=== PATIENT | male | born 1935 | race Caucasian/White ===

== ENCOUNTER 2016-05-18 09:08 | Emergency (ER) | payer OTHER ==
[2016-05-18 09:12] VITALS: BP 108/62; PULSE 60; O2SAT 98
--- NOTE | 2016-05-18 09:34 | EDPHY ---
H & P Stated Complaint: G tube came out again;needs new one Source: Patient Exam Limitations: No limitations - Personal History Current Tetanus Diphtheria and Acellular Pertussis (TDAP): Yes - Medical/Surgical History Hx Asthma: No Hx Chronic Respiratory Disease: Yes Hx Diabetes: No Hx Cardiac Disease: No Hx Renal Disease: No Hx Cirrhosis: No Hx Alcoholism: Yes Hx HIV/AIDS: No Hx Splenectomy or Spleen Trauma: No Other PMH: CA LARYNX. CHF. HTN. lipids. hyponatremia. PUD/GI bleed - Family History Significant Family History: No pertinent family hx - Social History Smoking Status: Former smoker Alcohol Use: None Drug Use: None Time Seen by Provider: 05/18/16 09:28 HPI/ROS: HPI: 81-year-old gentleman presents to emergency department with chief concern my feeding tube fell out because sick got deflated. He has no fever, no shortness of breath no abdominal pain no nausea, no vomiting, no diarrhea, no other complaints. ROS:10 point review of systems is negative other than as stated in HPI (Codie Phillips) - Social History Additional Social History: Lives alone in [place] (Codie Phillips) - Physical Exam Exam: Vital signs stable, reviewed by me General: Awake, alert, calm, cooperative. No acute distress. Head: Normalocephalic. Atraumatic. EENT: PERRLA. EOMI. No pallor or injection. Anicteric. No nystagmus. Neck: Supple, nontender. No lymphadenopathy. Full range of motion. Respiratory: Breathing unlabored. Breath sounds scattered rhonchi. CV: Chest nontender, atraumatic. Heart rate regular. No murmur. GI: Abdomen soft, nontender, no rebound, no guarding.. Bowel sounds normoactive and positive x 4 quadrants. Right abdominal stoma Neuro: Alert. Oriented x 3. Speech clear. Nonfocal cranial nerves throughout. Sensation intact all extremities. Strength 5+ all extremities. Follows commands. Skin: Skin warm, dry, right abdominal stoma without erythema. No rashes, abrasions, or lacerations. Skin turgor normal. Extremities: Full range of motion in all 4 extremities. Mental status: Interactive, appropriate, well-groomed. (Codie Phillips) Constitutional: Initial Vital Signs Temperature (C) 36.7 C 05/18/16 09:10 Heart Rate 60 05/18/16 09:10 Respiratory Rate 18 05/18/16 09:10 Blood Pressure 108/62 05/18/16 09:10 O2 Sat (%) 98 05/18/16 09:10 O2 Delivery Mode Nasal Cannula O2 (L/minute) 2 Allergies/Adverse Reactions: No Known Allergies Allergy (Verified 05/18/16 09:09) Home Medications: Medication Instructions Recorded Eszopiclone [LUNESTA] 3 mg PO HS PRN 07/03/11 Fenofibrate [Tricor 145 mg (*)] 145 mg PO DAILY 07/03/11 Amlodipine Besylate/Benazepril 1 each PO DAILY 07/26/13 [Amlodipine-Benazepril 10-20 mg] Aspirin [Aspirin 81mg (*)] 81 mg PO DAILY #30 tab 08/02/13 Atenolol [Tenormin 50 mg (*)] 50 mg PO DAILY #30 tab 08/02/13 Pantoprazole Sodium [Protonix 40mg 40 mg PO DAILY #30 tab 08/02/13 (*)] Levothyroxine 02/21/16 Medical Decision Making ED Course/Re-evaluation: 81-year-old gentleman presents to emergency department needing his PEG tube replaced. It came out last night because it was deflated. Abdominal stoma without evidence of infection. It was replaced by my colleague Dr. Osvaldo Sanders without incident. Patient tolerated procedure. Case management has been consulted as this patient presents to emergency department frequently for PEG tube placement. (Codie Phillips) Differential Diagnosis: Peg tube dysfunction, peg tube malalignment (Codie Phillips) Other Provider: I evaluated and participated in the management of the patient. I also evaluated the patient independently. My co-signature indicates that I have reviewed this chart and I agree with the findings and plan of care as documented. My personal H&P findings include: The patient presents to the ED with dysfunction his gastrostomy tube. The patient had failure of the balloon. The patient has a well-established tract. He has no acute complaints. Physical examination demonstrated a soft nontender abdomen. His G-tube was easily replaced. Gastric contents were noted to be in the tube following replacement. It was secured to the abdominal wall via the typical bolster. The patient will be discharged home with customary aftercare instructions and return precautions. (Osvaldo Sanders) Departure - Departure Disposition: Home, Routine, Self-Care Clinical Impression: Encounter for G-tube replacement Condition: Good Instructions: How to Use and Care for Your PEG Tube (ED) Additional Instructions: Plan: Follow up with primary care this week Referrals: Dutch Serrato MD [Primary Care Provider] - As per Instructions
[2016-05-18 10:28] VITALS: RESP 14; TEMP 97.9
== END 2016-05-18 10:27 | disposition home or self-care (01) ==
PROC: 0DH63UZ Insertion of Feeding Device into Stomach, Percutaneous Approach (ICD-10-PCS; principal; 2016-05-18)
DX: Z46.59 Encounter for fitting and adjustment of other gastrointestinal appliance and device (principal); I10 Essential (primary) hypertension; I50.9 Heart failure, unspecified; Z87.891 Personal history of nicotine dependence; Z79.82 Long term (current) use of aspirin

== ENCOUNTER 2016-10-28 15:18 | Inpatient (IN) | payer OTHER ==
[2016-10-28] MEDS ORDERED: NS 1,000 ML IV ONE ×2 (15:42→16:46)
--- NOTE | 2016-10-28 15:45 | EDPHY ---
H & P Time Seen by Provider: 10/28/16 15:22 HPI/ROS: CHIEF COMPLAINT: Weakness. HISTORY OF PRESENT ILLNESS: The patient is an 81-year-old male with history of larynx cancer and HTN, who presents with increased weakness for the past few days, worse today. Unable to walk today. The patient had two episodes of diarrhea this morning. During one episode he lost control of his bowels. He has a feeding tube and states he has been using it accordingly, though he complains that it leaks. According to the patient's friend, the patient drinks a heavy amount of vodka. He had an endoscopy two weeks ago. She is unsure if he has had any alcohol since the endoscopy. The patient's only recent change is drinking a large amount of orange juice and orange soda lately. He wears 2L O2 chronically and states he has a chronic cough. No fever. History is limited because patient is a very poor historian. REVIEW OF SYSTEMS: A comprehensive 10 point review of systems is otherwise negative aside from elements mentioned in the history of present illness. Past Medical/Surgical History: Hypertension, Hyponatremia, Larynx cancer, PUD/GI Bleed Social History: Heavy alcohol use. 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 Smoking Status: Former smoker Physical Exam: General Appearance: Alert, pleasant, sitting up, slightly pale Eyes: Pupils equal and round, no conjunctival injection ENT, Mouth: Oropharynx is dry Neck: Normal inspection Respiratory: Rales at the bases bilaterally Cardiovascular: Regular rate and rhythm Gastrointestinal: Abdomen is soft and non-tender, Feeding tube in place Neurological: A&O, nonfocal exam Skin: Pale appearing Extremities: Nontender, no pedal edema Psychiatric: flat affect Constitutional: Initial Vital Signs Temperature (C) 36.5 C 10/28/16 15:27 Heart Rate 65 10/28/16 15:27 Respiratory Rate 16 10/28/16 15:27 Blood Pressure 55/40 L 10/28/16 15:27 O2 Sat (%) 91 L 10/28/16 15:27 O2 Delivery Mode Nasal Cannula O2 (L/minute) 95 Allergies/Adverse Reactions: No Known Allergies Allergy (Verified 05/18/16 09:09) Home Medications: Medication Instructions Recorded Fenofibrate [Tricor 145 mg (*)] 145 mg PO DAILY 07/03/11 Amlodipine Besylate/Benazepril 1 each PO DAILY 07/26/13 [Amlodipine-Benazepril 10-20 mg] Aspirin [Aspirin 81mg (*)] 81 mg PO DAILY #30 tab 08/02/13 Levothyroxine [Synthroid 50 mcg 50 mcg PO DAILY06 02/21/16 (*)] Atenolol [Tenormin 100 mg (*)] 100 mg PO DAILY 10/28/16 Medical Decision Making - Diagnostics EKG Interpretation: EKG interpreted by me reveals normal sinus rhythm, rate 63, diffuse T-wave changes. Imaging Results: Imaging Impressions Chest X-Ray 10/28/16 15:43 Impression: Patchy bilateral lower lobe infiltrates, potentially representing scarring or atelectasis, less conspicuous when compared to prior study.. Imaging: Discussed imaging studies w/ glass cut off tender Radiologist, I viewed and interpreted images myself ED Course/Re-evaluation: This patient presents with hypotension and generalized weakness. Pressure is 60s /40s. He is 90% on 4L O2, his baseline is 2L. IV normal saline 1 L given. Plan for lab work including CBC, BMP, Troponin, Lipase, and LFTs. Stat EKG reveals no evidence of dysrhythmia or ischemia. He has not recently been ill and I do not suspect sepsis. On exam patient has rales at the bases, chest x- ray ordered. iSTAT shows elevated glucose in the 600s. No prior history of diabetes, the looking back in his prior laboratory tests, his blood sugar has been mildly elevated for quite some time. Insulin 10 units regular IV regular given. Patient has received 500ccs of fluid, his color is improving, and his blood pressure is improving. Patient is tolerating fluids well. 1630: Patient's pressure has improved to 91/56. Lab work consistent with dehydration and hyperglycemia. BGL is 603. No evidence of DKA; bicarb is normal. The hospitalist service was consulted. Patient will be admitted to the hospitalist, Dr. Oswald. 1615: I discussed findings and plan for admission with the patient and his friend. Differential Diagnosis: Differential diagnosis includes though not limited to severe sepsis, pneumonia, GI hemorrhage, DKA. - Data Points Laboratory Results: Laboratory Results 10/28/16 15:56 10/28/16 15:56 07/14/17 07/14/17 07/14/17 15:56 15:56 15:56 WBC 15.17 10^3/uL H 10^3/uL (3.80-9.50) RBC 4.31 10^6/uL L 10^6/uL (4.40-6.38) Hgb 14.1 g/dL g/dL (13.7-17.5) POC Hgb Hct 44.9 % % (40.0-51.0) POC Hct MCV 104.2 fL H fL (81.5-99.8) MCH 32.7 pg pg (27.9-34.1) MCHC 31.4 g/dL L g/dL (32.4-36.7) RDW 12.4 % % (11.5-15.2) Plt Count 437 10^3/uL H 10^3/uL (150-400) MPV 11.9 fL H fL (8.7-11.7) Neut % (Auto) 93.3 % H % (39.3-74.2) Lymph % (Auto) 2.1 % L % (15.0-45.0) [place] % (Auto) 3.6 % L % (4.5-13.0) Eos % (Auto) 0.0 % L % (0.6-7.6) Baso % (Auto) 0.2 % L % (0.3-1.7) Nucleat RBC Rel Count 0.0 % % (0.0-0.2) Absolute Neuts (auto) 14.15 10^3/uL H 10^3/uL (1.70-6.50) Absolute Lymphs (auto) 0.32 10^3/uL L 10^3/uL (1.00-3.00) Absolute Monos (auto) 0.55 10^3/uL 10^3/uL (0.30-0.80) Absolute Eos (auto) 0.00 10^3/uL L 10^3/uL (0.03-0.40) Absolute Basos (auto) 0.03 10^3/uL 10^3/uL (0.02-0.10) Absolute Nucleated RBC 0.00 10^3/uL 10^3/uL (0-0.01) Immature Gran % 0.8 % % (0.0-1.1) Immature Gran # 0.12 10^3/uL H 10^3/uL (0.00-0.10) POC Sodium Sodium 157 mEq/L H mEq/L (134-144) POC Potassium Potassium 4.2 mEq/L mEq/L (3.5-5.2) POC Chloride Chloride 111 mEq/L H mEq/L (97-110) Carbon Dioxide 29 mEq/l mEq/l (22-31) Anion Gap 17 mEq/L H mEq/L (8-16) POC BUN BUN 83 mg/dL H mg/dL (7-23) Creatinine 1.7 mg/dL H mg/dL (0.7-1.3) POC Creatinine Estimated GFR 39 Glucose 650 mg/dL H* mg/dL (70-100) POC Glucose Hemoglobin A1c Estim Average Glucose Calcium 9.4 mg/dL mg/dL (8.5-10.4) Phosphorus 5.3 mg/dL H mg/dL (2.5-4.5) Magnesium 3.4 mg/dL H mg/dL (1.6-2.3) Total Bilirubin 0.6 mg/dL mg/dL (0.1-1.4) Conjugated Bilirubin 0.5 mg/dL mg/dL (0.0-0.5) Unconjugated Bilirubin 0.1 mg/dL mg/dL (0.0-1.1) AST 28 IU/L IU/L (17-59) ALT 25 IU/L IU/L (21-72) Alkaline Phosphatase 67 IU/L IU/L (38-126) Troponin I 0.043 ng/mL H ng/mL (0-0.034) Total Protein 6.1 g/dL L g/dL (6.3-8.2) Albumin 3.4 g/dL L g/dL (3.5-5.0) Lipase 16.0 IU/L L IU/L (23-300) Beta-Hydroxybutyrate 0.31 mmol/L H mmol/L (0.02-0.27) 10/28/16 10/28/16 15:50 15:50 WBC RBC Hgb POC Hgb 15.3 gm/dL gm/dL (13.7-17.5) Hct POC Hct 45 % % (40-51) MCV MCH MCHC RDW Plt Count MPV Neut % (Auto) Lymph % (Auto) [place] % (Auto) Eos % (Auto) Baso % (Auto) Nucleat RBC Rel Count Absolute Neuts (auto) Absolute Lymphs (auto) Absolute Monos (auto) Absolute Eos (auto) Absolute Basos (auto) Absolute Nucleated RBC Immature Gran % Immature Gran # POC Sodium 155 mEq/L H mEq/L (134-144) Sodium POC Potassium 4.1 mEq/L mEq/L (3.3-5.0) Potassium POC Chloride 110 mEq/L mEq/L (97-110) Chloride Carbon Dioxide Anion Gap POC BUN 72 mg/dL H mg/dL (7-23) BUN Creatinine POC Creatinine 1.8 mg/dL H mg/dL (0.7-1.3) Estimated GFR Glucose POC Glucose 603 mg/dL H* mg/dL (70-100) Hemoglobin A1c 8.1 % H D % (4.0-6.0) Estim Average Glucose 186 mg/dL H mg/dL (68-126) Calcium Phosphorus Magnesium Total Bilirubin Conjugated Bilirubin Unconjugated Bilirubin AST ALT Alkaline Phosphatase Troponin I Total Protein Albumin Lipase Beta-Hydroxybutyrate Medications Given: Discontinued Medications Sodium Chloride (Ns) 1,000 mls @ 0 mls/hr IV ONCE ONE; Wide Open PRN Reason: Protocol Stop: 10/28/16 15:43 Last Admin: 10/28/16 16:13 Dose: 1,000 mls Sodium Chloride (Ns) 1,000 mls @ 0 mls/hr IV ONCE ONE; Wide Open PRN Reason: Protocol Stop: 10/28/16 16:47 Last Admin: 10/28/16 17:10 Dose: 1,000 mls Insulin Human Regular (Humulin R) 10 unit IVP EDNOW ONE Stop: 10/28/16 16:59 Last Admin: 10/28/16 17:09 Dose: 10 unit Point of Care Test Results: 10/28/16 15:50 POC Sodium 155 H POC Potassium 4.1 POC Chloride 110 POC BUN 72 H POC Creatinine 1.8 H POC Glucose 603 H* Departure - Departure Disposition: [facility] Acute Clinical Impression: Hyperglycemia, Dehydration Condition: Fair Report Scribed for: Naomi Cagle Report Scribed by: America Aguero Date of Report: 10/28/16 Time of Report: 15:38 Physician Review and Approval Statement: 10/28/16 15:38 Portions of this note were transcribed by a medical claims assistant. I personally performed the history, physical exam, and medical decision-making; and confirmed the accuracy of the information in the transcribed note.
--- NOTE | 2016-10-28 15:55 | CPEKG ---
Heart Rate: 63 RR Interval: 952 P-R Interval: 184 QRSD Interval: 80 QT Interval: 444 QTC Interval: 455 P [place] Cbc Base: 10 QRS [place] Cbc Base: -14 T Wave [place] Cbc Base: -49 EKG Severity - ABNORMAL ECG - EKG Impression: SINUS RHYTHM EKG Impression: NONSPECIFIC T ABNORMALITIES, DIFFUSE LEADS Electronically Signed By: Rohit Fairchild 28-Oct-2016 21:04:36
[2016-10-28 16:11] LABS: % IMMATURE GRANULYOCYTES 0.8 % (0.0-1.1); ABSOLUTE IMMATURE GRANULOCYTES 0.12 10^3/uL (0.00-0.10); ADD DIFF? NO; ADD MORPH? NO; ADD SCAN? NO; ATYPICAL LYMPHOCYTE FLAG 0 (0-99); FRAGMENT RBC FLAG 0 (0-99); HEMATOCRIT 44.9 % (40.0-51.0); HEMOGLOBIN 14.1 g/dL (13.7-17.5); LEFT SHIFT FLG 0 (0-99); LIPEMIA HEMOLYSIS FLAG 80 (0-99); MEAN CELL HEMOGLOBIN 32.7 pg (27.9-34.1); MEAN CELL HEMOGLOBIN CONCENTR. 31.4 g/dL (32.4-36.7); MEAN CELL VOLUME 104.2 fL (81.5-99.8); MEAN PLATELET VOLUME 11.9 fL (8.7-11.7); PLATELET CLUMPS FLAG 0 (0-99); PLATELET COUNT 437 10^3/uL (150-400); RED BLOOD CELL COUNT 4.31 10^6/uL (4.40-6.38); RED CELL DISTRIBUTION WIDTH 12.4 % (11.5-15.2)
[2016-10-28 16:24] LABS: ALANINE AMINOTRANSFERASE 25 IU/L (21-72); ALBUMIN 3.4 g/dL (3.5-5.0); ALKALINE PHOSPHATASE 67 IU/L (38-126); ANION GAP 17 mEq/L (8-16); ASPARTATE AMINOTRANSFERASE 28 IU/L (17-59); BILIRUBIN,TOTAL 0.6 mg/dL (0.1-1.4); BILIRUBIN-CONJUGATED 0.5 mg/dL (0.0-0.5); BILIRUBIN-UNCONJUGATED 0.1 mg/dL (0.0-1.1); CALCIUM 9.4 mg/dL (8.5-10.4); CARBON DIOXIDE 29 mEq/l (22-31); CHLORIDE 111 mEq/L (97-110); CREATININE 1.7 mg/dL (0.7-1.3); GLOMERULAR FILTRATION RATE 39; POTASSIUM 4.2 mEq/L (3.5-5.2); SODIUM 157 mEq/L (134-144); TOTAL PROTEIN 6.1 g/dL (6.3-8.2)
[2016-10-28 16:39] LABS: TROPONIN I 0.043 ng/mL (0-0.034)
[2016-10-28 16:58] LABS: GLUCOSE 650 mg/dL (70-100)
[2016-10-28] MEDS ORDERED: INSULIN REGULAR HUMAN 100 UNIT/ML IVP ONE (16:58)
[2016-10-28 17:03] LABS: HEMOGLOBIN A1C 8.1 % (4.0-6.0)
[2016-10-28 17:15] LABS: MAGNESIUM 3.4 mg/dL (1.6-2.3)
[2016-10-28 17:48] LABS: B-HYDROXYBUTYRATE 0.31 mmol/L (0.02-0.27)
[2016-10-28] MEDS ORDERED: ONDANSETRON 4 MG/2 ML VIAL IVP PRN (20:54)
[2016-10-28] MEDS ORDERED: ONDANSETRON DISINTEGRATING 4 MG TAB PO PRN (20:54)
[2016-10-28] MEDS ORDERED: ACETAMINOPHEN 325 MG TAB PO PRN (20:54)
[2016-10-28] MEDS ORDERED: D50W 25 GM/50 ML SYR IVP PRN (20:57)
[2016-10-28] MEDS ORDERED: INSULIN GLARGINE 100 UNITS/ML SYRINGE SC SCH (21:00)
--- NOTE | 2016-10-28 21:25 | GHP ---
[f rep st] HISTORY AND PHYSICAL DATE OF ADMISSION: 10/28/2016 CHIEF COMPLAINT: Shortness of breath, weakness. HISTORY OF PRESENT ILLNESS: This is an 81-year-old male with a history of laryngeal cancer, who castro s have a chronic PEG tube placed. He presents with overall weakness but also says that his oxygen s aturation was low at home. He usually uses 2 L of oxygen. He does not admit to any polyuria or amarilis ydipsia. He is drinking a lot of orange juice and orange soda over the last few weeks. No fevers o r chills. No previous history of diabetes. No abdominal pain. No cough. REVIEW OF SYSTEMS: A 10-point review of systems was obtained, and other than stated above, is negat brigida. PAST MEDICAL HISTORY: 1. Laryngeal cancer status post radiation. 2. Hypertension. 3. History of peptic ulcer disease and GI bleed. 4. Hypothyroidism. 5. COPD. 6. History of alcohol abuse. 7. History of chronic hyponatremia. SOCIAL HISTORY: Lives alone. Quit tobacco. vodka. FAMILY HISTORY: Reviewed and noncontributory. PHYSICAL EXAMINATION: VITAL SIGNS: Afebrile, blood pressure is 121/70, heart rate 87, oxygen satur ation is 92% on 4 L. GENERAL: The patient is well developed, in no apparent distress. HEENT: Non icteric sclerae. Extraocular movements intact. Dry mucous membranes. NECK: Supple. No thyromega ly. LUNGS: Good effort. Clear to auscultation but decreased breath sounds. No wheezes. CARDIOVA SCULAR: Regular rate and rhythm. No murmurs, gallops. ABDOMEN: Positive bowel sounds. Soft, non tender, nondistended. G-tube is in place. EXTREMITIES: No clubbing, cyanosis, or edema. SKIN: W ithout rash, dry, intact. NEUROLOGIC: Alert and oriented x3. Moving all 4 extremities equally. P SYCH: Normal mood and affect. LABORATORY AND X-RAY DATA: White blood cell count elevated at 15, hemoglobin 14, platelets 437. So dium is 157, BUN 83, creatinine 1.7, glucose was 650. Hemoglobin A1c is 8. Troponin slightly eleva ezra 0.043. EKG personally reviewed and interpreted shows normal sinus rhythm with no ischemic de la rosa es. Chest x-ray personally viewed and interpreted shows some patchy bilateral infiltrates that were actually there in 2014, which could represent scarring. ASSESSMENT: This is an 81-year-old male presenting with hyperglycemia, dehydration, hypernatremia. PLAN: 1. Hyperosmolar hyperglycemia. The patient's blood sugar is coming down well with some insulin. H emoglobin A1c is not that high at 8. It could be he could of had some hyperglycemia/prediabetes or diabetes but it really got exacerbated over the last few weeks when he has been drinking a lot of or rema soda a lot of orange juice. Tonight, I am going to give him a dose of Lantus. Could be discha rged perhaps on oral medications though. 2. Acute renal failure. This is due to dehydration. Will continue IV fluids. 3. Hypernatremia. I suspect that he might not be drinking enough free water, overall, or not flush ing his PEG tube enough in combination with alcohol abuse. We would want to decrease this slowly. I am going to start a little bit of half-normal saline overnight and see what his sodium does with t hat. He may need D5W eventually to bring his sodium down. We could also add free water to his PEG tube as boluses. We will see what his sodium is tomorrow. 4. History of laryngeal cancer with feeding tube. Apparently, this needs to be changed at some poi nt. 5. Hypertension. Will continue his medications. 6. Shortness of breath. This could be due to his dehydration. His chest x-ray is not showing any new pneumonia; however, his white blood cell count is elevated. Will give fluids and see how he fee ls and see if we can get his oxygen requirement down. I am going to hold off on any antibiotics. 7. Admission. Patient will be admitted full admission status. Case discussed with ER physician. Old records reviewed and summarized in the HPI. /[id number]/MODL
[2016-10-28] MEDS: 1/2 NS 1,000 ML IV SCH ×2 (23:06→23:09)
[2016-10-29] MEDS ORDERED: ZOLPIDEM TARTRATE 5 MG TAB PO PRN (00:08)
[2016-10-29 01:55] LABS: COLOR YELLOW; LEUKOCYTE ESTERASE,URINE NEGATIVE (NEGATIVE); NITRITE,URINE NEGATIVE (NEGATIVE)
[2016-10-29 01:58] LABS: BACTERIA TRACE /hpf (NONE SEEN); MUCUS TRACE /lpf (NONE-1+)
[2016-10-29 05:19] LABS: % IMMATURE GRANULYOCYTES 0.7 % (0.0-1.1); ADD DIFF? NO; ADD MORPH? NO; ADD SCAN? NO; ATYPICAL LYMPHOCYTE FLAG 0 (0-99); FRAGMENT RBC FLAG 0 (0-99); HEMATOCRIT 42.6 % (40.0-51.0); HEMOGLOBIN 13.4 g/dL (13.7-17.5); LEFT SHIFT FLG 30 (0-99); LIPEMIA HEMOLYSIS FLAG 80 (0-99); MEAN CELL HEMOGLOBIN 33.3 pg (27.9-34.1); MEAN CELL HEMOGLOBIN CONCENTR. 31.5 g/dL (32.4-36.7); MEAN PLATELET VOLUME 11.4 fL (8.7-11.7); PLATELET CLUMPS FLAG 0 (0-99); PLATELET COUNT 326 10^3/uL (150-400); RED BLOOD CELL COUNT 4.02 10^6/uL (4.40-6.38); RED CELL DISTRIBUTION WIDTH 12.4 % (11.5-15.2)
[2016-10-29 05:40] LABS: TROPONIN I 0.053 ng/mL (0-0.034)
[2016-10-29] MEDS ORDERED: LEVOTHYROXINE 50 MCG TAB PO SCH (06:00)
[2016-10-29] MEDS ORDERED: FENOFIBRATE 145 MG TAB PO SCH (09:00)
[2016-10-29] MEDS ORDERED: AMLODIPINE BESYLATE 5/BENAZEPRIL 10MG 1 EACH CAP PO SCH (09:00)
[2016-10-29] MEDS ORDERED: ATENOLOL 100 MG TAB PO SCH (09:00)
[2016-10-29] MEDS ORDERED: ASPIRIN 81 MG CHEWABLE TAB PO SCH (09:00)
[2016-10-29] MEDS: ENOXAPARIN 30 MG/0.3 ML SYR SC SCH (09:38)
[2016-10-29] MEDS: INSULIN LISPRO 100 UNIT/ML SC SCH ×3 (09:50→18:53)
[2016-10-29] MEDS: 1/2 NS 1,000 ML IV SCH (10:20)
[2016-10-29 12:09] LABS: ANION GAP 8 mEq/L (8-16); CALCIUM 8.5 mg/dL (8.5-10.4); CARBON DIOXIDE 29 mEq/l (22-31); CHLORIDE 121 mEq/L (97-110); GLOMERULAR FILTRATION RATE > 60; GLUCOSE 145 mg/dL (70-100); POTASSIUM 3.2 mEq/L (3.5-5.2); SODIUM 158 mEq/L (134-144)
[2016-10-29] MEDS ORDERED: guaiFENesin 200 MG/10 ML UDL PO PRN (12:33)
--- NOTE | 2016-10-29 12:42 | HOSPPROG ---
Hospitalist Progress Note Assessment/Plan: # severe hypernatremia - correcting nicely on 2NS - continue for now - will need to evaluate his free H2O flushed via PEG, would like to correct hyperNa with IVF currently (do not start flushes) - goal Na for tomorrow am = 152 # PEG tube malfunction - will d/w GI; sees Dr Urena; likely needs to be replaced # hyperglycemia - likely d/t diet with some underlying DM - much better; hold glargine, follow with SSI # hx laryngeal cancer # JUAN RAMON, pre-renal - much improved with IVF # hypoK - replete with IVF # leukocytosis - no clear infection, follow # hypotension - hold amlodipine, benazepril, atenolol # bradycardia - hold atenolol # weakness d/t combination of the above - PT # elevated trop - T-wave abnormalities on ECG; doubt ACS, suspect demand - recheck another trop; consider stress, inpatient vs outpt # dvt ppx - lovenox Subjective: still weak; says his PEG has been falling out Objective: Vital Signs Temp Pulse Resp BP Pulse Ox 36.7 C 50 L 21 H 100/57 L 92 10/29/16 11:50 10/29/16 11:50 10/29/16 11:50 10/29/16 11:50 10/29/16 11:50 Laboratory Results 10/29/16 04:46 10/29/16 11:43 10/28/16 10/29/16 10/30/16 05:59 05:59 05:59 Intake Total 3000 Output Total 1 Balance 3000 -1 chart reviewed; ECG personally reviewed; CXR personally reviewed - Physical Exam Constitutional: chronically ill appearing Cardiovascular: regular rate and rhythym, no murmur, rub, or gallop Respiratory: no respiratory distress, no rales or rhonchi, clear to auscultation Gastrointestinal: normoactive bowel sounds, soft, non-tender abdomen, other (PEG ; ventral hernia, easily reduced) ICD10 Worksheet Patient Problems: Problems Problem Status Onset Vomiting Acute Feeding tube dysfunction Acute Hyperglycemia Acute Dehydration Acute
[2016-10-29] MEDS ORDERED: D5W 1/2 NS W/ 20 KCl/L 1,000 ML IV SCH (12:45)
[2016-10-29] MEDS ORDERED: ONDANSETRON DISINTEGRATING 4 MG TAB TUBE PRN (12:48)
[2016-10-29] MEDS ORDERED: ACETAMINOPHEN 325 MG TAB TUBE PRN (12:48)
--- NOTE | 2016-10-29 15:19 | SOAPPROG ---
SOAP Progress Note Assessment/Plan: Assessment: Plan: 10/29/16 15:15 GI note Feeding tube is easily pulled out according to patient. PEG Replacement: Old Peg tube pulled easily. Appears to have defective balloon which does not inflate completely. 24 Fr Bard replacement placed easily in tract. 10cc of saline used to inflate the balloon. PEG appears to be in good position. Bumper pulled to 3mm. Meds: None EBL: None Recommend PEG study before using tube. Discussed with hospitalist. Objective: Vital Signs Temp Pulse Resp BP Pulse Ox 36.7 C 50 L 21 H 100/57 L 92 10/29/16 11:50 10/29/16 11:50 10/29/16 11:50 10/29/16 11:50 10/29/16 11:50 Laboratory Results 10/29/16 04:46 10/29/16 11:43 10/28/16 10/29/16 10/30/16 05:59 05:59 05:59 Intake Total 3000 Output Total 1 Balance 3000 -1 ICD10 Worksheet Patient Problems: Problems Problem Status Onset Dehydration Acute Hyperglycemia Acute Feeding tube dysfunction Acute Vomiting Acute
[2016-10-29] MEDS: guaiFENesin 200 MG/10 ML UDL TUBE PRN (18:21)
[2016-10-29 19:17] LABS: ANION GAP 11 mEq/L (8-16); CALCIUM 8.7 mg/dL (8.5-10.4); CARBON DIOXIDE 26 mEq/l (22-31); CHLORIDE 120 mEq/L (97-110); GLOMERULAR FILTRATION RATE > 60; GLUCOSE 112 mg/dL (70-100); POTASSIUM 3.4 mEq/L (3.5-5.2); SODIUM 157 mEq/L (134-144)
[2016-10-29] MEDS: ZOLPIDEM TARTRATE 5 MG TAB TUBE PRN (22:43)
[2016-10-30 00:16] LABS: ANION GAP 10 mEq/L (8-16); CALCIUM 8.1 mg/dL (8.5-10.4); CARBON DIOXIDE 25 mEq/l (22-31); CHLORIDE 121 mEq/L (97-110); GLOMERULAR FILTRATION RATE > 60; GLUCOSE 227 mg/dL (70-100); POTASSIUM 3.7 mEq/L (3.5-5.2); SODIUM 156 mEq/L (134-144)
[2016-10-30] MEDS ORDERED: IOPAMIDOL (ISOVUE 370) 100 ML BTL IV ONE (03:56)
[2016-10-30 04:53] LABS: % IMMATURE GRANULYOCYTES 0.4 % (0.0-1.1); ABSOLUTE IMMATURE GRANULOCYTES 0.07 10^3/uL (0.00-0.10); ADD DIFF? NO; ADD MORPH? NO; ADD SCAN? NO; ATYPICAL LYMPHOCYTE FLAG 0 (0-99); FRAGMENT RBC FLAG 0 (0-99); HEMATOCRIT 44.4 % (40.0-51.0); HEMOGLOBIN 13.9 g/dL (13.7-17.5); LEFT SHIFT FLG 30 (0-99); LIPEMIA HEMOLYSIS FLAG 80 (0-99); MEAN CELL HEMOGLOBIN 33.2 pg (27.9-34.1); MEAN CELL HEMOGLOBIN CONCENTR. 31.3 g/dL (32.4-36.7); MEAN PLATELET VOLUME 11.2 fL (8.7-11.7); PLATELET CLUMPS FLAG 0 (0-99); PLATELET COUNT 285 10^3/uL (150-400); RED BLOOD CELL COUNT 4.19 10^6/uL (4.40-6.38); RED CELL DISTRIBUTION WIDTH 12.4 % (11.5-15.2)
[2016-10-30 05:07] LABS: ANION GAP 9 mEq/L (8-16); CALCIUM 8.4 mg/dL (8.5-10.4); CARBON DIOXIDE 27 mEq/l (22-31); CHLORIDE 118 mEq/L (97-110); GLOMERULAR FILTRATION RATE > 60; GLUCOSE 284 mg/dL (70-100); POTASSIUM 3.9 mEq/L (3.5-5.2); SODIUM 154 mEq/L (134-144)
[2016-10-30 05:17] LABS: TROPONIN I 0.033 ng/mL (0-0.034)
[2016-10-30] MEDS: guaiFENesin 200 MG/10 ML UDL TUBE PRN (05:42)
[2016-10-30] MEDS: LEVOTHYROXINE 50 MCG TAB TUBE SCH (05:42)
[2016-10-30] MEDS ORDERED: ALBUTEROL 60 PUFFS/8 GM MDI IH PRN (08:51)
[2016-10-30] MEDS ORDERED: ALBUTEROL 200 PUFFS/18 GM MDI IH PRN (08:53)
[2016-10-30] MEDS: ASPIRIN 81 MG CHEWABLE TAB TUBE SCH (08:57)
[2016-10-30] MEDS: FENOFIBRATE 145 MG TAB TUBE SCH (08:57)
[2016-10-30] MEDS: ENOXAPARIN 30 MG/0.3 ML SYR SC SCH (08:57)
--- NOTE | 2016-10-30 08:57 | HOSPPROG ---
Hospitalist Progress Note Assessment/Plan: # severe hypernatremia - continues to correct well - cont D5 1/2NS today - if Na better tomorrow, dc IVF and increase free H20 flushes with TFs # acute on chronic hypoxic resp failure - no PE; has atelectasis - start nebs, IS, acapella, mobilize - uses some O2 at home # PEG tube malfunction s/p replacement by Dr Amador # hyperglycemia - likely d/t diet with some underlying DM - much better - start glargine 5 + SSI (unlikely he will need insulin at home) # hx laryngeal cancer # JUAN RAMON, pre-renal - much improved with IVF # hypoK - replete with IVF # leukocytosis - no clear infection, follow # hypotension - hold amlodipine, benazepril, atenolol # bradycardia - hold atenolol # weakness d/t combination of the above - PT # elevated trop - T-wave abnormalities on ECG; doubt ACS, suspect demand - recheck another trop; consider stress, inpatient vs outpt # dvt ppx - lovenox # FCFT - discussed with patient Subjective: very hypoxic overnight, improved today; does not feel dyspneic Objective: Vital Signs Temp Pulse Resp BP Pulse Ox 36.5 C 62 24 H 133/78 H 93 10/30/16 07:16 10/30/16 07:16 10/30/16 07:16 10/30/16 07:16 10/30/16 07:16 Laboratory Results 10/30/16 04:42 10/30/16 04:42 10/29/16 10/30/16 10/31/16 05:59 05:59 05:59 Intake Total 3000 1170 Output Total 301 Balance 3000 869 CTA personally reviewed discussed with Dr Henderson - Physical Exam Constitutional: chronically ill appearing, No uncomfortable Cardiovascular: regular rate and rhythym, no murmur, rub, or gallop, systolic murmur Respiratory: no respiratory distress, no rales or rhonchi, clear to auscultation Gastrointestinal: normoactive bowel sounds, soft, non-tender abdomen, no palpable masses, other (PEG) ICD10 Worksheet Patient Problems: Problems Problem Status Onset Vomiting Acute Feeding tube dysfunction Acute Hyperglycemia Acute Dehydration Acute
[2016-10-30] MEDS: guaiFENesin 200 MG/10 ML UDL TUBE SCH ×4 (08:58→22:17)
[2016-10-30] MEDS ORDERED: IPRATROPIUM/ALBUTEROL 3 ML DEYVIAL ONE (09:21)
[2016-10-30] MEDS: IPRATROPIUM/ALBUTEROL 3 ML DEYVIAL IH SCH ×2 (09:28→16:55)
[2016-10-30] MEDS: INSULIN GLARGINE 100 UNITS/ML SYRINGE SC SCH (10:14)
[2016-10-30] MEDS: INSULIN LISPRO 100 UNIT/ML SC SCH ×3 (10:14→18:07)
[2016-10-30 12:51] LABS: ANION GAP 12 mEq/L (8-16); CALCIUM 8.5 mg/dL (8.5-10.4); CARBON DIOXIDE 26 mEq/l (22-31); CHLORIDE 116 mEq/L (97-110); CREATININE 0.9 mg/dL (0.7-1.3); GLOMERULAR FILTRATION RATE > 60; GLUCOSE 394 mg/dL (70-100); POTASSIUM 3.7 mEq/L (3.5-5.2); SODIUM 154 mEq/L (134-144)
[2016-10-30] MEDS ORDERED: POTASSIUM Cl (KCl) 20 MEQ in 1/2 NS 1,000 ML IV SCH (14:00)
[2016-10-30] MEDS ORDERED: D5W 1/4 NS W/ 20 KCl/L 1,000 ML IV SCH (17:30)
[2016-10-30 18:43] LABS: ANION GAP 10 mEq/L (8-16); CALCIUM 8.7 mg/dL (8.5-10.4); CARBON DIOXIDE 26 mEq/l (22-31); CHLORIDE 121 mEq/L (97-110); CREATININE 0.9 mg/dL (0.7-1.3); GLOMERULAR FILTRATION RATE > 60; GLUCOSE 135 mg/dL (70-100); POTASSIUM 3.8 mEq/L (3.5-5.2); SODIUM 157 mEq/L (134-144)
[2016-10-30] MEDS: POTASSIUM Cl (KCl) 20 MEQ, SODIUM CL 14.6% 38.5 MEQ in WATER FOR INJECTION,STERILE 1,00... IV SCH (20:08)
[2016-10-30] MEDS: ZOLPIDEM TARTRATE 5 MG TAB TUBE PRN (22:17)
[2016-10-31] MEDS: IPRATROPIUM/ALBUTEROL 3 ML DEYVIAL IH SCH ×5 (00:16→23:06)
[2016-10-31 00:34] LABS: ANION GAP 7 mEq/L (8-16); CALCIUM 8.4 mg/dL (8.5-10.4); CARBON DIOXIDE 25 mEq/l (22-31); CHLORIDE 120 mEq/L (97-110); CREATININE 0.9 mg/dL (0.7-1.3); GLOMERULAR FILTRATION RATE > 60; GLUCOSE 286 mg/dL (70-100); POTASSIUM 4.5 mEq/L (3.5-5.2); SODIUM 152 mEq/L (134-144)
[2016-10-31] MEDS: guaiFENesin 200 MG/10 ML UDL TUBE SCH ×6 (03:28→20:54)
[2016-10-31 05:06] LABS: % IMMATURE GRANULYOCYTES 0.9 % (0.0-1.1); ABSOLUTE IMMATURE GRANULOCYTES 0.17 10^3/uL (0.00-0.10); ADD DIFF? NO; ADD MORPH? NO; ADD SCAN? NO; ATYPICAL LYMPHOCYTE FLAG 0 (0-99); FRAGMENT RBC FLAG 0 (0-99); HEMATOCRIT 40.2 % (40.0-51.0); HEMOGLOBIN 12.6 g/dL (13.7-17.5); LEFT SHIFT FLG 30 (0-99); LIPEMIA HEMOLYSIS FLAG 80 (0-99); MEAN CELL HEMOGLOBIN CONCENTR. 31.3 g/dL (32.4-36.7); MEAN CELL VOLUME 105.2 fL (81.5-99.8); MEAN PLATELET VOLUME 11.8 fL (8.7-11.7); PLATELET CLUMPS FLAG 10 (0-99); PLATELET COUNT 224 10^3/uL (150-400); RED BLOOD CELL COUNT 3.82 10^6/uL (4.40-6.38); RED CELL DISTRIBUTION WIDTH 12.5 % (11.5-15.2)
[2016-10-31 05:21] LABS: ANION GAP 6 mEq/L (8-16); CALCIUM 8.2 mg/dL (8.5-10.4); CARBON DIOXIDE 26 mEq/l (22-31); CHLORIDE 117 mEq/L (97-110); CREATININE 0.9 mg/dL (0.7-1.3); GLOMERULAR FILTRATION RATE > 60; GLUCOSE 436 mg/dL (70-100); SODIUM 149 mEq/L (134-144)
[2016-10-31] MEDS: POTASSIUM Cl (KCl) 20 MEQ, SODIUM CL 14.6% 38.5 MEQ in WATER FOR INJECTION,STERILE 1,00... IV SCH (06:28)
[2016-10-31] MEDS: LEVOTHYROXINE 50 MCG TAB TUBE SCH (06:28)
[2016-10-31] MEDS: INSULIN GLARGINE 100 UNITS/ML SYRINGE SC SCH (08:47)
[2016-10-31] MEDS: ENOXAPARIN 40 MG/0.4 ML SYR SC SCH (08:47)
[2016-10-31] MEDS: ASPIRIN 81 MG CHEWABLE TAB TUBE SCH (08:47)
[2016-10-31] MEDS: FENOFIBRATE 145 MG TAB TUBE SCH (08:47)
[2016-10-31] MEDS: INSULIN LISPRO 100 UNIT/ML SC SCH ×3 (08:47→17:30)
--- NOTE | 2016-10-31 09:53 | HOSPPROG ---
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 He presented with overall weakness. His oxygen levels were low at home. He usually uses 2 L of oxygen. Today is my 1st encounter with the patient. Chart reviewed. # severe hypernatremia - continues to correct well -dc iv fluids -increase H20 flushes from 30 ml to 100 ml q6 hours -could increase H20 flushes upto 150 ml tomorrow/ will monitor his Na levels # acute on chronic hypoxic resp failure - no PE; has atelectasis - start nebs, IS, acapella, mobilize - uses some O2 at home - On 10 L -concern he aspirated -was eating frozen ice juice cubes at home/ mouth was dry -states he would cough up much of it after -evaluated his chest xray today, which looks worse, has more consolidation at the right base # Concern for aspiration pneumonia -had been eating at home/ freq coughing -wbc trending up and he continues to need high flow O2 -will start iv abx, and follow (check procalcitonin, and blood cx) # PEG tube malfunction s/p replacement by Dr Amador # elevated trop/suspect demand ischemia resolved has T w ave abnormalities heart looks enlarged on chest xray will get an echo to further evaluation when better, may need a stress test # Diabetes with a A1c of 8 (new diagnosis) -Lantus (increase dose today) and sliding scale -glucoses high # hx laryngeal cancer # JUAN RAMON, pre-renal - much improved with IVF # hypoK - resolved -will follow # hypotension -resolved will hold atenolol, resume lisinopril # bradycardia - hold atenolol # weakness d/t combination of the above - PT # dvt ppx - Lovenox # FCFT - discussed with patient by previous provider Subjective: Shelton said he is feeling fine x for coughing up significant amount of sputum. Objective: Vital Signs Temp Pulse Resp BP Pulse Ox 37.1 C 89 21 H 134/80 H 92 10/31/16 07:32 10/31/16 07:32 10/31/16 07:32 10/31/16 07:32 10/31/16 07:32 Laboratory Results 10/31/16 04:51 10/31/16 04:51 10/30/16 10/31/16 11/01/16 05:59 05:59 05:59 Intake Total 1170 1810 Output Total 301 975 875 Balance 869 835 -875 - Physical Exam Constitutional: chronically ill appearing, unkempt, other (thin) Eyes: PERRL Ears, Nose, Mouth, Throat: poor dentition Cardiovascular: regular rate and rhythym Respiratory: no respiratory distress, reduced air movement (bibasilar) Gastrointestinal: normoactive bowel sounds Skin: warm Musculoskeletal: generalized weakness Neurologic: AAOx3 Psychiatric: interacting appropriately, not anxious ICD10 Worksheet Patient Problems: Problems Problem Status Onset Dehydration Acute Hyperglycemia Acute Feeding tube dysfunction Acute Vomiting Acute
[2016-10-31] MEDS: ERTAPENEM 1 GM in NS 100 ML IV SCH (11:29)
[2016-10-31] MEDS ORDERED: INSULIN GLARGINE 100 UNITS/ML SYRINGE SC ONE (12:15)
--- NOTE | 2016-10-31 12:46 | ECHO ---
[id number] + + [address] : : [place] [address] : : [phone] + + Adult Echocardiographic Report + -----+ :Name: CHERISE GALLARDO MStudy Date: 10/31/2016 11:47 AM : : Hospital Admission Number: [id number] Location : 358: :: 1935 Gender: Male Height: 68 in : :Age: 81 yrs Race: WH Weight: 157 lb : :Reason For Study: Eval LV Fx : : BSA: 1.8 meters2 : :History: Increased 02 Needs, Tachycardia : + -----+ MMode/2D Measurements \T\ Calculations IVSd: 0.92 cm LVIDd: 3.9 cm FS: 39.9 % Ao root diam: 3.3 cm LVPWd: 0.93 cm LVIDs: 2.4 cm EDV(Teich): 67.2 ml ACS: 1.8 cm ESV(Teich): 19.3 ml EF(Teich): 71.2 % Normal Measurement Values: + + :LVIDd (3.5-5.7cm) IVSd (0.6-1.1cm) LVPWd (0.6-1.1cm) Aortic Root (2.0-3.7cm)Left Atrium (1.5-4.0cm): :LV Vol(d) (76-115ml) LV Vol(s) (29-48ml) Ejec Fraction (50-65%)PV Enoc (0.6- 1.2m/s) TV Enoc (0.4-1.0m/s) : :MV E Enoc (0.8-1.0m/s)MV A Enoc (0.3-1.0m/s)LVOT Enoc (0.7-1.2m/s) Asc Ao Enoc ( 0.9-1.8m/s) : + + Doppler Measurements \T\ Calculations MV E max enoc: Ao V2 max: LV V1 max: PA V2 max: 60.2 cm/sec 188.7 cm/sec 128.3 cm/sec 139.8 cm/sec MV A max enoc: Ao max PG: LV V1 max PG: PA max P.2 cm/sec 14.2 mmHg 6.6 mmHg 7.8 mmHg MV E/A: 0.60 TR max enoc: 278.3 cm/sec TR max P.0 mmHg RAP systole: 5.0 mmHg RVSP(TR): 36.0 mmHg Left Ventricle The left ventricle is normal in size. There is normal left ventricular wall thickness. The left ventricular ejection fraction is normal. There is Doppler evidence for diastolic dysfunction. Ejection Fraction = 72%. The left ventricular wall motion is normal. Right Ventricle The right ventricle is normal in size and function. Atria The left atrial size is normal. Right atrial size is normal. Mitral Valve The mitral valve is normal in structure and function. There is no evidence of mitral valve prolapse. There is no mitral valve stenosis. There is no mitral regurgitation noted. Tricuspid Valve There is trace tricuspid regurgitation. Right ventricular systolic pressure is normal. Aortic Valve The aortic valve is normal in structure and function. There is no aortic stenosis. There is no aortic insufficiency. Pulmonic Valve The pulmonic valve is normal in structure and function. There is no pulmonic valvular regurgitation. Great Vessels The aortic root is normal size. Pericardium/Pleural There is no pericardial effusion. There is a fat pad seen. Conclusion A complete two-dimensional transthoracic echocardiogram was performed (2D, M-mode, Doppler and color flow Doppler). The rhythm is sinus tachycardia. The left ventricular ejection fraction is normal. There is Doppler evidence for diastolic dysfunction. Ejection Fraction > 70%. The LV appears small and hypercontractile. The left ventricular wall motion is normal. The right ventricle is normal in size and function. The left atrial size is normal. Valvular appearance is grosly normal. There is trace tricuspid regurgitation. Right ventricular systolic pressure is normal. The aortic valve is normal in structure and function. There is no pericardial effusion. There is a fat pad seen. Subcostal views are unavailble due to colostomy dressing. RVSP most likely underestimated due to minimal tricuspid regurgitation. Final Reading Physician: Trinity Kapadia signed on 10/31/2016 12:45 PM Ordering Physician: Kaycee Gipson Performed By: Yonny Ying, [facility]
[2016-10-31 14:18] LABS: GLUCOSE 391 mg/dL (70-100)
[2016-10-31] MEDS ORDERED: NS 250 ML IV ONE (16:00)
[2016-10-31 18:16] LABS: ANION GAP 9 mEq/L (8-16); CALCIUM 8.5 mg/dL (8.5-10.4); CARBON DIOXIDE 24 mEq/l (22-31); CHLORIDE 117 mEq/L (97-110); CREATININE 0.8 mg/dL (0.7-1.3); GLOMERULAR FILTRATION RATE > 60; GLUCOSE 330 mg/dL (70-100); POTASSIUM 3.9 mEq/L (3.5-5.2); SODIUM 150 mEq/L (134-144)
[2016-10-31] MEDS: ZOLPIDEM TARTRATE 5 MG TAB TUBE PRN (20:54)
[2016-11-01] MEDS: guaiFENesin 200 MG/10 ML UDL TUBE SCH ×6 (02:11→21:28)
[2016-11-01] MEDS: LEVOTHYROXINE 50 MCG TAB TUBE SCH (05:16)
[2016-11-01 05:18] LABS: % IMMATURE GRANULYOCYTES 1.2 % (0.0-1.1); ADD DIFF? NO; ADD MORPH? NO; ADD SCAN? NO; ATYPICAL LYMPHOCYTE FLAG 0 (0-99); FRAGMENT RBC FLAG 0 (0-99); HEMATOCRIT 38.3 % (40.0-51.0); LEFT SHIFT FLG 70 (0-99); LIPEMIA HEMOLYSIS FLAG 80 (0-99); MEAN CELL HEMOGLOBIN 32.6 pg (27.9-34.1); MEAN CELL HEMOGLOBIN CONCENTR. 31.3 g/dL (32.4-36.7); MEAN CELL VOLUME 104.1 fL (81.5-99.8); MEAN PLATELET VOLUME 11.6 fL (8.7-11.7); PLATELET CLUMPS FLAG 10 (0-99); PLATELET COUNT 212 10^3/uL (150-400); RED BLOOD CELL COUNT 3.68 10^6/uL (4.40-6.38); RED CELL DISTRIBUTION WIDTH 12.5 % (11.5-15.2)
[2016-11-01 05:31] LABS: ALANINE AMINOTRANSFERASE 30 IU/L (21-72); ALBUMIN 2.5 g/dL (3.5-5.0); ALKALINE PHOSPHATASE 56 IU/L (38-126); ANION GAP 7 mEq/L (8-16); ASPARTATE AMINOTRANSFERASE 26 IU/L (17-59); BILIRUBIN,TOTAL 0.5 mg/dL (0.1-1.4); CALCIUM 8.4 mg/dL (8.5-10.4); CARBON DIOXIDE 27 mEq/l (22-31); CHLORIDE 114 mEq/L (97-110); CREATININE 0.8 mg/dL (0.7-1.3); GLOMERULAR FILTRATION RATE > 60; GLUCOSE 383 mg/dL (70-100); POTASSIUM 4.1 mEq/L (3.5-5.2); SODIUM 148 mEq/L (134-144); TOTAL PROTEIN 4.9 g/dL (6.3-8.2)
[2016-11-01] MEDS: IPRATROPIUM/ALBUTEROL 3 ML DEYVIAL IH SCH ×4 (05:35→21:59)
[2016-11-01] MEDS: ASPIRIN 81 MG CHEWABLE TAB TUBE SCH (08:31)
[2016-11-01] MEDS: ENOXAPARIN 40 MG/0.4 ML SYR SC SCH (08:31)
[2016-11-01] MEDS: ERTAPENEM 1 GM in NS 100 ML IV SCH (08:31)
[2016-11-01] MEDS: FENOFIBRATE 145 MG TAB TUBE SCH (08:31)
[2016-11-01] MEDS: INSULIN LISPRO 100 UNIT/ML SC SCH ×3 (08:32→18:07)
[2016-11-01] MEDS ORDERED: INSULIN GLARGINE 100 UNITS/ML SYRINGE SC SCH (09:00)
[2016-11-01] MEDS ORDERED: NS 1,000 ML IV ONE (12:36)
--- NOTE | 2016-11-01 12:40 | HOSPPROG ---
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 He presented with overall weakness. His oxygen levels were low at home. He usually uses 2 L of oxygen. Today 11/01 is my 1st encounter with the patient. Chart reviewed. # severe hypernatremia (persistent) ?DI vs persistent hypovolemia in the setting of npo status and inadequate ivf replacement -bolus 1L NS in the setting of hypotension -increase H20 flushes from 30 ml to 100 ml q6 hours -continue to monitor NA+ daily -send urine and serum osm to eval for DI #persistent hyperglycemia (?stress hypergly in the setting of underlying DM vs less like Hereditary Hemochromatosis) -increase lantus to 15units daily -ivf -send ferritin/transferrin levels, repeat lfts # acute on chronic hypoxic resp failure - no PE; has atelectasis - cont nebs, IS, acapella, mobilize - uses some O2 at home - On 10 L -concern he aspirated -was eating frozen ice juice cubes at home/ mouth was dry -states he would cough up much of it after -evaluated his chest xray today, which looks worse, has more consolidation at the right base # Concern for aspiration pneumonia -had been eating at home/ freq coughing -wbc trending up and he continues to need high flow O2 -cont erta for now # PEG tube malfunction s/p replacement by Dr Amador # elevated trop/suspect demand ischemia resolved has T w ave abnormalities heart looks enlarged on chest xray will get an echo to further evaluation when better, may need a stress test # Diabetes with a A1c of 8 (new diagnosis) -see above # hx laryngeal cancer # JUAN RAMON, pre-renal - much improved with IVF # hypoK - resolved -will follow # hypotension (ivf) -hold atenolol, resume lisinopril # bradycardia - hold atenolol # weakness d/t combination of the above - PT # dvt ppx - Lovenox # FCFT -pt is high risk Subjective: feels thirsty. no chest pain. no cough. no fevers or chills Objective: Vital Signs Temp Pulse Resp BP Pulse Ox 36.8 C 85 24 H 64/40 L 94 11/01/16 11:20 11/01/16 11:42 11/01/16 11:42 11/01/16 11:20 11/01/16 11:42 Laboratory Results 11/01/16 05:02 11/01/16 05:02 10/31/16 11/01/16 11/02/16 05:59 05:59 05:59 Intake Total 1810 883 Output Total 97 2500 Balance 835 -3830 - Physical Exam Constitutional: no apparent distress, appears nourished, not in pain Ears, Nose, Mouth, Throat: moist mucous membranes, hearing normal, ears appear normal, no oral mucosal ulcers Cardiovascular: regular rate and rhythym, no murmur, rub, or gallop, No JVD, No edema Respiratory: no respiratory distress, no rales or rhonchi, clear to auscultation , reduced air movement (bilat bases) Gastrointestinal: normoactive bowel sounds, soft, non-tender abdomen, no palpable masses, No guarding, No rebound Neurologic: AAOx3, CN II-XII Intact, No facial droop ICD10 Worksheet Patient Problems: Problems Problem Status Onset Vomiting Acute Feeding tube dysfunction Acute Hyperglycemia Acute Dehydration Acute
[2016-11-01] MEDS: POTASSIUM Cl (KCl) 20 MEQ, SODIUM CL 14.6% 38.5 MEQ in WATER FOR INJECTION,STERILE 1,00... IV SCH (13:32)
[2016-11-01] MEDS: ZOLPIDEM TARTRATE 5 MG TAB TUBE PRN (22:36)
[2016-11-01 23:04] LABS: GLUCOSE 284 mg/dL (70-100)
[2016-11-02] MEDS: guaiFENesin 200 MG/10 ML UDL TUBE SCH ×6 (01:43→22:50)
[2016-11-02 02:30] LABS: % IMMATURE GRANULYOCYTES 0.9 % (0.0-1.1); ABSOLUTE IMMATURE GRANULOCYTES 0.12 10^3/uL (0.00-0.10); ADD DIFF? NO; ADD MORPH? NO; ADD SCAN? NO; ATYPICAL LYMPHOCYTE FLAG 0 (0-99); FRAGMENT RBC FLAG 0 (0-99); HEMATOCRIT 36.6 % (40.0-51.0); HEMOGLOBIN 11.5 g/dL (13.7-17.5); LEFT SHIFT FLG 10 (0-99); LIPEMIA HEMOLYSIS FLAG 80 (0-99); MEAN CELL HEMOGLOBIN 32.9 pg (27.9-34.1); MEAN CELL HEMOGLOBIN CONCENTR. 31.4 g/dL (32.4-36.7); MEAN CELL VOLUME 104.6 fL (81.5-99.8); MEAN PLATELET VOLUME 12.3 fL (8.7-11.7); PLATELET CLUMPS FLAG 10 (0-99); PLATELET COUNT 234 10^3/uL (150-400); RED CELL DISTRIBUTION WIDTH 12.6 % (11.5-15.2)
[2016-11-02 02:34] LABS: ALANINE AMINOTRANSFERASE 34 IU/L (21-72); ALBUMIN 2.8 g/dL (3.5-5.0); ALKALINE PHOSPHATASE 61 IU/L (38-126); ANION GAP 7 mEq/L (8-16); ASPARTATE AMINOTRANSFERASE 38 IU/L (17-59); BILIRUBIN,TOTAL 0.7 mg/dL (0.1-1.4); CALCIUM 8.5 mg/dL (8.5-10.4); CARBON DIOXIDE 28 mEq/l (22-31); CHLORIDE 112 mEq/L (97-110); CREATININE 0.8 mg/dL (0.7-1.3); GLOMERULAR FILTRATION RATE > 60; GLUCOSE 299 mg/dL (70-100); SODIUM 147 mEq/L (134-144); TOTAL PROTEIN 5.4 g/dL (6.3-8.2)
[2016-11-02] MEDS: LEVOTHYROXINE 50 MCG TAB TUBE SCH (05:58)
[2016-11-02] MEDS: IPRATROPIUM/ALBUTEROL 3 ML DEYVIAL IH SCH ×4 (06:25→21:43)
[2016-11-02] MEDS: POTASSIUM Cl (KCl) 20 MEQ, SODIUM CL 14.6% 38.5 MEQ in WATER FOR INJECTION,STERILE 1,00... IV SCH (09:29)
[2016-11-02] MEDS: INSULIN LISPRO 100 UNIT/ML SC SCH ×3 (09:30→17:34)
[2016-11-02] MEDS: ENOXAPARIN 40 MG/0.4 ML SYR SC SCH (09:30)
[2016-11-02] MEDS: INSULIN GLARGINE 100 UNITS/ML SYRINGE SC SCH (09:30)
[2016-11-02] MEDS: FENOFIBRATE 145 MG TAB TUBE SCH (09:37)
[2016-11-02] MEDS: ASPIRIN 81 MG CHEWABLE TAB TUBE SCH (09:37)
[2016-11-02] MEDS: ERTAPENEM 1 GM in NS 100 ML IV SCH (09:50)
--- NOTE | 2016-11-02 11:31 | HOSPPROG ---
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 He presented with overall weakness. His oxygen levels were low at home. He usually uses 2 L of oxygen. Today 11/02 is my 1st encounter with the patient. Chart reviewed. hypernatremia: inadequate free h20 not DI as not polyuric give 2 L 1/2NS trending to normal persistent hyperglycemia likely new DM -increase lantus to 15units daily -ivf -send ferritin/transferrin levels, repeat lfts acute on chronic hypoxic resp failure - no PE; has atelectasis - cont nebs, IS, acapella, mobilize cxr w atelectasis (interp by me) wean 02 as tolerated Concern for aspiration pneumonia -had been eating at home/ freq coughing -wbc trending up and he continues to need high flow O2 -cont erta for now 5 days therapy PEG tube malfunction s/p replacement by Dr Amador elevated trop/suspect demand ischemia dc telemetry Diabetes with a A1c of 8 (new diagnosis) -see above hx laryngeal cancer JUAN RAMON, pre-renal - much improved with IVF hypoK - resolved -will follow hypotension (ivf) -hold atenolol, resume lisinopril check AM cortisol # bradycardia - hold atenolol # weakness d/t combination of the above - PT # dvt ppx - Lovenox # FCFT -pt is high risk Subjective: tele: no events (interp by me). case d/w LUTHER Gipson Objective: Vital Signs Temp Pulse Resp BP Pulse Ox 36.8 C 92 24 H 111/71 91 L 11/02/16 09:20 11/02/16 10:13 11/02/16 10:13 11/02/16 09:20 11/02/16 10:13 Microbiology 11/02/16 04:35 - Final Sputum, Expectorated Laboratory Results 11/02/16 02:15 11/02/16 02:15 11/01/16 11/02/16 11/03/16 05:59 05:59 05:59 Intake Total 883 1787 Output Total 2500 1900 Balance -1617 -113 - Physical Exam Constitutional: no apparent distress, appears nourished Eyes: PERRL, anicteric sclera, No icteric sclera Ears, Nose, Mouth, Throat: hearing normal, No moist mucous membranes Cardiovascular: regular rate and rhythym, no murmur, rub, or gallop Respiratory: other (rhonchi b/l. good air movement. no wheeze) Gastrointestinal: normoactive bowel sounds, soft, non-tender abdomen, other ( PEG site c/d/i), No distension Genitourinary: no bladder fullness, jimenez in urethra, other (light pink urine) Skin: warm, normal color Musculoskeletal: full muscle strength, no muscle tenderness Neurologic: AAOx3 ICD10 Worksheet Patient Problems: Problems Problem Status Onset Dehydration Acute Hyperglycemia Acute Feeding tube dysfunction Acute Vomiting Acute
[2016-11-02] MEDS: 1/2 NS 1,000 ML IV SCH ×2 (12:28→17:39)
[2016-11-02] MEDS: ZOLPIDEM TARTRATE 5 MG TAB TUBE PRN (22:50)
[2016-11-03] MEDS: guaiFENesin 200 MG/10 ML UDL TUBE SCH ×6 (02:42→22:40)
[2016-11-03 05:24] LABS: % IMMATURE GRANULYOCYTES 2.4 % (0.0-1.1); ABSOLUTE IMMATURE GRANULOCYTES 0.23 10^3/uL (0.00-0.10); ADD DIFF? NO; ADD MORPH? NO; ADD SCAN? NO; ATYPICAL LYMPHOCYTE FLAG 10 (0-99); FRAGMENT RBC FLAG 0 (0-99); HEMATOCRIT 31.7 % (40.0-51.0); HEMOGLOBIN 10.1 g/dL (13.7-17.5); LEFT SHIFT FLG 30 (0-99); LIPEMIA HEMOLYSIS FLAG 80 (0-99); MEAN CELL HEMOGLOBIN 32.7 pg (27.9-34.1); MEAN CELL HEMOGLOBIN CONCENTR. 31.9 g/dL (32.4-36.7); MEAN CELL VOLUME 102.6 fL (81.5-99.8); MEAN PLATELET VOLUME 11.6 fL (8.7-11.7); PLATELET CLUMPS FLAG 0 (0-99); PLATELET COUNT 211 10^3/uL (150-400); RED BLOOD CELL COUNT 3.09 10^6/uL (4.40-6.38); RED CELL DISTRIBUTION WIDTH 12.4 % (11.5-15.2)
[2016-11-03] MEDS: LEVOTHYROXINE 50 MCG TAB TUBE SCH (05:52)
[2016-11-03] MEDS: IPRATROPIUM/ALBUTEROL 3 ML DEYVIAL IH SCH ×4 (06:15→22:13)
[2016-11-03] MEDS: INSULIN LISPRO 100 UNIT/ML SC SCH ×3 (09:04→17:40)
[2016-11-03] MEDS: INSULIN GLARGINE 100 UNITS/ML SYRINGE SC SCH (09:04)
[2016-11-03] MEDS: ERTAPENEM 1 GM in NS 100 ML IV SCH (09:07)
[2016-11-03] MEDS: ENOXAPARIN 40 MG/0.4 ML SYR SC SCH (09:11)
[2016-11-03] MEDS: FENOFIBRATE 145 MG TAB TUBE SCH (10:07)
[2016-11-03] MEDS: ASPIRIN 81 MG CHEWABLE TAB TUBE SCH (10:07)
--- NOTE | 2016-11-03 12:51 | HOSPPROG ---
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 He presented with overall weakness. His oxygen levels were low at home. He usually uses 2 L of oxygen. hypernatremia: inadequate free h20 not DI as not polyuric give 2 L 1/2NS trending to normal repeat AM 11/04 persistent hyperglycemia likely new DM -increase lantus to 18units daily -ivf acute on chronic hypoxic resp failure - no PE; has atelectasis now w increased 02 requirements repeat cxr pending had neg CT PE 10/30 may need repeat if still w persistent 02 Concern for aspiration pneumonia -had been eating at home/ freq coughing -wbc trending up and he continues to need high flow O2 -cont erta for now 7 days therapy PEG tube malfunction s/p replacement by Dr Amador elevated trop/suspect demand ischemia dc telemetry Diabetes with a A1c of 8 (new diagnosis) -see above hx laryngeal cancer JUAN RAMON, pre-renal - much improved with IVF hypoK - resolved -will follow hypotension (ivf) -hold atenolol, resume lisinopril check AM cortisol echo normal # bradycardia - hold atenolol # weakness d/t combination of the above - PT # dvt ppx - Lovenox # FCFT -pt is high risk Subjective: increased 02 needs. appears to be having hemoptysis. cxr ordered, pending Objective: Vital Signs Temp Pulse Resp BP Pulse Ox 36.9 C 93 16 101/62 96 11/03/16 12:00 11/03/16 12:00 11/03/16 12:00 11/03/16 12:00 11/03/16 12:00 Microbiology 11/02/16 04:35 - Final Sputum, Expectorated Laboratory Results 11/03/16 05:10 11/02/16 02:15 11/02/16 11/03/16 11/04/16 05:59 05:59 05:59 Intake Total 1787 5147 365 Output Total 1900 1974 Balance -113 3172 365 - Physical Exam Constitutional: no apparent distress, unkempt Eyes: PERRL, anicteric sclera Ears, Nose, Mouth, Throat: moist mucous membranes, hearing normal Cardiovascular: regular rate and rhythym, no murmur, rub, or gallop Respiratory: rhonchi (good air movement. no wheeze. rhoncorous), other Gastrointestinal: normoactive bowel sounds, No guarding, No rebound Genitourinary: no bladder fullness, jimenez in urethra, other (hematuria) Skin: warm, normal color Musculoskeletal: full muscle strength, no muscle tenderness Neurologic: AAOx3 ICD10 Worksheet Patient Problems: Problems Problem Status Onset Dehydration Acute Hyperglycemia Acute Feeding tube dysfunction Acute Vomiting Acute
[2016-11-03] MEDS ORDERED: IOPAMIDOL (ISOVUE-300) 100 ML BTL ONE (13:46)
[2016-11-03 14:02] LABS: BASE EXCESS 2.9 mEq/L (-2.5-2.5); BICARBONATE 26 mEq/L (22-26); MEASURED OXYGEN SATURATION 93 % (92-95); PCO2 36 mmHg (34-38); PO2 58 mmHg (65-75); TCO2 28 mEq/L (23-27)
[2016-11-03] MEDS: ZOLPIDEM TARTRATE 5 MG TAB TUBE PRN (22:40)
[2016-11-04] MEDS: guaiFENesin 200 MG/10 ML UDL TUBE SCH ×6 (02:31→22:22)
[2016-11-04 04:55] LABS: % IMMATURE GRANULYOCYTES 2.4 % (0.0-1.1); ABSOLUTE IMMATURE GRANULOCYTES 0.23 10^3/uL (0.00-0.10); ADD DIFF? NO; ADD MORPH? NO; ADD SCAN? NO; ATYPICAL LYMPHOCYTE FLAG 10 (0-99); FRAGMENT RBC FLAG 0 (0-99); HEMATOCRIT 32.9 % (40.0-51.0); HEMOGLOBIN 10.4 g/dL (13.7-17.5); LEFT SHIFT FLG 20 (0-99); LIPEMIA HEMOLYSIS FLAG 80 (0-99); MEAN CELL HEMOGLOBIN 32.4 pg (27.9-34.1); MEAN CELL HEMOGLOBIN CONCENTR. 31.6 g/dL (32.4-36.7); MEAN CELL VOLUME 102.5 fL (81.5-99.8); MEAN PLATELET VOLUME 11.2 fL (8.7-11.7); PLATELET CLUMPS FLAG 0 (0-99); PLATELET COUNT 258 10^3/uL (150-400); RED BLOOD CELL COUNT 3.21 10^6/uL (4.40-6.38); RED CELL DISTRIBUTION WIDTH 12.6 % (11.5-15.2)
[2016-11-04 05:10] LABS: ANION GAP 8 mEq/L (8-16); CALCIUM 8.5 mg/dL (8.5-10.4); CARBON DIOXIDE 26 mEq/l (22-31); CHLORIDE 107 mEq/L (97-110); CREATININE 0.7 mg/dL (0.7-1.3); GLOMERULAR FILTRATION RATE > 60; GLUCOSE 126 mg/dL (70-100); POTASSIUM 4.7 mEq/L (3.5-5.2); SODIUM 141 mEq/L (134-144)
[2016-11-04] MEDS: LEVOTHYROXINE 50 MCG TAB TUBE SCH (05:59)
[2016-11-04] MEDS: IPRATROPIUM/ALBUTEROL 3 ML DEYVIAL IH SCH ×3 (06:23→17:58)
--- NOTE | 2016-11-04 09:52 | HOSPPROG ---
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 He presented with overall weakness. His oxygen levels were low at home. He usually uses 2 L of oxygen. hypernatremia: inadequate free h20 not DI as not polyuric improved persistent hyperglycemia likely new DM -increase lantus to 18units daily -ivf acute on chronic hypoxic resp failure - ABG demonstrates hypoxemia w normal CO2 cxr probably doesnt show enough airspace disease to account for degree of hypoxia given hemoptysis, repeat CT PE Concern for aspiration pneumonia -had been eating at home/ freq coughing -wbc trending up and he continues to need high flow O2 -cont erta for now 7 days therapy jimenez: remove today PEG tube malfunction s/p replacement by Dr Amador elevated trop/suspect demand ischemia dc telemetry Diabetes with a A1c of 8 (new diagnosis) -see above hx laryngeal cancer JUAN RAMON, pre-renal - much improved with IVF hypoK - resolved -will follow hypotension (ivf) -hold atenolol, resume lisinopril check AM cortisol echo normal # bradycardia - hold atenolol # weakness d/t combination of the above - PT # dvt ppx - Lovenox # FCFT -pt is high risk Subjective: case d/w dr jaeger. still w persistent hypoxemia. ct of neck w likely radiation effect Objective: Vital Signs Temp Pulse Resp BP Pulse Ox 36.8 C 94 18 96/58 L 90 L 11/04/16 08:00 11/04/16 08:00 11/04/16 08:00 11/04/16 08:00 11/04/16 08:00 Microbiology 11/02/16 04:35 - Final Sputum, Expectorated Laboratory Results 11/04/16 04:46 11/04/16 04:46 11/03/16 11/04/16 11/05/16 05:59 05:59 05:59 Intake Total 5146 1948 Output Total 1974 2049 Balance 3172 -101 - Physical Exam Constitutional: no apparent distress, appears nourished, not in pain, unkempt Eyes: PERRL, anicteric sclera Ears, Nose, Mouth, Throat: hearing normal, No moist mucous membranes Cardiovascular: regular rate and rhythym, no murmur, rub, or gallop Respiratory: other (some rhonchi and crackles at bases but otherwise ) Gastrointestinal: normoactive bowel sounds, soft, non-tender abdomen, other ( PEG c/d/i) Genitourinary: no bladder fullness, No jimenez in urethra Skin: warm, normal color Musculoskeletal: full muscle strength, no muscle tenderness Neurologic: AAOx3 ICD10 Worksheet Patient Problems: Problems Problem Status Onset Dehydration Acute Hyperglycemia Acute Feeding tube dysfunction Acute Vomiting Acute
[2016-11-04] MEDS: INSULIN LISPRO 100 UNIT/ML SC SCH ×3 (10:03→18:08)
[2016-11-04] MEDS: ERTAPENEM 1 GM in NS 100 ML IV SCH (10:03)
[2016-11-04] MEDS: FENOFIBRATE 145 MG TAB TUBE SCH (10:04)
[2016-11-04] MEDS: INSULIN GLARGINE 100 UNITS/ML SYRINGE SC SCH (10:04)
[2016-11-04] MEDS: ASPIRIN 81 MG CHEWABLE TAB TUBE SCH (10:04)
[2016-11-04] MEDS: ENOXAPARIN 40 MG/0.4 ML SYR SC SCH (10:04)
[2016-11-04] MEDS ORDERED: IOPAMIDOL (ISOVUE 370) 100 ML BTL IV ONE ×2 (11:30→15:34)
--- NOTE | 2016-11-04 17:56 | GCON ---
[f rep st] CONSULTATION DATE OF CONSULTATION: 11/04/2016 REFERRING PHYSICIAN: Jez Ring MD PULMONARY/CRITICAL CARE CONSULTATION REASON FOR REFERRAL: Evaluation and management of hypoxemia. HISTORY: The patient is an 81-year-old male with a history of laryngeal cancer who has a chronic PE G tube placed. He does usually take some oral liquids at home. He was admitted a week ago because he found that his oxygen saturations were low, and he was feeling a bit weak. He is usually on oxygen at 2 L/minute at home. He does not have any fevers or chills at the time of admission. Upon presenta tion he was found to be hyperglycemic with a glucose of 650, and he was hypernatremic with a sodium of 157. His oxygen saturations were 92% on 4 L at the time of admission. He did not have any fevers or chills at the time of admission. The hyperglycemia and hypernatremia have been addressed. There w as a concern for aspiration pneumonia at the time of admission as he had increasing oxygen needs and a white blood count that was climbing. He was started on meropenem. Despite this, as well as incent brigida spirometry, the patient has had increased oxygen needs ranging from 10-15 L/minute over the last 2 days. He has a cough that brings up some thick sputum. He states that he chronically has some cou gh, particularly after eating. He is not very clear as to whether the cough seems to be getting wors e or better. He denies any dyspnea currently. PAST MEDICAL HISTORY: 1. Laryngeal cancer status post radiation. 2. Hypertension. 3. History of peptic ulcer disease with GI bleed. 4. Hypothyroidism. 5. COPD. 6. History of alcohol abuse. MEDICATIONS: At the time of admission include: 1. Fenofibrate. 2. Amlodipine/benazepril. 3. Aspirin. 4. Synthroid. 5. Tenormin. ALLERGIES: None. SOCIAL HISTORY: The patient lives alone. He is a former smoker. FAMILY HISTORY: Noncontributory. REVIEW OF SYSTEMS: A 10-point review of systems adds nothing to the history of present illness. PHYSICAL EXAMINATION: GENERAL: The patient is awake, alert, and in no acute distress. He has fairly frequent coughing with some thick sputum. VITAL SIGNS: His blood pressure is 106/59, his heart rate is 92. He is afebrile. Oxygen saturations are 97% on 2 L. HEENT: Normocephalic and atraumatic. No i cterus. NECK: No JVD. Trachea is midline. CHEST: There are a few rales in the bases. CARDIAC: Regula r rate and rhythm without murmur. ABDOMEN: Soft, nontender. Bowel sounds are present. PEG tube is in place. EXTREMITIES: No clubbing, cyanosis, or edema. NEURO: The patient is awake and alert. He has no gross sensory or motor deficits. LABORATORY: Sodium is 141, down from 157 on admission. Blood glucose has been between 120 and 220 o elva the last 24 hours. White blood count is 9.3, down from a max of 19.7 on October 31. A hemoglobin is 10.4 with an MCV of 102.5. An arterial blood gas yesterday showed a pH of 7.47 with a pO2 of 58, a CO2 of 36 and a bicarbonate of 28 on [address] scan of the chest done today demonstrate s increased bilateral posterior basilar consolidation/atelectasis with well opacified blood vessels going through the areas of infiltrate. There are some small areas of mucus plugging in the areas of consolidation. These were increased compared to a CT scan done on October 30. I do not see any pulmonar y emboli. Images reviewed. Video swallow done on November 03 demonstrates aspiration of thin liquid. No other consistencies were ev aluated. ASSESSMENT: Hypoxemia. This is likely due to the basilar infiltrates/mucus plugging with shunting r esulting in hypoxemia that will be fairly refractory to supplemental oxygen. This is likely due to " blossoming" of aspiration which was ongoing at the time of admission. He also could be having diffic ulty handling oral secretions and clearing them well. He has been on ertapenem which likely would neil ppress any ongoing infectious contribution of an aspiration pneumonia. Worsening mucus plugging sugg ests he is having some difficulty with mucus clearance. RECOMMENDATIONS: Agree with n.p.o. status and continuing ertapenem for approximately a 10-day cours e. Continue albuterol and guaifenesin. I will add N acetyl cystine nebs as well as EzPAP to try to h elp improve atelectasis and mucus plugging. I will hold off on steroids, which could help if there i s an active ongoing component of bronchial inflammation, but that could be reconsidered if the patie nt does not improve. /[id number]/MODL
[2016-11-04] MEDS: ACETYLCYSTEINE 10% 30 ML VIAL IH SCH (17:58)
[2016-11-04] MEDS: ZOLPIDEM TARTRATE 5 MG TAB TUBE PRN (22:23)
[2016-11-05] MEDS: ACETYLCYSTEINE 10% 30 ML VIAL IH SCH ×4 (00:43→18:06)
[2016-11-05] MEDS: IPRATROPIUM/ALBUTEROL 3 ML DEYVIAL IH SCH ×4 (00:43→18:06)
[2016-11-05] MEDS: guaiFENesin 200 MG/10 ML UDL TUBE SCH ×6 (03:10→21:10)
[2016-11-05 04:49] LABS: % IMMATURE GRANULYOCYTES 2.8 % (0.0-1.1); ADD DIFF? NO; ADD MORPH? NO; ADD SCAN? NO; ATYPICAL LYMPHOCYTE FLAG 0 (0-99); FRAGMENT RBC FLAG 0 (0-99); HEMATOCRIT 35.4 % (40.0-51.0); HEMOGLOBIN 11.5 g/dL (13.7-17.5); LEFT SHIFT FLG 20 (0-99); LIPEMIA HEMOLYSIS FLAG 80 (0-99); MEAN CELL HEMOGLOBIN CONCENTR. 32.5 g/dL (32.4-36.7); MEAN CELL VOLUME 101.7 fL (81.5-99.8); MEAN PLATELET VOLUME 11.3 fL (8.7-11.7); PLATELET CLUMPS FLAG 0 (0-99); PLATELET COUNT 306 10^3/uL (150-400); RED BLOOD CELL COUNT 3.48 10^6/uL (4.40-6.38); RED CELL DISTRIBUTION WIDTH 12.7 % (11.5-15.2)
[2016-11-05] MEDS: LEVOTHYROXINE 50 MCG TAB TUBE SCH (05:02)
[2016-11-05] MEDS: ASPIRIN 81 MG CHEWABLE TAB TUBE SCH (09:05)
[2016-11-05] MEDS: INSULIN LISPRO 100 UNIT/ML SC SCH ×3 (09:06→18:26)
[2016-11-05] MEDS: ERTAPENEM 1 GM in NS 100 ML IV SCH (09:06)
[2016-11-05] MEDS: FENOFIBRATE 145 MG TAB TUBE SCH (09:06)
[2016-11-05] MEDS: INSULIN GLARGINE 100 UNITS/ML SYRINGE SC SCH (09:06)
[2016-11-05] MEDS: ENOXAPARIN 40 MG/0.4 ML SYR SC SCH (09:06)
--- NOTE | 2016-11-05 10:47 | HOSPPROG ---
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 He presented with overall weakness. His oxygen levels were low at home. He usually uses 2 L of oxygen. hypernatremia: inadequate free h20 not DI as not polyuric improved persistent hyperglycemia likely new DM -increase lantus to 18units daily -ivf acute on chronic hypoxic resp failure - ABG demonstrates hypoxemia w normal CO2 chest CT showing large vessels in consolidated lungs c/w shunt this can cause an 02 requirement that doesnt correct w supplemental 02 continue course of ertapenem, IS and pickle Concern for aspiration pneumonia -had been eating at home/ freq coughing -wbc trending up and he continues to need high flow O2 -cont erta for now 7 days therapy jimenez: remove today start flomax PEG tube malfunction s/p replacement by Dr Amador elevated trop/suspect demand ischemia dc telemetry Diabetes with a A1c of 8 (new diagnosis) -see above hx laryngeal cancer JUAN RAMON, pre-renal - much improved with IVF hypoK - resolved -will follow hypotension (ivf) -hold atenolol, resume lisinopril check AM cortisol echo normal # bradycardia - hold atenolol # weakness d/t combination of the above - PT # dvt ppx - Lovenox # FCFT -pt is high risk Subjective: case discussed at length w dr malin. chest CT w no PE, atelecatsis vs infiltrate at bases (interp by me) Objective: Vital Signs Temp Pulse Resp BP Pulse Ox 36.4 C 96 32 H 153/88 H 91 L 11/05/16 08:00 11/05/16 08:00 11/05/16 08:00 11/05/16 08:00 11/05/16 08:00 Microbiology 11/02/16 04:35 - Final Sputum, Expectorated Sputum Culture - Final Rita Albicans Laboratory Results 11/05/16 03:31 11/04/16 04:46 11/04/16 11/05/16 11/06/16 05:59 05:59 05:59 Intake Total 1948 2151 Output Total 2049 975 200 Balance -101 1177 -200 - Physical Exam Constitutional: no apparent distress, appears nourished Eyes: PERRL, anicteric sclera Ears, Nose, Mouth, Throat: moist mucous membranes, hearing normal Cardiovascular: regular rate and rhythym, no murmur, rub, or gallop, systolic murmur Respiratory: no respiratory distress, other (good air movement. basilar rhonchi) , No no rales or rhonchi, No clear to auscultation Gastrointestinal: normoactive bowel sounds, soft, non-tender abdomen Genitourinary: no bladder fullness, No jimenez in urethra Skin: warm, normal color Musculoskeletal: full muscle strength, no muscle tenderness Neurologic: AAOx3, sensation intact bilaterally Psychiatric: interacting appropriately ICD10 Worksheet Patient Problems: Problems Problem Status Onset Dehydration Acute Hyperglycemia Acute Feeding tube dysfunction Acute Vomiting Acute
[2016-11-05] MEDS ORDERED: TAMSULOSIN HCL 0.4 MG CAP PO SCH (11:00)
--- NOTE | 2016-11-05 13:52 | PDINTPN ---
[employer] Progress Note Assessment/Plan: Assessment: Hypoxemia: Due to basilar consolidation/atelectasis. ? due to aspiration. Unchanged from yesterday. Now NPO and on ertapenem. Likely will be slow to improve, and will do best if he does IS and flutter valve, which he has not been using consistently. Doubt bronch will help significantly, as he has mostly small, distal mucous plugs on CT. Plan: Continue IS, flutter valve, ertapenem, guaifenesin, Mucomyst, EZPAP 11/05/16 13:49 Subjective: Feels about the same. Continues to expectorate some thick sputum, unclear if it' s from his mouth/nose or his lungs. Objective: Vital Signs Temp Pulse Resp BP Pulse Ox 36.9 C 106 H 40 H 120/73 89 L 11/05/16 12:00 11/05/16 12:00 11/05/16 12:00 11/05/16 12:00 11/05/16 12:00 Microbiology 11/02/16 04:35 - Final Sputum, Expectorated Sputum Culture - Final Rita [facility] Laboratory Results 11/05/16 03:31 11/04/16 04:46 11/04/16 11/05/16 11/06/16 05:59 05:59 05:59 Intake Total 19482 Output Total 2049 975 200 Balance -101 1177 -200 Physical Exam - Physical Exam General Appearance: alert, no apparent distress EENT: normal ENT inspection Neck: normal inspection Respiratory: lungs clear, normal breath sounds Cardiac/Chest: regular rate, rhythm, No edema Abdomen: normal bowel sounds, non-tender, soft, other (PEG) Skin: normal color, warm/dry Extremities: normal inspection Neuro/Psych: alert, normal mood/affect, oriented x 3 ICD10 Worksheet Patient Problems: Problems Problem Status Onset Dehydration Acute Hyperglycemia Acute Feeding tube dysfunction Acute Vomiting Acute
[2016-11-05] MEDS: ZOLPIDEM TARTRATE 5 MG TAB TUBE PRN (21:11)
[2016-11-06] MEDS: ACETYLCYSTEINE 10% 30 ML VIAL IH SCH ×5 (00:32→21:01)
[2016-11-06] MEDS: IPRATROPIUM/ALBUTEROL 3 ML DEYVIAL IH SCH ×5 (00:32→21:02)
[2016-11-06] MEDS: guaiFENesin 200 MG/10 ML UDL TUBE SCH ×6 (01:59→21:23)
[2016-11-06 05:01] LABS: % IMMATURE GRANULYOCYTES 1.2 % (0.0-1.1); ABSOLUTE IMMATURE GRANULOCYTES 0.13 10^3/uL (0.00-0.10); ADD DIFF? NO; ADD MORPH? NO; ADD SCAN? NO; ATYPICAL LYMPHOCYTE FLAG 0 (0-99); FRAGMENT RBC FLAG 0 (0-99); HEMATOCRIT 34.2 % (40.0-51.0); HEMOGLOBIN 11.1 g/dL (13.7-17.5); LEFT SHIFT FLG 20 (0-99); LIPEMIA HEMOLYSIS FLAG 80 (0-99); MEAN CELL HEMOGLOBIN 32.6 pg (27.9-34.1); MEAN CELL HEMOGLOBIN CONCENTR. 32.5 g/dL (32.4-36.7); MEAN CELL VOLUME 100.6 fL (81.5-99.8); MEAN PLATELET VOLUME 11.6 fL (8.7-11.7); PLATELET CLUMPS FLAG 0 (0-99); PLATELET COUNT 265 10^3/uL (150-400); RED CELL DISTRIBUTION WIDTH 12.6 % (11.5-15.2)
[2016-11-06] MEDS: LEVOTHYROXINE 50 MCG TAB TUBE SCH (05:03)
[2016-11-06] MEDS: INSULIN LISPRO 100 UNIT/ML SC SCH ×3 (09:13→18:30)
[2016-11-06] MEDS: ERTAPENEM 1 GM in NS 100 ML IV SCH (09:13)
[2016-11-06] MEDS: FENOFIBRATE 145 MG TAB TUBE SCH (09:13)
[2016-11-06] MEDS: ENOXAPARIN 40 MG/0.4 ML SYR SC SCH (09:13)
[2016-11-06] MEDS: ASPIRIN 81 MG CHEWABLE TAB TUBE SCH (09:13)
[2016-11-06] MEDS: INSULIN GLARGINE 100 UNITS/ML SYRINGE SC SCH (10:46)
--- NOTE | 2016-11-06 10:53 | HOSPPROG ---
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 He presented with overall weakness. His oxygen levels were low at home. He usually uses 2 L of oxygen. hypernatremia: inadequate free h20 not DI as not polyuric resolved repeat 11/07 vomiting tube feeds: check upper gi today tube feeds on hold abd exam benign persistent hyperglycemia likely new DM -increase lantus to 18units daily acute on chronic hypoxic resp failure - ABG demonstrates hypoxemia w normal CO2 chest CT showing large vessels in consolidated lungs c/w shunt this can cause an 02 requirement that doesnt correct w supplemental 02 continue course of ertapenem, IS and pickle 11/06: after aggressive pulm toilet w nurse, I turned 02 down to 4L and he is maintaining sats 88% or greater on going pulm toilet will be important to correct bibasilar airspace disease Concern for aspiration pneumonia -had been eating at home/ freq coughing -wbc trending up and he continues to need high flow O2 -cont erta for now 7 days therapy erta to stop after 11/07 dose jimenez: removed cannot crush flomax so not getting he is urinating OK PEG tube malfunction s/p replacement by Dr Amador upper GI today, 11/06 elevated trop/suspect demand ischemia dc telemetry Diabetes with a A1c of 8 (new diagnosis) -see above hx laryngeal cancer JUAN RAMON, pre-renal - much improved with IVF hypoK - resolved -will follow hypotension (ivf) -hold atenolol, resume lisinopril check AM cortisol echo normal # bradycardia - hold atenolol # weakness d/t combination of the above - PT # dvt ppx - Lovenox # FCFT -pt is high risk Subjective: vomited tube feeds overnight. case d/w dr malin Objective: Vital Signs Temp Pulse Resp BP Pulse Ox 36.9 C 98 16 100/56 L 93 11/06/16 07:50 11/06/16 10:18 11/06/16 10:18 11/06/16 07:50 11/06/16 10:18 Microbiology 10/31/16 12:55 Blood Culture - Final Blood 10/31/16 13:15 Blood Culture - Final Blood Laboratory Results 11/06/16 04:28 11/04/16 04:46 11/05/16 11/06/16 11/07/16 05:59 05:59 05:59 Intake Total 2152 Output Total 975 200 Balance 1177 -200 - Physical Exam Constitutional: no apparent distress, appears nourished Eyes: PERRL, anicteric sclera Ears, Nose, Mouth, Throat: moist mucous membranes, hearing normal Cardiovascular: regular rate and rhythym, no murmur, rub, or gallop, No tachycardia Respiratory: no respiratory distress, other (bibasilar crackles, good air movement, no wheeze) Gastrointestinal: normoactive bowel sounds, soft, non-tender abdomen Genitourinary: No jimenez in urethra Skin: warm, normal color Musculoskeletal: full muscle strength, no muscle tenderness Neurologic: AAOx3, sensation intact bilaterally ICD10 Worksheet Patient Problems: Problems Problem Status Onset Dehydration Acute Hyperglycemia Acute Feeding tube dysfunction Acute Vomiting Acute
[2016-11-06] MEDS: ZOLPIDEM TARTRATE 5 MG TAB TUBE PRN (21:30)
[2016-11-07] MEDS: guaiFENesin 200 MG/10 ML UDL TUBE SCH ×6 (03:07→22:13)
[2016-11-07 05:03] LABS: % IMMATURE GRANULYOCYTES 1.5 % (0.0-1.1); ABSOLUTE IMMATURE GRANULOCYTES 0.11 10^3/uL (0.00-0.10); ADD DIFF? NO; ADD MORPH? NO; ADD SCAN? NO; ATYPICAL LYMPHOCYTE FLAG 10 (0-99); FRAGMENT RBC FLAG 0 (0-99); HEMATOCRIT 33.3 % (40.0-51.0); HEMOGLOBIN 10.9 g/dL (13.7-17.5); LEFT SHIFT FLG 10 (0-99); LIPEMIA HEMOLYSIS FLAG 80 (0-99); MEAN CELL HEMOGLOBIN 33.4 pg (27.9-34.1); MEAN CELL HEMOGLOBIN CONCENTR. 32.7 g/dL (32.4-36.7); MEAN CELL VOLUME 102.1 fL (81.5-99.8); MEAN PLATELET VOLUME 11.1 fL (8.7-11.7); PLATELET CLUMPS FLAG 20 (0-99); PLATELET COUNT 312 10^3/uL (150-400); RED BLOOD CELL COUNT 3.26 10^6/uL (4.40-6.38); RED CELL DISTRIBUTION WIDTH 12.5 % (11.5-15.2)
[2016-11-07 05:13] LABS: ANION GAP 8 mEq/L (8-16); CALCIUM 8.3 mg/dL (8.5-10.4); CARBON DIOXIDE 29 mEq/l (22-31); CHLORIDE 104 mEq/L (97-110); CREATININE 0.9 mg/dL (0.7-1.3); GLOMERULAR FILTRATION RATE > 60; GLUCOSE 117 mg/dL (70-100); POTASSIUM 4.2 mEq/L (3.5-5.2); SODIUM 141 mEq/L (134-144)
[2016-11-07] MEDS: LEVOTHYROXINE 50 MCG TAB TUBE SCH (05:22)
[2016-11-07] MEDS: IPRATROPIUM/ALBUTEROL 3 ML DEYVIAL IH SCH ×4 (06:19→21:31)
[2016-11-07] MEDS: ACETYLCYSTEINE 10% 30 ML VIAL IH SCH ×4 (06:19→21:32)
[2016-11-07] MEDS: FENOFIBRATE 145 MG TAB TUBE SCH (09:41)
[2016-11-07] MEDS: ENOXAPARIN 40 MG/0.4 ML SYR SC SCH (09:41)
[2016-11-07] MEDS: ASPIRIN 81 MG CHEWABLE TAB TUBE SCH (09:41)
[2016-11-07] MEDS: ERTAPENEM 1 GM in NS 100 ML IV SCH (09:41)
[2016-11-07] MEDS: INSULIN GLARGINE 100 UNITS/ML SYRINGE SC SCH (09:42)
[2016-11-07] MEDS: INSULIN LISPRO 100 UNIT/ML SC SCH ×3 (09:42→18:29)
--- NOTE | 2016-11-07 16:57 | HOSPPROG ---
Hospitalist Progress Note Assessment/Plan: DIAGNOSES AND PLANS: # acute on chronic hypoxic resp failure - -Concern for aspiration pneumonia -continue current pulm care, abx, IS, flutter valve, mobilize as able # hypernatremia resolved; not DI as not polyuric -follow, no current tx needed now # vomiting tube feeds -tube feeds resumed today and tolerating well w/o residual -PEG tube malfunction s/p replacement by Dr Amador -upper GI 11/06 showed no sign of obstruction, some reflex present # Diabetes with a A1c of 8 (new diagnosis) -sugars in appropriate range on current tx, not on any steroid -will need extensive education and outpatient follow up # Acute Urine Retention -jimenez has been removed and he is urinating OK -cannot crush flomax so not getting # elevated trop/suspect demand ischemia; no current sign of cardiac instability # JUAN RAMON, pre-renal -resolved and stable with IVF and off lisinopril -hypoK - resolved # bradycardia and hypotension -BPs remain in low to normal range off his atenolol and lisinopril # hx laryngeal cancer # weakness and decondtitioning d/t combination of the above; not ambulatory - PT # dvt ppx - Lovenox # FCFT -pt is high risk SUBJECTIVE: he is very disappointed in slow recovery very weak not sob no pain OBJECTIVE: vitals: stable O2 down to 4 L exam: alert oriented extremely weak resps not labored lungs with good air movement, still few basilar rales heart reg abd normal, tube looks ok limbs warm good cap refill labs reviewed I reviewed the images from yesterday's UGI xray series: no obstruction, ulcer, mass; feeding tube in good position Objective: Vital Signs Temp Pulse Resp BP Pulse Ox 36.1 C 99 20 96/64 L 90 L 11/07/16 11:38 11/07/16 16:00 11/07/16 16:00 11/07/16 16:00 11/07/16 16:00 Laboratory Results 11/07/16 04:40 11/07/16 04:40 11/06/16 11/07/16 11/08/16 06:59 06:59 06:59 Intake Total 100 Output Total 200 Balance -200 100 ICD10 Worksheet Patient Problems: Problems Problem Status Onset Dehydration Acute Hyperglycemia Acute Feeding tube dysfunction Acute Vomiting Acute
[2016-11-07] MEDS: ZOLPIDEM TARTRATE 5 MG TAB TUBE PRN (22:14)
[2016-11-08] MEDS: guaiFENesin 200 MG/10 ML UDL TUBE SCH ×6 (02:12→22:29)
[2016-11-08] MEDS: LEVOTHYROXINE 50 MCG TAB TUBE SCH (05:29)
[2016-11-08 06:10] LABS: ADD DIFF? NO; ADD MORPH? NO; ADD SCAN? NO; ATYPICAL LYMPHOCYTE FLAG 10 (0-99); FRAGMENT RBC FLAG 0 (0-99); HEMATOCRIT 34.8 % (40.0-51.0); LEFT SHIFT FLG 0 (0-99); LIPEMIA HEMOLYSIS FLAG 80 (0-99); MEAN CELL HEMOGLOBIN 32.3 pg (27.9-34.1); MEAN CELL HEMOGLOBIN CONCENTR. 31.6 g/dL (32.4-36.7); MEAN CELL VOLUME 102.1 fL (81.5-99.8); MEAN PLATELET VOLUME 10.9 fL (8.7-11.7); PLATELET CLUMPS FLAG 0 (0-99); PLATELET COUNT 305 10^3/uL (150-400); RED BLOOD CELL COUNT 3.41 10^6/uL (4.40-6.38); RED CELL DISTRIBUTION WIDTH 12.5 % (11.5-15.2)
[2016-11-08] MEDS: ACETYLCYSTEINE 10% 30 ML VIAL IH SCH ×4 (06:23→21:59)
[2016-11-08] MEDS: IPRATROPIUM/ALBUTEROL 3 ML DEYVIAL IH SCH ×4 (06:24→21:59)
[2016-11-08] MEDS: ASPIRIN 81 MG CHEWABLE TAB TUBE SCH (08:30)
[2016-11-08] MEDS: ENOXAPARIN 40 MG/0.4 ML SYR SC SCH (08:30)
[2016-11-08] MEDS: INSULIN GLARGINE 100 UNITS/ML SYRINGE SC SCH (08:30)
[2016-11-08] MEDS: FENOFIBRATE 145 MG TAB TUBE SCH (08:30)
[2016-11-08] MEDS: INSULIN LISPRO 100 UNIT/ML SC SCH ×3 (08:45→18:23)
--- NOTE | 2016-11-08 11:59 | HOSPPROG ---
Hospitalist Progress Note Assessment/Plan: DIAGNOSES AND PLANS: # acute on chronic hypoxic resp failure - -Concern for aspiration pneumonia -continue current pulm care, abx, IS, flutter valve, mobilize as able -unclear why his white blood cell count is higher today, will recheck that tomorrow and will recheck a chest x-ray today # hypernatremia resolved; not DI as not polyuric -follow, no current tx needed now # vomiting tube feeds -tube feeds resumed 11/07 and tolerating well w/o residual -PEG tube malfunction s/p replacement by Dr Amador -upper GI 11/06 showed no sign of obstruction, some reflex present # Diabetes with a A1c of 8 (new diagnosis) -sugars remain in appropriate range on current tx, not on any steroid -will need extensive education and outpatient follow up # Acute Urine Retention -jimenez has been removed and he is urinating OK -cannot crush flomax so not getting # elevated trop/suspect demand ischemia; no current sign of cardiac instability # JUAN RAMON, pre-renal -resolved and stable with IVF and off lisinopril -hypoK - resolved # bradycardia and hypotension -BPs remain in low to normal range off his atenolol and lisinopril # hx laryngeal cancer # weakness and decondtitioning d/t combination of the above; not ambulatory - PT # dvt ppx - Lovenox # FCFT -pt is high risk SUBJECTIVE: he remain very disappointed in slow recovery very weak He is doing some walking, he is not really using his incentive spirometer or flutter valve very much at all and is not spending any time up in a chair to speak of OBJECTIVE: vitals: stable O2 down to 4 L exam: alert oriented extremely weak resps not labored lungs with good air movement, still few basilar rales and some diminished breath sounds at both bases but no egophony heart reg abd normal, tube looks ok limbs warm good cap refill Lab data: White blood cell count is up today from 7000 to 14703 Hemoglobin stable Objective: Vital Signs Temp Pulse Resp BP Pulse Ox 37 C 93 16 122/67 H 93 11/08/16 11:19 11/08/16 11:45 11/08/16 11:45 11/08/16 11:19 11/08/16 11:45 Laboratory Results 11/08/16 05:53 11/07/16 04:40 11/07/16 11/08/16 11/09/16 06:59 06:59 06:59 Intake Total 100 1501 Balance 100 1501 ICD10 Worksheet Patient Problems: Problems Problem Status Onset Dehydration Acute Hyperglycemia Acute Feeding tube dysfunction Acute Vomiting Acute
[2016-11-08] MEDS: ZOLPIDEM TARTRATE 5 MG TAB TUBE PRN (22:29)
[2016-11-09] MEDS: guaiFENesin 200 MG/10 ML UDL TUBE SCH ×6 (02:08→22:26)
[2016-11-09] MEDS: IPRATROPIUM/ALBUTEROL 3 ML DEYVIAL IH SCH ×4 (05:58→22:44)
[2016-11-09] MEDS: ACETYLCYSTEINE 10% 30 ML VIAL IH SCH ×5 (05:58→23:36)
[2016-11-09] MEDS: LEVOTHYROXINE 50 MCG TAB TUBE SCH (06:26)
[2016-11-09] MEDS: FENOFIBRATE 145 MG TAB TUBE SCH (08:26)
[2016-11-09] MEDS: INSULIN GLARGINE 100 UNITS/ML SYRINGE SC SCH (08:27)
[2016-11-09] MEDS: ASPIRIN 81 MG CHEWABLE TAB TUBE SCH (08:27)
[2016-11-09] MEDS: INSULIN LISPRO 100 UNIT/ML SC SCH ×3 (08:28→18:38)
[2016-11-09] MEDS: ENOXAPARIN 40 MG/0.4 ML SYR SC SCH (08:31)
[2016-11-09] MEDS ORDERED: IOPAMIDOL (ISOVUE-300) 100 ML BTL ONE (11:42)
--- NOTE | 2016-11-09 15:55 | HOSPPROG ---
Hospitalist Progress Note Assessment/Plan: DIAGNOSES AND PLANS: # acute on chronic hypoxic resp failure - - likely due to aspiration pneumonia -continue current pulm care, abx, IS, flutter valve, mobilize as able - overall continues to improve with decreasing oxygen need # hypernatremia -resolved; not DI as not polyuric -follow, no current tx needed now # dysphagia from his previous malignancy, on tube feeds -His tube will need to be replaced today -tube feeds resumed 11/07 and had been tolerating well w/o residual -PEG tube malfunction s/p replacement by Dr Amador -upper GI 11/06 showed no sign of obstruction, some reflex present # Diabetes with a A1c of 8 (new diagnosis) -sugars remain in appropriate range on current tx, not on any steroid -will need extensive education and outpatient follow up # Acute Urine Retention -jimenez has been removed and he is urinating OK -cannot crush flomax so not getting # elevated trop/suspect demand ischemia; no current sign of cardiac instability # JUAN RAMON, pre-renal -resolved and stable with IVF and off lisinopril -hypoK - resolved # bradycardia and hypotension -BPs remain in low to normal range off his atenolol and lisinopril # hx laryngeal cancer # severe weakness and decondtitioning d/t combination of the above; not ambulatory - PT # dvt ppx - Lovenox # FCFT -pt is high risk SUBJECTIVE: States he feels the same today Denies shortness of breath at rest Little pain His percutaneous feeding tube fell out today. It sounds like developed abruptly without being anchored talk. I did look at the tube in the balloon has burst on the tip. OBJECTIVE: vitals: stable O2 down to 3L exam: alert oriented Remains quite weak resps not labored lungs with good air movement, with better breath sounds at the bases today heart reg abd normal bowel sounds, nontender nondistended, the ostomy from his percutaneous feeding tube site looks good limbs warm good cap refill Lab data: sugars in good range Objective: Vital Signs Temp Pulse Resp BP Pulse Ox 36.9 C 100 18 125/75 H 88 L 11/09/16 07:44 11/09/16 15:11 11/09/16 15:11 11/09/16 15:11 11/09/16 15:11 Laboratory Results 11/08/16 05:53 11/07/16 04:40 11/08/16 11/09/16 11/10/16 06:59 06:59 06:59 Intake Total 1501 1910 Balance 1501 1910 ICD10 Worksheet Patient Problems: Problems Problem Status Onset Dehydration Acute Hyperglycemia Acute Feeding tube dysfunction Acute Vomiting Acute
[2016-11-09] MEDS: ZOLPIDEM TARTRATE 5 MG TAB TUBE PRN (22:25)
[2016-11-10] MEDS: guaiFENesin 200 MG/10 ML UDL TUBE SCH ×6 (01:46→20:18)
[2016-11-10] MEDS: IPRATROPIUM/ALBUTEROL 3 ML DEYVIAL IH SCH ×3 (05:26→18:15)
[2016-11-10] MEDS: ACETYLCYSTEINE 10% 30 ML VIAL IH SCH ×3 (05:26→18:15)
[2016-11-10] MEDS: LEVOTHYROXINE 50 MCG TAB TUBE SCH (05:39)
[2016-11-10 05:46] LABS: % IMMATURE GRANULYOCYTES 0.7 % (0.0-1.1); ABSOLUTE IMMATURE GRANULOCYTES 0.11 10^3/uL (0.00-0.10); ADD DIFF? NO; ADD MORPH? NO; ADD SCAN? NO; ATYPICAL LYMPHOCYTE FLAG 10 (0-99); FRAGMENT RBC FLAG 0 (0-99); HEMATOCRIT 35.7 % (40.0-51.0); HEMOGLOBIN 11.4 g/dL (13.7-17.5); LEFT SHIFT FLG 10 (0-99); LIPEMIA HEMOLYSIS FLAG 80 (0-99); MEAN CELL HEMOGLOBIN 32.2 pg (27.9-34.1); MEAN CELL HEMOGLOBIN CONCENTR. 31.9 g/dL (32.4-36.7); MEAN CELL VOLUME 100.8 fL (81.5-99.8); MEAN PLATELET VOLUME 10.6 fL (8.7-11.7); PLATELET CLUMPS FLAG 0 (0-99); PLATELET COUNT 325 10^3/uL (150-400); RED BLOOD CELL COUNT 3.54 10^6/uL (4.40-6.38); RED CELL DISTRIBUTION WIDTH 12.3 % (11.5-15.2)
[2016-11-10 05:59] LABS: ANION GAP 7 mEq/L (8-16); CALCIUM 8.8 mg/dL (8.5-10.4); CARBON DIOXIDE 31 mEq/l (22-31); CHLORIDE 99 mEq/L (97-110); CREATININE 0.8 mg/dL (0.7-1.3); GLOMERULAR FILTRATION RATE > 60; GLUCOSE 96 mg/dL (70-100); POTASSIUM 4.4 mEq/L (3.5-5.2); SODIUM 137 mEq/L (134-144)
[2016-11-10] MEDS: INSULIN LISPRO 100 UNIT/ML SC SCH ×3 (07:51→18:41)
[2016-11-10] MEDS: FENOFIBRATE 145 MG TAB TUBE SCH (08:31)
[2016-11-10] MEDS: ENOXAPARIN 40 MG/0.4 ML SYR SC SCH (08:31)
[2016-11-10] MEDS: ASPIRIN 81 MG CHEWABLE TAB TUBE SCH (08:32)
[2016-11-10] MEDS: INSULIN GLARGINE 100 UNITS/ML SYRINGE SC SCH (08:32)
[2016-11-10] MEDS ORDERED: MIDAZOLAM 2 MG/2 ML VIAL ONE (16:22)
[2016-11-10] MEDS ORDERED: LIDOCAINE 2% JELLY 5 ML TUBE ONE (16:22)
[2016-11-10] MEDS ORDERED: fentaNYL 100 MCG/2 ML INJ ONE (16:24)
[2016-11-10] MEDS ORDERED: LIDOCAINE 1% 300 MG/30 ML SDV ONE (16:25)
[2016-11-10] MEDS ORDERED: ALBUTEROL 3 ML DEYVIAL ONE (16:26)
--- NOTE | 2016-11-10 16:50 | HOSPPROG ---
Hospitalist Progress Note Assessment/Plan: DIAGNOSES AND PLANS: # acute on chronic hypoxic resp failure - today he has dramatically increased oxygen needs along with increased secretions ; I suspect he may have some mucus plugging - I have asked Dr. Lupillo Farias to see the patient to consider whether bronchoscopy may be helpful or necessary - suspected aspiration episodes, along with chronic lung disease # hypernatremia -resolved; not DI as not polyuric -follow, no current tx needed now # dysphagia from his previous malignancy, on tube feeds -His tube will need to be replaced today -tube feeds resumed 11/07 and had been tolerating well w/o residual -PEG tube malfunction s/p replacement by Dr Amador -upper GI 11/06 showed no sign of obstruction, some reflex present # Diabetes with a A1c of 8 (new diagnosis) -sugars remain in appropriate range on current tx, not on any steroid -will need extensive education and outpatient follow up # Acute Urine Retention -jimenez has been removed and he is urinating OK -cannot crush flomax so not getting # elevated trop/suspect demand ischemia; no current sign of cardiac instability # JUAN RAMON, pre-renal -resolved and stable with IVF and off lisinopril -hypoK - resolved # bradycardia and hypotension -BPs remain in low to normal range off his atenolol and lisinopril # hx laryngeal cancer # severe weakness and decondtitioning d/t combination of the above; not ambulatory - PT # dvt ppx - Lovenox # FCFT -pt is high risk SUBJECTIVE: today he still having a lot of cough and a lot more phlegm production today, no chest pain or worsening shortness of breath He is however on more oxygen OBJECTIVE: vitals: stable O2 up to 15 L while sitting in a chair today exam: alert oriented Remains quite weak resps not labored in fact do not really look much different than yesterday lungs with good air movement, but coarse upper breath sounds today heart reg abd normal bowel sounds, nontender nondistended, the ostomy from his percutaneous feeding tube site looks good limbs warm good cap refill Lab data: sugars in good range chest x-ray done today, my personal review of Images: There are no significant infiltrates, his inspiratory volumes are less than on the previous chest x-ray, mild atelectasis; I reviewed this x-ray with Dr. Lupillo Farias Objective: Vital Signs Temp Pulse Resp BP Pulse Ox 37.1 C 108 H 20 104/63 87 L 11/10/16 15:44 11/10/16 15:44 11/10/16 15:44 11/10/16 15:44 11/10/16 15:44 Laboratory Results 11/10/16 05:11 11/10/16 05:11 11/09/16 11/10/16 11/11/16 06:59 06:59 06:59 Intake Total 1909 1000 Balance 191 1000 ICD10 Worksheet Patient Problems: Problems Problem Status Onset Dehydration Acute Hyperglycemia Acute Feeding tube dysfunction Acute Vomiting Acute
--- NOTE | 2016-11-10 19:07 | GCON ---
[f rep st] CONSULTATION PULMONARY CONSULTATION DATE OF CONSULTATION: 11/10/2016 REASON FOR CONSULTATION: Increased hypoxemia and mucus/pulmonary congestion, which he cannot clear. HISTORY: The patient is an 81-year-old gentleman who was seen by our service previously when he was in the intensive care unit. He has laryngeal cancer and is status post radiation. He has an unsaf e swallow and has a PEG tube. He was treated for aspiration pneumonia with ertapenem. He has been in the hospital since 10/28. He was doing better on discharge from the intensive care unit, but ove r the last 24 hours, has had increased oxygen requirements to 10-15 L. He is weak, has difficulty c learing secretions. Bronchoscopy and deep cultures are requested. PAST MEDICAL HISTORY: Laryngeal cancer, radiation, systemic hypertension, peptic ulcer disease, chr onic obstructive pulmonary disease and emphysema, previous history of alcohol abuse, hypothyroidism, on replacement. CURRENT MEDICATIONS: Include DuoNeb, Mucomyst, amlodipine, aspirin, enoxaparin, guaifenesin, insuli n, levothyroxine, Flomax, and Ambien at h.s. SOCIAL HISTORY: The patient lives alone. He smoked cigarettes in the past, is no longer smoking. Previously had a history of alcohol abuse, none recently. PHYSICAL EXAMINATION: GENERAL: Reveals an elderly gentleman, who has audible rhonchi. He is in no distress. VITAL SIGNS: Respiratory rate is 20. He is afebrile. Blood pressure is approximately 90/60, heart rate 110 and regular. On a 14 L OxyMask, saturations are approximately 90%. HEENT: R emarkable for the OxyMask to be in place. Mucous membranes are moist. NECK: There is no jugular v enous distention. CHEST: Reveals bilateral rhonchi with decreased breath sounds bilaterally and a prolonged expiratory phase. There are no expiratory wheezes. HEART: Regular. Heart tones are dis tant. There is a systolic murmur. ABDOMEN: Has a PEG tube in place. He is getting tube feedings. The abdomen is soft, nontender, bowel sounds are present. Please note that the patient's PEG tube was recently replaced as it had fallen out. EXTREMITIES: Remarkable for trace plus edema. NEUROL OGIC: Nonfocal. He answers simple questions appropriately, but slowly. Mental status appears to b e intact. DATABASE: Chest x-ray today shows some patchy infiltrate/atelectasis at the bases. No lobar consol idation is present. LABORATORY DATA: White blood cell count is 14,700, increased over the last 5 days. Chemistries are within normal limits with the exception of a mildly elevated BUN at 25. Glucoses have been in the 85-165 range. Previous serology for Legionella pneumonia and Strep pneumoniae was negative. ASSESSMENT: Increased secretions in a patient who is at high risk for aspiration. Even though, he has a PEG tube in place, aspiration of oral secretions remain an issue. He now has increasing rhonc hi associated with increased oxygen requirements and some patchy infiltrates versus atelectasis at t he bases, possibly consistent with aspiration pneumonia. Bronchoscopy and deep cultures are request ed. He is afebrile; however, his white cell count is again increasing. A clinical pneumonia is cer tainly possible. PLAN AND RECOMMENDATIONS: Bronchoscopy for removal of mucous and mucous plugging when the obtaining of deep cultures will be performed. Cultures will be sent. Antibiotics will be restarted pending the culture results. /[id number]/MODL
--- NOTE | 2016-11-10 19:12 | GPN ---
[f rep st] PROCEDURE NOTE NAME OF PROCEDURE: Therapeutic bronchoscopy. INDICATION: Aspiration pneumonia/aspiration risk with increasing secretions and rhonchi which he ca nnot clear, associated with increasing oxygen requirements. DESCRIPTION OF PROCEDURE: The procedure was done in the endoscopy unit. A negative pressure room w as used. N95 masks were worn. Appropriate time-out was performed. Informed consent was obtained f rom the patient. Topical anesthesia including 5 cc of 4% lidocaine to the oropharynx and approximat malcolm 15 cc of 1% lidocaine to the vocal cords and the lower tracheobronchial tree. Conscious sedatio n included 2 mg of Versed and 50 mcg fentanyl. Fiberoptic bronchoscope was passed via a bite block orally into the larynx. Laryngeal structures we re observed. There were retained secretions in the hypopharynx. The bronchoscope was advanced thro ugh the cords and into the lower tracheobronchial tree bilaterally. There were secretions seen in t he lower trachea extending into the lower tracheobronchial tree bilaterally. These were purulent wi th areas of both thick and thin secretions. Secretions were removed with suction and lavage. Secre tions were present bilaterally, about the same in amounts. They were more copious in the lower lobe s. Few secretions were present in the right upper lobe or left upper lobe. After removal of centra l secretions, more distal secretions were then removed with lavage and washings. At the end of the procedure, there were no further secretions. Aerobic cultures only were sent. The patient tolerated the procedure well. Vital signs and oxygen saturations on supplemental oxygen remained normal throughout the procedure. IMPRESSION: Large amounts of secretions, somewhat purulent with both thick and thin consistencies f ound. All secretions were removed. Cultures were sent. /[id number]/MODL
[2016-11-11] MEDS: ACETYLCYSTEINE 10% 30 ML VIAL IH SCH ×5 (01:23→22:08)
[2016-11-11] MEDS: IPRATROPIUM/ALBUTEROL 3 ML DEYVIAL IH SCH ×5 (01:23→22:08)
[2016-11-11] MEDS: guaiFENesin 200 MG/10 ML UDL TUBE SCH ×6 (02:50→21:44)
[2016-11-11] MEDS: LEVOTHYROXINE 50 MCG TAB TUBE SCH (05:45)
[2016-11-11] MEDS: INSULIN LISPRO 100 UNIT/ML SC SCH ×3 (09:00→18:05)
[2016-11-11] MEDS: ENOXAPARIN 40 MG/0.4 ML SYR SC SCH (09:42)
[2016-11-11] MEDS: ASPIRIN 81 MG CHEWABLE TAB TUBE SCH (09:42)
[2016-11-11] MEDS: FENOFIBRATE 145 MG TAB TUBE SCH (09:42)
[2016-11-11] MEDS: INSULIN GLARGINE 100 UNITS/ML SYRINGE SC SCH (09:43)
--- NOTE | 2016-11-11 12:35 | HOSPPROG ---
Hospitalist Progress Note Assessment/Plan: DIAGNOSES AND PLANS: # acute on chronic hypoxic resp failure primarily due to likely aspiration with chronic lung disease at baseline; bronchoscopy with large volume secretion removal November 10 -again encouraged use of flutter valve device -follow respiratory cultures closely # hypernatremia -resolved; not DI as not polyuric -follow, no current tx needed now # dysphagia from his previous malignancy, on tube feeds -His tube will need to be replaced today -tube feeds resumed 11/07 and had been tolerating well w/o residual -PEG tube malfunction s/p replacement by Dr Amador -upper GI 11/06 showed no sign of obstruction, some reflex present # Diabetes with a A1c of 8 (new diagnosis) -sugars remain in appropriate range on current tx, not on any steroid -will need extensive education and outpatient follow up # Acute Urine Retention -jimenez has been removed and he is urinating OK -cannot crush flomax so not getting # elevated trop/suspect demand ischemia; no current sign of cardiac instability # JUAN RAMON, pre-renal -resolved and stable with IVF and off lisinopril -hypoK - resolved # bradycardia and hypotension -BPs remain in low to normal range off his atenolol and lisinopril # hx laryngeal cancer # severe weakness and decondtitioning d/t combination of the above; not ambulatory - PT # dvt ppx - Lovenox # FCFT -pt is high risk SUBJECTIVE: Less cough than yesterday but still coughing and with some phlegm production Does not notice a difference in dyspnea or weakness at this time OBJECTIVE: vitals: stable O2 10 L while sitting in a chair today exam: alert oriented Remains quite weak resps not labored at rest on high-flow oxygen lungs clear than yesterday, still slightly coarse heart reg abd normal bowel sounds, nontender nondistended, percutaneous feeding tube site looks good limbs warm good cap refill Lab data: sugars in good range Objective: Vital Signs Temp Pulse Resp BP Pulse Ox 37.0 C 102 H 17 120/64 91 L 11/11/16 11:08 11/11/16 11:30 11/11/16 11:30 11/11/16 11:08 11/11/16 11:30 Microbiology 11/10/16 16:55 Gram Stain - Final Lung Bilateral - Bronchial Washings Laboratory Results 11/10/16 05:11 11/10/16 05:11 11/10/16 11/11/16 11/12/16 06:59 06:59 06:59 Intake Total 1000 1908 Balance 1000 1908 ICD10 Worksheet Patient Problems: Problems Problem Status Onset Dehydration Acute Hyperglycemia Acute Feeding tube dysfunction Acute Vomiting Acute
--- NOTE | 2016-11-11 18:01 | SOAPPROG ---
SOAP Progress Note Assessment/Plan: Assessment: Bronchopneumonia. Aspiration initially. Associated with significant secretions yesterday. Doing better post bronchoscopy, with much less congestion today, but still some. Cultures now growing a gram-negative janice. Will start Levaquin, continue bronchopulmonary therapies and await final ID and sensitivities. Aspiration risk. Status post PEG placement. History had neck cancer Plan: Start Levaquin, 750 mg per day per PEG tube. Await ID and sensitivity of gram-negative janice and adjust antibiotics as needed. Repeat chest x-ray tomorrow. Continue to follow pulmonary status and oxygen needs closely. Continue bronchopulmonary therapies and mucolytics. Subjective: coughing up some purulent mucus today. For overall less congestion. However, oxygen requirements remain relatively high at times. Objective: Vital Signs Temp Pulse Resp BP Pulse Ox 37.1 C 100 24 H 103/61 93 11/11/16 16:00 11/11/16 16:00 11/11/16 16:00 11/11/16 16:00 11/11/16 16:00 Microbiology 11/10/16 16:55 Gram Stain - Final Lung Bilateral - Bronchial Washings Laboratory Results 11/10/16 05:11 11/10/16 05:11 11/10/16 11/11/16 11/12/16 05:59 05:59 05:59 Intake Total 1000 1908 Balance 1000 1908 Bronch wash growing a gram-negative janice: Lactose steam table attendant. Id and sensitivity pending. Physical Exam - Physical Exam General Appearance: alert, no apparent distress EENT: other ( On OxyMask between 8 and 15 L) Neck: normal inspection Respiratory: lungs clear ( anteriorly), decreased breath sounds ( bilaterally), rales ( few), other ( some yellowish sputum coughed up into wash cloth), No rhonchi ( rhonchi minimal, essentially resolved today. No significant central congestion) Cardiac/Chest: tachycardia ( low 100s) Abdomen: normal bowel sounds, non-tender, soft, other ( peg tube in place) Skin: warm/dry Extremities: pedal edema ( trace +) Neuro/Psych: no motor/sensory deficits ( moves all extremities equally, slowly) , No cognition abnormalities ( seems intact. Responses are slow, his baseline I believe.) ICD10 Worksheet Patient Problems: Problems Problem Status Onset Vomiting Acute Feeding tube dysfunction Acute Hyperglycemia Acute Dehydration Acute
[2016-11-11] MEDS: levOFLOXACIN ORAL 25 MG/ML 100 ML BOTTLE TUBE SCH (18:28)
[2016-11-11] MEDS: ZOLPIDEM TARTRATE 5 MG TAB TUBE PRN (22:46)
[2016-11-12] MEDS: guaiFENesin 200 MG/10 ML UDL TUBE SCH ×6 (00:50→22:26)
[2016-11-12] MEDS: LEVOTHYROXINE 50 MCG TAB TUBE SCH (05:37)
[2016-11-12] MEDS: ACETYLCYSTEINE 10% 30 ML VIAL IH SCH ×4 (05:56→22:13)
[2016-11-12] MEDS: IPRATROPIUM/ALBUTEROL 3 ML DEYVIAL IH SCH ×4 (05:56→22:13)
[2016-11-12] MEDS: INSULIN LISPRO 100 UNIT/ML SC SCH ×3 (09:31→17:34)
[2016-11-12] MEDS: FENOFIBRATE 145 MG TAB TUBE SCH (09:31)
[2016-11-12] MEDS: ASPIRIN 81 MG CHEWABLE TAB TUBE SCH (09:31)
[2016-11-12] MEDS: INSULIN GLARGINE 100 UNITS/ML SYRINGE SC SCH (09:31)
[2016-11-12] MEDS: ENOXAPARIN 40 MG/0.4 ML SYR SC SCH (09:31)
[2016-11-12] MEDS ORDERED: CEFEPIME HCL 2 GM in D5W 100 ML IV ONE (10:53)
[2016-11-12] MEDS: levOFLOXACIN ORAL 25 MG/ML 100 ML BOTTLE TUBE SCH (11:09)
[2016-11-12] MEDS: CEFEPIME HCL 2 GM in D5W 100 ML IV SCH ×2 (11:45→19:46)
[2016-11-12] MEDS ORDERED: CEFEPIME HCL 2 GM in D5W 100 ML IV SCH (14:00)
--- NOTE | 2016-11-12 17:16 | SOAPPROG ---
SOAP Progress Note Assessment/Plan: Assessment: Bronchopneumonia. Aspiration initially. Associated with significant secretions , removed by bronchoscopy 11/10. Now growing Pseudomonas. Will DC Levaquin, start cefepime. Continue bronchopulmonary therapies. Hypoxemia:oxygen requirements are significantly improved. Aspiration risk. Status post PEG placement. History had neck cancer Plan: Antibiotics will be changed to cefepime: 2 g Q 8. Continue to follow pulmonary status and oxygen needs closely. Continue bronchopulmonary therapies and mucolytics, follow x-ray intermittently. Subjective: Feels somewhat better today. Breathing is better. Less cough and mucus. Objective: Vital Signs Temp Pulse Resp BP Pulse Ox 37.1 C 103 H 18 109/67 93 11/12/16 15:02 11/12/16 16:54 11/12/16 16:54 11/12/16 15:02 11/12/16 16:54 Microbiology 11/10/16 16:55 Gram Stain - Final Lung Bilateral - Bronchial Washings Bronchial Washings Culture - Final Pseudomonas Aeruginosa Laboratory Results 11/10/16 05:11 11/10/16 05:11 11/11/16 11/12/16 11/13/16 05:59 05:59 05:59 Intake Total 1908 2814 Balance 1908 2814 bronch culture growing Pseudomonas. Sensitive to several antibiotics including cefepime. Intermediate to Levaquin. Chest x-ray: By basilar infiltrate/atelectasis, left greater than right are present. Physical Exam - Physical Exam General Appearance: alert, no apparent distress EENT: other ( On OxyMask now at 3 L) Neck: normal inspection ( no JVD) Respiratory: lungs clear ( anteriorly), decreased breath sounds ( at bases), rales ( few), rhonchi ( present at bases), No wheezing Cardiac/Chest: tachycardia ( regular, 100) Abdomen: normal bowel sounds, non-tender, soft Skin: warm/dry, pallor Extremities: pedal edema Neuro/Psych: no motor/sensory deficits, No cognition abnormalities ICD10 Worksheet Patient Problems: Problems Problem Status Onset Vomiting Acute Feeding tube dysfunction Acute Hyperglycemia Acute Dehydration Acute
--- NOTE | 2016-11-12 20:08 | HOSPPROG ---
Hospitalist Progress Note Assessment/Plan: The patient is a male with PMH dysphagia, chronic respiratory failure on home oxygen, history laryngeal cancer, debility who was admitted for acute on chronic respiratory failure. ASSESSMENT/PLAN: Acute on chronic respiratory failure, oxygen-dependent Pseudomonas pneumonia Dysphagia, status post PEG tube replacement New onset diabetes History of laryngeal cancer Debility -patient is followed by pulmonology-change IV antibiotic today to cover for Pseudomonas that is resistant to Levaquin. Status post bronchoscopy. -on increased oxygen requirement, goal to get him back to his baseline oxygen demand -P.T./OT as tolerated. -encouraged patient to use his flutter valve and incentive spirometer. -continue tube feeds, NPO for aspiration risk. VTE prophylaxis: Lovenox Code Status: Full Status: Inpatient for greater than 2 midnight stay. Disposition: [facility] ____ SUBJECTIVE: Today patient feels tired. He complains of cough that is productive of clear sputum. OBJECTIVE: Physical Exam: General: The patient is a thin, elderly male who is alert and in no acute distress. HEENT: normocephalic, extraocular movements intact, conjunctivae clear. Mucous membranes moist. Neck: trachea midline, no visible masses. CV: +S1/S2, RRR, no MRG. Resp: unlabored, CTAB no RRW. Abd: soft and nondistended. Bowel sounds present. PEG in place. Musculoskeletal: Reduced muscle tone/bulk. Neuro: cranial nerves II XII grossly intact. Intact gross motor and sensory function. Psych: Appropriate mood and appropriate affect. Skin: + pallor. No petechiae. Heme/lymph: No peripheral edema at bilateral lower extremites. Labs/Imaging/Other Tests: Personally reviewed/interpreted. This patient is new to me. Reviewed patient's chart/records for this visit. Objective: Vital Signs Temp Pulse Resp BP Pulse Ox 37.2 C 105 H 16 119/67 91 L 11/12/16 19:40 11/12/16 19:40 11/12/16 19:40 11/12/16 19:40 11/12/16 19:40 Microbiology 11/10/16 16:55 Gram Stain - Final Lung Bilateral - Bronchial Washings Bronchial Washings Culture - Final Pseudomonas Aeruginosa Laboratory Results 11/10/16 05:11 11/10/16 05:11 11/11/16 11/12/16 11/13/16 05:59 05:59 05:59 Intake Total 2686 2812 Balance 1908 2817 ICD10 Worksheet Patient Problems: Problems Problem Status Onset Dehydration Acute Hyperglycemia Acute Feeding tube dysfunction Acute Vomiting Acute
[2016-11-12] MEDS: ZOLPIDEM TARTRATE 5 MG TAB TUBE PRN (22:26)
[2016-11-13] MEDS: guaiFENesin 200 MG/10 ML UDL TUBE SCH ×4 (02:31→15:50)
[2016-11-13] MEDS: CEFEPIME HCL 2 GM in D5W 100 ML IV SCH ×3 (03:33→20:56)
[2016-11-13] MEDS: LEVOTHYROXINE 50 MCG TAB TUBE SCH (04:55)
[2016-11-13 05:13] LABS: HEMATOCRIT 31.1 % (40.0-51.0); HEMOGLOBIN 9.9 g/dL (13.7-17.5); MEAN CELL HEMOGLOBIN 31.6 pg (27.9-34.1); MEAN CELL HEMOGLOBIN CONCENTR. 31.8 g/dL (32.4-36.7); MEAN CELL VOLUME 99.4 fL (81.5-99.8); RED BLOOD CELL COUNT 3.13 10^6/uL (4.40-6.38); RED CELL DISTRIBUTION WIDTH 12.1 % (11.5-15.2)
[2016-11-13 05:31] LABS: ANION GAP 8 mEq/L (8-16); CALCIUM 8.5 mg/dL (8.5-10.4); CARBON DIOXIDE 30 mEq/l (22-31); CHLORIDE 97 mEq/L (97-110); CREATININE 0.9 mg/dL (0.7-1.3); GLOMERULAR FILTRATION RATE > 60; GLUCOSE 120 mg/dL (70-100); POTASSIUM 4.1 mEq/L (3.5-5.2); SODIUM 135 mEq/L (134-144)
[2016-11-13] MEDS: ACETYLCYSTEINE 10% 30 ML VIAL IH SCH ×4 (06:16→22:39)
[2016-11-13] MEDS: IPRATROPIUM/ALBUTEROL 3 ML DEYVIAL IH SCH ×4 (06:16→22:39)
[2016-11-13] MEDS: ENOXAPARIN 40 MG/0.4 ML SYR SC SCH (09:31)
[2016-11-13] MEDS: ASPIRIN 81 MG CHEWABLE TAB TUBE SCH (09:32)
[2016-11-13] MEDS: FENOFIBRATE 145 MG TAB TUBE SCH (09:32)
[2016-11-13] MEDS: INSULIN GLARGINE 100 UNITS/ML SYRINGE SC SCH (09:32)
[2016-11-13] MEDS: INSULIN LISPRO 100 UNIT/ML SC SCH ×3 (09:45→18:24)
--- NOTE | 2016-11-13 15:30 | SOAPPROG ---
SOAP Progress Note Assessment/Plan: Assessment: Bronchopneumonia. Aspiration initially. Associated with significant secretions , removed by bronchoscopy 11/10. Now growing Pseudomonas. On cefepime and bronchopulmonary therapies. Hypoxemia:oxygen requirements are significantly improved. Off mask, on Oxymizer Aspiration risk. Status post PEG placement. History head neck cancer Plan: Cont cefepime: 2 g Q 8. Continue to follow pulmonary status and oxygen needs. Continue bronchopulmonary therapies, follow x-ray intermittently. Subjective: Feels better. Breathing better, not short of breath. Much less coughing congestion. No sputum today. Objective: Vital Signs Temp Pulse Resp BP Pulse Ox 36.8 C 99 18 124/73 H 90 L 11/13/16 14:42 11/13/16 14:42 11/13/16 14:42 11/13/16 14:42 11/13/16 14:42 Microbiology 11/10/16 16:55 Gram Stain - Final Lung Bilateral - Bronchial Washings Bronchial Washings Culture - Final Pseudomonas Aeruginosa Laboratory Results 11/13/16 04:54 11/13/16 04:54 11/12/16 11/13/16 11/14/16 05:59 05:59 05:59 Intake Total 2814 1722 Balance 2814 1722 Laboratory Tests 11/13/16 04:54 Calcium 8.5 Magnesium 2.0 Physical Exam - Physical Exam General Appearance: alert, no apparent distress EENT: other (On Oxymizer at 4 L) Neck: normal inspection Respiratory: lungs clear (Anteriorly), decreased breath sounds (At bases), rales (Minimal at bases), No rhonchi (Today at the time of my exam), No wheezing Cardiac/Chest: tachycardia (Regular), systolic murmur Abdomen: normal bowel sounds, non-tender, soft Skin: warm/dry, pallor Extremities: pedal edema Neuro/Psych: no motor/sensory deficits, No cognition abnormalities ICD10 Worksheet Patient Problems: Problems Problem Status Onset Vomiting Acute Feeding tube dysfunction Acute Hyperglycemia Acute Dehydration Acute
[2016-11-13] MEDS ORDERED: ALTEPLASE 2 MG VIAL IVP PRN (16:36)
[2016-11-13] MEDS ORDERED: guaiFENesin 200 MG/10 ML UDL TUBE PRN (16:38)
--- NOTE | 2016-11-13 19:45 | HOSPPROG ---
Hospitalist Progress Note Assessment/Plan: The patient is a male with PMH dysphagia, chronic respiratory failure on home oxygen, history laryngeal cancer, debility who was admitted for acute on chronic respiratory failure. ASSESSMENT/PLAN: Acute on chronic respiratory failure, oxygen-dependent Pseudomonas pneumonia, s/p bronchoscopy Atelectasis Dysphagia, status post PEG tube replacement New onset diabetes History of laryngeal cancer Debility Anemia -patient is followed by Pulmonology- Cefepime started 11/12/16 will need 10 days total. Resistant to po Abx. Consulting ID to follow pt upon discharge. -Ordering PICC line. -O2 requirement improving. -P.T./OT as tolerated. -encouraged patient to use his flutter valve and incentive spirometer. -continue tube feeds, NPO for aspiration risk. VTE prophylaxis: Lovenox Code Status: Full Status: Inpatient for greater than 2 midnight stay. Disposition: Med surge - Anticipate DC to SNF Rehab for continued IV Abx. ____ SUBJECTIVE: Today patient feels much better after 1 day of new Abx. On 3L O2 via [place]. OBJECTIVE: Physical Exam: General: The patient is a thin, elderly male who is alert and in no acute distress. HEENT: normocephalic, extraocular movements intact, conjunctivae clear. Mucous membranes moist. Neck: trachea midline, no visible masses. CV: +S1/S2, RRR, no MRG. Resp: unlabored, CTAB, +bibasilar exp wheeze. Abd: soft and nondistended. Bowel sounds present. PEG in place. Musculoskeletal: Reduced muscle tone/bulk. Neuro: cranial nerves II XII grossly intact. Intact gross motor and sensory function. Psych: Appropriate mood and appropriate affect. Skin: + pallor. No petechiae. Heme/lymph: +1 peripheral edema at bilateral lower ankles. Labs/Imaging/Other Tests: Personally reviewed/interpreted. Objective: Vital Signs Temp Pulse Resp BP Pulse Ox 36.8 C 99 18 124/73 H 90 L 11/13/16 14:42 11/13/16 14:42 11/13/16 14:42 11/13/16 14:42 11/13/16 14:42 Microbiology 11/10/16 16:55 Gram Stain - Final Lung Bilateral - Bronchial Washings Bronchial Washings Culture - Final Pseudomonas Aeruginosa Laboratory Results 11/13/16 04:54 11/13/16 04:54 11/12/16 11/13/16 11/14/16 05:59 05:59 05:59 Intake Total 2814 1722 Balance 2814 1722 ICD10 Worksheet Patient Problems: Problems Problem Status Onset Dehydration Acute Hyperglycemia Acute Feeding tube dysfunction Acute Vomiting Acute
[2016-11-13] MEDS: ZOLPIDEM TARTRATE 5 MG TAB TUBE PRN (22:53)
[2016-11-14] MEDS: CEFEPIME HCL 2 GM in D5W 100 ML IV SCH ×3 (04:51→20:46)
[2016-11-14] MEDS: LEVOTHYROXINE 50 MCG TAB TUBE SCH (04:51)
[2016-11-14] MEDS: ACETYLCYSTEINE 10% 30 ML VIAL IH SCH ×4 (05:11→22:19)
[2016-11-14] MEDS: IPRATROPIUM/ALBUTEROL 3 ML DEYVIAL IH SCH ×4 (05:11→22:19)
[2016-11-14] MEDS ORDERED: ATENOLOL 50 MG TAB TUBE SCH (09:00)
[2016-11-14] MEDS: INSULIN LISPRO 100 UNIT/ML SC SCH ×3 (09:27→18:21)
[2016-11-14] MEDS: FENOFIBRATE 145 MG TAB TUBE SCH (09:43)
[2016-11-14] MEDS: INSULIN GLARGINE 100 UNITS/ML SYRINGE SC SCH (09:44)
--- NOTE | 2016-11-14 10:59 | SOAPPROG ---
SOAP Progress Note Assessment/Plan: Assessment: Bronchopneumonia. Aspiration initially. Associated with significant secretions , removed by bronchoscopy 11/10. Now growing Pseudomonas. On cefepime and bronchopulmonary therapies. Doing well, significantly improved. For a PICC line today. [facility] will [facility] to a [facility] facility to complete at least a 10 day course of IV antibiotics. Hypoxemia:oxygen requirements are significantly improved. Off mask, on Oxymizer Aspiration risk. Status post PEG placement. History head neck cancer Plan: For discharge possibly tomorrow. For PICC line today to continue antibiotics to complete a full course. He will go to a prison facility on discharge. If pulmonary follow-up is needed I would be happy to see him back at some point. Will get a final x-ray tomorrow as a discharge baseline. Subjective: A little more congestion today compared with yesterday, bringing up a small amount of yellow sputum, occasionally with some blood. Able to cough this up without problems. Not significantly short of breath. O2 requirements remain low. Overall, feels much better compared to mid week. Objective: Vital Signs Temp Pulse Resp BP Pulse Ox 36.8 C 90 18 122/86 H 94 11/14/16 06:56 11/14/16 06:56 11/14/16 06:56 11/14/16 06:56 11/14/16 06:56 Microbiology 11/10/16 16:55 Gram Stain - Final Lung Bilateral - Bronchial Washings Bronchial Washings Culture - Final Pseudomonas Aeruginosa Laboratory Results 11/13/16 04:54 11/13/16 04:54 11/13/16 11/14/16 11/15/16 05:59 05:59 05:59 Intake Total 1722 50 Output Total 300 Balance 1722 -250 Physical Exam - Physical Exam General Appearance: alert, no apparent distress EENT: other (Oxymizer in place at 4 L) Neck: normal inspection (No JVD) Respiratory: lungs clear (Anteriorly), decreased breath sounds (Decreased breath sounds at bases with a few nonspecific rales. No consolidation), rhonchi (Some rhonchi present only with cough. Able to clear mucus easily) Cardiac/Chest: regular rate, rhythm, systolic murmur Abdomen: normal bowel sounds, non-tender, soft, other (Peg tube in place) Skin: warm/dry, pallor Extremities: No pedal edema Neuro/Psych: no motor/sensory deficits, No cognition abnormalities ICD10 Worksheet Patient Problems: Problems Problem Status Onset Vomiting Acute Feeding tube dysfunction Acute Hyperglycemia Acute Dehydration Acute
--- NOTE | 2016-11-14 16:27 | HOSPPROG ---
Hospitalist Progress Note Assessment/Plan: 81 yo male with h/o laryngeal cancer and PEG tube admitted with hypernatremia, hyperglycemia, and acute kidney injury, now with presumed aspiration pneumonia. 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 O2 requirement 10 LPM --> 2 LPM. Laryngeal cancer s/p PEG - PEG malfunctioned, replaced by GI. Hypotension - improved, holding anti-hypertensives Bradycardia - holding Atenolol DM - a1c 8, cont glargine, SSI. Urinary retention - Flomax held as unable to crush per tube. Will ask pharmacy if a crushable alpha tanner alternative is available. FEN - tube feeds Full code Dispo - cont inpt. Planning for SNF for ongoing IV atbx in 1-2 days Subjective: Pt doing well. Ambulating vigorously in halls. Still with mild cough. No SOB after walking in halls. No fevers. Overall feels better. Objective: Vital Signs Temp Pulse Resp BP Pulse Ox 36.6 C 64 16 102/62 92 11/14/16 14:54 11/14/16 14:54 11/14/16 14:54 11/14/16 14:54 11/14/16 14:54 Microbiology 11/10/16 16:55 Gram Stain - Final Lung Bilateral - Bronchial Washings Bronchial Washings Culture - Final Pseudomonas Aeruginosa Laboratory Results 11/13/16 04:54 11/13/16 04:54 11/13/16 11/14/16 11/15/16 05:59 05:59 05:59 Intake Total 1722 50 Output Total 300 Balance 1722 -250 - Physical Exam Constitutional: no apparent distress Eyes: PERRL Ears, Nose, Mouth, Throat: moist mucous membranes Cardiovascular: regular rate and rhythym Respiratory: no respiratory distress, inspiratory crackles Gastrointestinal: normoactive bowel sounds, soft, non-tender abdomen Skin: warm Musculoskeletal: full muscle strength Neurologic: AAOx3 Psychiatric: interacting appropriately ICD10 Worksheet Patient Problems: Problems Problem Status Onset Dehydration Acute Hyperglycemia Acute Feeding tube dysfunction Acute Vomiting Acute
[2016-11-14] MEDS: ENOXAPARIN 40 MG/0.4 ML SYR SC SCH (16:50)
[2016-11-14] MEDS: ASPIRIN 81 MG CHEWABLE TAB TUBE SCH (16:50)
[2016-11-14] MEDS: DOXAZOSIN MESYLATE 1 MG TAB PO SCH (20:46)
[2016-11-15] MEDS: ZOLPIDEM TARTRATE 5 MG TAB TUBE PRN (01:12)
[2016-11-15] MEDS: CEFEPIME HCL 2 GM in D5W 100 ML IV SCH ×3 (03:54→20:01)
[2016-11-15] MEDS: IPRATROPIUM/ALBUTEROL 3 ML DEYVIAL IH SCH ×3 (05:43→16:45)
[2016-11-15] MEDS: ACETYLCYSTEINE 10% 30 ML VIAL IH SCH ×3 (05:43→16:45)
[2016-11-15] MEDS: ENOXAPARIN 40 MG/0.4 ML SYR SC SCH (08:55)
[2016-11-15] MEDS: FENOFIBRATE 145 MG TAB TUBE SCH (08:55)
[2016-11-15] MEDS: LEVOTHYROXINE 50 MCG TAB TUBE SCH (08:55)
[2016-11-15] MEDS: ASPIRIN 81 MG CHEWABLE TAB TUBE SCH (08:55)
[2016-11-15] MEDS: INSULIN GLARGINE 100 UNITS/ML SYRINGE SC SCH (08:55)
[2016-11-15] MEDS: INSULIN LISPRO 100 UNIT/ML SC SCH ×3 (08:56→18:40)
[2016-11-15] MEDS ORDERED: NS 500 ML IV ONE (11:05)
--- NOTE | 2016-11-15 20:16 | HOSPPROG ---
Hospitalist Progress Note Assessment/Plan: 81 yo male with h/o laryngeal cancer and PEG tube admitted with hypernatremia, hyperglycemia, and acute kidney injury, now with presumed aspiration pneumonia. 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 O2 requirement 10 LPM --> 2 LPM --> 4 LPM. CXR today personally reviewed and interpreted showed collapsed right lung. -CT chest with extensive mucus plugging. Discussed with pulm, hold tube feeds in am for poss bronch -cont mucomyst nebs, pulm toilet, O2 Laryngeal cancer s/p PEG - PEG malfunctioned, replaced by GI. Hypotension - 80's/40's this am, ?related to worsening pulmonary status vs new alpha tanner started last night vs volume depletion. -BP normalized to >100 systolic with 500 cc NS bolus -cont to hold anti-hypertensives Bradycardia - holding Atenolol DM - a1c 8, cont glargine, SSI. Urinary retention - Flomax held as unable to crush per tube. Doxazosin added last night though pt hypotensive this am, holding. FEN - tube feeds, hold in am for possible bronch Full code Dispo - cont inpt. Subjective: Pt feels ok. Denies CP or SOB. Still coughing a bit. No fevers. Objective: Vital Signs Temp Pulse Resp BP Pulse Ox 36.8 C 75 12 95/58 L 94 11/15/16 15:23 11/15/16 16:46 11/15/16 16:46 11/15/16 15:23 11/15/16 16:46 Laboratory Results 11/13/16 04:54 11/13/16 04:54 11/14/16 11/15/16 11/16/16 05:59 05:59 05:59 Intake Total 990 Output Total 300 Balance 690 - Physical Exam Constitutional: no apparent distress Eyes: PERRL Ears, Nose, Mouth, Throat: moist mucous membranes Cardiovascular: regular rate and rhythym Respiratory: no respiratory distress, reduced air movement, inspiratory crackles Gastrointestinal: normoactive bowel sounds, soft, non-tender abdomen Skin: warm Neurologic: AAOx3 Psychiatric: interacting appropriately ICD10 Worksheet Patient Problems: Problems Problem Status 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
[2016-11-16] MEDS: ACETYLCYSTEINE 10% 30 ML VIAL IH SCH ×5 (00:31→16:57)
[2016-11-16] MEDS: IPRATROPIUM/ALBUTEROL 3 ML DEYVIAL IH SCH ×6 (00:31→22:58)
[2016-11-16] MEDS: ZOLPIDEM TARTRATE 5 MG TAB TUBE PRN (01:35)
[2016-11-16] MEDS: CEFEPIME HCL 2 GM in D5W 100 ML IV SCH ×3 (05:23→21:41)
[2016-11-16] MEDS: LEVOTHYROXINE 50 MCG TAB TUBE SCH (05:23)
[2016-11-16 05:33] LABS: ADD DIFF? YES; ADD MORPH? NO; ADD SCAN? NO; ATYPICAL LYMPHOCYTE FLAG 0 (0-99); FRAGMENT RBC FLAG 0 (0-99); HEMATOCRIT 32.5 % (40.0-51.0); HEMOGLOBIN 10.2 g/dL (13.7-17.5); LEFT SHIFT FLG 20 (0-99); LIPEMIA HEMOLYSIS FLAG 80 (0-99); MEAN CELL HEMOGLOBIN CONCENTR. 31.4 g/dL (32.4-36.7); MEAN CELL VOLUME 98.8 fL (81.5-99.8); MEAN PLATELET VOLUME 9.8 fL (8.7-11.7); PLATELET CLUMPS FLAG 0 (0-99); PLATELET COUNT 340 10^3/uL (150-400); RED BLOOD CELL COUNT 3.29 10^6/uL (4.40-6.38); RED CELL DISTRIBUTION WIDTH 12.3 % (11.5-15.2)
[2016-11-16 06:22] LABS: PLATELET ESTIMATE ADEQUATE (ADEQ)
[2016-11-16 06:23] LABS: POLYCHROMASIA 1+
[2016-11-16 06:24] LABS: TOXIC GRANULATION PRESENT
[2016-11-16] MEDS: INSULIN LISPRO 100 UNIT/ML SC SCH ×3 (07:35→18:32)
[2016-11-16] MEDS: FENOFIBRATE 145 MG TAB TUBE SCH (10:52)
[2016-11-16] MEDS: ENOXAPARIN 40 MG/0.4 ML SYR SC SCH (10:52)
[2016-11-16] MEDS: ASPIRIN 81 MG CHEWABLE TAB TUBE SCH (10:52)
--- NOTE | 2016-11-16 11:04 | SOAPPROG ---
SOAP Progress Note Assessment/Plan: Assessment/ Plan: * Bronchopneumonia. Aspiration initially. Associated with significant secretions, removed by bronchoscopy 11/10. Now growing Pseudomonas. On cefepime and bronchopulmonary therapies. Doing well, significantly improved. For a PICC line today. He will go to a shelter facility to complete at least a 10 day course of IV antibiotics. * Hypoxemia:oxygen requirements are significantly improved. Off mask, on Oxymizer * Aspiration risk. Status post PEG placement. * History head neck cancer * Mucous plugging- no improvement with aggressive pulmonary toilet - will perform fiberoptic bronchoscopy today Subjective: comfortable. Denies any chest pain. Minimal cough. Objective: Vital Signs Temp Pulse Resp BP Pulse Ox 36.7 C 81 20 109/66 91 L 11/16/16 08:00 11/16/16 08:00 11/16/16 08:00 11/16/16 08:00 11/16/16 08:00 Laboratory Results 11/16/16 05:00 11/13/16 04:54 11/15/16 11/16/16 11/17/16 05:59 05:59 05:59 Intake Total 990 Output Total 300 Balance 690 Physical Exam - Physical Exam General Appearance: WD/WN, alert, no apparent distress EENT: PERRL/EOMI, normal ENT inspection, pharynx normal, TMs normal Neck: non-tender, full range of motion, supple, normal inspection Respiratory: lungs clear, rhonchi (few) Cardiac/Chest: normal peripheral pulses, regular rate, rhythm Peripheral Pulses: 2+: carotid (R), carotid (L), femoral (R), femoral (L), dorsalis-pedis (R), dorsalis-pedis (L) Abdomen: normal bowel sounds, non-tender, soft Male Genitalia: deferred Rectal: deferred ICD10 Worksheet Patient Problems: Problems Problem Status 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
[2016-11-16] MEDS: INSULIN GLARGINE 100 UNITS/ML SYRINGE SC SCH (11:43)
[2016-11-16] MEDS ORDERED: LIDOCAINE 2% JELLY 5 ML TUBE ONE (13:09)
[2016-11-16] MEDS ORDERED: LIDOCAINE 1% 300 MG/30 ML SDV ONE (13:09)
[2016-11-16] MEDS ORDERED: ALBUTEROL 3 ML DEYVIAL ONE (13:09)
[2016-11-16] MEDS ORDERED: MIDAZOLAM 2 MG/2 ML VIAL ONE (13:47)
[2016-11-16] MEDS ORDERED: fentaNYL 100 MCG/2 ML INJ ONE (13:47)
[2016-11-16] MEDS ORDERED: NS 500 ML IV SCH (14:00)
--- NOTE | 2016-11-16 17:47 | HOSPPROG ---
Hospitalist Progress Note Assessment/Plan: 81 yo male with h/o laryngeal cancer and PEG tube admitted with hypernatremia, hyperglycemia, and acute kidney injury, now with presumed aspiration pneumonia. 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 O2 requirement 10 LPM --> 2 LPM --> 4 LPM. CXR yesterday showed collapsed right lung. CT with extensive mucus plugging. Bronch today with copious secretions. -cont nebs, pulm toilet, O2 Laryngeal cancer s/p PEG - PEG malfunctioned, replaced by GI. Dysphagia with ongoing aspiration risk - continuous tube feeds. Concern for recurrent aspiration with bolus feeds. Hypotension - Improved today. -cont to hold anti-hypertensives Bradycardia - holding Atenolol DM - a1c 8, cont glargine, SSI. Urinary retention - Flomax held as unable to crush per tube. Doxazosin added but since held due to hypotension. FEN - tube feeds Full code Dispo - cont inpt. Subjective: Pt for bronch today. 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
[2016-11-17] MEDS: ZOLPIDEM TARTRATE 5 MG TAB TUBE PRN
[2016-11-17] MEDS: INSULIN LISPRO 100 UNIT/ML SC SCH ×4 (01:02→18:42)
[2016-11-17] MEDS: CEFEPIME HCL 2 GM in D5W 100 ML IV SCH ×3 (04:26→20:21)
[2016-11-17] MEDS: LEVOTHYROXINE 50 MCG TAB TUBE SCH (04:30)
[2016-11-17] MEDS: IPRATROPIUM/ALBUTEROL 3 ML DEYVIAL IH SCH ×2 (05:27→11:32)
--- NOTE | 2016-11-17 08:59 | GPN ---
[f rep st] PROCEDURE NOTE PROCEDURE: Fiberoptic bronchoscopy. INDICATION: Mucus plugging. ANESTHESIA: He received Versed 3 mg, fentanyl 50 mcg. The procedure was performed in the endoscopy suite with continuous pulse ox, EKG and blood pressure monitoring. Please note, N95 masks were used by all participants throughout the procedure. DESCRIPTION OF PROCEDURE: The bronchoscope was entered orally. Vocal cords were visualized and opp osed easily. Trachea and eligio were visualized and showed no endobronchial lesions and normal-appe aring mucosa. Bronchoscope was entered in the left lung. Left upper lobe, lingula, left lower lobe including subsegments were subsequently visualized and showed no endobronchial lesions and normal-a ppearing mucosa. Bronchoscope was entered in the right lung. Right upper lobe including subsegment s was visualized. It showed no endobronchial lesions and normal-appearing mucosa. Bronchoscope was then entered into the bronchus intermedius. There were copious amounts of thick tenacious secretio ns that were therapeutically aspirated. The right middle lobe was then visualized and again showed copious amounts of thick tenacious secretions that were therapeutically aspirated. Bronchoscope was entered in the lower lobes. Lower lobe basilar segments including the superior segments were visua lized and again showed copious amounts of thick tenacious secretions that were therapeutically aspir ated. Bronchoscope was then removed. Patient tolerated the procedure well. There were no apparent complications. Portable chest x-ray has been called for. /[id number]/MODL
[2016-11-17] MEDS: ASPIRIN 81 MG CHEWABLE TAB TUBE SCH (09:28)
[2016-11-17] MEDS: FENOFIBRATE 145 MG TAB TUBE SCH (09:28)
[2016-11-17] MEDS: ENOXAPARIN 40 MG/0.4 ML SYR SC SCH (09:28)
--- NOTE | 2016-11-17 16:49 | HOSPPROG ---
Hospitalist Progress Note Assessment/Plan: * Aspiration PNA -severe dysphagia - strict NPO -IV cefepime for pseudomonas -ID consult - anticipate discharge on IV abx * Mucus plug with lung collapse - s/p bronch * Laryngeal cancer s/p PEG -continue tube feeds * Acute respiratory failure * PEG tube malfunction - replaced by GI * Hypotension -holding usual BP meds * DM II -lantus * Urinary retention -doxazosin as BP tolerates * Hypernatremia/ARF - due to dehydration -resolved Subjective: NO complaints, very anxious for discharge Objective: Vital Signs Temp Pulse Resp BP Pulse Ox 36.8 C 96 24 H 106/60 95 11/17/16 15:51 11/17/16 15:51 11/17/16 15:51 11/17/16 15:51 11/17/16 15:51 Laboratory Results 11/16/16 05:00 11/13/16 04:54 11/16/16 11/17/16 11/18/16 05:59 05:59 05:59 Intake Total [address] chest - extensive mucus plug with lung collapse CXR viewed, my personal interpretation is - some atelectasis but looks pretty well expanded - Physical Exam Constitutional: no apparent distress, appears nourished, not in pain Cardiovascular: regular rate and rhythym, no murmur, rub, or gallop Respiratory: no respiratory distress, no rales or rhonchi, clear to auscultation Skin: no rashes or abrasions, no fluctuance, no induration Neurologic: AAOx3, sensation intact bilaterally Psychiatric: interacting appropriately, not anxious, not encephalopathic, thought process linear ICD10 Worksheet Patient Problems: Problems Problem Status 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
[2016-11-17] MEDS: DOXAZOSIN MESYLATE 1 MG TAB PO SCH (20:39)
[2016-11-18] MEDS: ZOLPIDEM TARTRATE 5 MG TAB TUBE PRN ×2 (00:17→23:24)
[2016-11-18] MEDS: INSULIN LISPRO 100 UNIT/ML SC SCH ×4 (00:46→18:25)
[2016-11-18] MEDS: CEFEPIME HCL 2 GM in D5W 100 ML IV SCH ×3 (04:17→21:06)
[2016-11-18] MEDS: LEVOTHYROXINE 50 MCG TAB TUBE SCH (04:20)
[2016-11-18] MEDS: ASPIRIN 81 MG CHEWABLE TAB TUBE SCH (08:28)
[2016-11-18] MEDS: FENOFIBRATE 145 MG TAB TUBE SCH (08:28)
[2016-11-18] MEDS: ENOXAPARIN 40 MG/0.4 ML SYR SC SCH (08:29)
[2016-11-18] MEDS: INSULIN GLARGINE 100 UNITS/ML SYRINGE SC SCH (08:32)
--- NOTE | 2016-11-18 14:29 | GCON ---
[f rep st] CONSULTATION INFECTIOUS DISEASE CONSULTATION DATE OF CONSULTATION: 11/18/2016 REASON FOR CONSULTATION: Pseudomonas resistant to carbapenems, pneumonia due to Pseudomonas resista nt to carbapenems. HPI: An 81-year-old male, who has a longstanding history of laryngeal cancer, who presented to the hospital on 10/28/2016 with worsening hypoxia, shortness of breath and weakness. He was found to [place] hyperosmolar hyperglycemia, and a creatinine of 1.7, and a sodium 157. The patient was admitted to the hospital and electrolytes were adjusted, and the patient was started on empiric ertapenem for treatment of aspiration pneumonia. The patient had persistent hypoxia, and Pulmonary was sub sequently consulted on 11/10, and the patient underwent a bronchoscopy where large amounts of purule nt secretions were noted. Cultures from this bronchoscopy showed Pseudomonas resistant to carbapene ms, intermediate to Levaquin. Susceptible to cefepime, ceftazidime, gentamicin, Zosyn and tobramyci n. Subsequently, the patient also had an additional bronchoscopy to clear mucus plugs on 11/17/2016 , and there was still a significant amount of secretions at that time. Since initial bronchoscopy, at which time the patient had O2 requirements as high as 10 L, the patient is now on 4-5 L nasal can nula. The patient previously was on a baseline of 2 L. Today, the patient has no complaints, and d enies any side effects to his antibiotics. His cefepime was started on 11/12 2 g IV q.8, based on c ulture results. PAST MEDICAL HISTORY: Laryngeal cancer treated with radiation, hypertension, peptic ulcer disease, chronic obstructive COPD and emphysema, prior history of alcohol abuse, hypothyroidism. ALLERGIES: NKDA. MEDICATIONS: Cefepime 2 g IV q.8, aspirin 81 mg daily, atenolol 50 mg daily, albuterol, Cardura 1 m g q.h.s., Lovenox 40 mg subcu daily, Tricor 145 mg daily, Robitussin as needed, insulin. Zofran and Ambien p.r.n. at bedtime. SOCIAL HISTORY: The patient previously lived alone. Remote history of tobacco and alcohol, none re cently. FAMILY HISTORY: Reviewed and noncontributory. REVIEW OF SYSTEMS: A complete 10-point review of systems was performed, and is negative except as m entioned in the HPI. PHYSICAL EXAMINATION: VITAL SIGNS: Blood pressure 96/92, heart rate is 94, respiratory rate 18-20, saturation 94% on 4 L, temperature 36.6. He has been afebrile throughout his hospital course. GEN ERAL: This is a thin male sitting up in bed, in no acute distress. HEENT: Slightly dry mucous mem branes, edentulous. NECK: Supple. No lymphadenopathy. CARDIOVASCULAR: Regular rate and rhythm. No murmurs. CHEST: The patient had poor air movement throughout and occasional scattered crackles . No wheezes. ABDOMEN: Soft, nontender. PEG tube site was in place C/D/I. EXTREMITIES: No club grey, cyanosis, or edema. NEUROLOGIC: He was hard of hearing. Moving all 4 extremities equally. LABORATORY: White count 6.8, hematocrit 32, platelets of 348, 67% neutrophils, 7% bands. Prior whi te count was high as 19,000. Blood cultures from 10/31 are negative. Current creatinine is 0.9. B AL from 11/10/2016: Pseudomonas aeruginosa with susceptibilities as per HPI. IMAGING: Chest x-ray was personally reviewed by me from today, shows normal cardiomediastinal silho uette. Some evidence of bilateral atelectasis, right greater than left. Central line in place on t he right. ASSESSMENT AND PLAN: This is an 81-year-old male with laryngeal cancer, and likely chronic aspirati on, who intake is primarily through the PEG tube, who had increasing hypoxia with infiltrates and cu ltures positive for Pseudomonas aeruginosa resistant to carbapenems. The patient clinically improve d after initiation of high-dose cefepime. I would recommend a total of 7 days of cefepime to comple te the course of antibiotics, which will be a stop date of 11/19/2016. The patient would discontinue PICC line when the patient was transferred to [facility] facility . No ID followup needed. Please contact the ID if patient needs to be seen again as an inpatient. Thank you for this consultation. /[phone]/[email or web address]
--- NOTE | 2016-11-18 17:49 | HOSPPROG ---
Hospitalist Progress Note Assessment/Plan: * Aspiration/Pseudomonas PNA -severe dysphagia - strict NPO -IV cefepime - tomorrow is day # 7 -d/w Dr. Adkins - stop antibiotics tomorrow * Mucus plug with lung collapse - s/p bronch * Laryngeal cancer s/p PEG -continue tube feeds * Acute respiratory failure - improved * PEG tube malfunction - replaced by GI * Hypotension -holding usual BP meds * DM II -lantus * Urinary retention -doxazosin as BP tolerates * Hypernatremia/ARF - due to dehydration -resolved Subjective: No new complaints. Objective: Vital Signs Temp Pulse Resp BP Pulse Ox 37.1 C 101 H 24 H 109/71 92 11/18/16 15:46 11/18/16 15:46 11/18/16 15:46 11/18/16 15:46 11/18/16 15:46 Laboratory Results 11/16/16 05:00 11/13/16 04:54 11/17/16 11/18/16 11/19/16 05:59 05:59 05:59 Intake Total 1773 1718 Balance 1773 1718 CXR: some persistent infiltrate but per radiology c/w atelectasis - Physical Exam Constitutional: no apparent distress, appears nourished, not in pain Cardiovascular: regular rate and rhythym, no murmur, rub, or gallop Respiratory: no respiratory distress, no rales or rhonchi, clear to auscultation Gastrointestinal: normoactive bowel sounds, soft, non-tender abdomen, no palpable masses Skin: no rashes or abrasions, no fluctuance, no induration Neurologic: AAOx3, sensation intact bilaterally Psychiatric: interacting appropriately, not anxious, not encephalopathic, thought process linear ICD10 Worksheet Patient Problems: Problems Problem Status 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
[2016-11-18] MEDS: DOXAZOSIN MESYLATE 1 MG TAB PO SCH (21:06)
[2016-11-19] MEDS: INSULIN LISPRO 100 UNIT/ML SC SCH ×3 (00:08→11:39)
[2016-11-19] MEDS: CEFEPIME HCL 2 GM in D5W 100 ML IV SCH ×2 (03:54→12:27)
[2016-11-19 06:01] LABS: % IMMATURE GRANULYOCYTES 2.1 % (0.0-1.1); ABSOLUTE IMMATURE GRANULOCYTES 0.16 10^3/uL (0.00-0.10); ADD DIFF? NO; ADD MORPH? NO; ADD SCAN? NO; ATYPICAL LYMPHOCYTE FLAG 10 (0-99); FRAGMENT RBC FLAG 0 (0-99); HEMATOCRIT 31.8 % (40.0-51.0); HEMOGLOBIN 10.1 g/dL (13.7-17.5); LEFT SHIFT FLG 10 (0-99); LIPEMIA HEMOLYSIS FLAG 80 (0-99); MEAN CELL HEMOGLOBIN 31.4 pg (27.9-34.1); MEAN CELL HEMOGLOBIN CONCENTR. 31.8 g/dL (32.4-36.7); MEAN CELL VOLUME 98.8 fL (81.5-99.8); MEAN PLATELET VOLUME 9.7 fL (8.7-11.7); PLATELET CLUMPS FLAG 0 (0-99); PLATELET COUNT 264 10^3/uL (150-400); RED BLOOD CELL COUNT 3.22 10^6/uL (4.40-6.38); RED CELL DISTRIBUTION WIDTH 12.6 % (11.5-15.2)
[2016-11-19] MEDS: LEVOTHYROXINE 50 MCG TAB TUBE SCH (06:10)
[2016-11-19 06:27] LABS: ANION GAP 6 mEq/L (8-16); CALCIUM 8.1 mg/dL (8.5-10.4); CARBON DIOXIDE 33 mEq/l (22-31); CHLORIDE 95 mEq/L (97-110); CREATININE 0.7 mg/dL (0.7-1.3); GLOMERULAR FILTRATION RATE > 60; GLUCOSE 149 mg/dL (70-100); POTASSIUM 4.1 mEq/L (3.5-5.2); SODIUM 134 mEq/L (134-144)
[2016-11-19] MEDS: INSULIN GLARGINE 100 UNITS/ML SYRINGE SC SCH (09:25)
[2016-11-19] MEDS: ENOXAPARIN 40 MG/0.4 ML SYR SC SCH (09:25)
[2016-11-19] MEDS: FENOFIBRATE 145 MG TAB TUBE SCH (09:26)
[2016-11-19] MEDS: ASPIRIN 81 MG CHEWABLE TAB TUBE SCH (09:26)
[2016-11-19 15:20] VITALS: BP 122/64; PULSE 99; RESP 28; TEMP 98.2; O2SAT 92
--- NOTE | 2016-11-19 15:35 | PDIAF ---
- Diagnosis Diagnosis: aspiration pneumonia, debility, severe copd on O2, atelectasis Code Status: Full Code - Medication Management Discharge Medications: Medications to Continue on Transfer Fenofibrate [Tricor 145 mg (*)] 145 mg PO DAILY 07/03/11 [Last Taken 10/28/16] Aspirin [Aspirin 81mg (*)] 81 mg PO DAILY #30 tab 08/02/13 [Last Taken 10/28/16] Levothyroxine [Synthroid 50 mcg (*)] 50 mcg PO DAILY06 02/21/16 [Last Taken ] Enoxaparin [Lovenox 40 MG (*)] 40 mg SC DAILY #0 syr 11/19/16 [Last Taken Unknown] Insulin Glargine [Lantus 100 UNITS/ML (*)] 18 units SC DAILY #0 ml 11/19/16 [ Last Taken Unknown] Insulin Lispro [humALOG LISPRO 100 units/ml (*)] 0 unit SC Q6H #0 unit 11/19/16 [Last Taken Unknown] Discharge Medications: Refer to the Discharge Home Medication list for PRN reason. PICC Care - Routine: N/A - Orders Services needed: Registered Nurse, Certified Bottom Buffer, Master Mine Exploration Engineer , Physical Therapy, Occupational Therapy, Speech Language Pathologist Oxygen: 2-5L via NC Diet Recommendation: other (NPO) Diet Texture: No Oral Liquids, Non Oral Meds Tube feeding: Glucerna 65cc/hr continuous feeds. May switch to bolus feeds. Weigh Patient: weekly Myers: Not applicable Activity/Weight Bearing Restrictions: up with assistance only Additional: flutter valve, incentive spirometer - Follow Up Care Current Providers and Referrals: Dutch Serrato MD [Primary Care Provider] - 3 days of d/c SNF/Rehab
--- NOTE | 2016-11-19 16:53 | PDDCSUM ---
Discharge Summary Discharge Summary: Date of Admission: October 28, 2016 Date of Discharge: November 19, 2016 Discharge Diagnoses: Aspiration pneumonia with Pseudomonas, treated Acute on chronic hypoxemic respiratory failure, on oxygen Atelectasis, bilateral lungs Recurrent mucous plugging Acute debility Severe COPD, on home oxygen New onset diabetes mellitus type 2, on insulin History of laryngeal cancer, status post PEG tube History of hypertension Admission Diagnoses: Hyperosmolar hyperglycemia Acute renal failure Hypernatremia History of laryngeal cancer with feeding tube Hypertension Shortness of Breath Consultants: Critical Care/pulmonology-Dr. Farias Infectious Disease-Dr. Adkins [facility] Course: The patient is an 81-year-old male who was admitted to hospital with generalized weakness and acute on chronic respiratory failure. Patient normally uses 2 L of oxygen at baseline. He was initially hyperglycemic with blood sugar at 650, hypernatremic, and dehydrated. He improved with fluids and insulin. Patient's PEG tube was replaced without complication. Patient developed an increased oxygen demand of 10-15 L and was upgraded to the intensive care unit. He was believed to have aspiration pneumonia. He was treated with IV antibiotics. Patient received respiratory therapy with flutter valve, incentive spirometer, EzPAP, Mucomyst. He underwent a couple bronchoscopies which removed mucus plugs causing atelectasis. Bronchial washings grew multi-drug resistant Pseudomonas which was susceptible to cephalosporins but resistant to carbapenems and fluoroquinolones. Infectious Disease was consulted for the potential of being on IV antibiotics at the SNF. However, patient was able to complete his IV cefepime x1 week at the hospital. Patient was kept strictly NPO and fed via PEG tube. He was feeling much better and was transferred to a SNF rehab, [facility] on November 19, 2016. Physical Exam: General: The patient is an elderly male who is alert and in no acute distress. HEENT: normocephalic, extraocular movements intact, conjunctivae clear, on 3 L oxygen with nasal cannula. Nares and oral mucosa pink and moist. Neck: trachea midline, no visible masses, no external lesions. CV: +S1/S2, RRR, no MRG. Resp: unlabored, CTAB no RRW. Abd: soft and nondistended. Musculoskeletal: Reduced muscle tone and bulk Neuro: cranial nerves II XII grossly intact. Intact gross motor and sensory function. Psych: appropriate mood/affect. Skin: Mild pallor. Condition: Fair Discharged to: SNF rehab Pertinent tests/labs/imaging: Echocardiogram, transthoracic: Diastolic dysfunction. Ejection fraction greater than 70%. Right ventricular systolic pressure normal. Chest x-ray November 18: Continued improvement in aeration of right lung with persistent bibasilar atelectasis. Medications: Please see medication reconciliation form. Patient completed his IV antibiotics in the hospital. Special instructions: Continue respiratory therapy at SNF. Patient will need to continue physical therapy and occupational therapy for enhanced mobility. Follow up: Follow up with primary care physician within 1 week of being discharged from SNF. Follow-up with research spec in 2-4 weeks after being discharged from SNF. Greater than 30 minutes of total time was spent on counseling and coordination of care for this patient's discharge.
== END 2016-11-19 17:36 | DRG 981 ==
LOC: F3N 21:14 → F3E 11-02 08:01
PROVIDERS: ADMIT Internal Medicine; ATTEND Internal Medicine
DX: E11.65 Type 2 diabetes mellitus with hyperglycemia (principal); J96.21 Acute and chronic respiratory failure with hypoxia; J15.1 Pneumonia due to Pseudomonas; N17.9 Acute kidney failure, unspecified; J98.11 Atelectasis; E87.0 Hyperosmolality and hypernatremia; J44.9 Chronic obstructive pulmonary disease, unspecified; E86.0 Dehydration; F10.10 Alcohol abuse, uncomplicated; I10 Essential (primary) hypertension; Z85.21 Personal history of malignant neoplasm of larynx; Z87.891 Personal history of nicotine dependence; Z93.1 Gastrostomy status
CPT/HCPCS: 82947-QW; 84466-90; 87449-90; 92611-GN; 96374; 97110-GO; 97110-GP; 97116-GP; 97161-GP; 97166-GO; 97530-GO; 97530-GP; 97535-GO; C1751; G8978-GP-CI; G8978-GP-CJ; G8979-GP-CH; G8979-GP-CI; G8987-GO-CJ; G8988-GO-CI; G8996-GN-CM; G8997-GN-CM; G8998-GN-CM; J0171; J0692; J1335; J1650; J1815; J2250; J3010; Q9967

== ENCOUNTER 2018-01-25 07:33 | Inpatient (IN) | payer OTHER ==
[2018-01-25] MEDS ORDERED: IPRATROPIUM/ALBUTEROL 3 ML DEYVIAL IH ONE (07:38)
--- NOTE | 2018-01-25 07:44 | EDPHY ---
H & P Time Seen by Provider: 01/25/18 07:37 HPI/ROS: CHIEF COMPLAINT: Difficulty breathing HISTORY OF PRESENT ILLNESS: The patient presents the ED with increasing difficulty breathing over the past several days. The patient saw his primary care provider last week and was started on prednisone. The patient took this medication as prescribed. Patient has been having increasing back spasms and was also started on Flexeril earlier this week. The patient is brought into the emergency department by one of his tenants with increased work of breathing today. The patient reports a slightly productive cough. He does report moderate to severe dyspnea. The patient typically wears 2 L of nasal cannula oxygen at night. The patient does have a history of atrial fibrillation. REVIEW OF SYSTEMS: A comprehensive 10 point review of systems is otherwise negative aside from elements mentioned in the history of present illness. Source: Patient Exam Limitations: No limitations - Medical/Surgical History Hx Asthma: No Hx Chronic Respiratory Disease: Yes Hx Diabetes: No Hx Cardiac Disease: No Hx Renal Disease: No Hx Cirrhosis: No Hx Alcoholism: Yes Hx HIV/AIDS: No Hx Splenectomy or Spleen Trauma: No Other PMH: CA LARYNX. CHF. HTN. lipids. hyponatremia. PUD/GI bleed - Social History Smoking Status: Former smoker - Physical Exam Exam: General Appearance: Elderly male, kyphotic, mildly tachypneic Eyes: Pupils equal and round no pallor or injection ENT, Mouth: Mucous membranes moist Respiratory: Rhonchorous breath sounds all lung vides Cardiovascular: Regular rate and rhythm Gastrointestinal: Abdomen is soft and nontender, no masses, bowel sounds normal , abdominal G-tube noted Neurological: 5/5 strength all 4 extremities Skin: Warm and dry, no rashes Musculoskeletal: Neck is supple nontender Extremities: symmetrical, full range of motion Constitutional: Initial Vital Signs Temperature (C) 36.4 C 01/25/18 07:42 Heart Rate 80 01/25/18 07:42 Respiratory Rate 22 H 01/25/18 07:42 Blood Pressure 91/67 L 01/25/18 07:42 O2 Sat (%) 86 L 01/25/18 07:42 O2 Delivery Mode Bi-Pap O2 (L/minute) 11 Allergies/Adverse Reactions: No Known Allergies Allergy (Verified 05/18/16 09:09) Home Medications: Medication Instructions Recorded Aspirin [Aspirin 81mg (*)] 81 mg PO DAILY #30 tab 08/02/13 Atenolol [Tenormin 100 mg (*)] 100 mg PO DAILY 01/25/18 Cyclobenzaprine [Flexeril 10 MG 10 mg PO BID PRN 01/25/18 (*)] Medical Decision Making - Diagnostics EKG Interpretation: EKG: Complete interpretation has been separately recorded in the [facility] archive. Summary impression: Sinus rhythm, rate 75, no ischemic changes noted Imaging Results: Imaging Impressions Chest X-Ray 01/25/18 07:38 Impression: Right lower lung zone consolidation consistent with pneumonia. ED Course/Re-evaluation: The patient presents to the ED with increasing dyspnea. Patient does have a history of COPD and is oxygen dependent. The patient is G-tube dependent. Chest x-ray does demonstrate a consolidation at the right lung base. Blood cultures x2 have been obtained. The patient will be started on Unasyn for possible aspiration. Consultation was made with the hospitalist service. The patient will be admitted by Dr. Fam to the step-down unit in the setting of his hypoxemia and BiPAP use. Patient is currently in a sinus rhythm. Patient has no evidence of septic physiology. Differential Diagnosis: Differential diagnosis considered includes asthma, bronchitis, pneumonia Critical Care Time: Critical care time exclusive of procedures and exclusive of the PA's time was 35 minutes, performed by myself, Osvaldo Sanders MD. The patient presents to the ED with acute hypoxemic respiratory failure secondary to aspiration pneumonia and underlying COPD. The patient was placed on BiPAP in the emergency department. The patient will be admitted to the intensive care unit under the care of the hospitalist. - Data Points Laboratory Results: Laboratory Results 01/25/18 08:00 01/25/18 08:00 01/25/18 01/25/18 01/25/18 08:06 08:00 08:00 WBC 7.88 10^3/uL 10^3/uL (3.80-9.50) RBC 4.39 10^6/uL L 10^6/uL (4.40-6.38) Hgb 15.0 g/dL g/dL (13.7-17.5) Hct 43.2 % % (40.0-51.0) MCV 98.4 fL fL (81.5-99.8) MCH 34.2 pg H pg (27.9-34.1) MCHC 34.7 g/dL g/dL (32.4-36.7) RDW 14.0 % % (11.5-15.2) Plt Count 61 10^3/uL L 10^3/uL (150-400) MPV 11.6 fL fL (8.7-11.7) Neut % (Auto) Not Reported Lymph % (Auto) Not Reported Becker % (Auto) Not Reported Eos % (Auto) Not Reported Baso % (Auto) Not Reported Nucleat RBC Rel Count Not Reported Absolute Neuts (auto) Not Reported Absolute Lymphs (auto) Not Reported Absolute Monos (auto) Not Reported Absolute Eos (auto) Not Reported Absolute Basos (auto) Not Reported Absolute Nucleated RBC Not Reported Immature Gran % Not Reported Seg Neutrophils % 79.4 % % Band Neutrophils % 11.8 % % Lymphocytes % 2.0 % % Monocytes % 3.9 % % Eosinophils % 0.0 % % Basophils % 0.0 % % Metamyelocytes % 2.9 % % Myelocytes % 0.0 % % Promyelocytes % 0.0 % % Blast Cells % 0.0 % % Immature Gran # Not Reported Absolute Seg Neuts 6.26 10^/uL 10^/uL (1.70-6.50) Absolute Band Neuts 0.93 10^3/uL H 10^3/uL (0.00-0.70) Absolute Lymphocytes 0.16 10^3/uL L 10^3/uL (1.00-3.00) Absolute Monocytes 0.31 10^3/uL 10^3/uL (0.30-0.80) Absolute Eosinophils 0.00 10^3/uL L 10^3/uL (0.03-0.40) Absolute Basophils 0.00 10^3/uL L 10^3/uL (0.02-0.10) Absolute Metamyelocyte 0.23 10^3/mL H 10^3/mL (0.00-0.00) Absolute Myelocytes 0.00 10^3/mL 10^3/mL (0.00-0.00) Absolute Promyelocytes 0.00 10^3/uL 10^3/uL (0.00-0.00) Absolute Plasma Cells 0.00 10^3/uL 10^3/uL (0.00-0.00) Nucleated RBCs 2.0 /100 WBC H /100 WBC (0-0) Absolute Blast Cells 0.00 10^3/uL 10^3/uL (0.00-0.00) Plasma Cells % 0.0 % % Platelet Estimate DECREASED L (ADEQ) Polychromasia 1+ H Sodium 132 mEq/L L mEq/L (135-145) Potassium 4.6 mEq/L mEq/L (3.3-5.0) Chloride 91 mEq/L L mEq/L (97-110) Carbon Dioxide 32 mEq/l H mEq/l (22-31) Anion Gap 9 mEq/L mEq/L (6-14) BUN 51 mg/dL H mg/dL (7-23) Creatinine 0.8 mg/dL mg/dL (0.7-1.3) Estimated GFR > 60 Glucose 146 mg/dL H mg/dL (70-100) Calcium 9.4 mg/dL mg/dL (8.5-10.4) POC Troponin I 0.03 ng/mL ng/mL (0.00-0.08) NT-Pro-B Natriuret Pep 2710 pg/mL H pg/mL (0-450) Medications Given: Discontinued Medications Albuterol/Ipratropium (Duoneb) 3 ml IH EDNOW ONE Stop: 01/25/18 07:39 Last Admin: 01/25/18 08:03 Dose: 3 ml Point of Care Test Results: Chemistry 01/25/18 08:06 POC Troponin I 0.03 ng/mL ng/mL (0.00-0.08) Departure - Departure Disposition: [facility] Inpatient Acute Clinical Impression: Chronic obstructive pulmonary disease with acute exacerbation Pneumonia Qualifiers: Pneumonia type: aspiration pneumonia Aspiration pneumonia type: unspecified Laterality: right Lung location: lower lobe of lung Qualified Code(s): J69.0 - Pneumonitis due to inhalation of food and vomit Condition: Fair
[2018-01-25] MEDS ORDERED: AMPICILLIN/SULBACTAM 3 GM in NS 100 ML IV ONE (09:00)
[2018-01-25] MEDS ORDERED: ACETAMINOPHEN 325 MG TAB PO PRN (09:10)
[2018-01-25] MEDS ORDERED: ONDANSETRON 4 MG/2 ML VIAL IVP PRN (09:10)
[2018-01-25] MEDS ORDERED: ALBUTEROL 3 ML DEYVIAL IH PRN (09:10)
[2018-01-25] MEDS ORDERED: ONDANSETRON DISINTEGRATING 4 MG TAB PO PRN (09:10)
[2018-01-25] MEDS ORDERED: D50W 25 GM/50 ML SYR IVP PRN (09:12)
--- NOTE | 2018-01-25 09:14 | CPEKG ---
Test Reason : OPEN Blood Pressure : / mmHG Vent. Rate : 075 BPM Atrial Rate : 075 BPM P-R Int : 184 ms QRS Dur : 086 ms QT Int : 370 ms P-R-T Axes : 048 017 039 degrees QTc Int : 414 ms Sinus rhythm Confirmed by Osvaldo Sanders [id number]) on 01/25/2018 9:13:40 AM Referred By: Confirmed By:Osvaldo Sanders
[2018-01-25 09:26] LABS: PLATELET COUNT 61 10^3/uL (150-400)
[2018-01-25] MEDS ORDERED: PIPERACILLIN/TAZO 4.5 GM/DEX 100 ML IV SCH (09:30)
--- NOTE | 2018-01-25 09:51 | PDGENHP ---
History and Physical - Chief Complaint sob - History of Present Illness 82 yo male with h/o COPD and aspiration pneumonia who has gastrostomy tube and is NPO, tube feed dependent, presents to ED with shortness of breath. He reports increasing dyspnea over past several days with increase sputum production. He uses 2 LPM O2 at baseline. His O2 tubing is tinted dark yellow. He has been caring for his G tube site himself and it's noted there is quite a bit of drainage from the G tube which is foul smelling. He denies abdominal pain, fevers or chills. His tenant grew more concerned about his condition and he was brought to the ED. His sats were in the low 80's. He was started on bipap. CXR was concerning for RLL infiltrate. He did not meet sepsis criteria, though blood cultures were drawn and he was started on antibiotics. He is admitted to the step down unit on bipap for further management. History Information - Allergies/Home Medication List Allergies/Adverse Reactions: No Known Allergies Allergy (Verified 05/18/16 09:09) Home Medications: Atenolol [Tenormin 100 mg (*)] 100 mg PO DAILY 01/25/18 [Last Taken 01/24/18] Cyclobenzaprine [Flexeril 10 MG (*)] 10 mg PO BID PRN 01/25/18 [Last Taken 01/24 09:30] I have personally reviewed and updated: family history, medical history, social history, surgical history - Past Medical History Additional medical history: Chronic hypoxemic respiratory failure. Aspiration, NPO, G tube, on tube feeds. COPD. A fib. Chronic diastolic heart failure, EF 70% 10/2016. Hypertension. Hyperlipidemia. PUD, h/o GIB. DM. H/O laryngeal cancer - Surgical History Additional surgical history: Gastrostomy tube placement 2017. Bronchoscopy 2017 with copious secretions - Family History Positive for: non-pertinent - Social History Smoking Status: Former smoker Alcohol Use: None Drug Use: None Additional social history: Lives independently, not caring for himself Review of Systems Review of Systems: ROS: 10pt was reviewed & negative except for what was stated in HPI & below Physical Exam Physical Exam: Temp Pulse Resp BP Pulse Ox 37 C 78 12 105/66 90 L 01/25/18 09:20 01/25/18 09:32 01/25/18 09:39 01/25/18 09:32 01/25/18 09:39 O2 (L/minute) 2 Constitutional: chronically ill appearing Eyes: PERRL Ears, Nose, Mouth, Throat: moist mucous membranes Cardiovascular: regular rate and rhythym Respiratory: no respiratory distress, inspiratory crackles Gastrointestinal: other (soft, nd, +soft, reducable anterior abdominal wall hernia, G tube site is leaking, foul smelling) Skin: warm Musculoskeletal: generalized weakness Psychiatric: poor insight Lab Data & Imaging Review 01/25/18 08:00 01/25/18 08:00 WBC 7.88 10^3/uL (3.80-9.50) 01/25/18 08:00 RBC 4.39 10^6/uL (4.40-6.38) L 01/25/18 08:00 Hgb 15.0 g/dL (13.7-17.5) 01/25/18 08:00 Hct 43.2 % (40.0-51.0) 01/25/18 08:00 MCV 98.4 fL (81.5-99.8) 01/25/18 08:00 MCH 34.2 pg (27.9-34.1) H 01/25/18 08:00 MCHC 34.7 g/dL (32.4-36.7) 01/25/18 08:00 RDW 14.0 % (11.5-15.2) 01/25/18 08:00 Plt Count 61 10^3/uL (150-400) L 01/25/18 08:00 MPV 11.6 fL (8.7-11.7) 01/25/18 08:00 Neut % (Auto) Not Reported 01/25/18 08:00 Lymph % (Auto) Not Reported 01/25/18 08:00 [place] % (Auto) Not Reported 01/25/18 08:00 Eos % (Auto) Not Reported 01/25/18 08:00 Baso % (Auto) Not Reported 01/25/18 08:00 Nucleat RBC Rel Count Not Reported 01/25/18 08:00 Absolute Neuts (auto) Not Reported 01/25/18 08:00 Absolute Lymphs (auto) Not Reported 01/25/18 08:00 Absolute Monos (auto) Not Reported 01/25/18 08:00 Absolute Eos (auto) Not Reported 01/25/18 08:00 Absolute Basos (auto) Not Reported 01/25/18 08:00 Absolute Nucleated RBC Not Reported 01/25/18 08:00 Immature Gran % Not Reported 01/25/18 08:00 Seg Neutrophils % 79.4 % 01/25/18 08:00 Band Neutrophils % 11.8 % 01/25/18 08:00 Lymphocytes % 2.0 % 01/25/18 08:00 Monocytes % 3.9 % 01/25/18 08:00 Eosinophils % 0.0 % 01/25/18 08:00 Basophils % 0.0 % 01/25/18 08:00 Metamyelocytes % 2.9 % 01/25/18 08:00 Myelocytes % 0.0 % 01/25/18 08:00 Promyelocytes % 0.0 % 01/25/18 08:00 Blast Cells % 0.0 % 01/25/18 08:00 Immature Gran # Not Reported 01/25/18 08:00 Absolute Seg Neuts 6.26 10^/uL (1.70-6.50) 01/25/18 08:00 Absolute Band Neuts 0.93 10^3/uL (0.00-0.70) H 01/25/18 08:00 Absolute Lymphocytes 0.16 10^3/uL (1.00-3.00) L 01/25/18 08:00 Absolute Monocytes 0.31 10^3/uL (0.30-0.80) 01/25/18 08:00 Absolute Eosinophils 0.00 10^3/uL (0.03-0.40) L 01/25/18 08:00 Absolute Basophils 0.00 10^3/uL (0.02-0.10) L 01/25/18 08:00 Absolute Metamyelocyte 0.23 10^3/mL (0.00-0.00) H 01/25/18 08:00 Absolute Myelocytes 0.00 10^3/mL (0.00-0.00) 01/25/18 08:00 Absolute Promyelocytes 0.00 10^3/uL (0.00-0.00) 01/25/18 08:00 Absolute Plasma Cells 0.00 10^3/uL (0.00-0.00) 01/25/18 08:00 Nucleated RBCs 2.0 /100 WBC (0-0) H 01/25/18 08:00 Absolute Blast Cells 0.00 10^3/uL (0.00-0.00) 01/25/18 08:00 Plasma Cells % 0.0 % 01/25/18 08:00 Platelet Estimate DECREASED (ADEQ) L 01/25/18 08:00 Polychromasia 1+ H 01/25/18 08:00 Sodium 132 mEq/L (135-145) L 01/25/18 08:00 Potassium 4.6 mEq/L (3.3-5.0) 01/25/18 08:00 Chloride 91 mEq/L (97-110) L 01/25/18 08:00 Carbon Dioxide 32 mEq/l (22-31) H 01/25/18 08:00 Anion Gap 9 mEq/L (6-14) 01/25/18 08:00 BUN 51 mg/dL (7-23) H 01/25/18 08:00 Creatinine 0.8 mg/dL (0.7-1.3) 01/25/18 08:00 Estimated GFR > 60 01/25/18 08:00 Glucose 146 mg/dL (70-100) H 01/25/18 08:00 Calcium 9.4 mg/dL (8.5-10.4) 01/25/18 08:00 POC Troponin I 0.03 ng/mL (0.00-0.08) 01/25/18 08:06 NT-Pro-B Natriuret Pep 2710 pg/mL (0-450) H 01/25/18 08:00 Assessment & Plan Assessment: Acute on chronic hypoxemic respiratory failure - Suspect recurrent aspiration PNA. He is NPO, tube feed dependent, on 2 LPM O2 at home, 11 LPM in ED. +h/o COPD and aspiration on VFSS in 10/2016, at which time he was treated for aspiration PNA, Cx grew carbapenem resistant pseudomonas. He does not meet sepsis criteria on arrival. -ABG now (already on bipap in ED) -QID duonebs plus prn Alb nebs -IV solumedrol -Zosyn for pseudomonal coverage, presumed aspiration PNA -IR consulted to change gastrostomy tube to GJ tube given suspected ongoing aspiration despite NPO status - holding TF until this is done -Pulm consulted for possible bronch given h/o recurrent mucus plugging -trial mucomyst Chronic aspiration with gastrostomy tube - this is leaking with foul odor -check LFT's and abdomen plain film -IR to consult for probable transition to GJ tube as above COPD - management as above A fib - NSR here, rate controlled -resume BB when it's clear BP is stable -defer AC given low plts and not currently in a fib Chronic diastolic HF - he is euvolemic to dry on arrival, echo 10/2016 reviewed: EF 70%, +diastolic dysfunction DM - SSI Hypertension - had some hypotension, improved now -cont ivf's -resume atenolol as indicated Hyperlipidemia Azotemia - suspect prerenal as he appears dry on arrival -IVF's, follow H/O PUD with previous GIB Dispo - inpt, stepdown Code status - discussed, pt wishes to be full code. He has little insight into his condition and prognosis.
[2018-01-25] MEDS: NS 1,000 ML IV SCH (11:09)
[2018-01-25] MEDS: methylPREDNISolone SOD SUCC 125 MG/2 ML VIAL IVP SCH ×2 (11:11→22:21)
[2018-01-25] MEDS: INSULIN LISPRO 100 UNIT/ML SC SCH ×3 (11:37→22:21)
--- NOTE | 2018-01-25 13:12 | PDMN ---
Medical Necessity Medical necessity: MCG: [id number] PNA due to aspiration 3 days: acute on chronic hypoxemic resp. failure suspect recurrent aspiration pna. pt is NPO, tube feed dependent, 2L O2 at home, 11 L in ED. Pulm. consult pending, IR consult pend., PMHx afib, chronic diastolic HF, DM, HTN, Hyperlipidemia, Azotemia, . PUD with previous GIB., anticipate > 2 MN ongoing med nec care, further eval and tx.
[2018-01-25] MEDS: ACETYLCYSTEINE 10% IH/PO 4 ML VIAL IH SCH ×3 (14:07→21:05)
[2018-01-25] MEDS: IPRATROPIUM/ALBUTEROL 3 ML DEYVIAL IH SCH ×3 (14:07→21:06)
[2018-01-25] MEDS ORDERED: METHOCARBAMOL 500 MG in NS 50 ML IV SCH (14:36)
[2018-01-25] MEDS: PIPERACILLIN/TAZO 4.5 GM/DEX 100 ML IV SCH ×2 (17:05→23:50)
[2018-01-26] MEDS: ACETYLCYSTEINE 10% IH/PO 4 ML VIAL IH SCH (05:16)
[2018-01-26] MEDS: IPRATROPIUM/ALBUTEROL 3 ML DEYVIAL IH SCH ×4 (05:16→20:25)
[2018-01-26 05:54] LABS: PLATELET COUNT 58 10^3/uL (150-400)
[2018-01-26] MEDS: PIPERACILLIN/TAZO 4.5 GM/DEX 100 ML IV SCH ×4 (05:56→21:49)
--- NOTE | 2018-01-26 08:27 | HOSPPROG ---
Hospitalist Progress Note Assessment/Plan: Acute on chronic hypoxemic respiratory failure - 2/2 recurrent aspiration PNA. He is NPO, tube feed dependent, on 2 LPM O2 at home, required 30 LPM vapotherm overnight, but now on 5 LPM by NC. +h/o COPD and aspiration on VFSS in 10/2016, at which time he was treated for aspiration PNA, Cx grew carbapenem resistant pseudomonas. He did not meet sepsis criteria on arrival. -cont QID duonebs plus prn Alb nebs -cont IV solumedrol -cont Zosyn for pseudomonal coverage, presumed aspiration PNA -IR consulted to change gastrostomy tube to GJ tube given suspected ongoing aspiration despite NPO status - holding TF until this is done -dc mucomust Chronic aspiration with gastrostomy tube - this is leaking with foul odor -IR to transition to GJ tube as above -speech/swallow eval COPD - management as above, wean O2 as able A fib - NSR here, rate controlled -resume BB when it's clear BP is stable -defer AC given low plts and not currently in a fib Chronic diastolic HF - he was euvolemic to dry on arrival, echo 10/2016 reviewed : EF 70%, +diastolic dysfunction DM - bg's 100's -cont SSI Hypertension - had some hypotension, improved now -cont ivf's -holding atenolol Hyperlipidemia Azotemia - suspect prerenal as he appears dry on arrival -IVF's, follow H/O PUD with previous GIB Dispo - inpt, transfer to med/surg Code status - discussed, pt wishes to be full code. He has little insight into his condition and prognosis. PT/OT evals, may warrant snf. Subjective: Pt feels better this am, back pain and breathing improved. No vomiting. No CP or SOB. No fevers. Objective: Vital Signs Temp Pulse Resp BP Pulse Ox 36.5 C 78 18 121/68 H 98 01/26/18 07:38 01/26/18 07:38 01/26/18 07:38 01/26/18 07:38 01/26/18 07:38 Microbiology 01/25/18 12:00 - Final Sputum, Expectorated Sputum Culture - Final 01/25/18 13:10 Respiratory Panel (PCR) - Final Nasal, Sinus - Aspirate No Organism Detected Laboratory Results 01/26/18 03:45 01/26/18 05:00 01/25/18 01/26/18 01/27/18 05:59 05:59 05:59 Intake Total 210 Output Total 300 Balance -90 - Physical Exam Constitutional: chronically ill appearing Eyes: PERRL Ears, Nose, Mouth, Throat: moist mucous membranes Cardiovascular: regular rate and rhythym Respiratory: no respiratory distress, other (RLL crackles, o/w ctab without wheezing) Gastrointestinal: other (soft, nd, +anterior abdominal wall hernia, which is soft, non-tender and reducable, g tube with foul smelling drainage) Skin: warm Musculoskeletal: generalized weakness Neurologic: AAOx3 Psychiatric: interacting appropriately ICD10 Worksheet Patient Problems: Problems Problem Status Onset Chronic obstructive pulmonary disease with acute exacerbation Acute Pneumonia Acute 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
[2018-01-26] MEDS: INSULIN LISPRO 100 UNIT/ML SC SCH ×4 (08:39→21:43)
[2018-01-26] MEDS: PANTOPRAZOLE SODIUM 40 MG VIAL IVP SCH (08:40)
--- NOTE | 2018-01-26 08:57 | WOCRNPDOC ---
WOCRN Advanced Assessment Note - Skin Integrity Problem, Advanced Assess Right Upper Abdomen Dressing Type: Band Aid, Dressing Sponge Dressing Description: Saturated Exudate Amount: Moderate Exudate Color: Green Integumentary Issue Intervention: Dressing Changed Natasha Wound Tissue: Raw, Denuded Natasha Wound Swelling: Mild Wound Bed Color: Red Wound Bed Constitution: Red/[place] - Non Granular Tissue Site Measurement - Head-to-Toe Length X Width X Depth (cm): 4x5x0.1 Skin Integrity Problem Comment: Saturated dressings removed from around PEG tube and skin cleansed with NS and gauze. Patient states he has had his PEG tube for 9 years and has had issues with leakage and skin breakdown the entire time. Patient says he uses a bandaid to protect the skin underneath and then a drain sponge which he changes as needed. Stated the tube has been increased in size previously, but unable to remember when. Discussed with Elías RHODES using stoma powder and a hydrocolloid to help protect the skin. Patient may be going for tube replacement. If the tube is replaced and there continues to be leakage around it, it may be necessary to try a pouching system to help heal the skin underneath, however, if the leakage continues, there may always be a risk of skin breakdown. Wound care will round again next week.
[2018-01-26] MEDS ORDERED: ENOXAPARIN 40 MG/0.4 ML SYR SC SCH (09:00)
[2018-01-26] MEDS: methylPREDNISolone SOD SUCC 125 MG/2 ML VIAL IVP SCH (09:38)
[2018-01-26] MEDS ORDERED: IOPAMIDOL (ISOVUE-300) 100 ML BTL ONE (11:03)
[2018-01-26] MEDS: NS 1,000 ML IV SCH (12:08)
[2018-01-26] MEDS ORDERED: HYDROmorphONE/DILAUDID 1 MG/ML INJ IVP PRN (13:10)
[2018-01-26] MEDS ORDERED: PNEUMOC 13-VAL CONJ-DIP CRM/PF 0.5 ML SYR IM ONE (14:44)
--- NOTE | 2018-01-26 14:59 | ASMTCMCOM ---
CM Note CM Note Notes: Spoke with PT who states patient is opposed to SNF placement but may consider Home health care. He has a neighbor who lives in his basement and sometimes helps him with tasks as patient told physical therapist. Patient's birthday is today. He is being tranferred to rm [id number], so I was unable to talk directly to him. CM to follow up when patient gets to 3E. CM will follow. Date Signed: 01/26/2018 02:58 PM Electronically Signed By:Leonor Chatterjee LCSW
[2018-01-27] MEDS: HYDROmorphONE/DILAUDID 2 MG/ML INJ IVP PRN (00:04)
[2018-01-27] MEDS: PIPERACILLIN/TAZO 4.5 GM/DEX 100 ML IV SCH ×4 (04:25→21:49)
[2018-01-27] MEDS: IPRATROPIUM/ALBUTEROL 3 ML DEYVIAL IH SCH ×4 (06:04→21:33)
[2018-01-27] MEDS: INSULIN LISPRO 100 UNIT/ML SC SCH ×4 (08:17→20:34)
[2018-01-27] MEDS: methylPREDNISolone SOD SUCC 125 MG/2 ML VIAL IVP SCH (08:57)
[2018-01-27] MEDS: PANTOPRAZOLE SODIUM 40 MG VIAL IVP SCH (08:57)
[2018-01-27 09:28] LABS: PLATELET COUNT 64 10^3/uL (150-400)
[2018-01-27] MEDS ORDERED: FUROSEMIDE 20 MG/2 ML VIAL IVP ONE (12:48)
--- NOTE | 2018-01-27 12:56 | HOSPPROG ---
Hospitalist Progress Note Assessment/Plan: Acute on chronic hypoxemic respiratory failure - 2/2 recurrent aspiration PNA. He is NPO, tube feed dependent, on 2 LPM O2 at home/ +h/o COPD and aspiration on VFSS in 10/2016, at which time he was treated for aspiration PNA, Cx grew carbapenem resistant pseudomonas. He did not meet sepsis criteria on arrival. -cont QID duonebs plus prn Alb nebs -cont IV solumedrol. Will give additional dose today -cont Zosyn for pseudomonal coverage, presumed aspiration PNA -CXR ordered and personally reviewed, c/w pneumonia -has been getting lots of fluids, will get one time dose of Lasix Dysphagia with Chronic aspiration with gastrostomy tube - this is leaking with foul odor -IR has transitioned to GJ tube -will restart tube feeds -speech/swallow eval Feeding Tube malfunction wound -He had a skin irritation around feeding tube due to output. This has been chronic. Wound care is following and they are considering placing a bag around it to contain the output COPD - management as above, wean O2 as able A fib - NSR here, rate controlled -restart BB Chronic diastolic HF - he was euvolemic to dry on arrival, echo 10/2016 reviewed : EF 70%, +diastolic dysfunction -will receive Lasix x 1 DM - bg's 100's -cont SSI Hypertension - no further hypotension -restart atenolol Hyperlipidemia Azotemia - suspect prerenal as he appears dry on arrival -IVF's, follow H/O PUD with previous GIB Dispo - inpt, transfer to med/surg Code status - discussed, pt wishes to be full code. He has little insight into his condition and prognosis. PT/OT evals, may warrant snf. Plan: -Lasix x 1 -additional dose of Solumedrol -cont Zosyn -Stop IVF -Restart tube feeds -elevate HOB to 30 degrees -restart BB Patient new to my care. reviewed records. Medically complex patient. D/W nurse. Subjective: O2 needs have gone up. no cp or sob. afebrile Objective: Vital Signs Temp Pulse Resp BP Pulse Ox 36.4 C 75 16 132/71 H 95 01/27/18 11:16 01/27/18 11:16 01/27/18 11:16 01/27/18 11:16 01/27/18 11:16 Microbiology 01/26/18 06:00 - Final Sputum, Expectorated Laboratory Results 01/27/18 09:18 01/27/18 09:18 01/26/18 01/27/18 01/28/18 05:59 05:59 05:59 Intake Total 210 Output Total 300 1600 Balance -90 -1600 - Physical Exam Constitutional: chronically ill appearing Eyes: PERRL Ears, Nose, Mouth, Throat: moist mucous membranes, hearing normal Cardiovascular: regular rate and rhythym, No edema Respiratory: no respiratory distress, reduced air movement, rhonchi Gastrointestinal: normoactive bowel sounds, soft, non-tender abdomen Skin: warm Neurologic: AAOx3 Psychiatric: interacting appropriately, not anxious, not encephalopathic Lymph, Heme, Immunologic: No petechiae ICD10 Worksheet Patient Problems: Problems Problem Status Onset Chronic obstructive pulmonary disease with acute exacerbation Acute Pneumonia Acute 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
[2018-01-27] MEDS: ATENOLOL 100 MG TAB PO SCH (14:49)
[2018-01-27] MEDS ORDERED: methylPREDNISolone SOD SUCC 125 MG/2 ML VIAL IVP ONE (16:00)
[2018-01-27] MEDS: METHOCARBAMOL 500 MG in NS 50 ML IV PRN (23:14)
[2018-01-28] MEDS: HYDROmorphONE/DILAUDID 2 MG/ML INJ IVP PRN (00:59)
[2018-01-28] MEDS: PIPERACILLIN/TAZO 4.5 GM/DEX 100 ML IV SCH ×4 (03:56→22:31)
[2018-01-28 05:42] LABS: PLATELET COUNT 65 10^3/uL (150-400)
[2018-01-28] MEDS: IPRATROPIUM/ALBUTEROL 3 ML DEYVIAL IH SCH ×4 (06:09→19:51)
[2018-01-28] MEDS ORDERED: POTASSIUM CL 20 MEQ TAB PO ONE (07:03)
[2018-01-28] MEDS: POTASSIUM Cl (KCl) 100 ML IV SCH ×4 (08:03→13:57)
[2018-01-28] MEDS: PANTOPRAZOLE SODIUM 40 MG VIAL IVP SCH (08:26)
[2018-01-28] MEDS: methylPREDNISolone SOD SUCC 125 MG/2 ML VIAL IVP SCH (08:26)
[2018-01-28] MEDS: ATENOLOL 100 MG TAB PO SCH ×3 (08:32→10:53)
[2018-01-28] MEDS: INSULIN LISPRO 100 UNIT/ML SC SCH ×4 (09:31→22:30)
[2018-01-28] MEDS ORDERED: PROTOCOL MAGNESIUM 1 DOSE IV PRN (10:12)
[2018-01-28] MEDS ORDERED: methylPREDNISolone SOD SUCC 125 MG/2 ML VIAL IVP SCH (10:14)
--- NOTE | 2018-01-28 12:57 | HOSPPROG ---
Hospitalist Progress Note Assessment/Plan: Acute on chronic hypoxemic respiratory failure - 2/2 recurrent aspiration PNA. He is NPO, tube feed dependent, on 2 LPM O2 at home/ +h/o COPD and aspiration on VFSS in 10/2016, at which time he was treated for aspiration PNA, Cx grew carbapenem resistant pseudomonas. He did not meet sepsis criteria on admission -Much improved, now on 3L O2 -cont QID duonebs plus prn Alb nebs -cont IV solumedrol. Decrease dose -cont Zosyn for pseudomonal coverage, presumed aspiration PNA -CXR ordered and personally reviewed, c/w pneumonia Dysphagia with Chronic aspiration with gastrostomy tube - this is leaking with foul odor -IR has transitioned to GJ tube as the pt has had reported aspiration with G tube -tube feeds per below -He did not tolerate TF's yesterday but they will be started at a low continuos regimen today to avoid Diarrhea. Can increase rate slowly if tolerates. He is really hoping for a Bolus strategy of feeding. But this will likely not be an option as the feeding will be via the J tube. Feeding Tube malfunction wound -He had a skin irritation around feeding tube due to output. This has been chronic. Wound care is following and they are considering placing a bag around it to contain the output COPD - management as above, wean O2 as able A fib - NSR here, rate controlled -restart BB Chronic diastolic HF - he was euvolemic to dry on arrival, echo 10/2016 reviewed : EF 70%, +diastolic dysfunction -Lasix PRN. none scheduled DM - bg's 100's -cont SSI Hypertension - no further hypotension -restart atenolol Hyperlipidemia Azotemia - suspect prerenal as he appears dry on arrival -IVF's, follow Hematuria: possible from [place] trauma. Persists. Start Tamsulosin. [place] is draining well. If persists, may need Urological consult as of Monday. H/O PUD with previous GIB Dispo - inpt, transfer to med/surg Code status - discussed, pt wishes to be full code. He has little insight into his condition and prognosis. PT/OT evals, may warrant snf. Subjective: did not tolerate TF's yesterday. Resp freeman he is much better, down to 3 L O2 Objective: Vital Signs Temp Pulse Resp BP Pulse Ox 36.4 C 77 12 157/81 H 90 L 01/28/18 11:26 01/28/18 11:26 01/28/18 11:26 01/28/18 11:26 01/28/18 11:26 Microbiology 01/26/18 06:00 - Final Sputum, Expectorated Laboratory Results 01/28/18 05:02 01/28/18 05:02 01/27/18 01/28/18 01/29/18 05:59 05:59 05:59 Output Total 1600 3100 450 Balance -1600 -3100 -450 - Physical Exam Constitutional: chronically ill appearing Eyes: PERRL Ears, Nose, Mouth, Throat: moist mucous membranes, hearing normal Cardiovascular: regular rate and rhythym Respiratory: no respiratory distress, reduced air movement, expiratory wheeze Gastrointestinal: normoactive bowel sounds, soft, non-tender abdomen Skin: warm Neurologic: AAOx3 Psychiatric: interacting appropriately, not anxious, not encephalopathic Lymph, Heme, Immunologic: No petechiae ICD10 Worksheet Patient Problems: Problems Problem Status Onset Chronic obstructive pulmonary disease with acute exacerbation Acute Pneumonia Acute 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
[2018-01-28] MEDS: TAMSULOSIN HCL 0.4 MG CAP PO SCH (15:37)
[2018-01-28] MEDS ORDERED: POTASSIUM CL 20 MEQ/15 ML UDCUP TUBE ONE (22:00)
[2018-01-29] MEDS: METHOCARBAMOL 500 MG in NS 50 ML IV PRN (00:25)
[2018-01-29] MEDS: PIPERACILLIN/TAZO 4.5 GM/DEX 100 ML IV SCH ×2 (03:52→09:58)
[2018-01-29] MEDS: IPRATROPIUM/ALBUTEROL 3 ML DEYVIAL IH SCH ×4 (06:07→21:20)
[2018-01-29 06:29] LABS: INR 3.82 (0.83-1.16); PROTIME(PATIENT) 37.3 SEC (12.0-15.0)
[2018-01-29] MEDS ORDERED: POTASSIUM CL 10 MEQ TAB PO ONE (08:49)
[2018-01-29] MEDS: INSULIN LISPRO 100 UNIT/ML SC SCH ×4 (09:56→21:38)
[2018-01-29] MEDS: TAMSULOSIN HCL 0.4 MG CAP PO SCH ×2 (09:57→10:17)
[2018-01-29] MEDS: ATENOLOL 100 MG TAB PO SCH (09:58)
[2018-01-29] MEDS: PANTOPRAZOLE SODIUM 40 MG VIAL IVP SCH (09:58)
[2018-01-29] MEDS: methylPREDNISolone SOD SUCC 40 MG/ML VIAL IVP SCH (09:58)
--- NOTE | 2018-01-29 11:41 | ASMTCMCOM ---
CM Note CM Note Notes: CM met w/ pt for dispo planning. PT/OT are recommending SNF. Pt refused SNF. Pt is agreeable to having HC through [facility]. [facility] is able to accept. CM to follow. Plan: [facility]; PT, OT, RN Date Signed: 01/29/2018 11:40 AM Electronically Signed By:BRANDON Zarate
--- NOTE | 2018-01-29 12:35 | HOSPPROG ---
Hospitalist Progress Note Assessment/Plan: Acute on chronic hypoxemic respiratory failure - 2/2 recurrent aspiration PNA. He is NPO, tube feed dependent, on 2 LPM O2 at home/ +h/o COPD and aspiration on VFSS in 10/2016, at which time he was treated for aspiration PNA, Cx grew carbapenem resistant pseudomonas. He did not meet sepsis criteria on admission -Much improved, now on 3L O2 -cont QID duonebs plus prn Alb nebs -cont IV solumedrol. Decrease dose -will switch from Zosyn to Cefepime based on sensitivities today -CXR c/w pneumonia Dysphagia with Chronic aspiration with gastrostomy tube - this is leaking with foul odor -IR has transitioned to GJ tube as the pt has had reported aspiration with G tube -tube feeds per below -He did not tolerate TF's but they were started at a low continuos regimen yesterday to avoid Diarrhea. Can increase rate slowly if tolerates. He is really hoping for a Bolus strategy of feeding. But this will likely not be an option as the feeding will be via the J tube. Feeding Tube malfunction wound -He had a skin irritation around feeding tube due to output. This has been chronic. Wound care is following and they are considering placing a bag around it to contain the output COPD - management as above, wean O2 as able A fib - NSR here, rate controlled -restart BB Chronic diastolic HF - he was euvolemic to dry on arrival, echo 10/2016 reviewed : EF 70%, +diastolic dysfunction -Lasix PRN. none scheduled DM - bg's 100's -cont SSI Hypertension - no further hypotension -restart atenolol Hyperlipidemia Azotemia - suspect prerenal as he appears dry on arrival -IVF's, follow Hematuria: possible from [place] trauma. Persists. Start Tamsulosin. [place] is draining well. If persists, may need Urological consult tomorrow. H/O PUD with previous GIB Dispo - inpt, transfer to med/surg Code status - discussed, pt wishes to be full code. He has little insight into his condition and prognosis. PT/OT evals, may warrant snf. Subjective: Patient reports LBP this morning Objective: Vital Signs Temp Pulse Resp BP Pulse Ox 36.5 C 74 18 102/50 L 88 L 01/29/18 08:11 01/29/18 08:11 01/29/18 06:10 01/29/18 08:11 01/29/18 08:11 Microbiology 01/26/18 06:00 - Final Sputum, Expectorated Sputum Culture - Final Ps. Aeruginosa Carbapenem "R" Corynebacterium Striatum 01/28/18 13:55 Gastrointestinal Tract Panel (PCR) - Final Stool E.coli Shiga-Like Toxin Pos Laboratory Results 01/29/18 05:01 01/29/18 05:01 01/28/18 01/29/18 01/30/18 05:59 05:59 05:59 Intake Total 149 Output Total 3100 475 Balance -3100 -326 PT 37.3 SEC (12.0-15.0) H 01/29/18 05:01 INR 3.82 (0.83-1.16) H 01/29/18 05:01 - Physical Exam Constitutional: chronically ill appearing Eyes: PERRL Ears, Nose, Mouth, Throat: moist mucous membranes Cardiovascular: regular rate and rhythym Respiratory: reduced air movement Gastrointestinal: soft, non-tender abdomen, other (-j tube in place) Genitourinary: jim[place] in urethra Skin: warm Musculoskeletal: no joint effusions Neurologic: AAOx3 Psychiatric: interacting appropriately ICD10 Worksheet Patient Problems: Problems Problem Status Onset Chronic obstructive pulmonary disease with acute exacerbation Acute Pneumonia Acute 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
[2018-01-29] MEDS: CEFEPIME HCL 2 GM in NS 100 ML IV SCH ×2 (14:59→21:25)
--- NOTE | 2018-01-29 15:34 | WOCRNPDOC ---
WOCRN Advanced Assessment Note - Skin Integrity Problem, Advanced Assess Right Abdomen PEG tube site Dressing Type: Gauze, Other Other Dressing Type: drain sponge Dressing Description: Intact, Shadowed Exudate Amount: Moderate Exudate Color: Yellow, Brown Exudate Characteristic(s): Liquid, Thick Integumentary Issue Intervention: Dressing Applied, Dressing Removed Natasha Wound Tissue: Erythema, Macerated, Swollen Natasha Wound Swelling: Mild Wound Bed Color: [place], Red Skin Integrity Problem Comment: Patient has PEG tube, patient states he has had PEG tube for 9 years and has been managing drainage with drain sponges for all that time. Patient insists that skin is fine with current interventions, and is not willing to try an ostomy system at this time to try to contain the secretions. Replicare hydrocolloid dressing removed. Skin cleaned with normal saline and gauze and allowed to air dry. Stoma powder applied. New 4x4 replicare hydrocolloid dressing placed, with slit cut to center of dressing to accomodate tube. Drain sponge placed over replicare and under bumper of PEG tube. Education provided to MEAGAN Cyr about frequency of checking PEG site and changing dressings. Education provided to patient regarding need to keep skin breakdown to a minimum, and possible need to change to ostomy appliance if skin condition worsens. Patient stated his agreement. Wound care will round again this week.
[2018-01-29] MEDS ORDERED: POTASSIUM CL 20 MEQ/15 ML UDCUP PO ONE (20:30)
[2018-01-29] MEDS: HYDROmorphONE/DILAUDID 2 MG/ML INJ IVP PRN (23:35)
[2018-01-30] MEDS: CEFEPIME HCL 2 GM in NS 100 ML IV SCH (05:20)
[2018-01-30] MEDS: IPRATROPIUM/ALBUTEROL 3 ML DEYVIAL IH SCH ×4 (06:23→20:39)
[2018-01-30] MEDS: INSULIN LISPRO 100 UNIT/ML SC SCH ×4 (09:05→22:06)
[2018-01-30] MEDS: ATENOLOL 100 MG TAB PO SCH (09:05)
[2018-01-30] MEDS: PANTOPRAZOLE SODIUM 40 MG VIAL IVP SCH (09:06)
[2018-01-30] MEDS: methylPREDNISolone SOD SUCC 40 MG/ML VIAL IVP SCH (09:06)
[2018-01-30] MEDS ORDERED: VANCOMYCIN 1.25 GM in NS 250 ML IV ONE (10:00)
[2018-01-30] MEDS: TAMSULOSIN HCL 0.4 MG CAP PO SCH (10:39)
--- NOTE | 2018-01-30 11:02 | HOSPPROG ---
Hospitalist Progress Note Assessment/Plan: Acute on chronic hypoxemic respiratory failure - 2/2 recurrent aspiration PNA. He is NPO, tube feed dependent, on 2 LPM O2 at home/ +h/o COPD and aspiration on VFSS in 10/2016, at which time he was treated for aspiration PNA, Cx grew carbapenem resistant pseudomonas. He did not meet sepsis criteria on admission -Now on 3L O2, CXR c/w pneumonia -cont QID duonebs plus prn Alb nebs -Receiving 40 mg IV solumedrol qd. Total 5 day course, will d/c today -Sputum cx grew Pseudomonas- Carbopenum resistant -Switched from Zosyn to Cefepime yesterday given sensitivities, consulting ID today for further evaluation and management Cornebacterium Striatum Bacteremia - Blood cultures positive on 01/25 - Source PNA - ID consult as above, started Vancomycin today - Repeat blood cultures today, f/u results Gross Hematuria - Ongoing since jimenez insertion, possible trauma, however it has persisted - Dark red blood in jimenez bag overnight - H/H remains stable at 9.1 this AM - INR 3.9, Platelets 60 likely contributing, holding all AC - Will consult Urology this morning for further evaluation and management Diarrhea - Started since admission per patient with continuous tube feeds - GI PCR shows E Coli Shiga Like Toxin + - ID consulted as above Dysphagia with Chronic aspiration with gastrostomy tube - this is leaking with foul odor -IR has transitioned to GJ tube as the pt has had reported aspiration with G tube -tube feeds per below -He did not tolerate TF's but they were started at a low continuos regimen yesterday to avoid Diarrhea. Can increase rate slowly if tolerates. -He is really hoping for a Bolus strategy of feeding. But this will likely not be an option as the feeding will be via the J tube. Feeding Tube malfunction wound -He had a skin irritation around feeding tube due to output. This has been chronic. Wound care is following COPD - management as above, wean O2 as able A fib - NSR here, rate controlled -restart BB Chronic diastolic HF - he was euvolemic to dry on arrival, echo 10/2016 reviewed : EF 70%, +diastolic dysfunction -Lasix PRN. none scheduled DM - bg's 100's -cont SSI Hypertension - no further hypotension -Continue atenolol Hyperlipidemia Azotemia - suspect prerenal as he appears dry on arrival -IVF's, follow H/O PUD with previous GIB Dispo - inpt, pending clinical course Code status - discussed, pt wishes to be full code. He has little insight into his condition and prognosis. PT/OT evals, may warrant snf. Subjective: Patient reports tight back muscles this morning Objective: Vital Signs Temp Pulse Resp BP Pulse Ox 35.9 C L 81 18 117/72 90 L 01/30/18 07:49 01/30/18 07:49 01/30/18 07:49 01/30/18 07:49 01/30/18 07:49 Microbiology 01/26/18 06:00 - Final Sputum, Expectorated Sputum Culture - Final Ps. Aeruginosa Carbapenem "R" Corynebacterium Striatum Laboratory Results 01/30/18 10:28 01/29/18 01/30/18 01/31/18 05:59 05:59 05:59 Intake Total 149 1003 750 Output Total 475 2300 Balance -326 -1297 750 PT 37.3 SEC (12.0-15.0) H 01/29/18 05:01 INR 3.82 (0.83-1.16) H 01/29/18 05:01 - Physical Exam Constitutional: chronically ill appearing Eyes: PERRL Ears, Nose, Mouth, Throat: dry mucous membranes Cardiovascular: regular rate and rhythym Respiratory: reduced air movement Gastrointestinal: soft, non-tender abdomen, other (J tube in place) Genitourinary: jimenez in urethra (Dark red blood in jimenez bag) Skin: warm Musculoskeletal: no muscle tenderness Neurologic: AAOx3 Psychiatric: interacting appropriately ICD10 Worksheet Patient Problems: Problems Problem Status Onset Chronic obstructive pulmonary disease with acute exacerbation Acute Pneumonia Acute 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
--- NOTE | 2018-01-30 11:30 | GCON ---
INFECTIOUS DISEASE CONSULTATION. DATE OF CONSULTATION: 01/30/2018 REFERRING PHYSICIAN: William Perez DO REASON FOR CONSULT: To assist in management of this 83-year-old male with aspiration pneumonia and Shiga toxin E coli in the stool. HISTORY OF PRESENT ILLNESS: Mr. Box is an 83-year-old male whose previous medical history is notable for the followin. Chronic hypoxemic respiratory failure with underlying COPD. 2. History of aspiration pneumonia in the past. 3. Chronic diastolic heart failure. 4. Hypertension. 5. Hyperlipidemia. 6. Peptic ulcer disease with history of GI bleed. 7. History of atrial fibrillation. 8. History of laryngeal cancer, status post XRT with resultant dysphonia and an inability to take p.o.'s. The patient was previously using a PEG tube to feed himself and is n.p.o. Regarding his present issues, Mr. Box apparently, prior to admission, was developing worsening shortness of breath with an increase in sputum production. The patient uses apparently 2 L of oxygen at baseline [id number]. He tells me that he has been feeding himself through his PEG tube prior to admission, giving himself at least 2000 calories daily through a syringe. One of his neighbors became concerned about him (the patient lives by himself in [place]) and, therefore, he was taken to the emergency room for further evaluation and treatment on 01/25/2018 given concern for pneumonia. The patient 's oxygen saturations were in the low 80s. He was started on BiPAP. A chest x- ray showed a right lower lobe pneumonia. The patient was admitted to [facility] for further evaluation and treatment and started on piperacillin/tazobactam and antipseudomonal doses of 4.6 g IV q.6 hours. The patient's notable labs on admission included a white blood cell count of 9.8, which has since risen to 12.7. Serum creatinine was normal at 0.8. Liver function tests were abnormal with an AST of 255, ALT normal at 32, total bilirubin 1.5 on admission. Alkaline phosphatase 162, which has since normalized. The patient had 2 sets of blood cultures sent on admission, 1 out of 4 bottles is positive for eligio bacterium stratum. The patient had a respiratory panel PCR that was negative. A sputum culture Gram stain showed 4+ PMN's, 2+ epithelial cells, 4+ gram-positive rods, and 1+ gram-positive cocci. The culture grew 1+ Pseudomonas aeruginosa, carbapenem resistant, with a FLORIDALMA to meropenem of 8 as well as 4+ corynebacterium stratum. During this hospitalization, the patient underwent PEG tube removal and placement of a gastrojejunostomy tube. He was started on tube feeds, which he has never used before. Consequently, the patient developed diarrhea and because of the diarrhea, a stool pathogen PCR was sent, which revealed evidence of shiga toxin E coli. He was placed on isolation precautions. Because of his pneumonia, positive blood cultures, and STEC in the stool, I am now asked to assist in his management. Speaking with the patient today, he is very frustrated by the tube feeds and tells me "I refuse to go home on these." He adamantly denies any diarrhea prior to admission, and is now having several stools a day that are nonbloody, which he feels are absolutely related to the tube feeds. He is coughing, and complaining of pain in his upper and lower back as well as his legs that he says has been going on for the past 3 weeks. He is frustrated by that. REVIEW OF SYSTEMS: Is notable for a cough, back pain throughout his T and LS spine, leg pain, diarrhea without abdominal pain. Also of note, the patient now has gross hematuria that is new since hospital admission. He does have a Myers catheter in place. Of note, the patient's INR is 3.8, checked yesterday for unclear reasons. His platelet count is also on the low side in the 60s. PREVIOUS MEDICAL HISTORY: As outlined above. MEDICATIONS: The patient received 4 days of Zosyn 4.5 g IV q.6 hours and was switched to cefepime 2 g IV q.8 hours yesterday. He is also on Flomax, Protonix , Zofran, methocarbamol, Solu-Medrol 40 mg daily, Humalog, Dilaudid, atenolol 100 mg p.o. daily, and Tylenol. ALLERGIES: No known drug allergies. SOCIAL HISTORY: The patient is a . Previously worked at [employer] in [employer]. He has been retired for over 30 years. He does not smoke presently or drink alcohol. No recent travel within or outside the [place]. No pets. He has no children. He is not exposed to small children. FAMILY HISTORY: Noncontributory. REVIEW OF SYSTEMS: As outlined above. Otherwise, 10 systems reviewed and are negative. PHYSICAL EXAM: VITAL SIGNS: T-current 35.9, T-max 36.6, heart rate 81, blood pressure 117/72, 90% on 4 L. GENERAL: Elderly male, lying in bed, with chronic dysphonia. Nontoxic. HEENT: Atraumatic, normocephalic. He is cachectic with temporal wasting. Pupils equal , round, reactive to light. Extraocular movements are intact. No conjunctival injection, icterus or petechiae. There is no discharge from the nares or sinus process tenderness. Mucous membranes are moist. No evidence of thrush or oral lesions. Dentition in poor repair with multiple missing teeth and remaining teeth appear carious with evidence of gingivitis. NECK: No cervical or supraclavicular adenopathy. CARDIOVASCULAR: S1, S2. No rubs, gallops, or murmurs. LUNGS: No increased respiratory effort. Poor inspiratory effort with crackles heard at bilateral lung bases, right greater than left. Clear upper lung vides. No end-expiratory wheeze. ABDOMEN: There is a feeding tube in place with a clean base. There is a small, easily reducible hernia inferior to the PEJ tube. His abdomen is slightly distended but quite soft. : The patient has a Myers catheter in place and the bag is notable for gross hematuria. EXTREMITIES: No clubbing, cyanosis, or edema. 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 BACK: There is no step-offs or point tenderness of his C-spine, T-spine, or LS-spine and no other abnormality noted. SKIN: Warm and dry. The patient has multiple ecchymoses on his arms. NEUROLOGIC: He is alert and oriented x3. No obvious focal deficits noted. LABORATORY DATA: Microbiologic data as outlined above. White blood cell count of 11.4, hematocrit 27, down from 43 on admission. Platelet count of 62, which was 61 on admission, 96% neutrophils. No evidence on smear of schistocytes. BUN is 47, creatinine of 0.8. Liver function test yesterday showed a total bilirubin of 0.9, AST 113, ALT of 32, alkaline phosphatase of 78. RADIOGRAPHIC DATA: Chest x-ray with a right lower lobe pneumonia. IMPRESSION: 83-year-old male with multiple medical problems, admitted with an aspiration pneumonia. Sputum Gram stain is notable for a predominance of gram-positive rods, and the culture is growing 4+ Corynebacterium striatum. Blood cultures are also positive for this organism, consistent with a bacteremic pneumonia. Corynebacterium striatum is a more sinister corynebacterium that can cause infections such as this in the elderly and immunocompromised, particularly pneumonias and other infections (bony infections, cellulitis) The patient has rare Pseudomonas aeruginosa in his sputum; suspect this is a colonizer and not the main armor reconnaissance vehicle driver of his pneumonia. Regarding the shiga toxin E coli in his stool , the patient had no antecedent diarrhea prior to admission; his diarrhea began with the initiation of tube feeds. He is likely colonized with this organism. Please see below regarding plan. PLAN: 1. Discontinue Cefepime. As per the above, I do not feel the Pseudomonas in his sputum is driving his clinical presentation; suspect this is a colonizer. 2. Start Vancomycin intravenously for bacteremic pneumonia secondary to Corynebacterium striatum. Have ordered susceptibilities on this organism, but vancomycin is the treatment of choice up front. 3. Repeat blood cultures to document clearance. 4. For the shiga toxin E coli in his stool, the patient is on contact isolation already (for the resistant pseudomona). Antibiotics can upregulate toxin production, which is another reason to avoid unnecessary antibiotics. His serum creatinine is stable, but he does have thrombocytopenia and an elevated INR. Would repeat CBC to look for evidence of schistocytes suggestive of microangiopathic hemolytic anemia. Check DIC panel, LDH, and a Choco test as well. 5. Regarding his gross hematuria, I agree with Urology consultation. The patient's INR is elevated, and he has a quantitative thrombocytopenia as well as likely qualitative platelet dysfunction from recent Zosyn use. 6. For his back pain, consider MRI's moving forward, especially if he does not clear his blood cultures. An osteomyelitis secondary to corynebacterium is possible, but seems less likely to me at this point in time. Thank you very much for consulting Infectious Diseases. We will continue to follow this patient with you. /[id number]/MODL MTDD
[2018-01-30 12:18] LABS: INR 2.39 (0.83-1.16); PROTIME(PATIENT) 26.1 SEC (12.0-15.0)
[2018-01-30 12:23] LABS: PLATELET COUNT 60 10^3/uL (150-400)
--- NOTE | 2018-01-30 15:17 | PDCONSULT ---
Maintenance Repairman Note: Hematology/oncology consultation Reason for consultation: Thrombocytopenia and coagulopathy Requesting provider: William Perez History of present illness: This is a very pleasant 83-year-old male with multiple medical issues including history of laryngeal cancer status post radiation with chronic aspiration and PEG tube placement who was admitted for symptoms of respiratory failure. He was initially diagnosed and treated in 2006 for a T4 a N1 laryngeal cancer. He was treated with concurrent chemotherapy and radiation with Dr. Adan and was last seen in clinic back in 2006. He uses baseline oxygen at home at 2 L and was having worsening shortness of breath. He was hypoxic down to the 80s. He presented to the [facility] for further evaluation and a chest x -ray demonstrated a right lower lobe pneumonia and was initially treated with Zosyn. Interestingly, he had stool studies that were obtained that demonstrated should go toxin producing E coli. He has no symptoms of diarrhea. He have a Myers catheter placed with significant ongoing hematuria. We have been consulted for evaluation for thrombocytopenia. His last his last normal CBC was back in 2016 when his platelet count was in the 200-400 range. On presentation his platelet count was in the 60s and has been stable. Interestingly his INR is also elevated up to 3.8 with a normal fibrinogen. Aside from the hematuria, he does not have any active ongoing bleeding. Past medical history/surgical hx: History of T4aN1 laryngeal cancer status post concurrent chemo radiation 2006 COPD Aspiration pneumonia Hypertension Hyperlipidemia Atrial fibrillation Congestive heart failure Allergies: No known drug allergies Review of systems: 12 point review of systems was obtained and was otherwise negative unless stated in HPI Social history: He has no alcohol or tobacco intake. Family history: Unremarkable. Generic Name Dose Route Start Last Admin Trade Name Freq PRN Reason Stop Dose Admin Albuterol/Ipratropium 3 ml 01/25/18 12:00 01/30/18 10:46 Duoneb IH 07/24/18 11:59 3 ml QID DANDRE Administration Atenolol 100 mg 01/27/18 13:00 01/30/18 09:05 Tenormin PO 07/26/18 12:59 100 mg DAILY DANDRE Administration Hydromorphone HCl 0.2 - 0.4 mg 01/26/18 23:59 01/29/18 23:35 Dilaudid IVP 02/05/18 13:09 0.4 mg Q4HRS PRN Administration Pain, Severe Unable to Take PO Protocol Methocarbamol 500 mg/ Sodium 55 mls @ 200 mls/hr 01/25/18 17:00 01/29/18 00: 25 Chloride IV 07/24/18 14:35 55 mls Q8HRS PRN Administration SPASMS Insulin Human Lispro 0 unit 01/25/18 11:30 01/30/18 13:39 Humalog Lispro SC 07/24/18 11:29 1 units ACHS DANDRE Administration Protocol Methylprednisolone Sodium Succinate 40 mg 01/29/18 09:00 01/30/18 09:06 Solu-Medrol IVP 07/28/18 08:59 40 mg DAILY DANDRE Administration Pantoprazole Sodium 40 mg 01/26/18 09:00 01/30/18 09:06 Protonix IVP 07/25/18 08:59 40 mg DAILY DANDRE Administration Tamsulosin HCl 0.4 mg 01/28/18 13:00 01/30/18 10:39 Flomax PO 07/27/18 12:59 Not Given DAILY DANDRE Discontinued Medications Generic Name Dose Route Start Last Admin Trade Name Freq PRN Reason Stop Dose Admin Acetylcysteine 2 ml 01/25/18 12:00 01/26/18 05:16 Acetylcysteine 10% Ih/Po IH 07/24/18 11:59 2 ml Q6HRS DANDRE Administration Albuterol/Ipratropium 3 ml 01/25/18 07:38 01/25/18 08:03 Duoneb IH 01/25/18 07:39 3 ml EDNOW ONE Administration Furosemide 20 mg 01/27/18 12:48 01/27/18 14:42 Lasix Injection IVP 01/27/18 12:49 20 mg ONCE ONE Administration Hydromorphone HCl 0.2 - 0.4 mg 01/26/18 13:10 01/26/18 13:33 Dilaudid IVP 02/05/18 13:09 0.2 mg Q4HRS PRN Administration Pain, Severe Unable to Take PO Protocol Ampicillin Sodium/Sulbactam 100 mls @ 200 mls/hr 01/25/18 09:00 01/25/18 14: 51 Sodium 3 gm/ Sodium Chloride IV 01/25/18 09:29 Not Given EDNOW ONE Protocol Piperacillin/Tazobactam/Dextrose 100 mls @ 200 mls/hr 01/25/18 09:30 10:10 Zosyn (Premix) IV 02/24/18 09:29 100 mls Q6HRS DANDRE Administration Protocol Sodium Chloride 1,000 mls @ 100 mls/hr 01/25/18 09:45 01/26/18 12:08 Ns IV 07/24/18 09:44 1,000 mls CONT DANDRE Administration Piperacillin/Tazobactam/Dextrose 100 mls @ 200 mls/hr 01/25/18 16:00 09:58 Zosyn (Premix) IV 02/24/18 15:59 100 mls Q6H DANDRE Administration Protocol Methocarbamol 500 mg/ Sodium 55 mls @ 200 mls/hr 01/25/18 14:36 01/25/18 16: 02 Chloride IV 07/24/18 14:35 55 mls Q8HRS DANDRE Administration Potassium Chloride 100 mls @ 100 mls/hr 01/28/18 07:30 01/28/18 13:57 Potassium Cl 10 Meq (Premix) IV 01/28/18 11:29 100 mls Q1H DANDRE Administration Cefepime HCl 2 gm/ Sodium 100 mls @ 200 mls/hr 01/29/18 14:00 01/30/18 05:20 Chloride IV 02/28/18 13:59 100 mls Q8HRS DANDRE Administration Protocol Vancomycin HCl 1.25 gm/ Sodium 250 mls @ 166.667 mls/hr 01/30/18 10:00 10:29 Chloride IV 01/30/18 11:29 250 mls ONCE ONE Administration Methylprednisolone Sodium Succinate 60 mg 01/25/18 09:45 01/25/18 22:21 Solu-Medrol IVP 07/24/18 09:44 60 mg Q12H DANDRE Administration Methylprednisolone Sodium Succinate 60 mg 01/26/18 09:00 01/28/18 08:26 Solu-Medrol IVP 07/25/18 08:59 60 mg DAILY DANDRE Administration Methylprednisolone Sodium Succinate 60 mg 01/27/18 16:00 01/27/18 16:01 Solu-Medrol IVP 01/27/18 16:01 60 mg ONCE ONE Administration Pneumococcal 13-Valent Conj Vacc 0.5 ml 01/26/18 14:44 01/26/18 14:51 Prevnar 13 Syringe IM 01/26/18 14:45 0.5 ml .ONCE ONE Administration Potassium Chloride 40 meq 01/28/18 07:03 01/28/18 07:42 Klor-Con PO 01/28/18 07:04 Not Given ONCE ONE Potassium Chloride 10 meq 01/28/18 22:00 01/28/18 22:30 Potassium Chloride Oral Liquid TUBE 01/28/18 22:01 10 meq ONCE ONE Administration Protocol Potassium Chloride 10 - 40 meq 01/29/18 08:49 01/29/18 09:57 Klor-Con PO 01/29/18 08:50 30 meq ONCE ONE Administration Protocol Potassium Chloride 10 meq 01/29/18 20:30 01/29/18 21:23 Potassium Chloride Oral Liquid PO 01/29/18 20:31 10 meq ONCE ONE Administration Protocol Physical examination: Temp Pulse Resp BP Pulse Ox 36.6 C 72 16 117/57 L 88 L 01/30/18 13:23 01/30/18 13:23 01/30/18 13:23 01/30/18 13:23 01/30/18 13:23 O2 (L/minute) 4 FIO2 (%) 50 General: Conversant, appears in no acute distress, appears comfortable sitting in chair at bedside. HEENT: oropharynx is clear extraocular movements are intact pupils equal round reactive to light Cardiovascular: Regular rate and rhythm no murmurs gallops rubs Abdomen: Peg tube is in place no bleeding. Extremities: Ecchymosis noted in the bilateral upper extremities no cyanosis clubbing or edema Skin: Ecchymoses as per above Neuro: Moving all extremities Lymph: No lymphadenopathy WBC 11.33 10^3/uL (3.80-9.50) H 01/30/18 10:28 RBC 2.75 10^6/uL (4.40-6.38) L 01/30/18 10:28 Hgb 9.1 g/dL (13.7-17.5) L 01/30/18 10:28 Hct 28.0 % (40.0-51.0) L 01/30/18 10:28 MCV 101.8 fL (81.5-99.8) H 01/30/18 10:28 MCH 33.1 pg (27.9-34.1) 01/30/18 10:28 MCHC 32.5 g/dL (32.4-36.7) 01/30/18 10:28 RDW 14.0 % (11.5-15.2) 01/30/18 10:28 Plt Count 60 10^3/uL (150-400) L 01/30/18 11:45 MPV 11.5 fL (8.7-11.7) 01/28/18 05:02 Neut % (Auto) Not Reported 01/28/18 05:02 Lymph % (Auto) Not Reported 01/28/18 05:02 [place] % (Auto) Not Reported 01/28/18 05:02 Eos % (Auto) Not Reported 01/28/18 05:02 Baso % (Auto) Not Reported 01/28/18 05:02 Nucleat RBC Rel Count Not Reported 01/28/18 05:02 Absolute Neuts (auto) Not Reported 01/28/18 05:02 Absolute Lymphs (auto) Not Reported 01/28/18 05:02 Absolute Monos (auto) Not Reported 01/28/18 05:02 Absolute Eos (auto) Not Reported 01/28/18 05:02 Absolute Basos (auto) Not Reported 01/28/18 05:02 Absolute Nucleated RBC Not Reported 01/28/18 05:02 Immature Gran % Not Reported 01/28/18 05:02 Seg Neutrophils % 96.9 % 01/28/18 05:02 Band Neutrophils % 1.0 % 01/28/18 05:02 Lymphocytes % 2.1 % 01/28/18 05:02 Monocytes % 0.0 % 01/28/18 05:02 Eosinophils % 0.0 % 01/28/18 05:02 Basophils % 0.0 % 01/28/18 05:02 Metamyelocytes % 0.0 % 01/28/18 05:02 Myelocytes % 0.0 % 01/28/18 05:02 Promyelocytes % 0.0 % 01/28/18 05:02 Blast Cells % 0.0 % 01/28/18 05:02 Immature Gran # Not Reported 01/28/18 05:02 Absolute Seg Neuts 12.39 10^/uL (1.70-6.50) H 01/28/18 05:02 Absolute Band Neuts 0.13 10^3/uL (0.00-0.70) 01/28/18 05:02 Absolute Lymphocytes 0.27 10^3/uL (1.00-3.00) L 01/28/18 05:02 Absolute Monocytes 0.00 10^3/uL (0.30-0.80) L 01/28/18 05:02 Absolute Eosinophils 0.00 10^3/uL (0.03-0.40) L 01/28/18 05:02 Absolute Basophils 0.00 10^3/uL (0.02-0.10) L 01/28/18 05:02 Absolute Metamyelocyte 0.00 10^3/mL (0.00-0.00) 01/28/18 05:02 Absolute Myelocytes 0.00 10^3/mL (0.00-0.00) 01/28/18 05:02 Absolute Promyelocytes 0.00 10^3/uL (0.00-0.00) 01/28/18 05:02 Absolute Plasma Cells 0.00 10^3/uL (0.00-0.00) 01/28/18 05:02 Nucleated RBCs 0 /100 WBC (0-0) 01/28/18 05:02 Absolute Blast Cells 0.00 10^3/uL (0.00-0.00) 01/28/18 05:02 Plasma Cells % 0.0 % 01/28/18 05:02 Toxic Granulation PRESENT H 01/28/18 05:02 Platelet Estimate DECREASED (ADEQ) L 01/28/18 05:02 Normal RBC Morphology SEE COMMENT (NORMAL) 01/30/18 11:45 Polychromasia 1+ H 01/28/18 05:02 Oval Macrocytes 1+ H 01/27/18 09:18 PT 26.1 SEC (12.0-15.0) H 01/30/18 11:45 INR 2.39 (0.83-1.16) H 01/30/18 11:45 APTT 36.2 SEC (23.0-38.0) 01/30/18 11:45 Fibrinogen 406 mg/dL (214-456) 01/30/18 11:45 D-Dimer 2.69 ug/mLFEU (0.00-0.50) H 01/30/18 11:45 Puncture Site LEFT RADIAL 01/25/18 09:34 Patient Temperature 36.7 DEGREES 01/25/18 09:34 pCO2 35 mmHg (34-38) 01/25/18 09:34 pO2 53 mmHg (65-75) L 01/25/18 09:34 Total CO2 27 mEq/L (23-27) 01/25/18 09:34 ABG pH 7.49 (7.35-7.45) H 01/25/18 09:34 ABG HCO3 26 mEq/L (22-26) 01/25/18 09:34 ABG O2 Saturation 87 % (92-95) L 01/25/18 09:34 ABG Base Excess 3.0 mEq/L (-2.5-2.5) H 01/25/18 09:34 Total O2 Concentration 2.0 LITERS 01/25/18 09:34 Sodium 142 mEq/L (135-145) 01/30/18 10:28 Potassium 3.8 mEq/L (3.3-5.0) 01/30/18 10:28 Chloride 110 mEq/L (97-110) 01/30/18 10:28 Carbon Dioxide 26 mEq/l (22-31) 01/30/18 10:28 Anion Gap 6 mEq/L (6-14) 01/30/18 10:28 BUN 47 mg/dL (7-23) H 01/30/18 10:28 Creatinine 0.7 mg/dL (0.7-1.3) 01/30/18 10:28 Estimated GFR > 60 01/30/18 10:28 Glucose 183 mg/dL (70-100) H 01/30/18 10:28 POC Glucose 169 mg/dL (70-100) H 01/30/18 13:22 Calcium 9.2 mg/dL (8.5-10.4) 01/30/18 10:28 Magnesium 2.1 mg/dL (1.6-2.3) 01/30/18 10:28 Total Bilirubin 0.9 mg/dL (0.1-1.4) 01/29/18 05:01 Conjugated Bilirubin 0.5 mg/dL (0.0-0.5) 01/26/18 05:00 Unconjugated Bilirubin 0.5 mg/dL (0.0-1.1) 01/26/18 05:00 AST 113 IU/L (17-59) H 01/29/18 05:01 ALT 32 IU/L (21-72) 01/29/18 05:01 Alkaline Phosphatase 78 IU/L (38-126) 01/29/18 05:01 Lactate Dehydrogenase 1225 IU/L (313-618) H 01/30/18 10:28 POC Troponin I 0.03 ng/mL (0.00-0.08) 01/25/18 08:06 Troponin I 0.031 ng/mL (0.000-0.034) 01/25/18 08:00 NT-Pro-B Natriuret Pep 2850 pg/mL (0-450) H 01/28/18 05:02 Total Protein 4.3 g/dL (6.3-8.2) L 01/29/18 05:01 Albumin 2.3 g/dL (3.5-5.0) L 01/29/18 05:01 Procalcitonin 0.19 ng/mL (0.02-0.10) H 01/28/18 05:02 JESSIE, Polyspecific NEGATIVE (NEGATIVE) 01/30/18 11:35 Assessment and plan: This is a 83-year-old male with history of laryngeal cancer and multiple medical comorbidities who we are seeing in consultation for thrombocytopenia and coagulopathy. 1. Thrombocytopenia: He has no evidence of microangiopathic hemolytic anemia on peripheral smear. He has no acute renal failure or ongoing fevers or confusion. He does have active bleeding from his hematuria. He also has she ago toxin producing E coli there is isolated from his stool. I do not think that he has active hemolytic uremic syndrome that would explain his thrombocytopenia given absence of schistocytes and renal failure. I suspect that his thrombocytopenia is related to his ongoing hematuria which could be consumptive. 2. Coagulopathy: He denies being on any anticoagulation as an outpatient. His INR is slowly improving. His fibrinogen is normal. I do not think he has active DIC. I have requested a mixing study for further evaluation of his elevated INR. This could be secondary to vitamin K deficiency versus a underlying factor deficiency with associated inhibitor. A mixing study with further delineate these 2. All questions were answered. He voiced understanding the plan. Will continue follow his case.
[2018-01-30] MEDS ORDERED: NS 1,000 ML IV SCH (17:30)
[2018-01-30] MEDS: HYDROmorphONE/DILAUDID 2 MG/ML INJ IVP PRN (23:49)
[2018-01-31] MEDS: IPRATROPIUM/ALBUTEROL 3 ML DEYVIAL IH SCH ×4 (06:06→21:38)
[2018-01-31] MEDS: ATENOLOL 100 MG TAB PO SCH (08:42)
[2018-01-31] MEDS: TAMSULOSIN HCL 0.4 MG CAP PO SCH (08:43)
[2018-01-31] MEDS: methylPREDNISolone SOD SUCC 40 MG/ML VIAL IVP SCH (08:44)
[2018-01-31] MEDS: PANTOPRAZOLE SODIUM 40 MG VIAL IVP SCH (08:44)
[2018-01-31] MEDS: HYDROmorphONE/DILAUDID 2 MG/ML INJ IVP PRN ×2 (09:12→18:04)
[2018-01-31] MEDS: INSULIN LISPRO 100 UNIT/ML SC SCH ×4 (09:48→21:03)
[2018-01-31] MEDS: VANCOMYCIN 1.25 GM in NS 250 ML IV SCH (09:48)
--- NOTE | 2018-01-31 10:25 | HOSPPROG ---
Hospitalist Progress Note Assessment/Plan: Acute on chronic hypoxemic respiratory failure - 2/2 recurrent aspiration PNA. He is NPO, tube feed dependent, on 2 LPM O2 at home/ +h/o COPD and aspiration on VFSS in 10/2016, at which time he was treated for aspiration PNA, Cx grew carbapenem resistant pseudomonas. He did not meet sepsis criteria on admission -Now on 3L O2, CXR c/w pneumonia -cont QID duonebs plus prn Alb nebs -Receiving 40 mg IV solumedrol qd. Total 5 day course, will d/c today -Sputum cx grew Pseudomonas- Carbopenum resistant -Switched from Zosyn to Cefepime on 01/30 given sensitivities, Id recommended switching to Vancomycin, will continue - Patient reports hemoptysis for the past week, observed a quarter cup of david blood this morning, will consult Pulmonology for further evaluation, need for bronchoscopy Cornekatiecterium Striatum Bacteremia - Blood cultures positive on 01/25 - Source likely PNA - ID consult as above, continue Vancomycin - Repeat blood cultures on 01/30, f/u results Gross Hematuria - Ongoing since jimenez insertion, possible trauma, however it has persisted - Dark red blood in jimenez bag overnight - H/H remains stable at 9.1 - Coagulopathy, INR 3.9, Platelets 60 contributing, holding all AC - Consulted Urology on 01/30, have not seen patient, will call this AM for patient to be seen today Thrombocytopenia - Platelets have been 60's since admission, appears count was normal previously - Hematology consulted on 01/30, they believe that thrombocytopenia is related to his ongoing hematuria which could be consumptive - Will continue to monitor platelet count, transfuse <50,000 with ongoing bleeding - There is concern for HUS given Shiga like toxin on GI PCR, however given absence of schistocytes and renal failure this is unlikely at this point Coagulopathy - Elevated INR with no hx of AC - INR improved from 3.9 to 2.3 - Fibrinogen is normal - Hematology consulted who does not believe there is active DIC, they have requested a mixing study for further evaluation of his elevated INR, they also believe this could be secondary to vitamin K deficiency versus a underlying factor deficiency with associated inhibitor which a mixing study with further delineate between Diarrhea - Started since admission per patient with continuous tube feeds - GI PCR shows E Coli Shiga Like Toxin + - ID consulted as above Dysphagia with Chronic aspiration with gastrostomy tube - this is leaking with foul odor -IR has transitioned to GJ tube as the pt has had reported aspiration with G tube -tube feeds per below -He did not tolerate TF's but they were started at a low continuos regimen yesterday to avoid Diarrhea. Can increase rate slowly if tolerates. -Patient is adamant about bolus strategy of feeding. But this will likely not be an option as the feeding will be via the J tube Feeding Tube malfunction wound -He had a skin irritation around feeding tube due to output. This has been chronic. Wound care is following COPD - management as above, wean O2 as able A fib - NSR here, rate controlled -Continue Atenolol Chronic diastolic HF - he was euvolemic to dry on arrival, echo 10/2016 reviewed : EF 70%, +diastolic dysfunction -Lasix PRN. none scheduled DM - bg's 100's -cont SSI Hypertension - no further hypotension -Continue atenolol Hyperlipidemia H/O PUD with previous GIB Dispo - inpt, pending clinical course, PT/OT evals, may warrant SNF Code status -Full code Subjective: Patient reports hemoptysis this morning, which has been ongoing for 1 week Objective: Vital Signs Temp Pulse Resp BP Pulse Ox 36.4 C 71 19 119/58 L 88 L 01/31/18 08:00 01/31/18 08:00 01/31/18 08:00 01/31/18 08:00 01/31/18 08:00 Microbiology 01/25/18 09:15 Blood Culture - Final Blood Laboratory Results 01/31/18 10:03 01/30/18 01/31/18 02/01/18 05:59 05:59 05:59 Intake Total 1003 1780 Output Total 2300 1440 Balance -1297 340 PT 26.1 SEC (12.0-15.0) H 01/30/18 11:45 INR 2.39 (0.83-1.16) H 01/30/18 11:45 - Physical Exam Constitutional: chronically ill appearing, cachectic Eyes: PERRL Ears, Nose, Mouth, Throat: moist mucous membranes Cardiovascular: regular rate and rhythym Respiratory: no respiratory distress, reduced air movement Gastrointestinal: soft, non-tender abdomen Genitourinary: jimenez in urethra (Dark red urine in jimenez bag) Skin: warm Musculoskeletal: pain with ROM Neurologic: AAOx3 Psychiatric: anxious ICD10 Worksheet Patient Problems: Problems Problem Status Onset Chronic obstructive pulmonary disease with acute exacerbation Acute Pneumonia Acute 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
[2018-01-31] MEDS ORDERED: ACETAMINOPHEN 650 MG/20.3 ML UDCUP TUBE PRN ×2 (11:00)
[2018-01-31 12:52] LABS: PLATELET COUNT 49 10^3/uL (150-400)
[2018-01-31] MEDS ORDERED: IOPAMIDOL (ISOVUE-300) 150 ML BTL ONE (14:10)
--- NOTE | 2018-01-31 14:27 | PCMIDPN ---
Assessment/Plan: #Corynebacterium striatum bacteremia secondary to pneumonia --continue vancomycin until sensi available --okay to place PICC due to lack of access. Hopefully Blood cx this AM will be negative --sensi ordered and pending --check Vanco T monday #Pseudomonas aeruginosa, carbapenem resistant c/w colonization resp tract: Contact precautions #E coli, shiga producing on GI pathogen panel: Strange results as patient does not take in any thing other than tube feeds. Currently not treated. Abdomen soft #Thrombocytopenia: Not HUS. Due to normal renal function # Radicular Lumbar pain worse x 2 weeks: likely needs MRI in light of bacteremia , but will continue to monitor symptoms meds Vancomycin 1.25gm IV daily, # 2 Microbiology 01/31/18 blood cx (2) pending 01/28/18 13:55 Stool : E.coli Shiga-Like Toxin Pos 01/26/18 06:00 Sputum, Expectorated Sputum Culture - Final Ps. Aeruginosa Carbapenem "R" Corynebacterium Striatum 01/25/18 08:50 Blood Cx (1/2) Corynebacterium Striatum Subjective: endorses loose stools but feels like it has to do with feeding tube adjustment still with back pain radiating to legs x 2 weeks Objective: Vital Signs Temp Pulse Resp BP Pulse Ox 36.5 C 61 20 116/63 90 L 01/31/18 12:00 01/31/18 12:00 01/31/18 12:00 01/31/18 12:00 01/31/18 12:00 Microbiology 01/25/18 09:15 Blood Culture - Final Blood Laboratory Results 01/31/18 12:00 01/31/18 10:03 01/30/18 01/31/18 02/01/18 05:59 05:59 05:59 Intake Total 1003 1780 Output Total 2300 1440 Balance -1297 340 - Physical Exam General Appearance: alert, cachetic, non-toxic EENT: pale conjunctiva, other (Edentulous), No thrush Respiratory: other (Decreased breath sounds throughout) Cardiac/Chest: regular rate, rhythm, systolic murmur Extremities: No pedal edema Abdomen: non-tender, soft, other (Feeding tube right mid quadrant C/D/I) Male Genitalia: jimenez, No scrotal edema Skin: pallor, No diaphoresis, No rash Neuro/Psych: no motor/sensory deficits, alert, normal mood/affect - Time Spent With Patient Time Spent with Patient: greater than 35 minutes (care coordinated w hospitalist and nursing) Time Spent with Patient: Greater than 35 minutes spent on this patients care, greater than 50% of time spent counseling, educating, and coordinating care regarding the above mentioned plan. 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
[2018-01-31] MEDS ORDERED: PHYTONADIONE 2.5 MG/2.5 ML ORAL UDL TUBE ONE (15:34)
--- NOTE | 2018-01-31 15:59 | SOAPPROG ---
SOAP Progress Note Assessment/Plan: Assessment: This is an 83-year-old male with history of laryngeal cancer and multiple medical comorbidities who are seeing for evaluation for thrombocytopenia and coagulopathy. 1. Thrombocytopenia: His platelets were 60 on admission. His last CBC that I see was back in March of 2017 the had normal platelet count at that time. His hemoglobin was stable on admission. His white count is also stable. He is not on any heparin products. He also is receiving steroids for COPD and that has not improved his platelets which makes ITP less likely. He does have ongoing bruising and hematuria. He has no evidence of DIC as his fibrinogen is normal. He does have E coli with shiga producing toxin in his urine but he has a normal create and no evidence of microangiopathic hemolytic anemia. His platelet count is trending downward. I have recommended transfusing platelets today given his ongoing bleeding and reassess response. Certainly antibiotics in proton pump inhibitors could cause thrombocytopenia, but again this was present on admission. 2. Coagulopathy: He has elevated INR but normal fibrinogen and PTT. I requested a mixing study yesterday and this is currently pending. He is not on any warfarin as an outpatient per his report. I have recommended giving vitamin K 5 mg p.o. Once today if he has underlying vitamin K deficiency. The other considerations would be a factor inhibitor which could cause an elevated PT. A lupus anticoagulant is unlikely given that he is bleeding and not clotting. 01/31/18 15:59 Subjective: He continues to have ongoing hematuria. He has no pain. He has no other bleeding. He states that all he wants is the pain med that he does not care about any other medical interventions that are occurring. Objective: Vital Signs Temp Pulse Resp BP Pulse Ox 36.5 C 61 20 116/63 90 L 01/31/18 12:00 01/31/18 12:00 01/31/18 12:00 01/31/18 12:00 01/31/18 12:00 Microbiology 01/25/18 09:15 Blood Culture - Final Blood Laboratory Results 01/31/18 12:00 01/31/18 10:03 01/30/18 01/31/18 02/01/18 05:59 05:59 05:59 Intake Total 1003 1780 Output Total 2300 1440 Balance -1297 340 PT 26.1 SEC (12.0-15.0) H 01/30/18 11:45 INR 2.39 (0.83-1.16) H 01/30/18 11:45 General: Ill-appearing male in no acute distress HEENT: Oropharynx is clear extraocular movements are intact Cardiovascular: Regular rate and rhythm Pulmonary: Coarse breath sounds on anterior auscultation Abdomen: Soft nontender nondistended bowel sounds are present Extremities: No cyanosis clubbing or edema Skin: Multiple ecchymosis noted on the bilateral upper extremities : Myers with bloody urine. 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
[2018-01-31] MEDS ORDERED: LIDOCAINE 2% JELLY 20 ML (UROJECT) UR ONE (18:00)
--- NOTE | 2018-01-31 18:37 | GCON ---
HISTORY OF PRESENT ILLNESS: This patient is an -xoor-cow male who was admitted on 01/25/18 , with complaints of increasing shortness of breath and oxygen desaturation, as well as increased spu becky production. Today, he said that about 6 weeks ago he had a minor fall with an abrasion on his ba ck that has caused ongoing issues of back pain. He was treated with a variety of medications at home including prednisone without much benefit, followed by a muscle relaxer. The muscle relaxer seemed to help him quite a bit, but he apparently was somewhat somnolent during that time. Some of this his tory was obtained from his neighbor who was at the bedside today. In any case, he developed those ot her pulmonary symptoms and came to the emergency room with a low oxygen saturation. A chest x-ray re vealed a right lower lobe infiltrate, and he was treated with IV steroids as well as Zosyn and nebuli zers. Complicating his situation has been a history of remote laryngeal cancer treated with radiatio n therapy and difficulties with aspiration, and subsequently requiring a percutaneous feeding tube. He had difficulty with that on admission as well, and that was manipulated a couple of days in, conve rted to a G-J tube though he did develop diarrhea with that. His oxygen requirements, however, seeme d to get better, but because of abdominal complaints and ongoing thrombocytopenia (which was also not ed on admission) an INR was checked on 01/29; that was 3.8 for uncertain reasons. His stool cultures , however, did grow by E coli, and blood cultures grew a eligio bacterium. The same eligio bacterium was grown from his lungs as well. In addition, a Myers catheter was placed, and 2 days after that w as placed he developed substantial hematuria. He has been seen by a variety of consultations includi Hem/Onc, as well as Infectious Disease and Urology, and is planning for continuous bladder irrigat ion, vitamin K, and platelet transfusion because of ongoing bleeding. His fibrinogen was normal, tho ugh the D-dimer was positive, and so there is not a clear source for DIC. The etiology of his thromb ocytopenia and coagulopathy is uncertain at this time. It may be that there was some consumption wit h ongoing bladder bleeding related to his underlying platelet issue. In any case, he developed a min or hemoptysis and apparently more significant hemoptysis earlier today, and I was called to find out about whether or not a bronchoscopy would be indicated at this time. The patient, however, states that his breathing feels fine, it is back to baseline. He did acknowled ge the hemoptysis but thought it was quite minor, and denied any chest pain or shortness of breath, a nd his oxygen requirement is back to its baseline. REVIEW OF SYSTEMS: Otherwise negative. PAST MEDICAL HISTORY: Includes: 1. COPD. 2. Chronic hypoxemia. 3. Pneumonia in 2017. 4. Chronic aspiration. 5. Laryngeal cancer. 6. Atrial fibrillation. 7. Diastolic dysfunction. 8. Hypertension. 9. Hyperlipidemia. 10. Remote GI bleeding. 11. Diabetes. PAST SURGICAL HISTORY: Includes the feeding tube as described above. CURRENT MEDICATIONS: Include vancomycin as well as p.r.n. albuterol, scheduled DuoNeb, atenolol, Dil audid, insulin, Robaxin, Solu-Medrol 40 mg daily, Zofran, Protonix, and Flomax. PHYSICAL EXAM: VITAL SIGNS: He has been afebrile. Blood pressure 116/63, heart rate 61, respiratio ns 20, oxygen saturation of 90% on 5 L nasal cannula. GENERAL: Awake and alert, but not quite able to speak in full sentences, with a very soft and hoarse voice. He was upset about his current situat ion and lack of progress. In any case, he was not using any accessory muscles for breathing. HEENT: Pupils were equally round and reactive to light, nonicteric and noninjected. Mucous membranes were moist without erythema or exudate. Breath sounds were clear to auscultation bilaterally without whe kathy or rales. HEART: Regular rate and rhythm. ABDOMEN: Soft, nontender, and nondistended without hepatosplenomegaly. There was a reducible midline hernia. His feeding tube looked to be clean and d ry without evidence of infection. EXTREMITIES: No clubbing, cyanosis, or edema. NEUROLOGIC: Nonfo emily. OBJECTIVE DATA: Includes white count 10.3, hematocrit 25, platelets of 49 and falling. Sodium is 14 2, potassium 5.0, chloride 113, bicarb 24, BUN 46, creatinine 0.7, glucose 170. ASSESSMENT AND PLAN: 1. Hemoptysis. It is not surprising in the setting of pneumonia and a coagulopathy. I am not sure the [address] scan is pending at this time. His chest x-rays have been suboptimal exams t hroughout, so certainly a CT scan would be quite useful at this time. I think that treating him with ongoing steroids and nebulizers is quite reasonable. The vancomycin of course under the direction o f Infectious Disease makes sense given the blood culture as well as sputum culture. His oxygen requi rement is not exactly down to baseline, but he seems to be quite comfortable at this time. I do not feel a bronchoscopy would be useful. 2. Coagulopathy. The etiology here is not certain. He is getting vitamin K right now. The thrombo cytopenia was present on admission, so it does not seem to be related to underlying medications that we have given him. He may be consuming blood that results in the increase in the INR. In any case, he is being managed by Hematology. His liver appears to be fine at this time, and further measures a re pending. /[id number]/MODL
--- NOTE | 2018-01-31 18:43 | WOCRNPDOC ---
WOCRN Advanced Assessment Note - Skin Integrity Problem, Advanced Assess Thoracic Spine Pressure Injury Dressing Type: Allevyn Life Exudate Amount: None Integumentary Issue Intervention: Visualized Under Dressing Natasha Wound Tissue: Blanching, Erythema Site Measurement - Head-to-Toe Length X Width X Depth (cm): 6x2.5x0 Pressure Injury Stage: Stage 1 Pressure Injury Present on Admit: No Skin Integrity Problem Comment: Small areas of non blanching within a 6 cm area of blanching erythema. May be an evolving DTI or a resolving stage 1. Wound care will round again tomorrow to recheck area. Bibi RHODES in room for care.
--- NOTE | 2018-01-31 19:08 | GCON ---
DATE OF CONSULTATION: 01/31/2018 REASON FOR CONSULT: Gross hematuria. HISTORY OF PRESENT ILLNESS: This is an 83-year-old man with a history of COPD and aspiration pneumon ia, who presented to the emergency room with shortness of breath. He has a gastrostomy tube and note s that he cares for it himself and says there has been more drainage out of the tube. He is denying abdominal pain, fever or chills. Upon his workup on admission here a Myers catheter was placed. Afte r Myers catheter placement is when patient began to have gross hematuria without large clots. He den ies a history of gross hematuria nor needing catheters, mild LUTS for his age, including nocturia x1, a significant smoking history for about 50 years, but no history of kidney stones. No prostate canc er or surgeries in his record. ALLERGIES: No known drug allergies. MEDICATIONS: Atenolol, flexeril. PAST MEDICAL HISTORY: Chronic hypoxic respiratory failure, aspiration, G-tube, COPD, atrial fibrilla tion, chronic diastolic heart failure, hypertension, hyperlipidemia, PUD, DM, laryngeal cancer. PAST SURGICAL HISTORY: Gastrostomy tube placement 2017, bronchoscopy 2017. FAMILY HISTORY: Not pertinent. SOCIAL HISTORY: Former smoker. No drugs. No alcohol. Lives independently. REVIEW OF SYSTEMS: A 10-point review of systems negative except as mentioned in the HPI. PHYSICAL EXAMINATION: VITAL SIGNS: Blood pressure 116/63, heart rate 61, O2 saturation 90% on 5 lit ers, temperature 36.5. LABORATORY DATA: White blood cell count 10.3, hemoglobin 8.5, hematocrit 25.8, platelets 49. Chemis try: Sodium 142, potassium 5, chloride 113, carbon dioxide 24, anion gap 5, BUN 46, creatinine 0.7, g lucose 170, calcium 7.3. ASSESSMENT: Gross hematuria. Dr. Gray and I reviewed this case and discussed the possible reasons for gross hematuria with the patient including BPH given that hematuria started after catheter placem ent versus bladder or kidney cancer versus stone versus other. Recommend Myers be left in place for now as it is draining, although bloody. A CT urogram is ordered to better assess cause for hematuria. May consider CBI, although we suspect that unless platelets are addressed, hematuria may persist. /[id number]/MODL
[2018-02-01] MEDS: HYDROmorphONE/DILAUDID 2 MG/ML INJ IVP PRN ×3 (02:40→20:54)
[2018-02-01] MEDS: IPRATROPIUM/ALBUTEROL 3 ML DEYVIAL IH SCH ×4 (06:01→21:43)
[2018-02-01 06:45] LABS: PLATELET COUNT 82 10^3/uL (150-400)
[2018-02-01 06:46] LABS: PLATELET COUNT 85 10^3/uL (150-400)
[2018-02-01 06:57] LABS: INR 1.43 (0.83-1.16); PROTIME(PATIENT) 17.6 SEC (12.0-15.0)
--- NOTE | 2018-02-01 08:31 | PCMIDPN ---
Assessment/Plan: 1. Bacteremic pneumonia secondary to Corynebacterium striatum : Blood cultures cleared quickly. Continue vancomycin as is, to complete 10-14 days of therapy. Vancomycin trough today. 2. Shiga toxin E coli in stool: Continue contact isolation. Diarrhea likely secondary to tube feeds, however. No diarrhea prior to admission. 3. Coagulopathy/thrombocytopenia: Etiology still a conundrum. Having CT scans of the chest abdomen and pelvis today to rule out underlying malignancy. 4. Back pain: If this is feasible, needs MRIs at some point during this hospitalization to rule out osteomyelitis or abscess. Subjective: Events of past 48 hr noted. Patient began having hemoptysis. Given platelets last night; platelet count stable this morning. Coagulopathy is improving. Now on continuous bladder irrigation as well. Patient tells me that he is very frustrated with his PEJ tube, and wants it reversed. Breathing feels better. Having CT scans of the chest, abdomen, and pelvis today. PICC line also placed yesterday. Objective: Vancomycin 1.25 g IV daily day 3 No fevers Vital Signs Temp Pulse Resp BP Pulse Ox 36.4 C 65 18 133/68 H 93 02/01/18 03:56 02/01/18 06:02 02/01/18 06:02 02/01/18 03:56 02/01/18 06:02 Laboratory Results 02/01/18 06:22 02/01/18 06:22 01/31/18 02/01/18 02/02/18 05:59 05:59 05:59 Intake Total 1780 787 Output Total 1440 850 Balance 340 -63 Repeat blood cultures from January 30 no growth - Physical Exam General Appearance: alert, no apparent distress EENT: pharynx normal, No thrush Respiratory: other (Lungs are fairly clear anterolaterally. No wheeze or rhonchi.) Cardiac/Chest: regular rate, rhythm Extremities: other (PICC line right upper extremity looks fine) Abdomen: non-tender, soft, other (PEJ tube in place. 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
[2018-02-01] MEDS: ATENOLOL 100 MG TAB TUBE SCH (09:02)
[2018-02-01] MEDS: TAMSULOSIN HCL 0.4 MG CAP PO SCH (09:04)
[2018-02-01] MEDS: PANTOPRAZOLE SODIUM 40 MG VIAL IVP SCH (09:06)
[2018-02-01] MEDS: INSULIN LISPRO 100 UNIT/ML SC SCH ×4 (09:18→21:00)
[2018-02-01] MEDS: VANCOMYCIN 1.25 GM in NS 250 ML IV SCH (09:58)
--- NOTE | 2018-02-01 12:12 | HOSPPROG ---
Hospitalist Progress Note Assessment/Plan: Acute on chronic hypoxemic respiratory failure - 2/2 recurrent aspiration PNA. He is NPO, tube feed dependent, on 2 LPM O2 at home/ +h/o COPD and aspiration on VFSS in 10/2016, at which time he was treated for aspiration PNA, Cx grew carbapenem resistant pseudomonas. -Now on 4L O2 -cont QID duonebs plus prn Alb nebs -Receiving 40 mg IV solumedrol qd. S/p 5 day course -Sputum cx grew Pseudomonas- Carbopenum resistant -Switched from Zosyn to Cefepime on 01/30 given sensitivities, ID recommended switching to Vancomycin, will continue - Patient reports hemoptysis for the past week, observed a quarter cup of david blood this morning, consulted Pulmonology on 01/31, discussed with Dr. Gray, do not recommend bronchoscopy, awaiting CT Chest Bacterial PNA - Seen on CXR on admission - Sputum cx grew Pseudomonas- Carbopenum resistant - Continue Vancomycin per ID Cornebacterium Striatum Bacteremia - Blood cultures positive on 01/25 - Source likely PNA - ID consult as above, continue Vancomycin - Repeat blood cultures on 01/30, NGTD Gross Hematuria - Ongoing since jimenez insertion, possible trauma, however it has persisted - H/H decreased to 7.3 this AM - Coagulopathy, INR 3.9, Platelets 60 contributing, holding all AC - Consulted Urology on 01/30, started CBI on 01/31, urine less blood this AM , awaiting CT A/P Thrombocytopenia - Platelets have been 60's since admission, appears count was normal previously - Hematology consulted on 01/30, they believe that thrombocytopenia is related to his ongoing hematuria which could be consumptive - Will continue to monitor platelet count, s/p 1 unit platelets yesterday - Transfuse <50,000 with ongoing bleeding - There is concern for HUS given Shiga like toxin on GI PCR, however given absence of schistocytes and renal failure this is unlikely at this point Coagulopathy - Elevated INR with no hx of AC - INR improved from 3.9 to 2.3 to 1.4 this AM, s/p 5 mg PO Vit K yesterday per hematology - Fibrinogen is normal - Hematology consulted who does not believe there is active DIC, they have requested a mixing study for further evaluation of his elevated INR, they also believe this could be secondary to vitamin K deficiency versus a underlying factor deficiency with associated inhibitor which a mixing study with further delineate between Anemia - Hemoglobin 7.3 this AM, 8.5 yesterday - Likely due to blood loss with ongoing hematuria, management as above - Will discuss with hematology today - Transfuse H/H <7/20 Diarrhea - Started since admission per patient with continuous tube feeds - GI PCR shows E Coli Shiga Like Toxin + - ID consulted as above Dysphagia with Chronic aspiration with gastrostomy tube - this is leaking with foul odor -IR has transitioned to GJ tube as the pt has had reported aspiration with G tube -tube feeds per below -He did not tolerate TF's but they were started at a low continuos regimen yesterday to avoid Diarrhea. Can increase rate slowly if tolerates. -Patient is adamant about bolus strategy of feeding. But this will likely not be an option as the feeding will be via the J tube Chronic LBP - Reports back pain since admission - Lumbar XR from 2012 with significant findings, patient unsure if repeat imaging since - Consider MRI to access for osteo/abscess if persistent bacteremia Feeding Tube malfunction wound -He had a skin irritation around feeding tube due to output. This has been chronic. Wound care is following COPD - management as above, wean O2 as able A fib - NSR here, rate controlled -Continue Atenolol Chronic diastolic HF - he was euvolemic to dry on arrival, echo 10/2016 reviewed : EF 70%, +diastolic dysfunction -Lasix PRN. none scheduled DM - bg's 100's -cont SSI Hypertension - no further hypotension -Continue atenolol Hyperlipidemia H/O PUD with previous GIB Dispo - inpt, pending clinical course, PT/OT evals, may warrant SNF Code status -Full code Subjective: Patient reports muscle aches in his back this morning Objective: Vital Signs Temp Pulse Resp BP Pulse Ox 36.6 C 60 15 101/52 L 88 L 02/01/18 12:00 02/01/18 12:06 02/01/18 12:06 02/01/18 12:00 02/01/18 12:06 Laboratory Results 02/01/18 06:22 02/01/18 06:22 01/31/18 02/01/18 02/02/18 05:59 05:59 05:59 Intake Total 1780 787 Output Total 1440 850 Balance 340 -63 PT 17.6 SEC (12.0-15.0) H 02/01/18 06:22 INR 1.43 (0.83-1.16) H 02/01/18 06:22 - Physical Exam Constitutional: chronically ill appearing Eyes: PERRL Ears, Nose, Mouth, Throat: moist mucous membranes Cardiovascular: regular rate and rhythym Respiratory: no respiratory distress, reduced air movement Gastrointestinal: soft, non-tender abdomen, other (J tube in place) Genitourinary: jimenez in urethra Skin: warm Neurologic: AAOx3 Psychiatric: interacting appropriately ICD10 Worksheet Patient Problems: Problems Problem Status Onset Chronic obstructive pulmonary disease with acute exacerbation Acute Pneumonia Acute 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
--- NOTE | 2018-02-01 13:46 | WOCRNPDOC ---
GARY Advanced Assessment Note - Skin Integrity Problem, Advanced Assess Right Abdomen PEG tube site Dressing Type: Dressing Sponge, Hydrocolloid Other Dressing Type: replicare Dressing Description: Intact, Shadowed Exudate Amount: Minimal Exudate Color: Yellow, Green Exudate Characteristic(s): Liquid Integumentary Issue Intervention: Dressing Changed Natasha Wound Tissue: Erythema, Raw Wound Bed Color: [place] Site Measurement - Head-to-Toe Length X Width X Depth (cm): 3x3x0 Skin Integrity Problem Comment: Patient has had PEG tube for 9 years, and states it has always had drainage at the site. Removed previous replicare hydrocolloid dressing, skin cleaned with normal saline and patted dry with gauze. Area surrounding PEG tube site pink, patient states it is not painful. New hydrocolloid dressing applied. Education provided to patient re: keeping area dry to protect it from further breakdown. Wound care will round again next week. Thoracic Spine Pressure Injury Dressing Type: Mepilex Border Dressing Description: Clean/Dry, Intact Exudate Amount: None Integumentary Issue Intervention: Visualized Under Dressing Natasha Wound Tissue: Blanching, Erythema Wound Bed Color: Red Site Measurement - Head-to-Toe Length X Width X Depth (cm): 5x2x0 Pressure Injury Stage: Deep Tissue Injury (DTI) Skin Integrity Problem Comment: Patient was lying on his back, then rolled onto left side for assessment. Patient has reddened area on thoracic spine. Small area does not federico, but rest of area does federico. Skin cleaned with normal saline and patted dry. According to the patient, he has spent most of his hospitalization resting on his back. Discussed patient plan of care with Bibi RHODES. RN stated that since previous assessment yesterday the patient has been getting turned side to side. However, patient turns himself easily and was on his back during wound care visit. During assessment, patient had visit from therapy. Patient refused to get up to his chair. Reconsult team sports sales associate if wound opens.
--- NOTE | 2018-02-01 13:59 | SOAPPROG ---
SOAP Progress Note Assessment/Plan: Assessment: gross hematuria- improved on CBI Plan: Continue CBI which has improved hematuria. Awaiting CT to better assess for mass/clots in bladder. 02/01/18 13:58 Subjective: No urinary complaints Objective: Vital Signs Temp Pulse Resp BP Pulse Ox 36.6 C 59 L 15 101/52 L 93 02/01/18 12:00 02/01/18 12:07 02/01/18 12:07 02/01/18 12:00 02/01/18 12:07 Laboratory Results 02/01/18 06:22 02/01/18 06:22 01/31/18 02/01/18 02/02/18 05:59 05:59 05:59 Intake Total 1780 787 Output Total 1440 850 Balance 340 -63 PT 17.6 SEC (12.0-15.0) H 02/01/18 06:22 INR 1.43 (0.83-1.16) H 02/01/18 06:22 Physical Exam - Physical Exam General Appearance: alert, no apparent distress Male Genitalia: other (light red blood in cath bag , no clots) Skin: pallor ICD10 Worksheet Patient Problems: Problems Problem Status Onset Chronic obstructive pulmonary disease with acute exacerbation Acute Pneumonia Acute 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
[2018-02-01] MEDS ORDERED: IOPAMIDOL (ISOVUE-300) 150 ML BTL ONE (15:41)
--- NOTE | 2018-02-01 15:42 | PDINTPN ---
Specification Consultant Progress Note Assessment/Plan: 83 m admitted with c/o SOB and oxygen desaturation in setting of chronic O2 related to hx known COPD. CXR showed RLL infiltrate and he was treated for COPD exacerbation and PNA. He later developed significant hematuria and hemoptysis and his workup revealed an elevated INR. His platelets, however, were low on admission for unclear reasons. He has a chronic feeding tube with a history of aspiration related to a remote history of laryngeal cancer treated with XRT, but his tube was surrounded by pus and functioning inadequately. A new J tube was subsequently placed, but he developed diarrhea and has had ongoing issues with this. He has been frustrated at the development of his complications, but appears to have little insight to his pre-hospital conditions. To me, he denied any current SOB and his oxygen requirement improved. * Hemoptysis- not surprising with thrombocytopenia, elevated INR and PNA. I dont think bronch is indicated at this time, but I'm still awaiting CT chest for further evaluation. * COPD is stable on current regimen * Hypoxia- he is stable, but at 5 lpm. * Coagulopathy- followed by hematology as well as hospitalist- etiology unclear but may be related to vitamin K deficiency since corrected with transfusion. Platelets also responded well to transfusion Subjective: reports ongoing but reduced hemoptysis Objective: Vital Signs Temp Pulse Resp BP Pulse Ox 36.4 C 58 L 16 109/52 L 93 02/01/18 15:07 02/01/18 15:07 02/01/18 15:07 02/01/18 15:07 02/01/18 15:07 Laboratory Results 02/01/18 06:22 02/01/18 06:22 01/31/18 02/01/18 02/02/18 05:59 05:59 05:59 Intake Total 1780 787 Output Total 1440 850 Balance 340 -63 PT 17.6 SEC (12.0-15.0) H 02/01/18 06:22 INR 1.43 (0.83-1.16) H 02/01/18 06:22 Physical Exam - Physical Exam General Appearance: alert, no apparent distress, cachetic, thin EENT: PERRL/EOMI, other (quiet voice) Neck: supple Respiratory: lungs clear, normal breath sounds, decreased breath sounds, No respiratory distress, No accessory muscle use Cardiac/Chest: regular rate, rhythm, No edema Abdomen: normal bowel sounds, non-tender, soft, other (feeding tube w/o evidence of infection), No distended Skin: normal color, warm/dry, No cyanosis Lymphatic: no adenopathy Extremities: No pedal edema Neuro/Psych: alert, oriented x 3, other (easily agitated), No abnormal event decorator II- XII ICD10 Worksheet Patient Problems: Problems Problem Status Onset Chronic obstructive pulmonary disease with acute exacerbation Acute Pneumonia Acute 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
--- NOTE | 2018-02-01 17:10 | ASMTCMCOM ---
CM Note CM Note Notes: Pt resistant to working with therapies, they are still recommending SNF. CM w/f up with pt concerning POC, he has been set up with [facility] (RN/PT) Date Signed: 02/01/2018 05:07 PM Electronically Signed By:Gaviota Costello RN
[2018-02-02 04:51] LABS: INR 1.22 (0.83-1.16); PROTIME(PATIENT) 15.6 SEC (12.0-15.0)
[2018-02-02] MEDS: IPRATROPIUM/ALBUTEROL 3 ML DEYVIAL IH SCH ×4 (05:36→21:30)
[2018-02-02 05:41] LABS: PLATELET COUNT 85 10^3/uL (150-400)
[2018-02-02] MEDS: HYDROmorphONE/DILAUDID 2 MG/ML INJ IVP PRN ×2 (06:05→18:46)
[2018-02-02 06:06] LABS: PLATELET COUNT 85 10^3/uL (150-400)
[2018-02-02] MEDS: INSULIN LISPRO 100 UNIT/ML SC SCH ×4 (08:33→21:32)
[2018-02-02] MEDS: PANTOPRAZOLE SODIUM 40 MG VIAL IVP SCH (08:33)
[2018-02-02] MEDS: ATENOLOL 100 MG TAB TUBE SCH (08:39)
[2018-02-02] MEDS: TAMSULOSIN HCL 0.4 MG CAP PO SCH (08:40)
--- NOTE | 2018-02-02 09:40 | HOSPPROG ---
Hospitalist Progress Note Assessment/Plan: DIAGNOSES: * acute hypoxemic respiratory failure with acute bilateral pneumonia, question aspiration or postobstructive, and COPD exacerbation * Corynebacterium and Pseudomonas in sputum * eligio bacterium bacteremia * possible lung mass seen on CT scan, hard to differentiate with above findings * chronic gastric tube converted to jejunostomy tube at this time; wound issues that to him site being addressed by skin/wound care nurses * diarrhea with she get toxin positive stools * the gross hematuria due to suspected catheter related injury, continuous bladder irrigation * Appears better today after correction of INR and platelet transfusion * post hemorrhagic anemia due to above as well as thrombocytopenia and coagulopathy * Minimal change since yesterday but severe at hemoglobin 7 * thrombocytopenia uncertain etiology/coagulopathy ? Due to losses from bleeding * Thrombocytopenia improved after transfusion of platelets * Coagulopathy better after vitamin K * worsening back pain, question of lesions and spine seen on CT of chest and abdomen+ * dysphagia after little carcinoma, dependent on tube feeds * fecal incontinence, very careful attention to skin preventive measures * very high LDH levels greater than 1000, with mild AST elevation, macrocytosis with normal B12 and folate levels, and coagulopathy; ? If There is malignancy or some underlying liver disease causing a lot of these changes; would not have expected his INR to correct With vitamin K if that were due to liver disease PLANS: * Bronchoscopy today to assess for secretions and possible mass; will review with Dr. Gray after that is done and follow test results * Lab studies to assess possible spine lesions, consider MRI * Continue titration of tube feeds is able; no antidiarrheals with sugar toxin * Follow-up platelets and INR closely * Continue current antibiotics * Continue to strongly recommend physical occupational therapy, so far patient declining to engage in any fashion with therapists and is remaining bed-bound per his choice * Await pending lab tests I reviewed in detail today with Dr. Marian Martinez today at the bedside SUBJECTIVE: Patient remains extremely frustrated Back pain unchanged Very frustrated about it is loose stools and fecal incontinence OBJECTIVE Vitals reviewed: Stable without fever Exam: alert oriented; frustrated skin warm dry color ok resps not labored lungs some crackles at bases, Hemal with cough heart regular abd soft nondistended nontender, bowel sounds present, feed tube site looks okay limbs warm, no edema iv site ok Lab data: Hemoglobin decreased slightly further at some 0.1 MCV 106 Stable electrolytes, CO2 at 32 BUN at 41 creatinine 0.6, sugars okay Objective: Vital Signs Temp Pulse Resp BP Pulse Ox 36.6 C 66 18 127/54 H 91 L 02/02/18 03:59 02/02/18 08:00 02/02/18 08:00 02/02/18 08:00 02/02/18 08:00 Laboratory Results 02/02/18 04:30 02/02/18 04:30 02/01/18 02/02/18 02/03/18 06:59 06:59 06:59 Intake Total 787 750 Output Total 850 1850 Balance -63 -1100 PT 15.6 SEC (12.0-15.0) H 02/02/18 04:30 INR 1.22 (0.83-1.16) H 02/02/18 04:30 - Time Spent With Patient Time Spent with Patient: greater than 35 minutes Time Spent with Patient: Greater than 35 minutes spent on this patients care, greater than 50% of time spent counseling, educating, and coordinating care regarding the above mentioned plan. 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
--- NOTE | 2018-02-02 09:43 | PDINTPN ---
Cnc Mechanic Progress Note Assessment/Plan: 83 m admitted with c/o SOB and oxygen desaturation in setting of chronic O2 related to hx known COPD. CXR showed RLL infiltrate and he was treated for COPD exacerbation and PNA. He later developed significant hematuria and hemoptysis and his workup revealed an elevated INR. His platelets, however, were low on admission for unclear reasons. He has a chronic feeding tube with a history of aspiration related to a remote history of laryngeal cancer treated with XRT, but his tube was surrounded by pus and functioning inadequately. A new J tube was subsequently placed, but he developed diarrhea and has had ongoing issues with this. He has been frustrated at the development of his complications, but appears to have little insight to his pre-hospital conditions. To me, he denied any current SOB and his oxygen requirement improved. * Hemoptysis- not surprising with thrombocytopenia, elevated INR and PNA. Chest CT suggested endobronchial obstruction in RLL/RML, though looks much better compared with 11/2016. Reasonable to look with bronchoscopy given uncertainties about coagulopathy etc. Discussed with patient in detail and will proceed later this afternoon. Jejunal tube feeds stopped at 0800. * COPD is stable on current regimen * Hypoxia- he is stable, but at 5 lpm. * Coagulopathy- followed by hematology as well as hospitalist- etiology unclear but may be related to vitamin K deficiency since corrected with transfusion. Platelets also responded well to transfusion Subjective: no events overnight. Still focused on feeding issues Objective: Vital Signs Temp Pulse Resp BP Pulse Ox 36.6 C 66 18 127/54 H 91 L 02/02/18 03:59 02/02/18 08:00 02/02/18 08:00 02/02/18 08:00 02/02/18 08:00 Laboratory Results 02/02/18 04:30 02/02/18 04:30 02/01/18 02/02/18 02/03/18 05:59 05:59 05:59 Intake Total 787 750 Output Total 850 1300 550 Balance -63 -1300 200 PT 15.6 SEC (12.0-15.0) H 02/02/18 04:30 INR 1.22 (0.83-1.16) H 02/02/18 04:30 Physical Exam - Physical Exam General Appearance: alert, no apparent distress, thin EENT: PERRL/EOMI Neck: supple Respiratory: lungs clear, normal breath sounds, No respiratory distress, No accessory muscle use Cardiac/Chest: regular rate, rhythm, No edema Abdomen: normal bowel sounds, non-tender, soft, No distended Skin: normal color, warm/dry, No cyanosis Lymphatic: no adenopathy Extremities: No pedal edema Neuro/Psych: alert, oriented x 3, No abnormal projector operator II-XII ICD10 Worksheet Patient Problems: Problems Problem Status Onset Chronic obstructive pulmonary disease with acute exacerbation Acute Pneumonia Acute 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
--- NOTE | 2018-02-02 09:48 | PCMIDPN ---
Assessment/Plan: 1. Bacteremic pneumonia secondary to Corynebacterium striatum : Blood cultures cleared quickly. Continue vancomycin as is, to complete 10-14 days of therapy. Vancomycin trough pending for this morning. Patient to have bronchoscopy later today as a therapeutic and diagnostic intervention (CT with ? evidence of endobronchial lesion on the right side versus mucus plug) 2. Shiga toxin E coli in stool: Continue contact isolation. Diarrhea likely secondary to tube feeds, however. No diarrhea prior to admission. 3. Coagulopathy/thrombocytopenia: Platelets stable after transfusion x1. Coagulopathy improved. 4. Back pain with new radiolucent areas noted on T5, T10, and L2: Differential diagnosis includes osteoporosis versus metastatic disease. The abnormalities do not look consistent with osteomyelitis. No evidence of epidural abscess. Have ordered SPEP, UPEP, and PSA for now. 02/02/18 09:45 Subjective: Patient tells me"I am no better."Frustrated. Talked him about his CT findings this morning. Objective: Vancomycin 1.25 g IV daily day for No fevers 91% on 5 L Vital Signs Temp Pulse Resp BP Pulse Ox 36.6 C 66 18 127/54 H 91 L 02/02/18 03:59 02/02/18 08:00 02/02/18 08:00 02/02/18 08:00 02/02/18 08:00 Laboratory Results 02/02/18 04:30 02/02/18 04:30 02/01/18 02/02/18 02/03/18 05:59 05:59 05:59 Intake Total 787 750 Output Total 850 1300 550 Balance -63 -1300 200 Repeat blood cultures remain negative - Physical Exam General Appearance: cachetic EENT: other (Dry blood in the mouth, poor dentition. 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
[2018-02-02] MEDS: VANCOMYCIN 1.25 GM in NS 250 ML IV SCH (11:38)
[2018-02-02] MEDS ORDERED: ALBUTEROL 3 ML DEYVIAL ONE (13:48)
--- NOTE | 2018-02-02 13:51 | SOAPPROG ---
SOAP Progress Note Assessment/Plan: Assessment: gross hematuria- resolved per RN. CBI off. Plan: Leave catheter in and turn CBI on if needed. Reviewed CT which shows diffuse bladder wall thickening and enlarged prostate. Further workup outpatient if appropriate. 02/02/18 13:50 Subjective: PT out of room getting imaging Objective: Vital Signs Temp Pulse Resp BP Pulse Ox 36.6 C 65 15 118/59 L 92 02/02/18 11:26 02/02/18 11:49 02/02/18 11:49 02/02/18 11:26 02/02/18 11:49 Microbiology 01/28/18 13:55 Gastrointestinal Tract Panel (PCR) - Final Stool E.coli Shiga-Like Toxin Pos Laboratory Results 02/02/18 12:05 02/02/18 04:30 02/01/18 02/02/18 02/03/18 05:59 05:59 05:59 Intake Total 787 750 Output Total 850 1300 550 Balance -63 -1300 200 PT 15.6 SEC (12.0-15.0) H 02/02/18 04:30 INR 1.22 (0.83-1.16) H 02/02/18 04:30 ICD10 Worksheet Patient Problems: Problems Problem Status Onset Chronic obstructive pulmonary disease with acute exacerbation Acute Pneumonia Acute 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
[2018-02-02] MEDS ORDERED: EPINEPHrine 1 MG/ML INJ ONE (13:56)
[2018-02-02] MEDS ORDERED: fentaNYL 100 MCG/2 ML INJ ONE (13:57)
[2018-02-02] MEDS ORDERED: MIDAZOLAM 2 MG/2 ML VIAL ONE (13:57)
[2018-02-02] MEDS ORDERED: LIDOCAINE 2% JELLY 5 ML TUBE ONE (13:58)
[2018-02-02] MEDS ORDERED: LIDOCAINE 1% 300 MG/30 ML SDV ONE (14:00)
--- NOTE | 2018-02-02 14:30 | SOAPPROG ---
SOAP Progress Note Assessment/Plan: Assessment: This is an 83-year-old male with history of laryngeal cancer and multiple medical comorbidities who are seeing for evaluation for thrombocytopenia and coagulopathy. 1. Thrombocytopenia: His platelets were normal almost a year ago and on presentation here they were in the 60s. He has received platelet transfusions and has had an appropriate response and has maintained his platelet count in the 80s. Interestingly, yesterday he had a CT of the abdomen pelvis that demonstrated enlarged prostate and evidence of metastatic disease. A PSA that was drawn was greater than 1000. I suspect that he might have marrow involvement which would be the cause of his thrombocytopenia. He did have shiga toxin producing e.coli but no clinical syndrome consistent with HUS. 2. Coagulopathy: He has elevated INR but normal fibrinogen and PTT. Mixing study initially was sent and is still not returned. In any regard, we gave him vitamin K and his INR has essentially normalized. 3. Concern for metastatic prostate cancer: He has a PSA of greater than 1000 and evidence of likely skeletal metastasis. I spoke with Dr. Gray and we are in agreement that a biopsy is unnecessary at this point to establish a diagnosis. We will discuss Bicalutamide this weekend (he is not in the room this afternoon) and obtain a bone scan thereafter. 4. Hemoptysis: Undergoing bronch today. 02/02/18 14:45 Subjective: Shelton was having ongoing symptoms of hemoptysis and went for bronchoscopy today. Objective: Vital Signs Temp Pulse Resp BP Pulse Ox 35.8 C L 69 23 H 136/70 H 93 02/02/18 13:52 02/02/18 13:52 02/02/18 13:52 02/02/18 13:52 02/02/18 13:52 Microbiology 01/28/18 13:55 Gastrointestinal Tract Panel (PCR) - Final Stool E.coli Shiga-Like Toxin Pos Laboratory Results 02/02/18 12:05 02/02/18 04:30 02/01/18 02/02/18 02/03/18 05:59 05:59 05:59 Intake Total 787 750 Output Total 850 1300 550 Balance -63 -1300 200 PT 15.6 SEC (12.0-15.0) H 02/02/18 04:30 INR 1.22 (0.83-1.16) H 02/02/18 04:30 Examination deferred as he is in bronchoscopy. 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
[2018-02-02] MEDS ORDERED: ALBUMIN 5% 250 ML IV ONE (14:44)
[2018-02-02] MEDS ORDERED: ALBUMIN 5% 250 ML BOTTLE IV ONE (14:58)
--- NOTE | 2018-02-02 15:04 | BVPULMO ---
[facility] Surgical Services- Pulmonology Patient Name: Shelton Box Procedure Date: 02/02/2018 2:02 PM Patient Type: Inpatient Attending MD/ER Physician: Osvaldo Gray MD Procedure: Bronchoscopy Indications: Lung mass Providers: Osvaldo Gray MD Medicines: Lidocaine 1% applied to cords 2 mL, Lidocaine 1% applied to the tracheobronchia l tree 8 mL, Fentanyl 25 mcg IV, Midazolam 2 mg IV Complications: Hypotension, to 60/40; treated with 500 NS bolus and 250 ml 5% albumin with resulting increase in SBP to >90 Procedure: After informed consent, a time out was performed. N95 masks were worn, and the procedure was done in a negative pressure room. The patient was given appropria te topical anesthesia and intravenous sedation. The fiberopic bronchoscope was pas sed via a bite block orally into the larynx and subsequently into the lower trachea bronchial tree. Throughout the procedure, the patient's blood pressure, pulse, and oxygen saturations were monitored continuously. The Bronchoscope (Video) was introduced through the mouth and advanced to the tracheobronchial tree of both lungs. The procedure was accomplished without difficulty. The patient tolerated the procedure well. Findings: Bilateral Lung Abnormalities: Old blood was found throughout the tracheobronchi al tree. The bleeding site was not identified. It was partially obstructing the ri ght mainstem airway, but easily cleared. Washings were obtained. The return was bloody. Post Op Diagnosis: - Blood was present throughout the tracheobronchial tree. No endobronchial mass noted and old blood cleared easily - Washings were obtained. Estimated Blood Loss: Estimated blood loss: none. Recommendation: - [facility]. Osvaldo Gray MD Osvaldo Gray MD 02/02/2018 3:04:07 PM This report has been signed electronicallyOsvaldo Gray MD Number of Addenda: 0 Note Initiated On: 02/02/2018 2:02 PM [email or web address]
--- NOTE | 2018-02-02 16:07 | ASMTCMCOM ---
CM Note CM Note Notes: Per MD, patient may metastatic prostate ca with likely skeletal mets. Unclear if pt will be able to dc home w/home care. Pt has been refusing therapies but has agreed to homecare ([facility]). Pt went for a bronchoscopy today, dc poc TBD Date Signed: 02/02/2018 04:06 PM Electronically Signed By:Gaviota Costello RN
[2018-02-03] MEDS: HYDROmorphONE/DILAUDID 2 MG/ML INJ IVP PRN ×5 (03:07→21:11)
[2018-02-03] MEDS: IPRATROPIUM/ALBUTEROL 3 ML DEYVIAL IH SCH ×4 (04:19→20:47)
[2018-02-03 05:30] LABS: PLATELET COUNT 75 10^3/uL (150-400)
[2018-02-03 05:39] LABS: INR 1.21 (0.83-1.16); PROTIME(PATIENT) 15.5 SEC (12.0-15.0)
[2018-02-03] MEDS: VANCOMYCIN 1.25 GM in NS 250 ML IV SCH (08:38)
[2018-02-03] MEDS: TAMSULOSIN HCL 0.4 MG CAP PO SCH (08:38)
[2018-02-03] MEDS: INSULIN LISPRO 100 UNIT/ML SC SCH ×4 (08:38→21:10)
[2018-02-03] MEDS: PANTOPRAZOLE SODIUM 40 MG VIAL IVP SCH (08:38)
[2018-02-03] MEDS: ATENOLOL 100 MG TAB TUBE SCH (08:38)
[2018-02-03] MEDS ORDERED: BICALUTAMIDE 50 MG TAB PO SCH (09:00)
--- NOTE | 2018-02-03 10:07 | HOSPPROG ---
Hospitalist Progress Note Assessment/Plan: This patient has presented with acute respiratory illness with pneumonia and hemoptysis and COPD, but has multiple other significant acute issues here as detailed below. 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 DIAGNOSES: * acute hypoxemic respiratory failure with acute bilateral pneumonia, suspect aspiration (no bronchial lesion seen on bronchoscopy so not postobstructive), and COPD exacerbation, (history of laryngeal cancer, all food fluid in meds via gastric feeding tube for years) * Corynebacterium and Pseudomonas in sputum * Also having significant hemoptysis, (was in fairly large volume yesterday evening) unclear what the source of that is but was ongoing despite correction of INR and platelets, seems possibly to have stopped this morning (bronch yesterday did show significant bloody secretions in airways) * carynebacterium bacteremia, lung source * prostate cancer with painful bone Mets, PSA 1100 * I reviewed in detail with the patient together at the bedside with Dr. Groves of Oncology * At this time anti androgen therapy is clearly indicated and Dr. Groves is ordering bicalutamide; * This may explain the elevated LDH levels as well * question of lung mass seen on CT chest but nothing seen on bronchoscopy * chronic gastric tube converted to GJ tube at this time because of aspiration; * Patient remains adamant that he will not use a pump at home will once bolus feeds and is demanding that we have the tube pulled back to gastric position so he can do boluses * diarrhea with shiga toxin positive stools * Diarrhea seems to have slowed today, follow closely * gross hematuria due to suspected catheter related injury (see heme issues below) * Urine now clear in Myers off irrigation for 24 hr plus * post hemorrhagic anemia due to above as well as thrombocytopenia and coagulopathy * Minimal change since yesterday but severe at hemoglobin 7 * 1 unit of red blood cell transfusion will be ordered for today, recheck tomorrow * thrombocytopenia uncertain etiology (consider marrow affects of cancer)/ coagulopathy suspect this is largely vitamin K deficiency as it corrected * Thrombocytopenia improved after transfusion of platelets, and number holding * Coagulopathy better after vitamin K * dysphagia after laryngeal carcinoma, dependent on tube feeds * fecal incontinence, very careful attention to skin preventive measures * severe deconditioning weakness fall risk PLANS: * Transfuse 1 unit red blood cells today * Recheck red cell counts platelets and INR tomorrow * Continue monitoring closely his hemoptysis; if this persists may need to consider an IR procedure to stop, will review with pulmonology, repeat chest x- ray tomorrow * Begin bicalutamide therapy now * Continue with Myers catheter in place watch for any rebleeding, eventual follow-up outpatient with Urology for catheter removal of possible * Continue current antibiotics * Continue current respiratory care * Continue current tube feeds; as patient is demanding that we repositioned is tube to the gastric position will need to review this with IR * Follow stool output, diurese seems to be slowing but if this picks up again will review with Infectious Disease * Continue to encourage patient work with Physical occupational therapy for strengthening for his severe deconditioning but so far he is unwilling to engage in that SUBJECTIVE: Still somewhat frustrated perhaps less so than yesterday Slept okay, but had severe trouble with cough and gross hemoptysis from around 6 :00 p.m. Till midnight; hemoptysis and cough seem to have stopped so far this morning Tolerating tube feeds okay Still with same back pain OBJECTIVE Vitals reviewed: Stable without fever Oxygen at 4 L nasal cannula Exam: alert oriented more relaxed today skin warm dry color ok resps not labored lungs some crackles at bases, rattles with cough heart regular abd soft nondistended nontender, bowel sounds present, feed tube site looks okay limbs warm, no edema Myers catheter in place, clear yellow urine draining at this time iv site ok Lab data: Platelets slight drop after transfusion yesterday 75 Sugars in good range Objective: Vital Signs Temp Pulse Resp BP Pulse Ox 36.6 C 69 14 136/63 H 91 L 02/03/18 08:00 02/03/18 08:38 02/03/18 08:00 02/03/18 08:38 02/03/18 08:00 Microbiology 02/02/18 15:23 Gram Stain - Final Bronchial Washing - Right Lower Lobe 01/28/18 13:55 Gastrointestinal Tract Panel (PCR) - Final Stool E.coli Shiga-Like Toxin Pos Laboratory Results 02/03/18 05:20 02/02/18 04:30 02/02/18 02/03/18 02/04/18 06:59 06:59 06:59 Intake Total 750 100 Output Total 1850 1175 0 Balance -1100 -1075 0 PT 15.5 SEC (12.0-15.0) H 02/03/18 05:20 INR 1.21 (0.83-1.16) H 02/03/18 05:20 - Time Spent With Patient Time Spent with Patient: greater than 35 minutes Time Spent with Patient: Greater than 35 minutes spent on this patients care, greater than 50% of time spent counseling, educating, and coordinating care regarding the above mentioned plan. 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
--- NOTE | 2018-02-03 10:41 | SOAPPROG ---
SOAP Progress Note Assessment/Plan: Assessment/Plan: 83 yo gentleman w hx of laryngeal ca and multiple medical co-morbidities admitted w thrombocytopenia and coagulopathy 1. Thrombocytopenia - multifactorial but responded to platelet transfusion DIC panel negative being teated for possible ?aspiration PNA and bacteremia concern for metastatic prostate ca w marrow involvement PSA >1000 monitor for now 2. Coagulopathy - corrected w Vit K alone albumin low at 2.3 suggesting poor diet and Vit K deficiency hematuria improved and monitoring hemoptysis Bronch showed bloody secretions but no actual endobronchial mass 3. 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 Anemia - would probably benefit from blood transfusion today Discussed case w Dr Lopez today 02/03/18 10:37 Objective: Vital Signs Temp Pulse Resp BP Pulse Ox 36.6 C 69 14 136/63 H 91 L 02/03/18 08:00 02/03/18 08:38 02/03/18 08:00 02/03/18 08:38 02/03/18 08:00 Microbiology 02/02/18 15:23 Gram Stain - Final Bronchial Washing - Right Lower Lobe 01/28/18 13:55 Gastrointestinal Tract Panel (PCR) - Final Stool E.coli Shiga-Like Toxin Pos Laboratory Results 02/03/18 05:20 02/02/18 04:30 02/02/18 02/03/18 02/04/18 05:59 05:59 05:59 Intake Total 850 Output Total 1300 1725 0 Balance -1300 -875 0 PT 15.5 SEC (12.0-15.0) H 02/03/18 05:20 INR 1.21 (0.83-1.16) H 02/03/18 05:20 ICD10 Worksheet Patient Problems: Problems Problem Status Onset Chronic obstructive pulmonary disease with acute exacerbation Acute Pneumonia Acute 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
--- NOTE | 2018-02-03 10:53 | SOAPPROG ---
SOAP Progress Note Assessment/Plan: Assessment: Prostate cancer Acute most likely dx related to PSA >1100, Plan for bone scan Monday, discussed with heme / onc and consider bicalutamide now and initiate ADT if pt seems to be stable / improving. Discussed use of Firmagon as initial rx due to acute ADT with this med. Plan: Order bone scan for Monday, consider bicalutamide today and ADT in future 02/03/18 11:36 Subjective: not great, discussed elevated PSA and plan for assessment and rx of presumed dx of prostate cancer Objective: Vital Signs Temp Pulse Resp BP Pulse Ox 36.6 C 69 14 136/63 H 91 L 02/03/18 08:00 02/03/18 08:38 02/03/18 08:00 02/03/18 08:38 02/03/18 08:00 Microbiology 02/02/18 15:23 Gram Stain - Final Bronchial Washing - Right Lower Lobe 01/28/18 13:55 Gastrointestinal Tract Panel (PCR) - Final Stool E.coli Shiga-Like Toxin Pos Laboratory Results 02/03/18 05:20 02/02/18 04:30 02/02/18 02/03/18 02/04/18 05:59 05:59 05:59 Intake Total 850 Output Total 1300 1725 0 Balance -1300 -875 0 PT 15.5 SEC (12.0-15.0) H 02/03/18 05:20 INR 1.21 (0.83-1.16) H 02/03/18 05:20 Physical Exam - Physical Exam General Appearance: alert Respiratory: No respiratory distress Cardiac/Chest: regular rate, rhythm Neuro/Psych: alert ICD10 Worksheet Patient Problems: Problems Problem Status Onset Chronic obstructive pulmonary disease with acute exacerbation Acute Pneumonia Acute Prostate cancer Acute 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
--- NOTE | 2018-02-03 11:41 | PCMIDPN ---
Assessment/Plan: #Corynebacterium striatum bacteremia secondary to pneumonia --continue IV vancomycin, trough 9.4 ok yesterday, Cr 0.9, suspect accumulation , Stop date 02/13 --repeat Trough on monday --ID to see patient every couple days while hospitalized --can leave PICC line bc placed 01/31 and blood cx negative on that day #Pseudomonas aeruginosa, carbapenem resistant c/w colonization resp tract: Contact precautions #E coli, shiga producing on GI pathogen panel: incontinent of stool so continue contact precautions #new dx of Prostate CA etiology of back pain # Loose stool : avoid checking Cdiff unless clinical change meds Vancomycin 1.25gm IV daily, # 5 Microbiology 01/31/18 blood cx (2) NGTD 01/28/18 13:55 Stool : E.coli Shiga-Like Toxin Pos 01/26/18 06:00 Sputum, Expectorated Sputum Culture - Final Ps. Aeruginosa Carbapenem "R" Corynebacterium Striatum 01/25/18 08:50 Blood Cx (1/2) Corynebacterium Striatum Subjective: patient does not feel any different Bronch yesterday w old blood in airways Objective: Vital Signs Temp Pulse Resp BP Pulse Ox 36.6 C 69 14 136/63 H 91 L 02/03/18 08:00 02/03/18 08:38 02/03/18 08:00 02/03/18 08:38 02/03/18 08:00 Microbiology 02/02/18 15:23 Gram Stain - Final Bronchial Washing - Right Lower Lobe 01/28/18 13:55 Gastrointestinal Tract Panel (PCR) - Final Stool E.coli Shiga-Like Toxin Pos Laboratory Results 02/03/18 05:20 02/02/18 04:30 02/02/18 02/03/18 02/04/18 05:59 05:59 05:59 Intake Total 850 Output Total 1300 1725 0 Balance -1300 -875 0 ESR 4 MM/HR (0-20) 02/02/18 12:05 C-Reactive Protein 15.9 mg/L (<10.0) H 02/02/18 12:05 - Physical Exam General Appearance: alert, cachetic, non-toxic, other (chr ill appearance) Respiratory: other (decrease bs throught but airmovement better than my last exam), No accessory muscle use, No crackles, No coarse breath sounds Neck: supple Cardiac/Chest: regular rate, rhythm Extremities: No pedal edema Abdomen: non-tender, soft, other (Feeding tube in place) Skin: pallor, No diaphoresis Neuro/Psych: alert, depressed affect - Line/s RUE PICC Lines: No drainage, No erythema - Time Spent With Patient Time Spent with Patient: greater than 25 minutes Time Spent with Patient: Greater than 25 minutes spent on this patients care, greater than 50% of time spent counseling, educating, and coordinating care regarding the above mentioned plan. 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
--- NOTE | 2018-02-03 13:38 | PDINTPN ---
Displayer Progress Note Assessment/Plan: 83 m admitted with c/o SOB and oxygen desaturation in setting of chronic O2 related to hx known COPD. CXR showed RLL infiltrate and he was treated for COPD exacerbation and PNA. He later developed significant hematuria and hemoptysis and his workup revealed an elevated INR. His platelets, however, were low on admission for unclear reasons. He has a chronic feeding tube with a history of aspiration related to a remote history of laryngeal cancer treated with XRT, but his tube was surrounded by pus and functioning inadequately. A new J tube was subsequently placed, but he developed diarrhea and has had ongoing issues with this. He has been frustrated at the development of his complications, but appears to have little insight to his pre-hospital conditions. To me, he denied any current SOB and his oxygen requirement improved. * Hemoptysis- not surprising with thrombocytopenia, elevated INR and PNA. Chest CT suggested endobronchial obstruction in RLL/RML, but none seen on bronch . There was diffuse hemoptysis without endobronchial lesion or obvious source. He was transiently hypotensive immediately post-bronch to as low as 60/ 40 after only 2 mg versed and 25 fentanyl, but responded well to minimal fluids with rapid resolution. Continued hemoptysis likely residual and old blood. Stable from pulmonary perspective. * COPD is stable on current regimen * Hypoxia- stable near baseline * Coagulopathy- still a little unclear about source, but likely related to new diagnosis of probable metastatic prostate ca with PSA >1000 and suspicious spinal lesions. 02/03/18 13:34 Subjective: feels OK s/p bronch- doesnt remember much Objective: Vital Signs Temp Pulse Resp BP Pulse Ox 36.6 C 69 14 136/63 H 91 L 02/03/18 08:00 02/03/18 08:38 02/03/18 08:00 02/03/18 08:38 02/03/18 08:00 Microbiology 02/02/18 15:23 Gram Stain - Final Bronchial Washing - Right Lower Lobe 01/28/18 13:55 Gastrointestinal Tract Panel (PCR) - Final Stool E.coli Shiga-Like Toxin Pos Laboratory Results 02/03/18 05:20 02/02/18 04:30 02/02/18 02/03/18 02/04/18 05:59 05:59 05:59 Intake Total 850 Output Total 1300 1725 0 Balance -1300 -875 0 PT 15.5 SEC (12.0-15.0) H 02/03/18 05:20 INR 1.21 (0.83-1.16) H 02/03/18 05:20 Physical Exam - Physical Exam General Appearance: alert, no apparent distress, cachetic, thin EENT: PERRL/EOMI Neck: supple Respiratory: lungs clear, normal breath sounds, decreased breath sounds, No respiratory distress, No accessory muscle use Cardiac/Chest: regular rate, rhythm, No edema Abdomen: non-tender, soft, No distended Skin: normal color, warm/dry, No cyanosis Lymphatic: no adenopathy Extremities: No pedal edema Neuro/Psych: alert, normal mood/affect, oriented x 3 ICD10 Worksheet Patient Problems: Problems Problem Status Onset Chronic obstructive pulmonary disease with acute exacerbation Acute Pneumonia Acute Prostate cancer Acute 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
[2018-02-04] MEDS: HYDROmorphONE/DILAUDID 2 MG/ML INJ IVP PRN ×4 (03:21→21:45)
[2018-02-04 05:21] LABS: PLATELET COUNT 77 10^3/uL (150-400)
[2018-02-04 05:30] LABS: INR 1.15 (0.83-1.16); PROTIME(PATIENT) 14.9 SEC (12.0-15.0)
[2018-02-04] MEDS: IPRATROPIUM/ALBUTEROL 3 ML DEYVIAL IH SCH ×4 (06:27→21:02)
[2018-02-04] MEDS: VANCOMYCIN 1.25 GM in NS 250 ML IV SCH (08:41)
[2018-02-04] MEDS: PANTOPRAZOLE SODIUM 40 MG VIAL IVP SCH (08:41)
[2018-02-04] MEDS: BICALUTAMIDE 50 MG TAB PO SCH (08:41)
[2018-02-04] MEDS: ATENOLOL 100 MG TAB TUBE SCH (08:41)
[2018-02-04] MEDS: INSULIN LISPRO 100 UNIT/ML SC SCH ×4 (08:42→21:44)
[2018-02-04] MEDS: TAMSULOSIN HCL 0.4 MG CAP PO SCH (08:42)
--- NOTE | 2018-02-04 09:52 | SOAPPROG ---
SOAP Progress Note Assessment/Plan: Assessment/Plan: 83 yo gentleman w hx of laryngeal ca and multiple medical co-morbidities admitted w thrombocytopenia and coagulopathy 1. Thrombocytopenia - multifactorial but responded to platelet transfusion DIC panel negative being teated for possible ?aspiration PNA and bacteremia concern for metastatic prostate ca w marrow involvement PSA >1000 monitor 2. Coagulopathy - corrected w Vit K alone albumin low at 2.3 suggesting poor diet and Vit K deficiency hematuria improved but hemoptysis worse today Bronch showed bloody secretions but no actual endobronchial mass 3. 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 Anemia - s/p PRBC ongoing hemoptysis 5. Hemoptysis - worse today No clear cause as coagulopathy better maybe from underlying PNA (necrotizing) Discussed w Dr Mckeon -discussed embolization; not clear this will help 02/04/18 09:58 Subjective: Still w hemoptysis pain unchanged Objective: Vital Signs Temp Pulse Resp BP Pulse Ox 36.8 C 75 16 147/56 H 89 L 02/04/18 08:00 02/04/18 08:41 02/04/18 08:00 02/04/18 08:41 02/04/18 08:00 Microbiology 02/02/18 15:23 Gram Stain - Final Bronchial Washing - Right Lower Lobe 02/02/18 15:23 Mycobacterial Smear (FLORIDALMA) - Final Lung Right Lower Lobe - Bronchial Washings Laboratory Results 02/04/18 05:10 02/02/18 04:30 02/03/18 02/04/18 02/05/18 05:59 05:59 05:59 Intake Total 850 1575 Output Total 1725 980 Balance -875 595 PT 14.9 SEC (12.0-15.0) 02/04/18 05:10 INR 1.15 (0.83-1.16) 02/04/18 05:10 Gen - chronically ill appearing HEENT - anicteric, conjunctival pallor CV - RRR Lungs - coarse BS bilaterally Ext - no edema ICD10 Worksheet Patient Problems: Problems Problem Status Onset Chronic obstructive pulmonary disease with acute exacerbation Acute Pneumonia Acute Prostate cancer Acute 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
--- NOTE | 2018-02-04 10:52 | SOAPPROG ---
SOAP Progress Note Assessment/Plan: Assessment: Prostate cancer Acute most likely dx related to PSA >1100, Plan for bone scan Monday, discussed with heme / onc and consider bicalutamide now and initiate ADT if pt seems to be stable / improving. Discussed use of Firmagon as initial rx due to acute ADT with this med. Plan: Order bone scan for Monday, bicalutamide initiated and ADT in future 02/04/18 10:51 Subjective: pass by visit Objective: Vital Signs Temp Pulse Resp BP Pulse Ox 36.8 C 65 14 147/56 H 92 02/04/18 08:00 02/04/18 10:25 02/04/18 10:25 02/04/18 08:41 02/04/18 10:25 Microbiology 02/02/18 15:23 Gram Stain - Final Bronchial Washing - Right Lower Lobe 02/02/18 15:23 Mycobacterial Smear (FLORIDALMA) - Final Lung Right Lower Lobe - Bronchial Washings Laboratory Results 02/04/18 05:10 02/02/18 04:30 02/03/18 02/04/18 02/05/18 05:59 05:59 05:59 Intake Total 850 1575 Output Total 1725 980 Balance -875 595 PT 14.9 SEC (12.0-15.0) 02/04/18 05:10 INR 1.15 (0.83-1.16) 02/04/18 05:10 ICD10 Worksheet Patient Problems: Problems Problem Status Onset Chronic obstructive pulmonary disease with acute exacerbation Acute Pneumonia Acute Prostate cancer Acute 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
--- NOTE | 2018-02-04 14:31 | ASMTCMCOM ---
CM Note CM Note Notes: CM spoke with MEAGAN Dey about patient case. Patient diagnosis: Metastatic prostate cancer with marrow involvement. [facility] referral placed, patient declined therapy today. Patient lives with roomate, sister Jocelyn is MDPOA. Bone scan is scheduled for 02/05, discharge TBD. CM to follow. Plan: TBD, possibly home with [facility]. Date Signed: 02/04/2018 02:30 PM Electronically Signed By:Noelle Little
--- NOTE | 2018-02-04 16:00 | PDCONSULT ---
[facility] [employer] Note: IR Consult Note: This is an 83 yo M with history of pneumonia and hemoptysis s/p bronchoscopy, with residual hemoptysis. On review of imaging, patient's bronchial arteries are mildly hypertrophic, especially on the right. At this point, we don't have a definite quantity of blood loss per day and there is a cup near the patient's bed that has minimal amount of blood. Would recommend quantifying hemoptysis per day. If he is coughing up about a cupful per day (240-300mL) or he becomes clinically unstable, he would become an appropriate candidate for bronchial artery embolization with IR. This procedure was discussed with the patient. Thank you for the consult. Giorgi Mckeon MD IR
--- NOTE | 2018-02-04 16:28 | PDINTPN ---
Freel[employer]writer Progress Note Assessment/Plan: 83 m admitted with c/o SOB and oxygen desaturation in setting of chronic O2 related to hx known COPD. CXR showed RLL infiltrate and he was treated for COPD exacerbation and PNA. He later developed significant hematuria and hemoptysis and his workup revealed an elevated INR. His platelets, however, were low on admission for unclear reasons. He has a chronic feeding tube with a history of aspiration related to a remote history of laryngeal cancer treated with XRT, but his tube was surrounded by pus and functioning inadequately. A new J tube was subsequently placed, but he developed diarrhea and has had ongoing issues with this. He has been frustrated at the development of his complications, but appears to have little insight to his pre-hospital conditions. To me, he denied any current SOB and his oxygen requirement improved. * Hemoptysis- not surprising with thrombocytopenia, elevated INR and PNA. Chest CT suggested endobronchial obstruction in RLL/RML, but none seen on bronch . There was diffuse hemoptysis without endobronchial lesion or obvious source. He was transiently hypotensive immediately post-bronch to as low as 60/ 40 after only 2 mg versed and 25 fentanyl, but responded well to minimal fluids with rapid resolution. Continued hemoptysis likely residual and old blood. Stable from pulmonary perspective. Platelets 77 and INR 1.15 with high fibrinogen today. Quantity of hemoptysis dose not seem to warrant pulmonary embolization at this point. Discussed with IR. * COPD is stable on current regimen * Hypoxia- stable near baseline * Coagulopathy- still a little unclear about source, but likely related to new diagnosis of probable metastatic prostate ca with PSA >1000 and suspicious spinal lesions. Subjective: denies SOB, cp, wheezing; but ongoing hemoptysis Objective: Vital Signs Temp Pulse Resp BP Pulse Ox 36.8 C 74 16 116/61 89 L 02/04/18 15:32 02/04/18 15:32 02/04/18 15:32 02/04/18 15:32 02/04/18 15:32 Microbiology 02/02/18 15:23 Gram Stain - Final Bronchial Washing - Right Lower Lobe 01/30/18 11:30 Blood Culture - Final Blood 01/30/18 11:45 Blood Culture - Final Blood 02/02/18 15:23 Mycobacterial Smear (FLORIDALMA) - Final Lung Right Lower Lobe - Bronchial Washings Laboratory Results 02/04/18 05:10 02/02/18 04:30 02/03/18 02/04/18 02/05/18 05:59 05:59 05:59 Intake Total 850 1575 Output Total 1725 980 Balance -875 595 PT 14.9 SEC (12.0-15.0) 02/04/18 05:10 INR 1.15 (0.83-1.16) 02/04/18 05:10 Physical Exam - Physical Exam General Appearance: alert, no apparent distress, thin EENT: PERRL/EOMI Neck: full range of motion Respiratory: lungs clear, normal breath sounds, No respiratory distress, No accessory muscle use, No rales, No rhonchi, No wheezing Cardiac/Chest: regular rate, rhythm, No edema Abdomen: non-tender, soft, No distended Skin: normal color, warm/dry, No cyanosis Lymphatic: no adenopathy Extremities: No pedal edema Neuro/Psych: alert, normal mood/affect, oriented x 3 ICD10 Worksheet Patient Problems: Problems Problem Status Onset Chronic obstructive pulmonary disease with acute exacerbation Acute Pneumonia Acute Prostate cancer Acute 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
--- NOTE | 2018-02-04 23:01 | HOSPPROG ---
Hospitalist Progress Note Objective: Vital Signs Temp Pulse Resp BP Pulse Ox 36.8 C 65 16 116/61 93 02/04/18 15:32 02/04/18 21:03 02/04/18 21:03 02/04/18 15:32 02/04/18 21:03 Microbiology 02/02/18 15:23 Gram Stain - Final Bronchial Washing - Right Lower Lobe 01/30/18 11:30 Blood Culture - Final Blood 01/30/18 11:45 Blood Culture - Final Blood Laboratory Results 02/04/18 05:10 02/02/18 04:30 02/03/18 02/04/18 02/05/18 05:59 05:59 05:59 Intake Total 850 1575 1210 Output Total 1725 980 500 Balance -875 595 710 PT 14.9 SEC (12.0-15.0) 02/04/18 05:10 INR 1.15 (0.83-1.16) 02/04/18 05:10 ICD10 Worksheet Patient Problems: Problems Problem Status Onset Chronic obstructive pulmonary disease with acute exacerbation Acute Pneumonia Acute Prostate cancer Acute 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
--- NOTE | 2018-02-04 23:28 | HOSPPROG ---
Hospitalist Progress Note Assessment/Plan: The patient is a male with PMH aspiration, J to who was admitted for acute respiratory failure secondary to aspiration pneumonia and found to have metastatic prostate cancer. ASSESSMENT/PLAN: Acute hypoxemic respiratory failure, improved Aspiration PNA COPD exacerbation, improved Hemoptysis -ID, Pulm, IR following. -Vanco for corynebacterium; appears that KPC is colonization and does not need to be Tx'd. -IR may do embolization if pt coughs up 1 cup of blood in a day. -O2 as needed, SVNs. Chronic aspiration Hx laryngeal carcinoma, s/p resection -s/p PEG tube converted to J tube since bolus G tube feeds resulted in aspiration -Pt depressed about being on continuous TF. Will d/w GI if he can go back to bolus feeds in the future w/ the J tube. -Increase free water in feeds if labs still indicate free water deficit/ dehydration in AM. St IV prostrate cancer, new Dx - mets to spine Back pain, 2/2 above -Onc following. On bicalutamide. -prn analgesics Coagulopathy Thrombocytopenia Anemia -s/p 1u PRBC, 1u plts, vit K. -hemodynamically stable -Check CBC and INR in AM. Diarrhea - ETEC Dehydration -Monitor. Generalized weakness -PT/OT. Hematuria -Resolved VTE prophylaxis: contraindicated w/ active bleeding Code Status: Full code Status: Inpatient for greater than 2 midnight stay. Disposition: Med surge with discharge not anticipated soon This patient is new to me. Reviewed patient's chart/records for this visit. ____ SUBJECTIVE: Today the patient is depressed about his tube feeds. He continues to cough up blood. He is saving the sputum and a cup. OBJECTIVE: Physical Exam: General: The patient is an elderly male who is alert and in no acute distress. HEENT: normocephalic, extraocular movements intact, conjunctivae clear. Mucous membranes moist. Neck: trachea midline, no visible masses. CV: +S1/S2, RRR, no MRG. Resp: unlabored, +bilateral crackles Abd: soft and nondistended. G-tube in place with 3 lumens and continuous tube feeds attached. Musculoskeletal: Reduced muscle tone/bulk. Neuro: cranial nerves II XII grossly intact. Intact gross motor and sensory function. Psych: Depressed mood and appropriate affect. Skin: + pallor. No visible petechiae. Heme/lymph: No peripheral edema at bilateral lower extremities. Labs/Imaging/Other Tests: Personally reviewed/interpreted. Objective: Vital Signs Temp Pulse Resp BP Pulse Ox 36.8 C 65 16 116/61 93 02/04/18 15:32 02/04/18 21:03 02/04/18 21:03 02/04/18 15:32 02/04/18 21:03 Microbiology 02/02/18 15:23 Gram Stain - Final Bronchial Washing - Right Lower Lobe 01/30/18 11:30 Blood Culture - Final Blood 01/30/18 11:45 Blood Culture - Final Blood Laboratory Results 02/04/18 05:10 02/02/18 04:30 02/03/18 02/04/18 02/05/18 05:59 05:59 05:59 Intake Total 850 1575 1210 Output Total 1725 980 500 Balance -875 595 710 PT 14.9 SEC (12.0-15.0) 02/04/18 05:10 INR 1.15 (0.83-1.16) 02/04/18 05:10 - Time Spent With Patient Time Spent with Patient: greater than 35 minutes Time Spent with Patient: Greater than 35 minutes spent on this patients care, greater than 50% of time spent counseling, educating, and coordinating care regarding the above mentioned plan. 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
[2018-02-05] MEDS: HYDROmorphONE/DILAUDID 2 MG/ML INJ IVP PRN ×5 (04:03→21:30)
[2018-02-05 04:20] LABS: PLATELET COUNT 75 10^3/uL (150-400)
[2018-02-05 04:29] LABS: PLATELET COUNT 78 10^3/uL (150-400)
[2018-02-05 04:32] LABS: INR 1.18 (0.83-1.16); PROTIME(PATIENT) 15.2 SEC (12.0-15.0)
[2018-02-05] MEDS: IPRATROPIUM/ALBUTEROL 3 ML DEYVIAL IH SCH ×4 (05:29→20:36)
[2018-02-05] MEDS: BICALUTAMIDE 50 MG TAB PO SCH (08:18)
[2018-02-05] MEDS: ATENOLOL 100 MG TAB TUBE SCH (08:19)
[2018-02-05] MEDS: PANTOPRAZOLE SODIUM 40 MG VIAL IVP SCH (08:19)
[2018-02-05] MEDS: TAMSULOSIN HCL 0.4 MG CAP PO SCH (08:19)
[2018-02-05] MEDS: INSULIN LISPRO 100 UNIT/ML SC SCH ×4 (08:19→23:53)
[2018-02-05] MEDS: VANCOMYCIN 1.25 GM in NS 250 ML IV SCH (09:42)
--- NOTE | 2018-02-05 12:13 | SOAPPROG ---
SOAP Progress Note Assessment/Plan: Assessment: 1. 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 Chronic dysphagia, G tube dependenc 3. Recurrent aspiration pneumonia 4. Hemoptysis 5. New dx metastatic prostate cancer 6. Thrombocytopenia, likely due to bone marrow involvement vs low grade DIC from prostate cancer Plan: - on bicalutamide since 02/04; will add Lupron 02/07 or so. May be a candidate for Zytiga (rather than bicalutamide) in outpatient setting - hemoptysis may be due to aspiration pneumonia - pt strongly wants to have G tube replaced, as he does not want to have continuous tube feeds. This is a major quality of life issue for him. Given the metastatic prostate cancer, seems reasonable to exchange for G tube as long as pt understands that there is a higher risk of pneumonia which could be life- threatening or fatal - re: low plts -follow for now, no need for transfusion - will get bone scan to complete staging of prostate cancer 40 min spent w/ pt and in coordination of care. D/w dr anderson. 02/05/18 12:09 Subjective: upset re: J tube. does not want to have continuous feeds. Objective: exam: elderly, chronically ill Lungs coarse sounds bilaterally CV RRR no mGR Abd: +BS NTND Ext: no edema Neuro: a+ox3 Vital Signs Temp Pulse Resp BP Pulse Ox 36.8 C 74 16 135/66 H 91 L 02/05/18 07:32 02/05/18 08:19 02/05/18 07:32 02/05/18 08:19 02/05/18 07:32 Microbiology 02/02/18 15:23 Gram Stain - Final Bronchial Washing - Right Lower Lobe Bronchial Culture - Final Ps. 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
--- NOTE | 2018-02-05 15:50 | SOAPPROG ---
SOAP Progress Note Assessment/Plan: Assessment/Plan: * Hemoptysis- not surprising with thrombocytopenia, elevated INR and PNA. Chest CT suggested endobronchial obstruction in RLL/RML, but none seen on bronch . There was diffuse hemoptysis without endobronchial lesion or obvious source. He was transiently hypotensive immediately post-bronch to as low as 60/ 40 after only 2 mg versed and 25 fentanyl, but responded well to minimal fluids with rapid resolution. Continued hemoptysis likely residual and old blood. Stable from pulmonary perspective. Platelets 77 and INR 1.15 with high fibrinogen today. Quantity of hemoptysis dose not seem to warrant pulmonary embolization at this point. Discussed with IR. * COPD is stable on current regimen * Hypoxia- stable near baseline * Coagulopathy- still a little unclear about source, but likely related to new diagnosis of probable metastatic prostate ca with PSA >1000 and suspicious spinal lesions. Subjective: Still coughing up blood. Complains of back pain. Objective: Vital Signs Temp Pulse Resp BP Pulse Ox 36.8 C 72 16 135/66 H 93 02/05/18 07:32 02/05/18 11:20 02/05/18 11:20 02/05/18 08:19 02/05/18 11:20 Microbiology 02/02/18 15:23 Gram Stain - Final Bronchial Washing - Right Lower Lobe Bronchial Culture - Final Ps. Aeruginosa Carbapenem "R" Corynebacterium Striatum 01/30/18 11:30 Blood Culture - Final Blood 01/30/18 11:45 Blood Culture - Final Blood Laboratory Results 02/05/18 04:10 02/05/18 04:10 02/04/18 02/05/18 02/06/18 05:59 05:59 05:59 Intake Total 1575 1990 Output Total 980 900 Balance 595 1090 PT 15.2 SEC (12.0-15.0) H 02/05/18 04:10 INR 1.18 (0.83-1.16) H 02/05/18 04:10 - Time Spent With Patient Time Spent With Patient: 25 min of time spent with patient, over 1/2 care or counseling Case discussed with nursing Physical Exam - Physical Exam General Appearance: alert, mild distress EENT: PERRL/EOMI Neck: non-tender, supple Respiratory: rhonchi (Bibasilar), No respiratory distress, No wheezing Cardiac/Chest: normal peripheral pulses, regular rate, rhythm, systolic murmur Peripheral Pulses: 2+: carotid (R), carotid (L), femoral (R), femoral (L), dorsalis-pedis (R), dorsalis-pedis (L) Abdomen: normal bowel sounds, non-tender, soft Male Genitalia: deferred Rectal: deferred Skin: normal color, warm/dry Extremities: non-tender Neuro/Psych: alert ICD10 Worksheet Patient Problems: Problems Problem Status Onset Chronic obstructive pulmonary disease with acute exacerbation Acute Pneumonia Acute Prostate cancer Acute 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
--- NOTE | 2018-02-05 19:19 | HOSPPROG ---
Hospitalist Progress Note Assessment/Plan: The patient is a male with PMH aspiration, chronic dysphagia s/p G tube who was admitted for acute respiratory failure secondary to aspiration pneumonia and found to have metastatic prostate cancer. ASSESSMENT/PLAN: Acute hypoxemic respiratory failure, improved Aspiration PNA COPD exacerbation, improved Hemoptysis -ID, Pulm involed -Vanco for corynebacterium; appears that KPC is colonization and does not need to be Tx'd. -IR may do embolization if pt coughs up 1 cup of blood in a day. This has not happened. -O2 as needed, SVNs. Chronic aspiration Hx laryngeal carcinoma, s/p resection -s/p PEG tube converted to J tube since bolus G tube feeds resulted in aspiration -Pt depressed about being on continuous TF. Discussed this issue w/ Oncologist Dr. Stark. Pt refuses to do continuous feeds when he returns home. He is willing to accept potential risk of aspiration and strongly feels that since he had no PNA/aspiration problems in the last 12 years he will be ok w/ returning to bolus feeds. Will d/w GI further. -Increase free water in feeds if labs still indicate free water deficit/ dehydration in AM. 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 On bicalutamide. GnRH antagonist to start after a few days. -prn analgesics Coagulopathy Thrombocytopenia Anemia -s/p 1u PRBC, 1u plts, vit K. -hemodynamically stable -check AM labs Diarrhea - ETEC Dehydration -Resolved. Generalized weakness -PT/OT. Hematuria -Resolved. VTE prophylaxis: contraindicated w/ active bleeding. Code Status: Full code Status: Inpatient for greater than 2 midnight stay. Disposition: Med surge with discharge not anticipated once pt becomes more mobile. ____ SUBJECTIVE: Today the patient is still upset about continuous TF. Says for DC planning, he refuses to go to a facility and must return home. Home w/ a hospital bed in living room and a quarter bath that he has 2 steps to reach. Full bath is upstairs a full level. OBJECTIVE: Physical Exam: General: The patient is an elderly male who is alert and in no acute distress. HEENT: normocephalic, extraocular movements intact, conjunctivae clear. Mucous membranes moist. Neck: trachea midline, no visible masses. Resp: unlabored. Abd: soft and nondistended. G-tube in place with and continuous tube feeds attached. Musculoskeletal: Reduced muscle tone/bulk. Neuro: cranial nerves II XII grossly intact. Intact gross motor and sensory function. Psych: angry mood and appropriate affect. Skin: + pallor. No visible petechiae. Labs/Imaging/Other Tests: Personally reviewed/interpreted. Bone scan - abnl uptake T8 and femur. Objective: Vital Signs Temp Pulse Resp BP Pulse Ox 36.8 C 66 16 108/56 L 92 02/05/18 15:49 02/05/18 16:55 02/05/18 16:55 02/05/18 15:49 02/05/18 16:55 Microbiology 02/02/18 15:23 Gram Stain - Final Bronchial Washing - Right Lower Lobe Bronchial Culture - Final Ps. 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
[2018-02-06] MEDS: HYDROmorphONE/DILAUDID 2 MG/ML INJ IVP PRN ×5 (02:45→21:43)
[2018-02-06 05:58] LABS: PLATELET COUNT 88 10^3/uL (150-400)
[2018-02-06] MEDS: IPRATROPIUM/ALBUTEROL 3 ML DEYVIAL IH SCH ×4 (05:58→23:38)
[2018-02-06 06:01] LABS: PLATELET COUNT 88 10^3/uL (150-400)
[2018-02-06 06:06] LABS: INR 1.18 (0.83-1.16); PROTIME(PATIENT) 15.2 SEC (12.0-15.0)
[2018-02-06] MEDS: INSULIN LISPRO 100 UNIT/ML SC SCH ×4 (06:40→23:19)
[2018-02-06] MEDS: BICALUTAMIDE 50 MG TAB PO SCH (08:41)
[2018-02-06] MEDS: ATENOLOL 100 MG TAB TUBE SCH (08:41)
[2018-02-06] MEDS: PANTOPRAZOLE SODIUM 40 MG VIAL IVP SCH (08:42)
[2018-02-06] MEDS: TAMSULOSIN HCL 0.4 MG CAP PO SCH (08:42)
--- NOTE | 2018-02-06 09:05 | PCMIDPN ---
Assessment/Plan: 1. Bacteremic pneumonia secondary to Corynebacterium striatum : Blood cultures cleared quickly. Continue vancomycin as is; tentative stop date February 11. Vancomycin trough fine. Organism susceptible to vancomycin. 2. Shiga toxin E coli in stool: Continue contact isolation. Previous diarrhea related to tube feeds. Diarrhea has stopped. 3. Carbapenemase R- PsA in sputum: Patient is colonized with this pathogen. He is clinically improved without treatment. Would continue pulmonary toilet as you are. Contact isolation. 4. Metastatic prostate cancer: Followed by Oncology. Subjective: Not very happy this morning. Still frustrated by his feeding tube. Explained to him that he can participate in the medical decision making moving forward. Patient feels that his quality of life is gone. Breathing is"fine."Still having some hemoptysis. Objective: Vancomycin 1.25 g IV daily day 11/28 No fevers 89% on 3 L Vital Signs Temp Pulse Resp BP Pulse Ox 36.9 C 81 14 117/55 L 89 L 02/06/18 07:33 02/06/18 07:33 02/06/18 07:33 02/06/18 07:33 02/06/18 07:33 Microbiology 02/02/18 15:23 Gram Stain - Final Bronchial Washing - Right Lower Lobe Bronchial Culture - Final Ps. Aeruginosa Carbapenem "R" Corynebacterium Striatum Laboratory Results 02/06/18 05:50 02/06/18 05:50 02/05/18 02/06/18 02/07/18 05:59 05:59 05:59 Intake Total 1990 1190 Output Total 900 700 Balance 1090 490 ESR 4 MM/HR (0-20) 02/02/18 12:05 C-Reactive Protein 15.9 mg/L (<10.0) H 02/02/18 12:05 Vancomycin trough 11.3 Corynebacterium striatum susceptibilities: Resistant to ceftriaxone, intermediate to meropenem, sensitive to vancomycin with an FLORIDALMA of less than 1 - Physical Exam General Appearance: no apparent distress, cachetic, other (dysphonic) EENT: No thrush Respiratory: crackles (Right base, otherwise fairly clear) Cardiac/Chest: regular rate, rhythm Extremities: other (PICC line right upper extremity looks fine) Abdomen: non-tender, soft, other (PEJ tube in place.) Skin: other (Multiple ecchymoses on his arms, unchanged), No rash ICD10 Worksheet Patient Problems: Problems Problem Status Onset Chronic obstructive pulmonary disease with acute exacerbation Acute Pneumonia Acute Prostate cancer Acute 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
[2018-02-06] MEDS: ALTEPLASE 2 MG VIAL IVP PRN ×2 (09:09→09:22)
[2018-02-06] MEDS: VANCOMYCIN 1.25 GM in NS 250 ML IV SCH (10:46)
--- NOTE | 2018-02-06 12:21 | SOAPPROG ---
SOAP Progress Note Assessment/Plan: Assessment: 1. 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 Chronic dysphagia, G tube dependenc 3. Recurrent aspiration pneumonia 4. Hemoptysis 5. New dx metastatic prostate cancer 6. Thrombocytopenia, likely due to bone marrow involvement vs low grade DIC from prostate cancer Bone scan shows a few foci of uptake. Underwhelming in terms of the markedly elevated PSA, but he may have primarily bone *marrow* involvement which will not show up on the scan as well. Plan: - on bicalutamide since 02/04; will add Lupron 02/07 or so. May be a candidate for Zytiga (rather than bicalutamide) in outpatient setting - hemoptysis may be due to aspiration pneumonia - pt strongly wants to have G tube replaced, as he does not want to have continuous tube feeds. This is a major quality of life issue for him. Given the metastatic prostate cancer, seems reasonable to exchange for G tube as long as pt understands that there is a higher risk of pneumonia which could be life- threatening or fatal - re: low plts -follow for now, no need for transfusion - anemia - will check Fe studies to see if there may be a contribution of chronic dz 25 min spent w/ pt and in coordination of care. d/w dr anderson and pharmacy (re: crushing bicalutamide for administration; it is safe for pt but staff should take precautions not to get exposed to the drug) Subjective: still frustrated to be in the hospital. Objective: exam: no change Vital Signs Temp Pulse Resp BP Pulse Ox 36.9 C 66 15 117/55 L 92 02/06/18 07:33 02/06/18 11:28 02/06/18 11:28 02/06/18 07:33 02/06/18 11:28 Microbiology 02/02/18 15:23 Gram Stain - Final Bronchial Washing - Right Lower Lobe Bronchial Culture - Final Ps. 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
--- NOTE | 2018-02-06 15:31 | SOAPPROG ---
SOAP Progress Note Assessment/Plan: Assessment/Plan: * Hemoptysis- markedly improved. * Pneumonia-antibiotics per Infectious Disease * Bacteremia * Metastatic prostate cancer * COPD is stable on current regimen * Hypoxia- stable near baseline * Coagulopathy- still a little unclear about source, but likely related to new diagnosis of probable metastatic prostate ca with PSA >1000 and suspicious spinal lesions. Subjective: Feels somewhat better. Cough is diminished to some extent. There is less hemoptysis. Objective: Vital Signs Temp Pulse Resp BP Pulse Ox 36.9 C 66 15 117/55 L 92 02/06/18 07:33 02/06/18 11:28 02/06/18 11:28 02/06/18 07:33 02/06/18 11:28 Microbiology 02/02/18 15:23 Mycobacterial Smear (FLORIDALMA) - Final Lung Right Lower Lobe - Bronchial Washings 02/02/18 15:23 Gram Stain - Final Bronchial Washing - Right Lower Lobe Bronchial Culture - Final Ps. Aeruginosa Carbapenem "R" Corynebacterium Striatum Laboratory Results 02/06/18 05:50 02/06/18 05:50 02/05/18 02/06/18 02/07/18 05:59 05:59 05:59 Intake Total 1990 1190 Output Total 900 700 Balance 1090 490 PT 15.2 SEC (12.0-15.0) H 02/06/18 05:50 INR 1.18 (0.83-1.16) H 02/06/18 05:50 - Time Spent With Patient Time Spent With Patient: 25 min of time spent with patient, over 1/2 involved with coordination of care or counseling. Case discussed with nursing and hospitalist Physical Exam - Physical Exam General Appearance: alert, no apparent distress EENT: PERRL/EOMI Neck: non-tender Respiratory: crackles (Bibasilar), No respiratory distress, No wheezing Cardiac/Chest: normal peripheral pulses, regular rate, rhythm Abdomen: normal bowel sounds, non-tender, soft Male Genitalia: deferred Rectal: deferred Skin: normal color, warm/dry Extremities: non-tender Neuro/Psych: alert ICD10 Worksheet Patient Problems: Problems Problem Status Onset Chronic obstructive pulmonary disease with acute exacerbation Acute Pneumonia Acute Prostate cancer Acute 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
--- NOTE | 2018-02-06 18:44 | HOSPPROG ---
Hospitalist Progress Note Assessment/Plan: The patient is a male with PMH aspiration, chronic dysphagia s/p G tube who was admitted for acute respiratory failure secondary to aspiration pneumonia and found to have metastatic prostate cancer. ASSESSMENT/PLAN: Acute hypoxemic respiratory failure, improved Aspiration PNA COPD exacerbation, improved Hemoptysis, improving -ID, Pulm involved. Discussed w/ ID, Pulm. Per pulm - will likely need repeat lung imaging prior to DC. -Vanco for corynebacterium; appears that KPC is colonization and does not need to be Tx'd. -O2 as needed, SVNs. -ISU. Chronic aspiration Hx laryngeal carcinoma, s/p resection -s/p PEG tube converted to J tube since bolus PEG tube feeds resulted in aspiration -Pt depressed about being on continuous TF. Pt refuses to do continuous feeds when he returns home. He is willing to accept potential risk of aspiration and strongly feels that since he had no PNA/aspiration problems in the last 12 years he will be ok w/ returning to bolus feeds. Discussed this issue w/ Onc, GI, Pulm, and ID -- all agree w/ following patient's wishes. -Consult IR to remove Jtube cath and adjust PEG tube. Free water deficit - 1L -Adding 1 L daily to TF. 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 On bicalutamide. GnRH antagonist will be started. -prn analgesics Coagulopathy Thrombocytopenia Anemia -s/p 1u PRBC, 1u plts, vit K. -hemodynamically stable -check AM labs Diarrhea - ETEC Dehydration -Resolved. Generalized weakness -PT/OT. -Pt also unable to move much w/ continuous TF. Will be a little more mobile when he reverts back to bolus feeds. Hematuria -Resolved. VTE prophylaxis: SCDs. Code Status: Full code. Status: Inpatient for greater than 2 midnight stay. Disposition: Med surge with discharge not anticipated until pt becomes more mobile. ____ SUBJECTIVE: Today pt feels about the same. He has not been moving much. Coughs up less blood. OBJECTIVE: Physical Exam: General: The patient is an elderly male who is alert and in no acute distress. HEENT: normocephalic, extraocular movements intact, conjunctivae clear. Mucous membranes moist. Neck: trachea midline, no visible masses. Resp: unlabored. Abd: soft and nondistended. Musculoskeletal: Reduced muscle tone/bulk. Neuro: cranial nerves II XII grossly intact. Intact gross motor and sensory function. Psych: appropriate mood and appropriate affect. Skin: + pallor. No visible petechiae. Labs/Imaging/Other Tests: Personally reviewed/interpreted. Bone scan - abnl uptake T8 and femur. FWD - 1L. Objective: Vital Signs Temp Pulse Resp BP Pulse Ox 36.8 C 68 14 99/56 L 90 L 02/06/18 16:00 02/06/18 16:00 02/06/18 16:00 02/06/18 16:00 02/06/18 16:00 Microbiology 02/02/18 15:23 Mycobacterial Smear (FLORIDALMA) - Final Lung Right Lower Lobe - Bronchial Washings Laboratory Results 02/06/18 05:50 02/06/18 05:50 02/05/18 02/06/18 02/07/18 05:59 05:59 05:59 Intake Total 1990 1190 1380 Output Total 900 700 451 Balance 1090 490 929 PT 15.2 SEC (12.0-15.0) H 02/06/18 05:50 INR 1.18 (0.83-1.16) H 02/06/18 05:50 - Time Spent With Patient Time Spent with Patient: greater than 35 minutes Time Spent with Patient: Greater than 35 minutes spent on this patients care, greater than 50% of time spent counseling, educating, and coordinating care regarding the above mentioned plan. 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
[2018-02-07] MEDS: HYDROmorphONE/DILAUDID 2 MG/ML INJ IVP PRN ×4 (02:25→20:27)
[2018-02-07] MEDS: INSULIN LISPRO 100 UNIT/ML SC SCH ×3 (05:13→18:16)
[2018-02-07 05:40] LABS: PLATELET COUNT 93 10^3/uL (150-400)
[2018-02-07 05:48] LABS: INR 1.18 (0.83-1.16); PROTIME(PATIENT) 15.2 SEC (12.0-15.0)
[2018-02-07] MEDS: PANTOPRAZOLE SODIUM 40 MG VIAL IVP SCH (09:04)
[2018-02-07] MEDS: TAMSULOSIN HCL 0.4 MG CAP PO SCH (09:12)
[2018-02-07] MEDS: BICALUTAMIDE 50 MG TAB PO SCH (09:14)
[2018-02-07] MEDS: VANCOMYCIN 1.25 GM in NS 250 ML IV SCH (10:54)
[2018-02-07] MEDS: ATENOLOL 100 MG TAB TUBE SCH (10:54)
--- NOTE | 2018-02-07 12:46 | SOAPPROG ---
SOAP Progress Note Assessment/Plan: Assessment: 1. 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 Chronic dysphagia, G tube dependenc 3. Recurrent aspiration pneumonia 4. Hemoptysis 5. New dx metastatic prostate cancer 6. Thrombocytopenia, likely due to bone marrow involvement vs low grade DIC from prostate cancer Bone scan shows a few foci of uptake. Underwhelming in terms of the markedly elevated PSA, but he may have primarily bone *marrow* involvement which will not show up on the scan as well. Plan: - on bicalutamide since 02/04; will add Lupron tomorrow. - anemia is due to chronic disease; likely bone marrow involvement of prostate cancer. no transfusions needed - no further oncologic evaluation/monitoring required in hospital; pt can be discharged to SNF or home as appropriate. He should follow up with me (or Dr. Adan, whom he saw in 2006 for laryngeal cancer) at [facility] in 1-2 weeks. He should continue on bicalutamide. Will need Lupron injections q3 months. 25 min spent w/ pt and in coordination of care. d/w dr anderson. Subjective: feels about the same. Objective: exam unchanged Vital Signs Temp Pulse Resp BP Pulse Ox 36.8 C 79 16 92/50 L 89 L 02/07/18 07:52 02/07/18 10:54 02/07/18 07:52 02/07/18 10:54 02/07/18 07:52 Microbiology 02/02/18 15:23 Mycobacterial Smear (FLORIDALMA) - Final Lung Right Lower Lobe - Bronchial Washings Laboratory Results 02/07/18 05:20 02/06/18 05:50 02/06/18 02/07/18 02/08/18 05:59 05:59 05:59 Intake Total 1190 1380 Output Total 700 951 Balance 490 429 PT 15.2 SEC (12.0-15.0) H 02/07/18 05:20 INR 1.18 (0.83-1.16) H 02/07/18 05:20 ICD10 Worksheet Patient Problems: Problems Problem Status Onset Chronic obstructive pulmonary disease with acute exacerbation Acute Pneumonia Acute Prostate cancer Acute 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
--- NOTE | 2018-02-07 14:30 | SOAPPROG ---
SOAP Progress Note Assessment/Plan: Assessment/Plan: * Hemoptysis- markedly improved. Minimal production of sputum currently. * Pneumonia-antibiotics per Infectious Disease * Bacteremia * Metastatic prostate cancer * COPD is stable on current regimen * Hypoxia- stable near baseline * Coagulopathy- still a little unclear about source, but likely related to new diagnosis of probable metastatic prostate ca with PSA >1000 and suspicious spinal lesions. Subjective: Resting comfortably. Cough is less productive. Objective: Vital Signs Temp Pulse Resp BP Pulse Ox 36.8 C 79 16 92/50 L 89 L 02/07/18 07:52 02/07/18 10:54 02/07/18 07:52 02/07/18 10:54 02/07/18 07:52 Microbiology 02/02/18 15:23 Mycobacterial Smear (FLORIDALMA) - Final Lung Right Lower Lobe - Bronchial Washings Laboratory Results 02/07/18 05:20 02/06/18 05:50 02/06/18 02/07/18 02/08/18 05:59 05:59 05:59 Intake Total 1190 1380 295 Output Total 700 951 Balance 490 429 295 PT 15.2 SEC (12.0-15.0) H 02/07/18 05:20 INR 1.18 (0.83-1.16) H 02/07/18 05:20 - Time Spent With Patient Time Spent With Patient: 25 min of time spent with patient, over 1/2 involved with coordination of care or counseling. 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
[2018-02-07] MEDS ORDERED: IOPAMIDOL (ISOVUE 370) 100 ML BTL IV ONE (14:59)
[2018-02-07] MEDS ORDERED: LIDOCAINE 2% JELLY 20 ML (UROJECT) ONE (15:07)
--- NOTE | 2018-02-07 17:41 | ASMTCMCOM ---
CM Note CM Note Notes: Spoke with MD, patient still not ready for dc, still declining to work with therapies. Has consistenly refused SNF, CM to f/u with pt in the am to encourage working with PT/OT to be able to go home with home care, he is set up with [facility]. DC Plan: Home care/ [facility] Date Signed: 02/07/2018 05:40 PM Electronically Signed By:Gaviota Costello RN
[2018-02-07] MEDS ORDERED: NS 500 ML IV ONE (18:18)
[2018-02-07] MEDS: NS 1,000 ML IV SCH (19:29)
--- NOTE | 2018-02-07 22:53 | HOSPPROG ---
Hospitalist Progress Note Assessment/Plan: The patient is a male with PMH aspiration, chronic dysphagia s/p G tube who was admitted for acute respiratory failure secondary to aspiration pneumonia and found to have metastatic prostate cancer. ASSESSMENT/PLAN: Acute hypoxemic respiratory failure, improved Aspiration PNA COPD exacerbation, improved Hemoptysis, improving -ID, Pulm involved. Per pulm - will likely need repeat lung imaging prior to DC. -Vanco for corynebacterium; appears that KPC is colonization and does not need to be Tx'd. -O2 as needed, SVNs. -ISU. Chronic aspiration Hx laryngeal carcinoma, s/p resection -Reverted back to PEG tube today, thanks to IR. Consult dietitian to make recs on bolus feeds, as IR is concerned about the location of the tube being close to pylorus and risk of aspiration. -Pt is willing to accept potential risk of aspiration and strongly feels that since he had no PNA/aspiration problems in the last 12 years he will be ok w/ returning to bolus feeds. Discussed this issue w/ Onc, GI, Pulm, and ID -- all agree w/ following patient's wishes. Hyperglycemia -was likely 2/2 continuous TF which have been DC'd. -Monitor BG on bolus feeds. -On SSI low. Adjust as needed. Free water deficit - 1L -Added 1 L daily to TF. This may be adjusted by dietitian. 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 On bicalutamide. GnRH antagonist will be started. -prn analgesics -Consult Palliative Medicine to address goals of care. Coagulopathy Thrombocytopenia Anemia -s/p 1u PRBC, 1u plts, vit K. -hemodynamically stable -check AM labs Diarrhea - ETEC Dehydration -Resolved. Generalized weakness -PT/OT. -Instructed pt to ambulate. If confined to bed, recommend leg exercises. Hematuria -Resolved. VTE prophylaxis: SCDs. Code Status: Full code. Status: Inpatient for greater than 2 midnight stay. Disposition: Med surge with discharge not anticipated until pt becomes more mobile. ____ SUBJECTIVE: Today pt is pleased that the feeding tube was adjusted. He still would like to go home. He is open to Palliative consult to talk about goals of care. OBJECTIVE: Physical Exam: General: The patient is an elderly male who is alert and in no acute distress. HEENT: normocephalic, extraocular movements intact, conjunctivae clear. Mucous membranes moist. Neck: trachea midline, no visible masses. Resp: unlabored. Abd: soft and nondistended. Musculoskeletal: Reduced muscle tone/bulk. Neuro: cranial nerves II XII grossly intact. Intact gross motor and sensory function. Psych: appropriate mood and appropriate affect. Skin: + pallor. No visible petechiae. Labs/Imaging/Other Tests: Personally reviewed/interpreted. Bone scan - abnl uptake T8 and femur. FWD - 1L. Objective: Vital Signs Temp Pulse Resp BP Pulse Ox 36.5 C 76 16 93/59 L 91 L 02/07/18 22:40 02/07/18 22:40 02/07/18 22:40 02/07/18 22:40 02/07/18 22:40 Laboratory Results 02/07/18 05:20 02/06/18 05:50 02/06/18 02/07/18 02/08/18 05:59 05:59 05:59 Intake Total 1190 1380 295 Output Total 700 951 150 Balance 490 429 145 PT 15.2 SEC (12.0-15.0) H 02/07/18 05:20 INR 1.18 (0.83-1.16) H 02/07/18 05:20 - Time Spent With Patient Time Spent with Patient: greater than 35 minutes Time Spent with Patient: Greater than 35 minutes spent on this patients care, greater than 50% of time spent counseling, educating, and coordinating care regarding the above mentioned plan. 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
[2018-02-08] MEDS: HYDROmorphONE/DILAUDID 2 MG/ML INJ IVP PRN ×6 (00:28→23:45)
[2018-02-08] MEDS: INSULIN LISPRO 100 UNIT/ML SC SCH ×4 (00:46→19:03)
[2018-02-08 04:42] LABS: PLATELET COUNT 92 10^3/uL (150-400)
[2018-02-08 04:52] LABS: INR 1.51 (0.83-1.16); PROTIME(PATIENT) 18.4 SEC (12.0-15.0)
[2018-02-08] MEDS: NS 1,000 ML IV SCH (07:12)
--- NOTE | 2018-02-08 08:34 | PCMIDPN ---
Assessment/Plan: Infectious Disease will sign off on this patient. Please feel free to call with any questions. Plan continues to be the same as outlined below. Thank you. 1. Bacteremic pneumonia secondary to Corynebacterium striatum : Blood cultures cleared quickly. Continue vancomycin as is; tentative stop date February 11. Vancomycin trough fine. Organism susceptible to vancomycin. 2. Shiga toxin E coli in stool: Continue contact isolation. Previous diarrhea related to tube feeds. Diarrhea has stopped. 3. Carbapenemase R- PsA in sputum: Patient is colonized with this pathogen. He is clinically improved without treatment. Would continue pulmonary toilet as you are. Contact isolation. 4. Metastatic prostate cancer: Followed by Oncology. 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
[2018-02-08] MEDS: ATENOLOL 100 MG TAB TUBE SCH (09:14)
[2018-02-08] MEDS: TAMSULOSIN HCL 0.4 MG CAP PO SCH (09:15)
[2018-02-08] MEDS: VANCOMYCIN 1.25 GM in NS 250 ML IV SCH (09:15)
[2018-02-08] MEDS: BICALUTAMIDE 50 MG TAB PO SCH (09:15)
[2018-02-08] MEDS: PANTOPRAZOLE SODIUM 40 MG VIAL IVP SCH (09:15)
--- NOTE | 2018-02-08 10:32 | SOAPPROG ---
SOAP Progress Note Assessment/Plan: Assessment: 1. 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 Chronic dysphagia, G tube dependenc 3. Recurrent aspiration pneumonia 4. Hemoptysis 5. New dx metastatic prostate cancer 6. 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 Underwhelming in terms of the markedly elevated PSA, but he may have primarily bone *marrow* involvement which will not show up on the scan as well. Plan: - on bicalutamide since 02/04; will add Lupron today. may benefit from Xgeva or Zometa as outpatient - anemia is due to chronic disease; likely bone marrow involvement of prostate cancer. no transfusions needed - no further oncologic evaluation/monitoring required in hospital; pt can be discharged to SNF or home as appropriate. He should follow up with me at [facility] in 1-2 weeks. He should continue on bicalutamide for now. Will need Lupron injections q3 months. Subjective: depressed. no physical complaints. J tube converted back to G tube yesterday. 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
[2018-02-08] MEDS ORDERED: LEUPROLIDE ACETATE SC ONE ×2 (11:52→15:45)
--- NOTE | 2018-02-08 12:24 | WOCRNPDOC ---
WOCRN Advanced Assessment Note - Skin Integrity Problem, Advanced Assess Right Abdomen PEG tube site Dressing Type: Hydrocolloid Dressing Description: Intact Exudate Amount: None Skin Integrity Problem Comment: Dressing was not removed. Per patient area was less painful. No drainage noted. Continue current plan. Wound care will sign off. Please reconsult prn worsening skin/increased drainage. Thoracic Spine Pressure Injury Dressing Type: Mepilex Border Wound Bed Constitution: Healed Skin Integrity Problem Comment: Non painful blanching erythema present. Wound care will sign off.
--- NOTE | 2018-02-08 14:47 | HOSPPROG ---
Hospitalist Progress Note Assessment/Plan: 83 yo M here w aspiration pneumonia The patient is a male with PMH aspiration, chronic dysphagia s/p G tube who was admitted for acute respiratory failure secondary to aspiration pneumonia and found to have metastatic prostate cancer. Acute hypoxemic respiratory failure, improved Aspiration PNA: 2/2 laryngeal CA and malfunctioning g tube COPD exacerbation, improved Hemoptysis, improving -ID, Pulm involved. Per pulm - will likely need repeat lung imaging prior to DC. -Vanco for corynebacterium; appears that KPC is colonization and does not need to be Tx'd. -O2 as needed, SVNs. -ISU. Hx laryngeal carcinoma, s/p resection -Reverted back to PEG tube today, thanks to IR. Consult dietitian to make recs on bolus feeds, as IR is concerned about the location of the tube being close to pylorus and risk of aspiration. -Pt is willing to accept potential risk of aspiration and strongly feels that since he had no PNA/aspiration problems in the last 12 years he will be ok w/ returning to bolus feeds. Discussed this issue w/ Onc, GI, Pulm, and ID -- all agree w/ following patient's wishes. Hyperglycemia -was likely 2/2 continuous TF which have been DC'd. -Monitor BG on bolus feeds. -On SSI low. Adjust as needed. 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 On bicalutamide. GnRH antagonist will be started. -prn analgesics -Consult Palliative Medicine to address goals of care. Anemia -s/p 1u PRBC, 1u plts, vit K. -hemodynamically stable -check AM labs Diarrhea - ETEC Dehydration -Resolved. Generalized weakness -PT/OT. -Instructed pt to ambulate. If confined to bed, recommend leg exercises. Hematuria -Resolved. VTE prophylaxis: SCDs. Code Status: Full code. Status: now amenable to working w PT and OT to ascertain needs prior to dc Subjective: case d/w dr guerra. now agreeable to working w PT Objective: Vital Signs Temp Pulse Resp BP Pulse Ox 37.0 C 61 12 97/51 L 95 02/08/18 12:10 02/08/18 12:10 02/08/18 12:10 02/08/18 12:10 02/08/18 12:10 Laboratory Results 02/08/18 04:20 02/06/18 05:50 02/07/18 02/08/18 02/09/18 05:59 05:59 05:59 Intake Total 1380 1795 1500 Output Total 951 450 Balance 429 1345 1500 PT 18.4 SEC (12.0-15.0) H 02/08/18 04:20 INR 1.51 (0.83-1.16) H 02/08/18 04:20 - Physical Exam Constitutional: no apparent distress, chronically ill appearing Eyes: PERRL, anicteric sclera Ears, Nose, Mouth, Throat: moist mucous membranes, hearing normal Cardiovascular: regular rate and rhythym, no murmur, rub, or gallop Respiratory: no respiratory distress, no rales or rhonchi Gastrointestinal: normoactive bowel sounds, other (PEG c/d/i) Genitourinary: no bladder fullness, jimenez in urethra Skin: warm, normal color Musculoskeletal: no muscle tenderness, No full muscle strength Neurologic: AAOx3 Psychiatric: interacting appropriately ICD10 Worksheet Patient Problems: Problems Problem Status Onset Chronic obstructive pulmonary disease with acute exacerbation Acute Pneumonia Acute Prostate cancer Acute 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
[2018-02-09] MEDS ORDERED: NS 500 ML IV ONE (00:17)
[2018-02-09] MEDS: INSULIN LISPRO 100 UNIT/ML SC SCH ×4 (00:26→18:20)
[2018-02-09] MEDS ORDERED: LIDOCAINE 2% JELLY 20 ML (UROJECT) UR ONE (02:29)
[2018-02-09] MEDS: NS 1,000 ML IV SCH (08:03)
--- NOTE | 2018-02-09 09:28 | SOAPPROG ---
SOAP Progress Note Assessment/Plan: A/P: 1. 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 Chronic dysphagia, G tube dependent 3. Recurrent aspiration pneumonia 4. Hemoptysis 5. New dx metastatic prostate cancer 5. Multifactorial anemia (chronic disease, ?marrow involvement) 6. 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 Underwhelming in terms of the markedly elevated PSA, but he may have primarily bone *marrow* involvement which will not show up on the scan as well. Plan: - on bicalutamide since 02/04; Lupron 22.5 mg 02/08 (3 month dose). May benefit from Xgeva or Zometa as outpatient - multifactorial anemia is due to chronic disease; no indication for transfusion - no further oncologic evaluation/monitoring required in hospital; pt can be discharged to SNF or home as appropriate. - followup with Dr. Adan or Dr. Stark at [facility] in 1-2 weeks. He should continue on bicalutamide for now. Will need Lupron injections q3 months. 02/09/18 09:29 Subjective: Unhappy with continuous TF. No AP, nausea, bloating, diarrhea. O: VS reviewed. Gen: elderly man, NAD Lungs: breathing comfortably Abd: soft, NT Labs: Laboratory Tests 02/02/18 02/06/18 02/06/18 09:30 05:50 05:50 WBC 6.33 Hgb 8.2 L Plt Count 88 L PT INR APTT Fibrinogen D-Dimer Iron 56.0 TIBC 271 Iron Saturation 21 Ferritin 324.0 PSA Screen 1120.000 H 02/08/18 04:20 WBC Hgb Plt Count PT 18.4 H INR 1.51 H APTT 41.6 H Fibrinogen 767 H D-Dimer 3.35 H Iron TIBC Iron Saturation Ferritin PSA Screen Objective: Vital Signs Temp Pulse Resp BP Pulse Ox 36.4 C 71 18 112/54 L 95 02/09/18 07:14 02/09/18 07:14 02/09/18 07:14 02/09/18 07:14 02/09/18 07:14 Laboratory Results 02/08/18 04:20 02/09/18 04:07 02/08/18 02/09/18 02/10/18 05:59 05:59 05:59 Intake Total 1797 3189 Output Total 450 800 Balance 1345 1869 PT 18.4 SEC (12.0-15.0) H 02/08/18 04:20 INR 1.51 (0.83-1.16) H 02/08/18 04:20 ICD10 Worksheet Patient Problems: Problems Problem Status Onset Chronic obstructive pulmonary disease with acute exacerbation Acute Pneumonia Acute Prostate cancer Acute 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
[2018-02-09] MEDS: TAMSULOSIN HCL 0.4 MG CAP PO SCH (09:39)
[2018-02-09] MEDS: VANCOMYCIN 1.25 GM in NS 250 ML IV SCH (09:39)
[2018-02-09] MEDS: BICALUTAMIDE 50 MG TAB PO SCH (09:39)
[2018-02-09] MEDS: PANTOPRAZOLE SODIUM 40 MG VIAL IVP SCH (09:39)
[2018-02-09] MEDS: ATENOLOL 100 MG TAB TUBE SCH (09:41)
--- NOTE | 2018-02-09 13:40 | ASMTCMCOM ---
CM Note CM Note Notes: Met with pt to review poc at mo. Pt still refuses SNF, will go home with homecare. He set up with [facility], it does not appear he is ready for discharge yet. Pt has a sister, Jocelyn who is [facility] [phone] or [phone] CM notified Claribel at [facility] with update. GA Plan: Homecare Date Signed: 02/09/2018 01:37 PM Electronically Signed By:Gaviota Costello RN
[2018-02-09] MEDS: HYDROmorphONE/DILAUDID 2 MG/ML INJ IVP PRN (14:50)
--- NOTE | 2018-02-09 17:21 | HOSPPROG ---
Hospitalist Progress Note Assessment/Plan: 83 yo M here w aspiration pneumonia The patient is a male with PMH aspiration, chronic dysphagia s/p G tube who was admitted for acute respiratory failure secondary to aspiration pneumonia and found to have metastatic prostate cancer. tube feeds: will transition to bolus feeds urinary retention: follow avoid jimenez Acute hypoxemic respiratory failure, improved Aspiration PNA: 2/2 laryngeal CA and malfunctioning g tube COPD exacerbation, improved Hemoptysis, improving -ID, Pulm involved. Per pulm - will likely need repeat lung imaging prior to DC. -Vanco for corynebacterium; appears that KPC is colonization and does not need to be Tx'd. -O2 as needed, SVNs. -ISU. Hx laryngeal carcinoma, s/p resection -Reverted back to PEG tube today, thanks to IR. Consult dietitian to make recs on bolus feeds, as IR is concerned about the location of the tube being close to pylorus and risk of aspiration. -Pt is willing to accept potential risk of aspiration and strongly feels that since he had no PNA/aspiration problems in the last 12 years he will be ok w/ returning to bolus feeds. Discussed this issue w/ Onc, GI, Pulm, and ID -- all agree w/ following patient's wishes. Hyperglycemia -was likely 2/2 continuous TF which have been DC'd. -Monitor BG on bolus feeds. -On SSI low. Adjust as needed. 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 On bicalutamide. GnRH antagonist will be started. -prn analgesics -Consult Palliative Medicine to address goals of care. Anemia -s/p 1u PRBC, 1u plts, vit K. -hemodynamically stable -check AM labs Diarrhea - ETEC Dehydration -Resolved. Generalized weakness -PT/OT. -Instructed pt to ambulate. If confined to bed, recommend leg exercises. Hematuria -Resolved. VTE prophylaxis: SCDs. Code Status: Full code. Status: now amenable to working w PT and OT to ascertain needs prior to dc Subjective: some urinmary retention. decreased hemoptysis. dace d/w dr humphries Objective: Vital Signs Temp Pulse Resp BP Pulse Ox 36.4 C 71 18 103/52 L 93 02/09/18 16:00 02/09/18 16:00 02/09/18 16:00 02/09/18 16:00 02/09/18 16:00 Laboratory Results 02/08/18 04:20 02/09/18 04:07 02/08/18 02/09/18 02/10/18 05:59 05:59 05:59 Intake Total 1795 2669 Output Total 450 800 0 Balance 1345 1869 0 PT 18.4 SEC (12.0-15.0) H 02/08/18 04:20 INR 1.51 (0.83-1.16) H 02/08/18 04:20 - Physical Exam Constitutional: no apparent distress, chronically ill appearing Eyes: PERRL, anicteric sclera Ears, Nose, Mouth, Throat: moist mucous membranes, hearing normal Cardiovascular: regular rate and rhythym, no murmur, rub, or gallop Respiratory: no respiratory distress, no rales or rhonchi Gastrointestinal: normoactive bowel sounds, soft, non-tender abdomen Genitourinary: no bladder fullness, No jimenez in urethra Skin: warm, normal color Musculoskeletal: full muscle strength Neurologic: AAOx3, sensation intact bilaterally Psychiatric: interacting appropriately ICD10 Worksheet Patient Problems: Problems Problem Status Onset Chronic obstructive pulmonary disease with acute exacerbation Acute Pneumonia Acute Prostate cancer Acute 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
[2018-02-10] MEDS: HYDROmorphONE/DILAUDID 2 MG/ML INJ IVP PRN ×2 (00:11→12:34)
[2018-02-10] MEDS: INSULIN LISPRO 100 UNIT/ML SC SCH ×4 (00:12→19:10)
[2018-02-10] MEDS: NS 1,000 ML IV SCH (06:37)
[2018-02-10] MEDS: ATENOLOL 100 MG TAB TUBE SCH (08:59)
[2018-02-10] MEDS: TAMSULOSIN HCL 0.4 MG CAP PO SCH (09:00)
[2018-02-10] MEDS: BICALUTAMIDE 50 MG TAB PO SCH (09:00)
[2018-02-10] MEDS: PANTOPRAZOLE SODIUM 40 MG VIAL IVP SCH (09:00)
[2018-02-10] MEDS: VANCOMYCIN 1.25 GM in NS 250 ML IV SCH (11:04)
--- NOTE | 2018-02-10 14:35 | HOSPPROG ---
Hospitalist Progress Note Assessment/Plan: 83 yo M here w aspiration pneumonia The patient is a male with PMH aspiration, chronic dysphagia s/p G tube who was admitted for acute respiratory failure secondary to aspiration pneumonia and found to have metastatic prostate cancer. tube feeds: will transition to bolus feeds urinary retention: follow flomax started will place jimenez as apparently hasnt urinated in 24 hours Acute hypoxemic respiratory failure, improved Aspiration PNA: 2/2 laryngeal CA and malfunctioning g tube COPD exacerbation, improved Hemoptysis, improving likely 2/2 [neumonia bronch w/out endobronchial lesion CT 02/11 Hx laryngeal CA: remote tube feed dependent prostrate cancer: presumptive diagnosis based on CT appearance anf PSA > 1000 on bicalutimide Back pain, 2/2 above -Onc following. On bicalutamide. GnRH antagonist will be started. -prn analgesics Diarrhea - ETEC resolved plan of care: [facility] care consult for goals he appears to desire to get home (not rehab) and "cure cancer " prostate, that is he has survived laryngeal CA discussed w daughter who feels he is mentally at/close to baseline VTE prophylaxis: SCDs. Code Status: Full code. Status: now amenable to working w PT and OT to ascertain needs prior to dc Subjective: prolonged service- discussed w patient and sister. 45 minutes at bedside, 60 toTAL Objective: Vital Signs Temp Pulse Resp BP Pulse Ox 36.9 C 60 12 96/51 L 93 02/10/18 12:29 02/10/18 12:29 02/10/18 12:29 02/10/18 12:29 02/10/18 12:29 Laboratory Results 02/08/18 04:20 02/09/18 04:07 02/09/18 02/10/18 02/11/18 05:59 05:59 05:59 Intake Total 2669 1425 Output Total 800 0 Balance 1869 1425 PT 18.4 SEC (12.0-15.0) H 02/08/18 04:20 INR 1.51 (0.83-1.16) H 02/08/18 04:20 - Physical Exam Constitutional: no apparent distress, appears nourished Eyes: PERRL, anicteric sclera Ears, Nose, Mouth, Throat: hearing normal Cardiovascular: regular rate and rhythym, no murmur, rub, or gallop Respiratory: no respiratory distress, no rales or rhonchi Gastrointestinal: normoactive bowel sounds, soft, non-tender abdomen Genitourinary: no bladder fullness, No jimenez in urethra Skin: warm, normal color Musculoskeletal: full muscle strength, no muscle tenderness Neurologic: AAOx3 ICD10 Worksheet Patient Problems: Problems Problem Status Onset Chronic obstructive pulmonary disease with acute exacerbation Acute Pneumonia Acute Prostate cancer Acute 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
--- NOTE | 2018-02-10 15:22 | ASMTCMCOM ---
CM Note CM Note Notes: Reviewed chart regarding discharge plan of care, pt's progress. Per Martín ANDIE Banks, pt's sister and MDPOA has called several times today hoping to speak with the Palliative Care physician. Call placed to Jocelyn / . Per Jocelyn, she received a call from Dr. Ring, approximately 30 minutes prior to CM's call. She said she spoke at length with Dr. Ring regarding her concerns. Jocelyn reports that she lives in [place] and is very worried about the pt's ability to return home with only home care support. Jocelyn feels that the pt "shuts down when he is given medical information." She is not sure that the pt is processing all of the information and she is not sure he understands the level of care he will need and require following discharge. Per Jocelyn, Dr. Ring mentioned a Palliative Care consultation. Jocelyn states that she is happy to participate in the conference via telephone and is fine with a call following the palliative care meeting after, if that is more appropriate. She feels it would be better for the pt to go to rehab, but recognizes it is ultimately the pt's decision. Call placed to Dr. Ring. Per Dr. Ring, a palliative care conference Monday02/12/18 would be ok. Left voice message for palliative care team. Update provided to MEAGAN Patterson and Carol Bauman LCSW for follow up. CM will continue to follow. Discharge Plan: To be determined, [facility] currently set up Date Signed: 02/10/2018 03:21 PM Electronically Signed By:Taryn Dimas RN
[2018-02-10] MEDS ORDERED: LIDOCAINE 2% JELLY 20 ML (UROJECT) UR ONE (16:00)
[2018-02-10] MEDS ORDERED: traMADol 50 MG TAB PO ONE (23:36)
[2018-02-11] MEDS: INSULIN LISPRO 100 UNIT/ML SC SCH ×3 (08:04→18:47)
[2018-02-11] MEDS: ATENOLOL 100 MG TAB TUBE SCH (08:07)
[2018-02-11] MEDS: TAMSULOSIN HCL 0.4 MG CAP PO SCH (08:21)
[2018-02-11] MEDS: BICALUTAMIDE 50 MG TAB PO SCH (08:21)
[2018-02-11] MEDS: PANTOPRAZOLE SODIUM 40 MG VIAL IVP SCH (08:22)
[2018-02-11] MEDS: VANCOMYCIN 1.25 GM in NS 250 ML IV SCH (11:00)
[2018-02-11] MEDS: POLYETHYLENE GLYCOL 3350 17 GM PKT PO SCH ×2 (12:12→21:34)
[2018-02-11] MEDS ORDERED: IOPAMIDOL (ISOVUE-300) 100 ML BTL ONE (12:43)
--- NOTE | 2018-02-11 15:12 | HOSPPROG ---
Hospitalist Progress Note Assessment/Plan: 83 yo M here w aspiration pneumonia The patient is a male with PMH aspiration, chronic dysphagia s/p G tube who was admitted for acute respiratory failure secondary to aspiration pneumonia and found to have metastatic prostate cancer. tube feeds: will transition to bolus feeds urinary retention: follow flomax started trial of jimenez removal 02/12 anemia: hct 25-> 21 over 5 days hemoptysis improving transfuse 2 units no other evidence of blood loss constipation: moved bowels Acute hypoxemic respiratory failure, improved Aspiration PNA: 2/2 laryngeal CA and malfunctioning g tube COPD exacerbation, improved Hemoptysis, improving likely 2/2 [neumonia bronch w/out endobronchial lesion repeat CT w no clear mass pulm to review Hx laryngeal CA: remote tube feed dependent prostrate cancer: presumptive diagnosis based on CT appearance and PSA > 1000 on bicalutimide Back pain, 2/2 above -Onc following. On bicalutamide. GnRH antagonist will be started. -prn analgesics Diarrhea - ETEC resolved plan of care: [facility] care consult for goals he appears to desire to get home (not rehab) and "cure cancer " prostate, that is he has survived laryngeal CA discussed w daughter who feels he is mentally at/close to baseline VTE prophylaxis: SCDs. Code Status: Full code. Status: now amenable to working w PT and OT to ascertain needs prior to dc Subjective: case d/w drs. prescott and merly. ct w no rll mass Objective: Vital Signs Temp Pulse Resp BP Pulse Ox 36.4 C 60 12 101/48 L 93 02/11/18 07:36 02/11/18 08:07 02/11/18 07:36 02/11/18 08:07 02/11/18 07:36 Laboratory Results 02/11/18 05:50 02/11/18 05:50 02/10/18 02/11/18 02/12/18 05:59 05:59 05:59 Intake Total 1425 680 Output Total 0 1700 Balance 1425 -1020 PT 18.4 SEC (12.0-15.0) H 02/08/18 04:20 INR 1.51 (0.83-1.16) H 02/08/18 04:20 - Physical Exam Constitutional: no apparent distress, chronically ill appearing Eyes: PERRL, anicteric sclera Ears, Nose, Mouth, Throat: moist mucous membranes, hearing normal Cardiovascular: regular rate and rhythym, no murmur, rub, or gallop Respiratory: no respiratory distress, other (crackles R base) Gastrointestinal: normoactive bowel sounds, soft, non-tender abdomen Genitourinary: no bladder fullness, jimenez in urethra Skin: warm, normal color Musculoskeletal: No full muscle strength Neurologic: AAOx3 ICD10 Worksheet Patient Problems: Problems Problem Status Onset Chronic obstructive pulmonary disease with acute exacerbation Acute Pneumonia Acute Prostate cancer Acute 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
[2018-02-11] MEDS: traMADol 50 MG TAB PO PRN ×2 (15:18→22:37)
--- NOTE | 2018-02-12 08:59 | HOSPPROG ---
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 G-tube changed # Normocytic anemia: s/p 1 RBC 02/11 # Chronic dysphagia: G tube dependent # Recurrent aspiration pneumonia: #Anemia: s/p 2 units 02/11 #Hypernatremia: Na 150, add D5, repeat BMP #Urinary retention: Flomax. Trial jimenez out tomorrow # New dx metastatic prostate cancer: Lupron 02/08. Casodex #Acute hypoxemic respiratory failure, improved #Aspiration PNA: 2/2 laryngeal CA and malfunctioning g tube #COPD exacerbation, improved #Hemoptysis: bronch w/out endobronchial lesion, no mass on CT #Back pain: L1 burst fracture, thoracic compression fx; none acute. Better with Tramadol, add Lidoderm. #Diarrhea - ETEC. Resolved #Deconditioning: agree to SNF #Goals: PC consulted. Additional direct patient care spent: 35 min with patient and sister on Advanced directives, goals, hospice (14:15-14:45) Subjective: "weak" Having BMs Objective: Vital Signs Temp Pulse Resp BP Pulse Ox 36.6 C 78 18 105/57 L 90 L 02/12/18 07:30 02/12/18 07:30 02/12/18 07:30 02/12/18 07:30 02/12/18 07:30 Laboratory Results 02/12/18 05:05 02/11/18 05:50 02/11/18 02/12/18 02/13/18 05:59 05:59 05:59 Intake Total 680 3332 Output Total 1700 825 Balance -1020 2507 PT 18.4 SEC (12.0-15.0) H 02/08/18 04:20 INR 1.51 (0.83-1.16) H 02/08/18 04:20 - Time Spent With Patient Time Spent with Patient: greater than 35 minutes Time Spent with Patient: Greater than 35 minutes spent on this patients care, greater than 50% of time spent counseling, educating, and coordinating care regarding the above mentioned plan. 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
[2018-02-12] MEDS ORDERED: D5W 1,000 ML IV SCH (09:00)
[2018-02-12] MEDS: traMADol 50 MG TAB PO PRN (10:51)
[2018-02-12] MEDS: TAMSULOSIN HCL 0.4 MG CAP PO SCH (10:51)
[2018-02-12] MEDS: BICALUTAMIDE 50 MG TAB PO SCH (10:51)
[2018-02-12] MEDS: PANTOPRAZOLE SODIUM 40 MG VIAL IVP SCH (10:51)
[2018-02-12] MEDS: ATENOLOL 100 MG TAB TUBE SCH (10:52)
[2018-02-12] MEDS: INSULIN LISPRO 100 UNIT/ML SC SCH ×2 (10:59→17:45)
[2018-02-12] MEDS: POLYETHYLENE GLYCOL 3350 17 GM PKT PO SCH ×2 (11:01→20:45)
--- NOTE | 2018-02-12 11:31 | ASMTCMCOM ---
CM Note CM Note Notes: Pts case discussed w/ Dr. Francois. Pt is agreeable to going to a SNF. CM met w/ pt for dispo planning. Pt reports that he has been to [facility] in the past. Pt would like a referral sent there. CM completed non triggering pasrr. John met w/ pt for a palliative. Pt is agreeable to palliative services. Referral sent to [facility]. CM to follow. Plan: [facility] Date Signed: 02/12/2018 11:30 AM Electronically Signed By:BRANDON Zarate
[2018-02-12] MEDS ORDERED: LIDOCAINE 4%/MENTHOL 1% PATCH TD SCH (14:45)
[2018-02-12] MEDS: PATCH REMOVAL 1 EA PATCH TD SCH (20:45)
[2018-02-12] MEDS ORDERED: INSULIN LISPRO 100 UNIT/ML SC ONE (22:36)
[2018-02-13] MEDS: POTASSIUM Cl (KCl) 20 MEQ in D5W 1,000 ML IV SCH ×2 (06:43→20:09)
[2018-02-13] MEDS: INSULIN LISPRO 100 UNIT/ML SC SCH ×3 (07:45→18:04)
[2018-02-13] MEDS: POLYETHYLENE GLYCOL 3350 17 GM PKT PO SCH ×2 (07:46→20:19)
[2018-02-13] MEDS: BICALUTAMIDE 50 MG TAB PO SCH (07:46)
[2018-02-13] MEDS: TAMSULOSIN HCL 0.4 MG CAP PO SCH (07:46)
[2018-02-13] MEDS: PANTOPRAZOLE SODIUM 40 MG VIAL IVP SCH (07:46)
[2018-02-13] MEDS: ATENOLOL 100 MG TAB TUBE SCH (07:46)
[2018-02-13] MEDS: IPRATROPIUM/ALBUTEROL 3 ML DEYVIAL IH PRN (08:09)
[2018-02-13] MEDS: LIDOCAINE 4%/MENTHOL 1% PATCH TD SCH (09:29)
--- NOTE | 2018-02-13 10:57 | SOAPPROG ---
SOAP Progress Note Assessment/Plan: Assessment: 1. 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 Chronic dysphagia, G tube dependent 3. Recurrent aspiration pneumonia 4. Hemoptysis 5. New dx metastatic prostate cancer 5. Multifactorial anemia (chronic disease, ?marrow involvement), better post transfusion 6. Thrombocytopenia, mild Bone scan shows a few foci of uptake. Underwhelming in terms of the markedly elevated PSA, but he may have primarily bone *marrow* involvement which will not show up on the scan as well. Burst fracture L1 does not light up on bone scan, may be unrelated to prostate ca, no specific rx at this time, pain better on lidoderm patch Plan: - on bicalutamide since 02/04; Lupron 22.5 mg 02/08 (3 month dose). May benefit from Xgeva or Zometa as outpatient, will check psa - multifactorial anemia is due to chronic disease; s/p transfusion - followup with Dr. Adan or Dr. Stark at [facility] in 1-2 weeks. He should continue on bicalutamide for now. Will need Lupron injections q3 months. 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
--- NOTE | 2018-02-13 12:39 | ASMTCMCOM ---
CM Note CM Note Notes: Pt had a palliative meeting today w/ Elías at 11:30AM. [facility] is able to accept. Pts sister would like to be notified when medically stable to d/c. [facility] will run cost of chemo meds. CM to follow. Plan: [facility] Date Signed: 02/13/2018 12:39 PM Electronically Signed By:BRANDON Zarate
--- NOTE | 2018-02-13 13:14 | HOSPPROG ---
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 G-tube changed # Chronic dysphagia: G tube dependent #Anemia: s/p 2 units 02/11 #Hypernatremia: resolved with D5W #Urinary retention: Flomax. Pull jimenez today # New dx metastatic prostate cancer: Lupron 02/08. Casodex #Acute hypoxemic respiratory failure, improved #Aspiration PNA: 2/2 laryngeal CA and malfunctioning g tube #COPD exacerbation, improved #Hemoptysis: bronch w/out endobronchial lesion, no mass on CT reviewed by Dr. Pederson #Back pain: L1 burst fracture, thoracic compression fx; none acute. Improved with Lidoderm patch #Diarrhea: ETEC. Resolved #Deconditioning: agree to SNF #Goals: PC consulted. Readdressed with him and he wants to cont medical therapy , but agreeable to PC at discharge Subjective: mild hemoptysis Objective: Vital Signs Temp Pulse Resp BP Pulse Ox 36.5 C 74 16 114/55 L 3 L 02/13/18 07:37 02/13/18 08:05 02/13/18 08:05 02/13/18 07:37 02/13/18 10:30 Microbiology 02/02/18 15:23 Mycobacterial Smear (FLORIDALMA) - Final Lung Right Lower Lobe - Bronchial Washings Laboratory Results 02/12/18 05:05 02/13/18 06:03 02/12/18 02/13/18 02/14/18 05:59 05:59 05:59 Intake Total 3332 680 Output Total 825 750 Balance 2507 -70 PT 18.4 SEC (12.0-15.0) H 02/08/18 04:20 INR 1.51 (0.83-1.16) H 02/08/18 04:20 - Time Spent With Patient Time Spent with Patient: greater than 35 minutes Time Spent with Patient: Greater than 35 minutes spent on this patients care, greater than 50% of time spent counseling, educating, and coordinating care regarding the above mentioned plan. 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
[2018-02-13] MEDS ORDERED: LIDOCAINE 4%/MENTHOL 1% PATCH TD ONE (14:00)
[2018-02-13] MEDS ORDERED: MBX SOLN 30 ML BOTTLE PO PRN (15:36)
[2018-02-13] MEDS: traMADol 50 MG TAB PO PRN (17:56)
[2018-02-13] MEDS: PATCH REMOVAL 1 EA PATCH TD SCH (22:39)
[2018-02-14] MEDS: IPRATROPIUM/ALBUTEROL 3 ML DEYVIAL IH PRN ×3 (01:19→15:45)
[2018-02-14] MEDS ORDERED: BICALUTAMIDE 50 MG TAB TUBE SCH (09:00)
[2018-02-14] MEDS ORDERED: POTASSIUM CL 20 MEQ/15 ML UDCUP TUBE ONE (09:59)
--- NOTE | 2018-02-14 10:03 | HOSPPROG ---
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 G-tube changed # Chronic dysphagia: G tube dependent #Anemia: s/p 2 units 02/11 #Hypernatremia: resolved with D5W #Urinary retention: Flomax. Pull jimenez today # New dx metastatic prostate cancer: Lupron 02/08. Casodex #Acute hypoxemic respiratory failure, improved #Aspiration PNA: 2/2 laryngeal CA and malfunctioning g tube #COPD exacerbation, improved #Hemoptysis: bronch w/out endobronchial lesion, no mass on CT reviewed by Dr. Pederson #Back pain: L1 burst fracture, thoracic compression fx; none acute. Improved with Lidoderm patch #Diarrhea: ETEC. Resolved #Deconditioning: agree to SNF #Goals: PC consulted. Readdressed with him and he wants to cont medical therapy , but agreeable to PC at discharge See DC summary today for full A&P and exam. 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
[2018-02-14] MEDS: LIDOCAINE 4%/MENTHOL 1% PATCH TD SCH (10:38)
[2018-02-14] MEDS: POLYETHYLENE GLYCOL 3350 17 GM PKT PO SCH (10:39)
[2018-02-14] MEDS: ATENOLOL 100 MG TAB TUBE SCH (10:39)
[2018-02-14] MEDS: PANTOPRAZOLE SODIUM 40 MG VIAL IVP SCH (10:40)
[2018-02-14] MEDS: TAMSULOSIN HCL 0.4 MG CAP PO SCH (10:43)
--- NOTE | 2018-02-14 10:48 | PDIAF ---
- Diagnosis Diagnosis: Aspiration ARVIZU, urinary retention Code Status: Full Code - Medication Management Discharge Medications: Medications to Continue on Transfer Aspirin [Aspirin 81mg (*)] 81 mg PO DAILY #30 tab 08/02/13 [Last Taken 01/24/18] Cyclobenzaprine [Flexeril 10 MG (*)] 10 mg PO BID PRN 01/25/18 [Last Taken 01/24 09:30] Acetaminophen [Tylenol 650/20.3ML Oral Liq (*)] 650 mg TUBE Q4H PRN udcup 02/14 [Last Taken Unknown] Atenolol [Tenormin 100 mg (*)] 50 mg TUBE DAILY #30 tab 02/14/18 [Last Taken Unknown] Bicalutamide [Casodex (*)] 50 mg TUBE DAILY tab 02/14/18 [Last Taken Unknown] Lidocaine 4%/Menthol 1% [Icy Hot Lidocaine/Menthol 4%/1% Patch (*)] 2 patch TD DAILY #30 patch 02/14/18 [Last Taken Unknown] Mbx Soln;Maalox/Diphen/Lido [Maalox/Diphenhydramine/Lido] 5 ml PO PRN PRN bottle 02/14/18 [Last Taken Unknown] Ondansetron Odt [Zofran Odt 4 mg (*)] 4 mg PO Q4HRS PRN tab 02/14/18 [Last Taken Unknown] Pantoprazole Sodium [Protonix IV (*)] 40 mg IVP DAILY vial 02/14/18 [Last Taken Unknown] Polyethylene Glycol 3350 [Miralax 17 gm (*)] 17 gm PO BID pkt 02/14/18 [Last Taken Unknown] Tamsulosin HCl [Flomax 0.4 MG (*)] 0.4 mg PO DAILY cap 02/14/18 [Last Taken Unknown] traMADol [Ultram 50 mg (*)] 50 mg PO Q6HRS PRN tab 02/14/18 [Last Taken Unknown ] Discharge Medications: Refer to the Discharge Home Medication list for PRN reason. - Orders Services needed: Registered Nurse, Certified Oil Burner Technician, Master College Administrator , Physical Therapy, Occupational Therapy Isolation Type: Contact Isolation Diet Recommendation: other (Glucerna 1.0, two 8 oz containers, bolus feeding at 6 am, 10:30 am, 2:30 pm and 6:30 pm. May adjust times per pt request as long as he receive total of eight 8oz containers per day. 150ml free water flush after food bolus) Additional Instructions: wound care orders Change dressing from around PEG tube side Q2D and prn 1. Cleanse skin with NS and gauze 2. Apply skin prep around PEG tube site/wound and allow to dry 3. Apply stoma powder to wound bed and brush away excess 4. Cover wound with Replicare (or other hydrocolloid dressing). 5. Place a drain sponge between bumper and Replicare. [employer] [facility] Urinary retention Straight cath every 6hrs if >450cc. If does not tolerate, jimenez Oncology: follow up with Dr. Adan in 1-2 weeks - Labs/Radiology BMP Date: 02/15/18 CBC w/diff Date: 02/15/18 - Follow Up Care Current Providers and Referrals: Jamil Gray MD [Medical Doctor] - follow up in 2 weeks Dutch Serrato MD [Primary Care Provider] - As per Instructions Javid Ybarra MD [Medical Doctor] - Abdirashid Adan MD [Medical Doctor] - follow up in 1 week
[2018-02-14] MEDS ORDERED: LIDOCAINE 2% JELLY 20 ML (UROJECT) UR ONE ×2 (11:15→16:30)
--- NOTE | 2018-02-14 11:26 | GDS ---
DISCHARGE DIAGNOSES: 1. Laryngeal cancer, T4 N1, status post RT in 2006. 2. Dysphagia, G-tube dependent. 3. Recurrent aspiration pneumonia. 4. Hemoptysis. 5. Newly diagnosed metastatic prostate cancer. 6. Normocytic anemia. 7. Thrombocytopenia. 8. Deconditioning. 9. Hypernatremia. 10. Atrial fibrillation. 11. Compensated diastolic heart failure. 12. Urinary retention. 13. Acute hypoxemic respiratory failure. 14. Chronic obstructive pulmonary disease exacerbation. 15. Back pain secondary to L1 burst fracture, thoracic compression fractures. 16. Diarrhea, ETEC. CONSULTATIONS: 1. Urology. 2. Oncology. 3. Interventional Radiology. PROCEDURES: 02/06/2018, gastrostomy tube change. HISTORY OF PRESENT ILLNESS: An 83-year-old male with history of laryngeal cancer, chronic dysphagia with G-tube, presented with shortness of breath. He reported increased dyspnea over the past several days with yellow sputum production. He has been caring for his G-tube himself and has noticed there has been quite a bit of drainage and is foul smelling. Chest x-ray was concerning for right lower lobe right lower lobe infiltrates. He was initially admitted to the step-down unit on BiPAP. HOSPITAL COURSE BY PROBLEM: 1. Recurrent aspiration pneumonia: Secondary to chronic dysphagia. Aspiration has been documented on VFSS in 10/2016. He was treated with Zosyn here. Negative respiratory PCR. Culture grew Pseudomonas, but this was suspected to be a colonizer. He was treated with vancomycin to cover corynebacterium. . 2. 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 3. E coli shiga producing toxin: supportive treatment 4. New diagnosis of prostate cancer: mild thoracic bony involvement. Evaluated by Oncology, and was given Lupron on 02/08/2018. Continue Casodex. Follow up with Dr. Adan. 5. Urinary retention: likely due to enlarged prostate with cancer. Flomax. Discussed with Urology who recs jimenez. FU with them in 2 weeks. 6. Permanent atrial fibrillation: Blood pressures have been borderline here. Decreased Atenolol to 50mg daily. ASA 7. Compensated diastolic heart failure: Blood pressure is at goal. 8. Chronic dysphagia: G-tube dependent. This was dislodged and replaced. Is tolerating tube feeds now. Increase free water flushes to 150 cc to avoid dehydration. 9. Anemia: transfused 2 units blood 02/11. H/H are stable. 10. Acute on chronic hypoxemic respiratory failure: from aspiration pneumonia. Initially required BiPAP. He is now stable on his home oxygen needs. 11. COPD exacerbation: Again secondary to infection. This is improved. 12. Hemoptysis: Bronch did not demonstrate endobronchial lesion. No mass on CT. This was reviewed by Dr. Pederson. 13. Back pain: Imaging shows an L1 burst fracture and thoracic compression fractures, but none acute. His pain is improved with Lidoderm patches and tramadol. 14. Deconditioning. He has been accepted to [facility]. 15. Goals: Palliative Care was consulted here. At this time he states he wants to continue all medical therapy, but is agreeable to palliative care at discharge. This will be arranged to follow him to his SNF. DISPOSITION: Patient is stable for discharge to [facility]. FOLLOWUP: 1. Dr. Serrato, his PCP. 2. Dr. Jamil Gray with Urology for urinary retention. 3. Dr. Adan with Oncology. 4. Repeat BMP. Monitor sodium. 5. Straight cath every 6 hours for urinary retention greater than 40 cc. If this is not tolerated, consider Jimenez. PHYSICAL EXAMINATION: VITAL SIGNS: Today, temperature 36.6, blood pressure is 100/59, heart rate in the 60s, respirations 14, 90% on 2.5 L. GENERAL: He is very pale, fatigued, but no acute distress. HEENT: PERRLA. Moist mucous membranes. CV: Regular rate and rhythm. +1 ankle edema. LUNGS: Diminished. ABDOMEN: G-tube in place. No surrounding erythema or purulence. : No Jimenez currently. MUSCULOSKELETAL: He is moving all 4 extremities. SKIN: Poor skin turgor. Multiple ecchymoses upper extremities. NEURO: 2 through 12 intact. PSYCH: Alert and oriented. Flat affect. Time spent on discharge greater than 30 minutes coordinating with case management, discussing goals and followup plan with patient. /[id number]/MODL MTDD
[2018-02-14] MEDS: INSULIN LISPRO 100 UNIT/ML SC SCH ×3 (11:49→17:11)
[2018-02-14 16:08] VITALS: BP 113/64
--- NOTE | 2018-02-14 16:51 | ASMTDCNOTE ---
Case Management Discharge Discharge Order Complete? Answers: Yes Patient to Obtain Answers: Other Notes: SNF Medications Transportation Arranged Answers: [facility] Transport will Pick (Date 02/14/2018 07:30 PM & Time) Case Management Transport Answers: Yes Form Complete Faxed Final Orders Answers: Yes Agency/Facility Transfer Answers: Yes Report Printed & Faxed to Receiving Agency Family Notified Answers: Yes Notes: Clorinda, friend in room, sister Jocelyn call ed Discharge Comments Notes: Pt to discharged to [facility]. Transport arranged for 19:30 via [facility] stretcher. PCS form completed and left with community product specialist. Referral updated. No further CM needs noted at this time. Date Signed: 02/14/2018 04:50 PM Electronically Signed By:Arti Kahn
--- NOTE | 2018-02-14 16:59 | ASMTCMCOM ---
CM Note CM Note Notes: Addendum: RN and UC notified that [facility] does not have Glucerna until tomorrow and pt's Glucerna needs to be sent with [facility]. Note placed on PCS form as reminder. Date Signed: 02/14/2018 04:58 PM Electronically Signed By:Arti Kahn
--- NOTE | 2018-02-14 17:00 | ASDISCHSUM ---
Discharge Information Plan Status:SNF Medically Cleared to Leave:02/14/2018 Discharge Date:02/14/2018 CM D/C Disposition:[facility] ADT D/C Disposition:Senior Care Facility Projected Discharge Date:01/29/2018 11:00 AM Transportation at D/C:ALS/BLS Discharge Delay Reason: Follow-Up Date:01/29/2018 11:00 AM Discharge Slot: Final Diagnosis:Pneumonia and COPD Placement Information Referral Type:*Home Health Care Services Referral ID:[id number] Provider Name: Address 1: Phone Number: Address 2: Fax Number: City: Selection Factors: State: Referral Type:*Skilled Nursing/SNF Referral ID:[id number] Provider Name:[facility] Address 1:[address] Address 2: City:[place] Selection Factors: State:[place] Referral Type:Palliative Care Referral ID:[id number] Provider Name:[facility] Address 1:[address] Phone Number: Address 2: Fax Number: City:[place] Selection Factors: State:[place] Patient Contact Information Contact Name:SHAN Relationship:Friend Address: Work Phone: City:[place] [facility] Phone: [facility]/Zip Code:[place] [address] Email: Financial Information Financial Class:Medicare Advantage Plans Primary Plan Desc:MVP Vault Primary Plan Number:[id number] Secondary Plan Desc: Secondary Plan Number: Assessment Information [facility] CM Progress Note CM Note CM Note Notes: Spoke with PT who states patient is opposed to SNF placement but may consider Home health care. He has a neighbor who lives in his basement and sometimes helps him with tasks as patient told physical therapist. Patient's birthday is today. He is being tranferred to rm [id number], so I was unable to talk directly to him. CM to follow up when patient gets to . CM will follow. Date Signed: 01/26/2018 02:58 PM Electronically Signed By:Leonor Chatterjee LCSW [facility] CM Progress Note CM Note CM Note Notes: CM met w/ pt for dispo planning. PT/OT are recommending SNF. Pt refused SNF. Pt is agreeable to having HC through [facility]. [facility] is able to accept. CM to follow. Plan: BC; PT, OT, RN Date Signed: 01/29/2018 11:40 AM Electronically Signed By:BRANDON Zarate [facility] CM Progress Note CM Note CM Note Notes: Pt resistant to working with therapies, they are still recommending SNF. CM w/f up with pt concerning POC, he has been set up with [facility] (RN/PT) Date Signed: 02/01/2018 05:07 PM Electronically Signed By:Gaviota Costello RN [facility] CM Progress Note CM Note CM Note Notes: Per MD, patient may metastatic prostate ca with likely skeletal mets. Unclear if pt will be able to dc home w/home care. Pt has been refusing therapies but has agreed to homecare ([facility]). Pt went for a bronchoscopy today, dc poc TBD Date Signed: 02/02/2018 04:06 PM Electronically Signed By:Gaviota Costello RN [facility] CM Progress Note CM Note CM Note Notes: CM spoke with MEAGAN Dey about patient case. Patient diagnosis: Metastatic prostate cancer with marrow involvement. [facility] referral placed, patient declined therapy today. Patient lives with roomraulito, sister Jocelyn is MDPOA. Bone scan is scheduled for 02/05, discharge TBD. CM to follow. Plan: TBD, possibly home with [facility]. Date Signed: 02/04/2018 02:30 PM Electronically Signed By:Noelle Little [facility] CM Progress Note CM Note CM Note Notes: Spoke with MD, patient still not ready for dc, still declining to work with therapies. Has consistenly refused SNF, CM to f/u with pt in the am to encourage working with PT/OT to be able to go home with home care, he is set up with [facility]. DC Plan: Home care/ [facility] Date Signed: 02/07/2018 05:40 PM Electronically Signed By:Gaviota Costello RN [facility] CM Progress Note CM Note CM Note Notes: Met with pt to review poc [place]. Pt still refuses SNF, will go home with homecare. He set up with [facility], it does not appear he is ready for discharge yet. Pt has a sister, Jocelyn who is mdpoa [phone] or [phone] notified Claribel at [facility] with update. DC Plan: Homecare Date Signed: 02/09/2018 01:37 PM Electronically Signed By:Gaviota Costello RN [facility] Progress Note CM Note CM Note Notes: Reviewed chart regarding discharge plan of care, pt's progress. Per ANDIE Resendiz Jocelyn, pt's sister and LEIF has called several times today hoping to speak with the Palliative Care physician. Call placed to Jocelyn / . Per Jocelyn, she received a call from Dr. Ring, approximately 30 minutes prior to 's call. She said she spoke at length with Dr. Ring regarding her concerns. Jocelyn reports that she lives in [place] and is very worried about the pt's ability to return home with only home care support. Jocelyn feels that the pt "shuts down when he is given medical information." She is not sure that the pt is processing all of the information and she is not sure he understands the level of care he will need and require following discharge. Per Jocelyn, Dr. Ring mentioned a Palliative Care consultation. Jocelyn states that she is happy to participate in the conference via telephone and is fine with a call following the palliative care meeting after, if that is more appropriate. She feels it would be better for the pt to go to rehab, but recognizes it is ultimately the pt's decision. Call placed to Dr. Ring. Per Dr. Ring, a palliative care conference Monday02/12/18 would be ok. Left voice message for palliative care team. Update provided to MEAGAN Patterson and Carol Bauman LCSW for follow up. CM will continue to follow. Discharge Plan: To be determined, [facility] currently set up Date Signed: 02/10/2018 03:21 PM Electronically Signed By:Taryn Dimas RN [facility] CM Progress Note CM Note CM Note Notes: Pts case discussed w/ Dr. Francois. Pt is agreeable to going to a SNF. CM met w/ pt for dispo planning. Pt reports that he has been to [facility] in the past. Pt would like a referral sent there. [facility] met w/ pt for a palliative. Pt is agreeable to palliative services. Referral sent to [facility]. CM to follow. Plan: [facility] Date Signed: 02/12/2018 11:30 AM Electronically Signed By:BRANDON Zarate [facility] CM Progress Note CM Note CM Note Notes: Pt had a palliative meeting today w/ Elías at 11:30AM. [facility] is able to accept. Pts sister would like to be notified when medically stable to d/c. [facility] will run cost of chemo meds. CM to follow. Plan: [facility] Date Signed: 02/13/2018 12:39 PM Electronically Signed By:BRANDON Zarate Case Management Discharge Plan Note Case Management Discharge Discharge Order Complete? Answers: Yes Patient to Obtain Answers: Other Notes: SNF Medications Transportation Arranged Answers: [email or web address] [facility] Transport will Pick (Date 02/14/2018 07:30 PM & Time) Case Management Transport Answers: Yes Form Complete Faxed Final Orders Answers: Yes Agency/Facility Transfer Answers: Yes Report Printed & Faxed to Receiving Agency Family Notified Answers: Yes Notes: Mathew, friend in room, sister Jocelyn call ed Discharge Comments Notes: Pt to discharged to [facility]. Transport arranged for 19:30 via [employer]. PCS form completed and left with community health nurse staff. Referral updated. No further CM needs noted at this time. Date Signed: 02/14/2018 04:50 PM Electronically Signed By:Arti Kahn [facility] CM Progress Note CM Note CM Note Notes: Addendum: RN and UC notified that [facility] does not have Glucerna until tomorrow and pt's Glucerna needs to be sent with [facility]. Note placed on PCS form as reminder. Date Signed: 02/14/2018 04:58 PM Electronically Signed By:Arti Kahn Intervention Information
== END 2018-02-14 20:10 | DRG 326 ==
LOC: F2N 12:36 → F3E 01-26 15:17
PROVIDERS: ADMIT Hospitalist; ATTEND Hospitalist
PROC: 30233N1 Transfusion of Nonautologous Red Blood Cells into Peripheral Vein, Percutaneous Approach (ICD-10-PCS; 2018-01-25)
PROC: 0DP63UZ Removal of Feeding Device from Stomach, Percutaneous Approach (ICD-10-PCS; principal; 2018-01-26)
PROC: 0DHA3UZ Insertion of Feeding Device into Jejunum, Percutaneous Approach (ICD-10-PCS; principal; 2018-01-26)
PROC: 0B9M8ZX Drainage of Bilateral Lungs, Via Natural or Artificial Opening Endoscopic, Diagnostic (ICD-10-PCS; 2018-01-26)
PROC: 02HV33Z Insertion of Infusion Device into Superior Vena Cava, Percutaneous Approach (ICD-10-PCS; 2018-02-02)
PROC: 0DHA3UZ Insertion of Feeding Device into Jejunum, Percutaneous Approach (ICD-10-PCS; 2018-02-06)
PROC: 0DPD3UZ Removal of Feeding Device from Lower Intestinal Tract, Percutaneous Approach (ICD-10-PCS; 2018-02-06)
DX: K94.23 Gastrostomy malfunction (principal); J69.0 Pneumonitis due to inhalation of food and vomit; J96.21 Acute and chronic respiratory failure with hypoxia; J44.1 Chronic obstructive pulmonary disease with (acute) exacerbation; R78.81 Bacteremia; R13.10 Dysphagia, unspecified; D69.6 Thrombocytopenia, unspecified; D68.4 Acquired coagulation factor deficiency; B96.89 Other specified bacterial agents as the cause of diseases classified elsewhere; B96.5 Pseudomonas (aeruginosa) (mallei) (pseudomallei) as the cause of diseases classified elsewhere; R19.7 Diarrhea, unspecified; B96.21 Shiga toxin-producing Escherichia coli [E. coli] [STEC] O157 as the cause of diseases classified elsewhere; C61 Malignant neoplasm of prostate; C79.51 Secondary malignant neoplasm of bone; I11.0 Hypertensive heart disease with heart failure; I50.32 Chronic diastolic (congestive) heart failure; E78.5 Hyperlipidemia, unspecified; I48.2 Chronic atrial fibrillation; E11.9 Type 2 diabetes mellitus without complications; R53.1 Weakness; E87.1 Hypo-osmolality and hyponatremia; L89.101 Pressure ulcer of unspecified part of back, stage 1; Z99.81 Dependence on supplemental oxygen; Z87.11 Personal history of peptic ulcer disease; Z87.891 Personal history of nicotine dependence; Z92.3 Personal history of irradiation; Z85.21 Personal history of malignant neoplasm of larynx; Z23 Encounter for immunization
CPT/HCPCS: 82607-90; 83010-90; 84484-PO; 85384; 85670-90; 97110-GP; 97116-GP; 97161-GP; 97166-GO; 97530-GO; 97530-GP; 97535-GO; A9503; C1729; C1751; C1758; C1769; G0009; G0103; G8978-GP-CJ; G8978-GP-CK; G8979-GP-CI; G8987-GO-CK; G8987-GO-CM; G8988-GO-CH; G8988-GO-CI; J0171; J0295; J0692; J1170; J1815; J1940; J2250; J2543; J2800; J2920; J2930; J2997; J3010; J3370; J3480; J7613; J9217; P9016; P9035; P9040; P9041; Q9967

== ENCOUNTER 2018-02-16 11:28 | Inpatient (IN) | payer OTHER ==
--- NOTE | 2018-02-16 11:48 | EDPHY ---
H & P Stated Complaint: sob increasing since 0600 today, possible asp of vomit Time Seen by Provider: 02/16/18 11:32 HPI/ROS: CHIEF COMPLAINT: Respiratory distress HISTORY OF PRESENT ILLNESS: The patient is brought into the emergency department with respiratory distress. He may have vomited earlier today in aspirated. The patient was recently in the hospital for a prolonged hospitalization. At that point time he presented with severe dyspnea which was felt to be secondary to a possible aspiration event. The patient was treated with Zosyn and Bactrim for Pseudomonas which was felt to be secondary to chronic colonization and vancomycin to cover Corynebacterium. Patient was also recently diagnosed with metastatic prostate cancer. Patient does have a history of chronic atrial fibrillation and diastolic heart failure. He arrives to the emergency department and was placed on BiPAP secondary to significant wheezing. The patient denies any complaints of acute pain. He does report moderate dyspnea. REVIEW OF SYSTEMS: A comprehensive 10 point review of systems is otherwise negative aside from elements mentioned in the history of present illness. Source: Patient - Medical/Surgical History Hx Asthma: No Hx Chronic Respiratory Disease: Yes Hx Diabetes: No Hx Cardiac Disease: Yes Hx Renal Disease: No Hx Cirrhosis: No Hx Alcoholism: Yes Hx HIV/AIDS: No Hx Splenectomy or Spleen Trauma: No Other PMH: CA LARYNX,CHF,HTN, hyperlipidemia, hyponatremia, gerd, gi bleed, bph - Social History Smoking Status: Former smoker - Physical Exam Exam: General Appearance: Elderly male, mild tachypnea Eyes: Pupils equal and round no pallor or injection ENT, Mouth: Mucous membranes moist Respiratory: Tachypnea, rhonchorous breath sounds and wheezing bilaterally Cardiovascular: Regular rate and rhythm Gastrointestinal: Abdomen is soft and nontender, no masses, bowel sounds normal , G-tube in place Neurological: 5/5 strength all 4 extremities Skin: Warm and dry, no rashes Musculoskeletal: Neck is supple nontender Extremities: symmetrical, full range of motion Psychiatric: Patient is oriented X 3, there is no agitation Constitutional: Initial Vital Signs Heart Rate 99 02/16/18 11:33 Respiratory Rate 22 H 02/16/18 11:33 Blood Pressure 109/67 02/16/18 11:33 O2 Sat (%) 88 L 02/16/18 11:33 O2 Delivery Mode Bi-Pap O2 (L/minute) 100 Allergies/Adverse Reactions: No Known Allergies Allergy (Verified 02/16/18 11:39) Home Medications: Medication Instructions Recorded Aspirin [Aspirin 81mg (*)] 81 mg PO DAILY #30 tab 08/02/13 Cyclobenzaprine [Flexeril 10 MG 10 mg PO BID PRN 01/25/18 (*)] Acetaminophen [Tylenol 650/20.3ML 650 mg TUBE Q4H PRN udcup 02/14/18 Oral Liq (*)] Atenolol [Tenormin 100 mg (*)] 50 mg TUBE DAILY #30 tab 02/14/18 Bicalutamide [Casodex (*)] 50 mg TUBE DAILY tab 02/14/18 Lidocaine 4%/Menthol 1% [Icy Hot 2 patch TD DAILY #30 patch 02/14/18 Lidocaine/Menthol 4%/1% Patch (*)] Mbx Soln;Maalox/Diphen/Lido 5 ml PO PRN PRN bottle 02/14/18 [Maalox/Diphenhydramine/Lido] Ondansetron Odt [Zofran Odt 4 mg 4 mg PO Q4HRS PRN tab 02/14/18 (*)] Pantoprazole Sodium [Protonix IV 40 mg IVP DAILY vial 02/14/18 (*)] Polyethylene Glycol 3350 [Miralax 17 gm PO BID pkt 02/14/18 17 gm (*)] Tamsulosin HCl [Flomax 0.4 MG (*)] 0.4 mg PO DAILY cap 02/14/18 traMADol [Ultram 50 mg (*)] 50 mg PO Q6HRS PRN tab 02/14/18 Medical Decision Making - Diagnostics Imaging Results: Imaging Impressions Chest X-Ray 02/16/18 11:49 Impression: Bibasilar consolidation, which could be related to effusions, atelectasis, and/or pneumonia, similar to the comparison CT. ED Course/Re-evaluation: I reviewed the patient's past medical records including his extensive recent hospitalization. The patient parts to the ED with recurrent dyspnea and wheezing. The patient was afebrile upon arrival. He does appear to be dry clinically. Chest x-ray demonstrates chronic infiltrates at the lung base unchanged from his prior chest CT scan. The patient was noted to have mild leukopenia. The patient was placed on CPAP. Metabolic panel does demonstrate changes consistent with dehydration. Blood cultures have been obtained. An ABG was ordered. The patient will require admission to the hospital in a setting of his respiratory distress. He is currently on BiPAP and will be admitted to the step -down unit. Consultation was made with the hospitalist service. Given the patient's complicated infectious history I will defer to the admitting team for deciding appropriate antibiotic therapy Differential Diagnosis: Differential diagnosis considered includes pneumonia, dehydration, congestive heart failure, COPD exacerbation - Data Points Laboratory Results: Laboratory Results 02/16/18 12:15 02/16/18 12:15 02/16/18 02/16/18 02/16/18 12:16 12:15 12:15 WBC 2.04 10^3/uL L 10^3/uL (3.80-9.50) RBC 3.85 10^6/uL L 10^6/uL (4.40-6.38) Hgb 12.5 g/dL L g/dL (13.7-17.5) POC Hgb 12.6 gm/dL L gm/dL (13.7-17.5) Hct 37.9 % L % (40.0-51.0) POC Hct 37 % L % (40-51) MCV 98.4 fL fL (81.5-99.8) MCH 32.5 pg pg (27.9-34.1) MCHC 33.0 g/dL g/dL (32.4-36.7) RDW 19.0 % H % (11.5-15.2) Plt Count 138 10^3/uL L 10^3/uL (150-400) MPV 10.9 fL fL (8.7-11.7) Neut % (Auto) Not Reported Lymph % (Auto) Not Reported [place] % (Auto) Not Reported Eos % (Auto) Not Reported Baso % (Auto) Not Reported Nucleat RBC Rel Count Not Reported Absolute Neuts (auto) Not Reported Absolute Lymphs (auto) Not Reported Absolute Monos (auto) Not Reported Absolute Eos (auto) Not Reported Absolute Basos (auto) Not Reported Absolute Nucleated RBC Not Reported Immature Gran % Not Reported Seg Neutrophils % 66.0 % % Band Neutrophils % 19.0 % % Lymphocytes % 10.0 % % Monocytes % 5.0 % % Eosinophils % 0.0 % % Basophils % 0.0 % % Metamyelocytes % 0.0 % % Myelocytes % 0.0 % % Promyelocytes % 0.0 % % Blast Cells % 0.0 % % Immature Gran # Not Reported Absolute Seg Neuts 1.35 10^3/uL L 10^3/uL (1.70-6.50) Absolute Band Neuts 0.39 10^3/uL 10^3/uL (0.00-0.70) Absolute Lymphocytes 0.20 10^3/uL L 10^3/uL (1.00-3.00) Absolute Monocytes 0.10 10^3/uL L 10^3/uL (0.30-0.80) Absolute Eosinophils 0.00 10^3/uL L 10^3/uL (0.03-0.40) Absolute Basophils 0.00 10^3/uL L 10^3/uL (0.02-0.10) Absolute Metamyelocyte 0.00 10^3/mL 10^3/mL (0.00-0.00) Absolute Myelocytes 0.00 10^3/mL 10^3/mL (0.00-0.00) Absolute Promyelocytes 0.00 10^3/uL 10^3/uL (0.00-0.00) Absolute Plasma Cells 0.00 10^3/uL 10^3/uL (0.00-0.00) Nucleated RBCs 4.0 /100 WBC H /100 WBC (0-0) Absolute Blast Cells 0.00 10^3/uL 10^3/uL (0.00-0.00) Plasma Cells % 0.0 % % Platelet Estimate DECREASED L (ADEQ) Polychromasia 1+ H Hypochromasia 1+ H POC Sodium 139 mEq/L mEq/L (135-145) Sodium 137 mEq/L mEq/L (135-145) POC Potassium 4.5 mEq/L mEq/L (3.3-5.0) Potassium 4.6 mEq/L mEq/L (3.3-5.0) POC Chloride 106 mEq/L mEq/L (97-110) Chloride 106 mEq/L mEq/L (97-110) Carbon Dioxide 25 mEq/l mEq/l (22-31) Anion Gap 6 mEq/L mEq/L (6-14) POC BUN 38 mg/dL H mg/dL (7-23) BUN 32 mg/dL H mg/dL (7-23) Creatinine 0.8 mg/dL mg/dL (0.7-1.3) POC Creatinine 0.8 mg/dL mg/dL (0.7-1.3) Estimated GFR > 60 Glucose 146 mg/dL H mg/dL (70-100) POC Glucose 151 mg/dL H mg/dL (70-100) Calcium 8.4 mg/dL L mg/dL (8.5-10.4) Medications Given: Discontinued Medications Sodium Chloride (Ns) 1,000 mls @ 0 mls/hr IV ONCE ONE PRN Reason: Wide Open Stop: 02/16/18 12:33 Last Admin: 02/16/18 12:33 Dose: 1,000 mls Point of Care Test Results: Chemistry 02/16/18 12:16 POC Sodium 139 mEq/L mEq/L (135-145) POC Potassium 4.5 mEq/L mEq/L (3.3-5.0) POC Chloride 106 mEq/L mEq/L (97-110) POC BUN 38 mg/dL H mg/dL (7-23) POC Creatinine 0.8 mg/dL mg/dL (0.7-1.3) POC Glucose 151 mg/dL H mg/dL (70-100) ISTAT H&H 02/16/18 12:16 POC Hgb 12.6 gm/dL L gm/dL (13.7-17.5) POC Hct 37 % L % (40-51) Departure - Departure Disposition: [facility] Inpatient Acute Clinical Impression: Exacerbation of asthma, Dehydration Condition: Fair
[2018-02-16 12:29] LABS: PLATELET COUNT 138 10^3/uL (150-400)
[2018-02-16] MEDS ORDERED: NS 1,000 ML IV ONE ×2 (12:32→13:00)
[2018-02-16] MEDS ORDERED: IPRATROPIUM/ALBUTEROL 3 ML DEYVIAL IH ONE (13:00)
[2018-02-16] MEDS ORDERED: ACETAMINOPHEN 325 MG TAB PO PRN (13:28)
--- NOTE | 2018-02-16 13:34 | PDGENHP ---
History and Physical - Chief Complaint SOB - History of Present Illness Shelton Box is a 83 yo M with a PMHX of chronic A Fib, diastolic HF, COPD, recurrent aspiration PNA (last admission 01/2018), recently diagnosed metastatic pancreatic cancer who presented to [facility] for SOB. He reports that he had an episode of nausea and vomiting this morning, after which he experienced significant shortness of breath. He states that he has had baseline SOB since discharge from the hospital at the end of last month. He reports a productive cough of clear-yellow sputum. He denies any edema, chest pain, d/c, LH, dizziness, palpitations. History Information - Allergies/Home Medication List Allergies/Adverse Reactions: No Known Allergies Allergy (Verified 02/16/18 11:39) Home Medications: Cyclobenzaprine [Flexeril 10 MG (*)] 10 mg TUBE BID PRN 01/25/18 [Last Taken 02/01 09:30] Albuterol [Proventil Neb] 3 ml IH Q1H PRN 02/16/18 [Last Taken Unknown] Aspirin [Aspirin 81mg (*)] 81 mg TUBE DAILY 02/16/18 [Last Taken Unknown] Lidocaine 4%/Menthol 1% [Icy Hot Lidocaine/Menthol 4%/1% Patch (*)] 1 patch TD DAILY 02/16/18 [Last Taken Unknown] Ondansetron Odt [Zofran Odt 4 mg (*)] 4 mg TUBE Q4HRS PRN 02/16/18 [Last Taken Unknown] Pantoprazole Sodium [Protonix 40mg (*)] 40 mg TUBE AD 02/16/18 [Last Taken Unknown] Polyethylene Glycol 3350 [Miralax 17 gm (*)] 17 gm TUBE BID 02/16/18 [Last Taken Unknown] Tamsulosin HCl [Flomax 0.4 MG (*)] 0.4 mg TUBE DAILY 02/16/18 [Last Taken Unknown] traMADol [Ultram 50 mg (*)] 50 mg TUBE Q6HRS PRN 02/16/18 [Last Taken Unknown] I have personally reviewed and updated: family history, medical history, social history, surgical history - Past Medical History Additional medical history: Chronic hypoxemic respiratory failure. Aspiration, NPO, G tube, on tube feeds. COPD. A fib. Chronic diastolic heart failure, EF 70% 10/2016. Hypertension. Hyperlipidemia. PUD, h/o GIB. DM. H/O laryngeal cancer - Surgical History Additional surgical history: Gastrostomy tube placement 2017. Bronchoscopy 2017 with copious secretions - Family History Positive for: non-pertinent - Social History Smoking Status: Former smoker Additional social history: Lives independently, not caring for himself Review of Systems Review of Systems: ROS: 10pt was reviewed & negative except for what was stated in HPI & below Physical Exam Physical Exam: Temp Pulse Resp BP Pulse Ox 86 23 H 93/55 L 96 02/16/18 12:32 02/16/18 12:32 02/16/18 12:32 02/16/18 12:32 Constitutional: chronically ill appearing, unkempt Eyes: PERRL Ears, Nose, Mouth, Throat: dry mucous membranes Cardiovascular: regular rate and rhythym Respiratory: reduced air movement, expiratory wheeze, inspiratory crackles, bronchial breath sounds Gastrointestinal: soft, non-tender abdomen Skin: warm Musculoskeletal: generalized weakness Neurologic: AAOx3 Psychiatric: poor insight Lymph, Heme, Immunologic: ecchymoses Lab Data & Imaging Review 02/16/18 12:15 02/16/18 12:15 WBC 2.04 10^3/uL (3.80-9.50) L 02/16/18 12:15 RBC 3.85 10^6/uL (4.40-6.38) L 02/16/18 12:15 Hgb 12.5 g/dL (13.7-17.5) L 02/16/18 12:15 POC Hgb 12.6 gm/dL (13.7-17.5) L 02/16/18 12:16 Hct 37.9 % (40.0-51.0) L 02/16/18 12:15 POC Hct 37 % (40-51) L 02/16/18 12:16 MCV 98.4 fL (81.5-99.8) 02/16/18 12:15 MCH 32.5 pg (27.9-34.1) 02/16/18 12:15 MCHC 33.0 g/dL (32.4-36.7) 02/16/18 12:15 RDW 19.0 % (11.5-15.2) H 02/16/18 12:15 Plt Count 138 10^3/uL (150-400) L 02/16/18 12:15 MPV 10.9 fL (8.7-11.7) 02/16/18 12:15 Neut % (Auto) Not Reported 02/16/18 12:15 Lymph % (Auto) Not Reported 02/16/18 12:15 [place] % (Auto) Not Reported 02/16/18 12:15 Eos % (Auto) Not Reported 02/16/18 12:15 Baso % (Auto) Not Reported 02/16/18 12:15 Nucleat RBC Rel Count Not Reported 02/16/18 12:15 Absolute Neuts (auto) Not Reported 02/16/18 12:15 Absolute Lymphs (auto) Not Reported 02/16/18 12:15 Absolute Monos (auto) Not Reported 02/16/18 12:15 Absolute Eos (auto) Not Reported 02/16/18 12:15 Absolute Basos (auto) Not Reported 02/16/18 12:15 Absolute Nucleated RBC Not Reported 02/16/18 12:15 Immature Gran % Not Reported 02/16/18 12:15 Seg Neutrophils % 66.0 % 02/16/18 12:15 Band Neutrophils % 19.0 % 02/16/18 12:15 Lymphocytes % 10.0 % 02/16/18 12:15 Monocytes % 5.0 % 02/16/18 12:15 Eosinophils % 0.0 % 02/16/18 12:15 Basophils % 0.0 % 02/16/18 12:15 Metamyelocytes % 0.0 % 02/16/18 12:15 Myelocytes % 0.0 % 02/16/18 12:15 Promyelocytes % 0.0 % 02/16/18 12:15 Blast Cells % 0.0 % 02/16/18 12:15 Immature Gran # Not Reported 02/16/18 12:15 Absolute Seg Neuts 1.35 10^3/uL (1.70-6.50) L 02/16/18 12:15 Absolute Band Neuts 0.39 10^3/uL (0.00-0.70) 02/16/18 12:15 Absolute Lymphocytes 0.20 10^3/uL (1.00-3.00) L 02/16/18 12:15 Absolute Monocytes 0.10 10^3/uL (0.30-0.80) L 02/16/18 12:15 Absolute Eosinophils 0.00 10^3/uL (0.03-0.40) L 02/16/18 12:15 Absolute Basophils 0.00 10^3/uL (0.02-0.10) L 02/16/18 12:15 Absolute Metamyelocyte 0.00 10^3/mL (0.00-0.00) 02/16/18 12:15 Absolute Myelocytes 0.00 10^3/mL (0.00-0.00) 02/16/18 12:15 Absolute Promyelocytes 0.00 10^3/uL (0.00-0.00) 02/16/18 12:15 Absolute Plasma Cells 0.00 10^3/uL (0.00-0.00) 02/16/18 12:15 Nucleated RBCs 4.0 /100 WBC (0-0) H 02/16/18 12:15 Absolute Blast Cells 0.00 10^3/uL (0.00-0.00) 02/16/18 12:15 Plasma Cells % 0.0 % 02/16/18 12:15 Platelet Estimate DECREASED (ADEQ) L 02/16/18 12:15 Polychromasia 1+ H 02/16/18 12:15 Hypochromasia 1+ H 02/16/18 12:15 POC Sodium 139 mEq/L (135-145) 02/16/18 12:16 Sodium 137 mEq/L (135-145) 02/16/18 12:15 POC Potassium 4.5 mEq/L (3.3-5.0) 02/16/18 12:16 Potassium 4.6 mEq/L (3.3-5.0) 02/16/18 12:15 POC Chloride 106 mEq/L (97-110) 02/16/18 12:16 Chloride 106 mEq/L (97-110) 02/16/18 12:15 Carbon Dioxide 25 mEq/l (22-31) 02/16/18 12:15 Anion Gap 6 mEq/L (6-14) 02/16/18 12:15 POC BUN 38 mg/dL (7-23) H 02/16/18 12:16 BUN 32 mg/dL (7-23) H 02/16/18 12:15 Creatinine 0.8 mg/dL (0.7-1.3) 02/16/18 12:15 POC Creatinine 0.8 mg/dL (0.7-1.3) 02/16/18 12:16 Estimated GFR > 60 02/16/18 12:15 Glucose 146 mg/dL (70-100) H 02/16/18 12:15 POC Glucose 151 mg/dL (70-100) H 02/16/18 12:16 Calcium 8.4 mg/dL (8.5-10.4) L 02/16/18 12:15 Visualized and Interpreted Chest x-ray results: Yes Chest X-Ray results: infiltrate Assessment & Plan Assessment: Acute on chronic hypoxemic respiratory failure - Suspect recurrent aspiration PNA vs. COPD exacerbation vs. CHF exacerbation - Reports chronic SOB with productive cough since d/c from [facility] 02/14, had aspiration event this morning after episode of n/v - He is NPO, tube feed dependent, on 2 LPM O2 at home, initally on 15 L NRB, then BiPAP, now 6L NC in ED. - +h/o COPD and aspiration in 10/2016 and 01/2018, at which time he was treated for aspiration PNA, Cx grew carbapenem resistant pseudomonas. - Cefepime for pseudomonal coverage, presumed aspiration PNA, has a hx of Carbapenum resistant Pseudomonas, thought colonization during last admission - ABG now (already on bipap in ED) - QID duonebs plus prn Alb nebs - S/p IV solumedrol 125 mg in ED, continue 40 mg Prednisone qd for likely 5 day course - Will discuss with english as a second language teacher about need for bronchoscopy - Continue supplemental 02, wean as tolerated - Patient DNI Sepsis - Patient with leukopenia with bandemia and tachypnea, afebrile, not tachycardic - Likely 2/2 to aspiration PNA - S/p 2L IVF in ED (30 cc/kg = 2400 ml) - Cefepime as above - LA pending - Blood cultures collected in ED, f/u results Chronic aspiration with GJ Tube - Management of presumed aspiration PNA as above - Will keep NPO - This is recurrent issue, will discuss palliative care with patient COPD Exacerbation - management as above Metastatic Prostate Cancer - Seen on CT during last admission, Bone scan shows bony mets - Enrolled in palliative care since last admission, DNR/DNI - Seen by Oncology during last admission, f/u with Dr. Stark as OP - On bicalutamide since 02/04; Lupron 22.5 mg 02/08 (q3 month dose). - Will hold chemotherapy for now, discuss prognosis with Oncology in the AM A fib - NSR here, rate controlled -resume BB when it's clear BP is stable Chronic diastolic HF - Echo 10/2016 reviewed: EF 70%, +diastolic dysfunction - Does not appear to be on SYDNEE-i, Lasix at home - Will hold on Lasix for now, if no improvement with tx of PNA, COPD will attempt diuresis DM - SSI History of laryngeal cancer, status post PEG tube - Due to hx of recurrent aspiration, G tube was changed GJ on last admission Hypertension -resume atenolol when sepsis resolving Urinary retention - Continue Flomax Hyperlipidemia H/O PUD with previous GIB FEN: NPO, s/p 2L IVF PPx: Lovenox Code status - DNR/DNI Dispo - Admit to inpatient, ICU pending clinical course
[2018-02-16] MEDS ORDERED: methylPREDNISolone SOD SUCC 125 MG/2 ML VIAL IVP ONE (14:03)
[2018-02-16] MEDS ORDERED: ONDANSETRON DISINTEGRATING 4 MG TAB TUBE PRN (14:08)
[2018-02-16] MEDS ORDERED: ACETAMINOPHEN 650 MG/20.3 ML UDCUP TUBE PRN (14:08)
[2018-02-16] MEDS ORDERED: CYCLOBENZAPRINE 10 MG TAB TUBE PRN (14:08)
[2018-02-16] MEDS ORDERED: POLYETHYLENE GLYCOL 3350 17 GM PKT TUBE PRN (14:08)
[2018-02-16] MEDS ORDERED: PANTOPRAZOLE SODIUM 40 MG TAB PO SCH (14:15)
[2018-02-16] MEDS ORDERED: PIPERACILLIN/TAZO 4.5 GM/DEX 100 ML IV SCH (14:30)
[2018-02-16] MEDS ORDERED: D50W 25 GM/50 ML SYR IVP PRN (15:22)
[2018-02-16] MEDS: traMADol 50 MG TAB TUBE PRN (16:48)
[2018-02-16] MEDS: CEFEPIME HCL 2 GM in NS 100 ML IV SCH ×2 (16:49→22:09)
[2018-02-16] MEDS ORDERED: methylPREDNISolone SOD SUCC 125 MG/2 ML VIAL IVP SCH (18:00)
[2018-02-16] MEDS: IPRATROPIUM/ALBUTEROL 3 ML DEYVIAL IH SCH ×2 (18:36→22:53)
[2018-02-16] MEDS: INSULIN LISPRO 100 UNIT/ML SC SCH (18:39)
[2018-02-17] MEDS: traMADol 50 MG TAB TUBE PRN ×3 (01:43→17:56)
[2018-02-17] MEDS: CEFEPIME HCL 2 GM in NS 100 ML IV SCH ×3 (05:35→22:01)
[2018-02-17 06:13] LABS: PLATELET COUNT 125 10^3/uL (150-400)
[2018-02-17] MEDS: IPRATROPIUM/ALBUTEROL 3 ML DEYVIAL IH SCH ×4 (06:17→21:33)
--- NOTE | 2018-02-17 08:03 | PDMN ---
Medical Necessity Medical necessity: [facility] [id number] sepsis and other febrile illness: : pt presents with increasing SOB,N/V, acute on chronic hypoxemic resp failure. suspect recurrent aspiration PNA vs COPD vs CHF exacerbation. PT is NPO, tube feed dependent, 2 L O2 initially 15L NRB then BiPAP - 6L NC @ 92 % now on Oxymask 10 L 90-96% pt also with sepsis: leukopenia with bandemia and tachypnea, likely 2/2 to aspiration PNA, pt also with PNH of met. prostate Ca., afib, chonic diastolic HF, DM, hx Laryngeal Ca., HTN, urinary retention, hyperlipidemia, anticipate > 2 MN ongoing med nec care, further eval and tx. of above.
[2018-02-17] MEDS: predniSONE 20 MG TAB TUBE SCH (08:26)
[2018-02-17] MEDS: LIDOCAINE 4%/MENTHOL 1% PATCH TD SCH (08:26)
[2018-02-17] MEDS: ENOXAPARIN 40 MG/0.4 ML SYR SC SCH (08:26)
[2018-02-17] MEDS: TAMSULOSIN HCL 0.4 MG CAP PO SCH (08:26)
[2018-02-17] MEDS: ASPIRIN 81 MG CHEWABLE TAB TUBE SCH (08:26)
[2018-02-17] MEDS: INSULIN LISPRO 100 UNIT/ML SC SCH ×3 (08:26→18:06)
[2018-02-17] MEDS: BICALUTAMIDE 50 MG TAB TUBE SCH (08:26)
--- NOTE | 2018-02-17 11:58 | HOSPPROG ---
Hospitalist Progress Note Assessment/Plan: Acute on chronic hypoxemic respiratory failure - Suspect recurrent aspiration PNA vs. COPD exacerbation vs. CHF exacerbation - Reports chronic SOB with productive cough since d/c from [facility] 02/14, had aspiration event on morning of admission after episode of n/v - He is NPO, tube feed dependent, on 2 LPM O2 at home, initally on 15 L NRB, then BiPAP, then 6L NC when arrived to floor - +h/o COPD and aspiration in 10/2016 and 01/2018, at which time he was treated for aspiration PNA, Cx grew carbapenem resistant pseudomonas. - Cefepime for pseudomonal coverage, presumed aspiration PNA, has a hx of Carbapenum resistant Pseudomonas, thought colonization during last admission - QID duonebs plus prn Alb nebs - S/p IV solumedrol 125 mg in ED, continue 40 mg Prednisone qd for likely 5 day course - Continue supplemental 02, wean as tolerated - Patient DNI Sepsis - Patient with leukopenia with bandemia and tachypnea, afebrile, not tachycardic - Likely 2/2 to aspiration PNA - S/p 2L IVF in ED (30 cc/kg = 2400 ml) - Cefepime as above - Blood cultures collected in ED, f/u results Chronic aspiration with GJ Tube - Management of presumed aspiration PNA as above - Will keep NPO - This is recurrent issue COPD Exacerbation - management as above Metastatic Prostate Cancer - Seen on CT during last admission, Bone scan shows bony mets - Enrolled in palliative care since last admission, DNR/DNI - Seen by Oncology during last admission, f/u with Dr. Stark as OP - On bicalutamide since 02/04; Lupron 22.5 mg 02/08 (q3 month dose). - Will hold chemotherapy for now A fib - NSR here, rate controlled -resume BB when it's clear BP is stable Chronic diastolic HF - Echo 10/2016 reviewed: EF 70%, +diastolic dysfunction - Does not appear to be on SYDNEE-i, Lasix at home - Will hold on Lasix for now, if no improvement with tx of PNA, COPD will attempt diuresis DM - SSI History of laryngeal cancer, status post PEG tube - Due to hx of recurrent aspiration, G tube was changed GJ on last admission Hypertension -resume atenolol when sepsis resolving Urinary retention - Continue Flomax Hyperlipidemia H/O PUD with previous GIB #Goals of Care - Discussed goals of care with patient this morning, he is moving towards comfort care, however he needs to get his affairs in order prior to this (ie his will) - Will continue current treatment for now, palliative and hospice have been consulted - DNR/DNI FEN: NPO, s/p 2L IVF PPx: Lovenox Code status - DNR/DNI Dispo - Continue inpatient care, downgrade to med-surg today due to stable 02 requirement Subjective: Patient reports mild improvement in breathing this AM Objective: Vital Signs Temp Pulse Resp BP Pulse Ox 36.6 C 69 19 102/56 L 91 L 02/17/18 08:00 02/17/18 08:00 02/17/18 08:00 02/17/18 08:00 02/17/18 08:00 Laboratory Results 02/17/18 05:00 02/17/18 05:00 02/16/18 02/17/18 02/18/18 05:59 05:59 04:59 Intake Total 2220 Output Total 1450 Balance 770 - Physical Exam Constitutional: chronically ill appearing Eyes: PERRL Ears, Nose, Mouth, Throat: dry mucous membranes Cardiovascular: regular rate and rhythym Respiratory: no respiratory distress, reduced air movement, expiratory wheeze Gastrointestinal: soft, non-tender abdomen, other (GJ tube in place) Genitourinary: No jimenez in urethra Musculoskeletal: generalized weakness Neurologic: AAOx3 Psychiatric: interacting appropriately ICD10 Worksheet Patient Problems: Problems Problem Status Onset Dehydration Acute Exacerbation of asthma Acute 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
--- NOTE | 2018-02-17 14:09 | ASMTCMCOM ---
CM Note CM Note Notes: Patient with multiple medical problems admitted to [facility] after discharging to [facility] less than 36 hours before. He now has presumed (recurrent) aspiration PNA v COPD exacerbation v CHF exacerbation. I spoke with patient who realizes the gravity of his situation. He is amenable to going back to [facility], but the primary objective should be assisting him "get his affairs in order" and get him established with hospice. Patient plans to speak w his business machines teacher on Monday 02/19. He is enrolled in [employer] [facility] (as of 02/13/18), and I have sent them a referral and asked that they come see him to discuss hospice. They should be able to help him with his affairs. We will likely need to send him to a SNF where hospice can follow him. We will greatly appreciate [facility]iative Care's input when they are back in the office 02/19. Case Management will follow. Date Signed: 02/17/2018 02:08 PM Electronically Signed By:Adrianne Angulo RN
[2018-02-17] MEDS: NS 1,000 ML IV SCH (21:25)
[2018-02-18] MEDS: traMADol 50 MG TAB TUBE PRN ×2 (00:14→17:56)
[2018-02-18] MEDS: CEFEPIME HCL 2 GM in NS 100 ML IV SCH ×2 (05:04→17:35)
[2018-02-18] MEDS: IPRATROPIUM/ALBUTEROL 3 ML DEYVIAL IH SCH ×4 (05:30→21:13)
[2018-02-18 05:36] LABS: PLATELET COUNT 150 10^3/uL (150-400)
[2018-02-18] MEDS: NS 1,000 ML IV SCH ×2 (07:08→16:30)
[2018-02-18] MEDS: LIDOCAINE 4%/MENTHOL 1% PATCH TD SCH (08:01)
[2018-02-18] MEDS: predniSONE 20 MG TAB TUBE SCH (08:05)
[2018-02-18] MEDS: ASPIRIN 81 MG CHEWABLE TAB TUBE SCH (08:06)
[2018-02-18] MEDS: BICALUTAMIDE 50 MG TAB TUBE SCH (08:06)
[2018-02-18] MEDS: INSULIN LISPRO 100 UNIT/ML SC SCH ×3 (08:06→17:29)
[2018-02-18] MEDS: ENOXAPARIN 40 MG/0.4 ML SYR SC SCH (08:06)
[2018-02-18] MEDS: TAMSULOSIN HCL 0.4 MG CAP PO SCH (08:14)
--- NOTE | 2018-02-18 13:07 | HOSPPROG ---
Hospitalist Progress Note Assessment/Plan: #Goals of Care - Discussed goals of care with patient yesterday and this morning, he is moving towards hospice/comfort care, however he needs to get his affairs in order prior to this (ie his will) - Will continue current treatment for now, palliative and hospice have been consulted, discussed with CM this morning - DNR/DNI Acute on chronic hypoxemic respiratory failure - Suspect recurrent aspiration PNA vs. COPD exacerbation - Reports chronic SOB with productive cough since d/c from [facility] 02/14, had aspiration event on morning of admission after episode of n/v - He is NPO, tube feed dependent, on 2 LPM O2 at home, initally on 15 L NRB, then BiPAP, then 6L NC when arrived to floor - +h/o COPD and aspiration in 10/2016 and 01/2018, at which time he was treated for aspiration PNA, Cx grew carbapenem resistant pseudomonas. - Cefepime for pseudomonal coverage, presumed aspiration PNA, has a hx of Carbapenum resistant Pseudomonas, thought colonization during last admission - QID duonebs plus prn Alb nebs - S/p IV solumedrol 125 mg in ED, continue 40 mg Prednisone qd for 5 day course - Continue supplemental 02, wean as tolerated - Patient DNI Sepsis - Patient with leukopenia with bandemia and tachypnea, afebrile, not tachycardic - Likely 2/2 to aspiration PNA - S/p 2L IVF in ED (30 cc/kg = 2400 ml) - Cefepime as above - Blood cultures collected in ED, f/u results Chronic aspiration with GJ Tube - Management of presumed aspiration PNA as above - Will keep NPO - This is recurrent issue COPD Exacerbation - management as above Metastatic Prostate Cancer - Seen on CT during last admission, Bone scan shows bony mets - Enrolled in palliative care since last admission, DNR/DNI - Seen by Oncology during last admission, f/u with Dr. Stark as OP - On bicalutamide since 02/04; Lupron 22.5 mg 02/08 (q3 month dose). - Will hold chemotherapy for now A fib - NSR here, rate controlled -resume BB when it's clear BP is stable Chronic diastolic HF - Echo 10/2016 reviewed: EF 70%, +diastolic dysfunction - Does not appear to be on SYDNEE-i, Lasix at home - Will hold on Lasix for now, if no improvement with tx of PNA, COPD will attempt diuresis DM - SSI History of laryngeal cancer, status post PEG tube - Due to hx of recurrent aspiration, G tube was changed GJ on last admission Hypertension -resume atenolol when sepsis resolving Urinary retention - Continue Flomax Hyperlipidemia H/O PUD with previous GIB FEN: NPO, s/p 2L IVF PPx: Lovenox Code status - DNR/DNI Dispo - Continue inpatient care, likely d/c to hospice within next few days Subjective: Patient reports feeling weak this morning Objective: Vital Signs Temp Pulse Resp BP Pulse Ox 36.6 C 86 18 126/67 H 94 02/18/18 12:00 02/18/18 12:00 02/18/18 12:00 02/18/18 12:00 02/18/18 12:00 Laboratory Results 02/18/18 04:41 02/18/18 04:41 02/17/18 02/18/18 02/19/18 06:59 05:59 05:59 Intake Total Output Total Balance - Physical Exam Constitutional: chronically ill appearing, cachectic Eyes: PERRL Ears, Nose, Mouth, Throat: moist mucous membranes Cardiovascular: regular rate and rhythym Respiratory: reduced air movement, inspiratory crackles Gastrointestinal: soft, non-tender abdomen, other (ostomy in place) Genitourinary: No jimenez in urethra Skin: normal color Musculoskeletal: generalized weakness Neurologic: AAOx3 Psychiatric: interacting appropriately ICD10 Worksheet Patient Problems: Problems Problem Status Onset Dehydration Acute Exacerbation of asthma Acute 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
--- NOTE | 2018-02-18 19:20 | ASMTCMCOM ---
CM Note CM Note Notes: Reviewed chart, spoke with Dr. ePrez regarding discharge plan of care, pt's progress. Per Dr. Perez, pt wishes to move forward with hospice upon discharge. Pt has been refusing therapies (PT/OT). Call placed to MEAGAN Bernal at [facility] to schedule Hospice evaluation and discussion. Per Dolores, the pt is scheduled to be seen on [id number] mid-dayto allow pt time to talk to his juice standardizer about his affairs first. Also discussed possible facilities for hospice care - per Dolores, [facility] provides care at [facility] [place], [place], and [facility]. Attempted to provide update to pt, pt was sleeping. Call received from pt's sister Jocelyn, requesting an update. Jocelyn wishes to take part in the hospice call on Monday, if possible. Jocelyn with many questions regarding the hospice process, removal of medications, chemo, comfort measures, etc. CM attempted to answer Jocelyn's questions and to provide support. CM will continue to follow and will participate in hospice discussions on Monday02/19/18. Discharge Plan: SNF with [facility] Date Signed: 02/18/2018 07:19 PM Electronically Signed By:Taryn Dimas RN
[2018-02-19] MEDS: CEFEPIME HCL 2 GM in NS 100 ML IV SCH (05:02)
[2018-02-19] MEDS: IPRATROPIUM/ALBUTEROL 3 ML DEYVIAL IH SCH (06:04)
[2018-02-19] MEDS: predniSONE 20 MG TAB TUBE SCH (08:40)
[2018-02-19] MEDS: ASPIRIN 81 MG CHEWABLE TAB TUBE SCH (08:40)
[2018-02-19] MEDS: ENOXAPARIN 40 MG/0.4 ML SYR SC SCH (08:40)
[2018-02-19] MEDS: BICALUTAMIDE 50 MG TAB TUBE SCH (08:40)
[2018-02-19] MEDS: LIDOCAINE 4%/MENTHOL 1% PATCH TD SCH (08:42)
[2018-02-19] MEDS: TAMSULOSIN HCL 0.4 MG CAP PO SCH (08:43)
[2018-02-19] MEDS: INSULIN LISPRO 100 UNIT/ML SC SCH ×3 (09:51→20:45)
[2018-02-19] MEDS: LANSOPRAZOLE SUSP 30MG/10ML UDSYR (Adult) TUBE SCH (10:01)
--- NOTE | 2018-02-19 10:11 | WOCRNPDOC ---
WOCRN Advanced Assessment Note - Skin Integrity Problem, Advanced Assess Bilateral Heel Dressing Type: Allevyn Life Dressing Description: Clean/Dry, Intact Natasha Wound Tissue: Blanching, Erythema Skin Integrity Problem Comment: Patient wearing off-loading boots. Both heels are intact and blanching. Continue to use boots to prevent pressure on heels. Wound care will sign off, please reconsult PRN.
[2018-02-19] MEDS: IPRATROPIUM/ALBUTEROL 3 ML DEYVIAL IH PRN ×2 (11:13→17:30)
--- NOTE | 2018-02-19 13:47 | HOSPPROG ---
Hospitalist Progress Note Assessment/Plan: #Goals of Care - Discussed goals of care with patient over the weekend at length, he would like to pursue hospice/comfort care - His staking engineer is coming to hospital at noon today to get his affairs in order (ie his will) - Plan for hospice to evaluate patient in hospital today - Discussed current treatment with patient today, he would like to discontinue abx, unnecessary medications - Likely d/c to SNF with Hospice pending availability, CM following - DNR/DNI Acute on chronic hypoxemic respiratory failure - Suspect recurrent aspiration PNA vs. COPD exacerbation - Reports chronic SOB with productive cough since d/c from [facility] 02/14, had aspiration event on morning of admission after episode of n/v - He is NPO, tube feed dependent, on 2 LPM O2 at home, initally on 15 L NRB, then BiPAP, then 6L NC when arrived to floor - +h/o COPD and aspiration in 10/2016 and 01/2018, at which time he was treated for aspiration PNA, Cx grew carbapenem resistant pseudomonas. - Cefepime for pseudomonal coverage, presumed aspiration PNA, has a hx of Carbapenum resistant Pseudomonas, thought colonization during last admission, will d/c due ot above - Continue PRN Nebs for comfort - S/p IV solumedrol 125 mg in ED, d/c today - Continue supplemental 02, wean as tolerated - Patient DNI Sepsis - Patient with leukopenia with bandemia and tachypnea, afebrile, not tachycardic - Likely 2/2 to aspiration PNA - S/p 2L IVF in ED (30 cc/kg = 2400 ml) - Cefepime as above - Blood cultures collected in ED, f/u results Chronic aspiration with GJ Tube - Management of presumed aspiration PNA as above - Will keep NPO - This is recurrent issue - Patient does not want to continue tube feeds at this time COPD Exacerbation - management as above Metastatic Prostate Cancer - Seen on CT during last admission, Bone scan shows bony mets - Enrolled in palliative care since last admission, DNR/DNI - Seen by Oncology during last admission, f/u with Dr. Stark as OP - On bicalutamide since 02/04; Lupron 22.5 mg 02/08 (q3 month dose). - Holding chemotherapy A fib - NSR here, rate controlled Chronic diastolic HF - Echo 10/2016 reviewed: EF 70%, +diastolic dysfunction - Does not appear to be on SYDNEE-i, Lasix at home DM - SSI History of laryngeal cancer, status post PEG tube - Due to hx of recurrent aspiration, G tube was changed GJ on last admission Hypertension Urinary retention - Continue Flomax for comfort Hyperlipidemia H/O PUD with previous GIB FEN: NPO, s/p 2L IVF PPx: Lovenox Code status - DNR/DNI Dispo - Likely d/c to SNF w/ hospice pending availability Subjective: Patient reports no complaints this AM Objective: Vital Signs Temp Pulse Resp BP Pulse Ox 36.7 C 86 16 122/65 H 94 02/19/18 12:00 02/19/18 12:00 02/19/18 12:00 02/19/18 12:00 02/19/18 12:00 Laboratory Results 02/18/18 04:41 02/18/18 04:41 02/18/18 02/19/18 02/20/18 05:59 05:59 05:59 Intake Total 1400 Output Total 1000 Balance 400 - Physical Exam Constitutional: chronically ill appearing Eyes: PERRL Ears, Nose, Mouth, Throat: moist mucous membranes Cardiovascular: regular rate and rhythym Respiratory: no respiratory distress, inspiratory crackles Gastrointestinal: other (GJ tube in place) Genitourinary: no bladder tenderness Skin: normal color Musculoskeletal: generalized weakness Neurologic: AAOx3 Psychiatric: interacting appropriately ICD10 Worksheet Patient Problems: Problems Problem Status Onset Dehydration Acute Exacerbation of asthma Acute 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
[2018-02-19] MEDS: traMADol 50 MG TAB TUBE PRN ×2 (15:40→22:06)
--- NOTE | 2018-02-20 08:48 | PDIAF ---
- Diagnosis Diagnosis: Aspiration PNA Code Status: Do Not Resuscitate - Medication Management Discharge Medications: electronically signed and located in the Home Medication List. - Orders Services needed: Home Care, Registered Nurse, Certified Wireless Sales Manager Home Care Face to Face: I certify that this patient was under my care and that I had the required [id number] encounter meeting the encounter requirements on the discharge day. My findings support the fact that the patient is homebound as defined in Home Care Face to Face Continued: CMS Chapter 7 Medicare Benefits Manual 30.1.1 , The condition of the patient is such that there exists a normal inability to leave home and consequently, leaving home would require a considerable and taxing effort. Isolation Type: Contact Isolation Tube feeding: Patient was on tube feeds, currently refusing - Follow Up Care Current Providers and Referrals: EMILY VIZCAINO [Other] - As per Instructions
--- NOTE | 2018-02-20 08:51 | PDDCSUM ---
Discharge Summary Discharge Summary: Date of Admission: 02/16/2018 Date of Admission: 02/20/2018 Consults: Palliative Care, Hospice, Case Management Followup: Hospice Hospital Course Problem List: #Goals of Care - Discussed goals of care with patient over the weekend at length, he would like to pursue hospice/comfort care - Plan for hospice to follow patient upon discharge - Patient requested discontinuation of abx, unnecessary medications - DNR/DNI Acute on chronic hypoxemic respiratory failure - Suspect recurrent aspiration PNA - Reports chronic SOB with productive cough since d/c from [facility] 02/14, had aspiration event on morning of admission after episode of n/v - He is NPO, tube feed dependent, on 2 LPM O2 at home, initally on 15 L NRB, then BiPAP, then 6L NC when arrived to floor - +h/o COPD and aspiration in 10/2016 and 01/2018, at which time he was treated for aspiration PNA, Cx grew carbapenem resistant pseudomonas. - Cefepime for pseudomonal coverage, presumed aspiration PNA, has a hx of Carbapenum resistant Pseudomonas, thought colonization during last admission, will d/c due to above - Continue PRN Nebs for comfort - S/p IV solumedrol 125 mg in ED, d/c - Continue supplemental 02, wean as tolerated - Patient DNI Sepsis - Patient with leukopenia with bandemia and tachypnea, afebrile, not tachycardic - Likely 2/2 to aspiration PNA - S/p 2L IVF in ED (30 cc/kg = 2400 ml) - Cefepime as above - Blood cultures collected in ED, NGTD Chronic aspiration with GJ Tube - Management of presumed aspiration PNA as above - Will keep NPO - This is recurrent issue - Patient does not want to continue tube feeds at this time COPD Exacerbation - management as above Metastatic Prostate Cancer - Seen on CT during last admission, Bone scan shows bony mets - Enrolled in palliative care since last admission, DNR/DNI - Seen by Oncology during last admission, f/u with Dr. Stark as OP - On bicalutamide since 02/04; Lupron 22.5 mg 02/08 (q3 month dose). - Holding chemotherapy A fib - NSR here, rate controlled Chronic diastolic HF - Echo 10/2016 reviewed: EF 70%, +diastolic dysfunction - Does not appear to be on SYDNEE-i, Lasix at home DM - SSI History of laryngeal cancer, status post PEG tube - Due to hx of recurrent aspiration, G tube was changed GJ on last admission Hypertension Urinary retention - Continue Flomax for comfort Hyperlipidemia H/O PUD with previous GIB Time spent on discharge was >35 minutes with >50% of time spent on patient education and counseling
[2018-02-20] MEDS: INSULIN LISPRO 100 UNIT/ML SC SCH ×2 (09:04→12:51)
[2018-02-20] MEDS: TAMSULOSIN HCL 0.4 MG CAP PO SCH (09:45)
[2018-02-20] MEDS: BICALUTAMIDE 50 MG TAB TUBE SCH (09:49)
[2018-02-20] MEDS: LANSOPRAZOLE SUSP 30MG/10ML UDSYR (Adult) TUBE SCH (09:49)
[2018-02-20] MEDS: ENOXAPARIN 40 MG/0.4 ML SYR SC SCH (09:50)
[2018-02-20] MEDS: LIDOCAINE 4%/MENTHOL 1% PATCH TD SCH (09:52)
--- NOTE | 2018-02-20 11:14 | ASMTLACE ---
LACE Length of stay for Answers: 4-6 days current admission Acuity / Level of Answers: Yes Care: Did the patient have an inpatient admission? Comorbidities - select Answers: Any tumor (including all that apply lymphoma or leukemia) Chronic pulmonary disease Congestive heart failure Coronary Artery Disease Palliative care / End of life trajectory # of Emergency department Answers: 1-2 visits in the last 6 months Score: 18 Date Signed: 02/20/2018 11:13 AM Electronically Signed By:BRANDON Zarate
--- NOTE | 2018-02-20 11:31 | ASMTDCNOTE ---
Case Management Discharge Discharge Order Complete? Answers: Yes Patient to Obtain Answers: Other Notes: [facility] Hospice Transportation Arranged Answers: [facility] will Pick (Date 02/20/2018 02:00 PM & Time) EMTALA Complete Answers: No Case Management Transport Answers: Yes Form Complete Faxed Final Orders Answers: Yes Agency/Facility Transfer Answers: Yes Report Printed & Faxed to Receiving Agency Family Notified Answers: Yes Discharge Comments Notes: Pt had a hospice meeting w/ [facility] yesterday. Pt would like to go w/ hospice and referral made to [facility]. Pt is willing to self pay for room and board at [facility]. Pts case discussed w/ Ger Fuentes, RN, John, mary and Theresa, from [facility]. DC orders sent to to [facility] and [facility]. ETTA provided Ger w/ phone number to give report. provided Taylor, / [facility] the numbe for Ger for their nurse to get report. PCS form completed. CM spoke to Jocelyn, pts sister and notified her of the d/c. CM available for changes. Plan: [facility] Date Signed: 02/20/2018 11:31 AM Electronically Signed By:BRANDON Zarate
--- NOTE | 2018-02-20 11:32 | ASDISCHSUM ---
Discharge Information Plan Status:SNF Medically Cleared to Leave:02/19/2018 Discharge Date:02/19/2018 CM D/C Disposition: ADT D/C Disposition:Retirement Facility Projected Discharge Date:02/20/2018 11:00 AM Transportation at D/C: Discharge Delay Reason: Follow-Up Date:02/20/2018 11:00 AM Discharge Slot: Final Diagnosis: Placement Information Referral Type:Palliative Care Referral ID:[id number] Provider Name: Address 1: Phone Number: Address 2: Fax Number: City: [facility] Factors: State: Referral Type:*Correction/SNF Referral ID:[id number] Provider Name:[facility] Address 1:[address] Address 2: City:[place] Selection Factors: State:[place] Referral Type:*Hospice Referral ID:[id number] Provider Name:[facility] Address 1:[address] Phone Number: Address 2: Fax Number: [facility]:[place] Selection Factors: State:[place] Patient Contact Information Contact Name:SENG Relationship:Friend Address: Work Phone: [facility]:[place] Alternate Phone: [facility]/Zip Code:[place] [address] Email: Financial Information Financial Class:Medicare Advantage Plans Primary Plan Desc:[employer] Primary Plan Number:[id number] Secondary Plan Desc: Secondary Plan Number: Assessment Information LACE LACE Length of stay for Answers: 4-6 days current admission Acuity / Level of Answers: Yes Care: Did the patient have an inpatient admission? Comorbidities - select Answers: Any tumor (including all that apply lymphoma or leukemia) Chronic pulmonary disease Congestive heart failure Coronary Artery Disease Palliative care / End of life trajectory # of Emergency department Answers: 1-2 visits in the last 6 months Score: 18 Date Signed: 02/20/2018 11:13 AM Electronically Signed By:BRANDON Zarate [facility] Progress Note CM Note CM Note Notes: Patient with multiple medical problems admitted to [facility] after discharging to [facility] less than 36 hours before. He now has presumed (recurrent) aspiration PNA v COPD exacerbation v CHF exacerbation. I spoke with patient who realizes the gravity of his situation. He is amenable to going back to [facility], but the primary objective should be assisting him "get his affairs in order" and get him established with hospice. Patient plans to speak w his non clinical advisor on Monday 02/19. He is enrolled in [facility] (as of 02/13/18), and I have sent them a referral and asked that they come see him to discuss hospice. They should be able to help him with his affairs. We will likely need to send him to a SNF where hospice can follow him. We will greatly appreciate Palliative Care's input when they are back in the office 02/19. Case Management will follow. Date Signed: 02/17/2018 02:08 PM Electronically Signed By:Adrianne Angulo RN [facility] Progress Note CM Note CM Note Notes: Reviewed chart, spoke with Dr. Perez regarding discharge plan of care, pt's progress. Per Dr. Perez, pt wishes to move forward with hospice upon discharge. Pt has been refusing therapies (PT/OT). Call placed to MEAGAN Bernal at [facility] to schedule Hospice evaluation and discussion. Per Dolores, the pt is scheduled to be seen on Iwkovq05/05/18 mid-dayto allow pt time to talk to his non clinical advisor about his affairs first. Also discussed possible facilities for hospice care - per Dolores, Elías provides care at [facility], [place], and [facility]. Attempted to provide update to pt, pt was sleeping. Call received from pt's sister Jocelyn, requesting an update. Jocelyn wishes to take part in the hospice call on Monday, if possible. Jocelyn with many questions regarding the hospice process, removal of medications, chemo, comfort measures, etc. CM attempted to answer Jocelyn's questions and to provide support. CM will continue to follow and will participate in hospice discussions on Monday02/19/18. Discharge Plan: SNF with [facility] Date Signed: 02/18/2018 07:19 PM Electronically Signed By:Taryn Dimas RN Case Management Discharge Plan Note Case Management Discharge Discharge Order Complete? Answers: Yes Patient to Obtain Answers: Other Notes: [facility] Hospice Transportation Arranged Answers: [facility] will Pick (Date 02/20/2018 02:00 PM & Time) EMTALA Complete Answers: No Case Management Transport Answers: Yes Form Complete Faxed Final Orders Answers: Yes Agency/Facility Transfer Answers: Yes Report Printed & Faxed to Receiving Agency Family Notified Answers: Yes Discharge Comments Notes: Pt had a hospice meeting w/ [facility] yesterday. Pt would like to go w/ hospice and referral made to [facility]. Pt is willing to self pay for room and board at [facility]. Pts case discussed w/ Ger Fuentes RN, John, mary and Theresa, from [facility]. DC orders sent to to [facility] and [facility]. ETTA provided Ger w/ phone number to give report. ETTA provided Taylor w/ [facility] the numbe for Ger for their nurse to get report. PCS form completed. CM spoke to Jocelyn, pts sister and notified her of the d/c. CM available for changes. Plan: [facility] Date Signed: 02/20/2018 11:31 AM Electronically Signed By:BRANDON Zarate Intervention Information
[2018-02-20 12:18] VITALS: BP 132/74
== END 2018-02-20 14:18 | DRG 871 ==
LOC: EDUNIT# → F2N 16:02 → F3E 02-17 15:28
PROVIDERS: ADMIT Internal Medicine; ATTEND Internal Medicine
DX: A41.9 Sepsis, unspecified organism (principal); J96.21 Acute and chronic respiratory failure with hypoxia; J69.0 Pneumonitis due to inhalation of food and vomit; I48.2 Chronic atrial fibrillation; C79.51 Secondary malignant neoplasm of bone; J44.9 Chronic obstructive pulmonary disease, unspecified; I11.0 Hypertensive heart disease with heart failure; I50.32 Chronic diastolic (congestive) heart failure; E78.5 Hyperlipidemia, unspecified; Z85.46 Personal history of malignant neoplasm of prostate; Z85.21 Personal history of malignant neoplasm of larynx; Z66 Do not resuscitate; Z87.891 Personal history of nicotine dependence
CPT/HCPCS: 82435-PO; 82565-PO; 82947-PO; 84132-PO; 84295-PO; 84520-PO; 85014-PO; 97161-GP; 97165-GO; 97530-GP; G8978-GP-CL; G8979-GP-CJ; G8987-GO-CL; G8988-GO-CK; J0692; J1650; J1815; J2930; J7512